=== PATIENT | female | born 1970 | race Caucasian/White ===

== ENCOUNTER 2016-07-18 17:44 | Inpatient (IN) | payer MEDICAID ==
--- NOTE | 2016-07-18 17:58 | EDPHY ---
H & P Stated Complaint: low K from labwork from yest. Time Seen by Provider: 07/18/16 17:57 HPI/ROS: CHIEF COMPLAINT: [ ] HISTORY OF PRESENT ILLNESS: [Need 4: Location, Duration, Severity, Quality, Context, Timing Modifying Factors, Associated S&S] REVIEW OF SYSTEMS: A comprehensive 10 point review of systems is otherwise negative aside from elements mentioned in the history of present illness. Source: Patient - Personal History LMP (Females 10-55): Post Menopausal Tetanus Vaccine Date: 2010 - Medical/Surgical History Hx Asthma: No Hx Chronic Respiratory Disease: No Hx Diabetes: No Hx Cardiac Disease: No Hx Renal Disease: No Hx Cirrhosis: No Hx Alcoholism: No Hx HIV/AIDS: No Hx Splenectomy or Spleen Trauma: No Other PMH: anorexia, bipolar, kidney stones, UTI. - Social History Smoking Status: Former smoker - Physical Exam Exam: General Appearance: [Alert, no distress] Eyes: [Pupils equal and round no pallor or injection] ENT, Mouth: [Mucous membranes moist] Respiratory: [There are no retractions, lungs are clear to auscultation] Cardiovascular: [Regular rate and rhythm] Gastrointestinal: [Abdomen is soft and nontender, no masses, bowel sounds normal] Neurological: [A&O, normal motor function, normal sensory exam, normal cranial nerves] Skin: [Warm and dry, no rashes] Musculoskeletal: [Neck is supple nontender] Extremities: [symmetrical, full range of motion] Psychiatric: [Patient is oriented X 3, there is no agitation] Constitutional: Initial Vital Signs Temperature (C) 36.6 C 07/18/16 17:45 Heart Rate 71 07/18/16 17:45 Respiratory Rate 16 07/18/16 17:45 Blood Pressure 120/83 H 07/18/16 17:45 O2 Sat (%) 96 07/18/16 17:45 O2 Delivery Mode Room Air Allergies/Adverse Reactions: amoxicillin Allergy (Intermediate, Verified 04/19/16 12:31) Abdominal Pain lamotrigine [From Lamictal] Allergy (Intermediate, Verified 04/19/16 12:31) Rash Home Medications: Medication Instructions Recorded Linaclotide [Linzess] 290 mcg PO DAILY 05/26/14 Pantoprazole Sodium [Protonix 40mg 40 mg PO DAILY 05/26/14 (*)] Aspirin [Aspirin 81mg (*)] 81 mg PO DAILY 03/03/15 Gabapentin [Neurontin 300 MG (*)] 600 mg PO HS 03/03/15 Temazepam [Restoril 15 MG (*)] 15 mg PO 1900 PRN 03/03/15 Metoclopramide [Reglan 5 mg (*)] 5 mg PO AC 02/22/16 Ranitidine HCl [Zantac 75] 75 mg PO DAILY 02/22/16 diphenhydrAMINE [Benadryl 25 MG 25 mg PO BID PRN 02/22/16 (*)] traZODone [traZODone 150MG (*)] 150 mg PO HS 02/22/16 Loperamide HCl [Imodium 2 mg (*)] 2 mg PO QID PRN #0 cap 02/23/16 oxyCODONE IR [Oxycodone Ir (*)] 5 mg PO Q6 PRN #5 tab 02/23/16 Gabapentin [Neurontin 300 MG (*)] 900 mg PO HS 04/19/16 Linaclotide [Linzess] 290 mcg PO DAILYAC 04/19/16 Metoclopramide [Reglan 10 mg tab 10 mg PO ACHS 04/19/16 (*)] Ondansetron [Zofran Odt] 8 mg PO BID PRN 04/19/16 Promethazine HCl [Phenergan 25mg 25 mg PO Q8 PRN 04/19/16 (*)] busPIRone [Buspar (*)] 15 mg PO HS 04/19/16 clonazePAM [klonoPIN (*)] 1 mg PO HS 04/19/16 traZODone [traZODone 150MG (*)] 150 mg PO HS 04/19/16 Acetaminophen [Tylenol 325mg (*)] 650 mg PO Q6 PRN #0 tab 04/30/16 Apixaban [Eliquis] 5 mg PO BID #60 tab 04/30/16 Calcium Carbonate [Tums 500MG (*)] 500 mg PO TID PRN #0 tab.chew 04/30/16 Pantoprazole Sodium [Protonix 40mg 40 mg PO BID #60 tab 04/30/16 (*)] Simethicone [Mylicon] 80 mg PO Q6H PRN #0 tab.chew 04/30/16 oxyCODONE IR [Oxycodone Ir (*)] 5 - 10 mg PO Q4HRS PRN #30 tab 04/30/16
--- NOTE | 2016-07-18 18:08 | EDPHY ---
H & P Stated Complaint: low K from labwork from yest. Source: Patient, Family Exam Limitations: No limitations - Personal History LMP (Females 10-55): Post Menopausal Tetanus Vaccine Date: 2010 - Medical/Surgical History Hx Asthma: No Hx Chronic Respiratory Disease: No Hx Diabetes: No Hx Cardiac Disease: No Hx Renal Disease: No Hx Cirrhosis: No Hx Alcoholism: No Hx HIV/AIDS: No Hx Splenectomy or Spleen Trauma: No Other PMH: anorexia, bipolar, kidney stones, UTI. - Social History Smoking Status: Former smoker Time Seen by Provider: 07/18/16 17:57 HPI/ROS: CHIEF COMPLAINT: Low potassium, vomiting diarrhea HISTORY OF PRESENT ILLNESS: reports 1 week history of vomiting diarrhea that has stopped since yesterday. Yesterday she had laboratory studies drawn by her primary care physician, today she was notified that the potassium was critically low. She does not know the value was. She has had no vomiting or diarrhea since yesterday. No fevers or chills. No chest pain or shortness of breath. No weakness. Feeling much better today than she was. No other associated complaints or modifying factors past REVIEW OF SYSTEMS: Ten systems reviewed and are negative unless otherwise noted in the HPI EXAMINATION General Appearance: Alert, no distress Head: normocephalic, atraumatic Eyes: Pupils equal and round, no conjunctival pallor or injection ENT, Mouth: Mucous membranes moist Neck: Normal inspection, supple, non-tender Respiratory: Lungs are clear to auscultation. No wheezing, rhonchi or crackles. Cardiovascular: Regular rate and rhythm . No murmur. Pulses intact distally Gastrointestinal: Abdomen is soft and nontender. No tympany, rigidity or rebound Back: non-tender, no bony abnormalities Neurological: A&O, nonfocal, strength symmetric in all limbs. No fasciculations or spasm Skin: Warm and dry, no rash Extremities: Nontender, no pedal edema Psychiatric: Mood and affect normal DIFFERENTIAL DIAGNOSES: Including but not limited to hypokalemia, critical hyperkalemia, nausea vomiting, diarrhea, dehydration MDM: 6:05 p.m. reports of vomiting diarrhea over the past week with a subsequent hypokalemia by previous laboratory studies. She is feeling much better over the last 24 hours. She has no respiratory or abdominal complaints at this time. We are pending stat recheck of her potassium at this time. 6:20 p.m. I-STAT did reveal a potassium of 2.4, so we did immediately order potassium chloride IV piggyback. This was the peripheral route order. She is still resting comfortably at this time. We will obtain EKG and plan for admission. 7:00 p.m. I have re-evaluated the patient. She has received a p.o. dose, she is eating where infusing IV piggyback potassium chloride. EKG is unremarkable. She is resting comfortably. Given the severity of the hypokalemia, we will admit her to hospital for further care. 7:15 p.m. I have discussed the case with the hospitalist Dr. Del Rosario. he has requested that we administered a total of 60 mEq p. o. and IV piggyback combined then recheck potassium level. If at that time she has not increased, we will plan for admission. I do feel that that is a reasonable request at this time. She is also eating at this time as well. We will recheck after the infusion of the IV piggyback potassium chloride 8:45 p.m. repeat potassium level is 2.6 after 60 mEq IV p.o. combination. Thus we will proceed with admission. This case has already been discussed with Dr. Del Rosario by Dr. Valadez, and he will admit the patient. she remains hemodynamically stable and tolerating intake by mouth SUPERVISION: Patient was evaluated in conjunction with the supervising physician. Please see their note for details. (Omkar Vivar) Constitutional: Initial Vital Signs Temperature (C) 97.9 F 07/18/16 17:45 Heart Rate 71 07/18/16 17:45 Respiratory Rate 16 07/18/16 17:45 Blood Pressure 120/83 H 07/18/16 17:45 O2 Sat (%) 96 07/18/16 17:45 O2 Delivery Mode Room Air Allergies/Adverse Reactions: amoxicillin Allergy (Intermediate, Verified 04/19/16 12:31) Abdominal Pain lamotrigine [From Lamictal] Allergy (Intermediate, Verified 04/19/16 12:31) Rash Home Medications: Medication Instructions Recorded Pantoprazole Sodium [Protonix 40mg 40 mg PO DAILY 05/26/14 (*)] Ranitidine HCl [Zantac 75] 75 mg PO DAILY 02/22/16 traZODone [traZODone 150MG (*)] 150 mg PO HS 02/22/16 Linaclotide [Linzess] 290 mcg PO DAILYAC 04/19/16 Metoclopramide [Reglan 10 mg tab 10 mg PO ACHS 04/19/16 (*)] clonazePAM [klonoPIN (*)] 1 mg PO HS 04/19/16 Apixaban [Eliquis] 5 mg PO BID #60 tab 04/30/16 FLUoxetine [Prozac 10 MG (*)] 10 mg PO HS 07/18/16 Multivitamins [Multivitamin (*)] 1 each PO DAILY 07/18/16 SUMAtriptan [Imitrex 25 MG (*)] 25 mg PO PRN PRN 07/18/16 hydrOXYzine HCL 10 mg PO DAILY 07/18/16 Medical Decision Making - Diagnostics EKG Interpretation: EKG: Complete interpretation has been separately recorded in the [facility] archive. Summary impression: Sinus rhythm (Karan Valadez) Other Provider: PHYSICIAN DOCUMENTATION: The patient was evaluated and managed by the Physician Supervisor [employer]. My co- signature indicates that I have reviewed this chart and I agree with the findings and plan of care as documented. I am the secondary supervising physician. The patient did have some replacement of potassium in the emergency department. She continues to be significantly hypokalemic. The patient will be admitted to the hospital for electrolyte replacement this evening. Consultation was made with Dr. Del Rosario 9:00 p.m.. He will admit the patient. ( Karan Valadez) - Data Points Laboratory Results: Laboratory Results 07/18/16 18:20 07/18/16 18:20 07/18/16 07/18/16 07/18/16 20:39 18:20 18:18 WBC 16.21 H 10^3/uL (3.80-9.50) RBC 5.80 H 10^6/uL (4.18-5.33) Hgb 15.4 g/dL (12.6-16.3) POC Hgb 14.3 gm/dL 16.7 H gm/dL (12.3-15.9) (12.3-15.9) Hct 42.7 % (38.0-47.0) POC Hct 42 % 49 H % (35.5-47.5) (35.5-47.5) MCV 73.6 L fL (81.5-99.8) MCH 26.6 L pg (27.9-34.1) MCHC 36.1 g/dL (32.4-36.7) RDW 15.6 H % (11.5-15.2) Plt Count 396 10^3/uL (150-400) MPV 9.1 fL (8.7-11.7) Neut % (Auto) 64.9 % (39.3-74.2) Lymph % (Auto) 23.1 % (15.0-45.0) [place] % (Auto) 10.2 % (4.5-13.0) Eos % (Auto) 1.0 % (0.6-7.6) Baso % (Auto) 0.4 % (0.3-1.7) Nucleat RBC Rel Count 0.0 % (0.0-0.2) Absolute Neuts (auto) 10.51 H 10^3/uL (1.70-6.50) Absolute Lymphs (auto) 3.74 H 10^3/uL (1.00-3.00) Absolute Monos (auto) 1.66 H 10^3/uL (0.30-0.80) Absolute Eos (auto) 0.16 10^3/uL (0.03-0.40) Absolute Basos (auto) 0.07 10^3/uL (0.02-0.10) Absolute Nucleated RBC 0.00 10^3/uL (0-0.01) Immature Gran % 0.4 % (0.0-1.1) Immature Gran # 0.07 10^3/uL (0.00-0.10) POC Sodium 134 mEq/L 132 L mEq/L (134-144) (134-144) Sodium 129 L mEq/L (134-144) POC Potassium 2.6 L* mEq/L 2.4 L* mEq/L (3.3-5.0) (3.3-5.0) Potassium 2.6 L* mEq/L (3.5-5.2) POC Chloride 95 L mEq/L 91 L mEq/L (96-108) (96-108) Chloride 91 L mEq/L (97-110) Carbon Dioxide 25 D mEq/l (22-31) Anion Gap 13 mEq/L (8-16) POC BUN 25 H mg/dL 29 H mg/dL (7-23) (7-23) BUN 27 H mg/dL (7-23) Creatinine 1.4 H mg/dL (0.6-1.0) POC Creatinine 1.6 H mg/dL 1.7 H mg/dL (0.6-1.2) (0.6-1.2) Estimated GFR 41 Glucose 97 mg/dL (70-100) POC Glucose 118 H mg/dL 102 H mg/dL (70-100) (70-100) Calcium 9.7 mg/dL (8.5-10.4) Phosphorus 2.4 L mg/dL (2.5-4.5) Magnesium 2.1 mg/dL (1.6-2.3) Total Bilirubin 0.6 mg/dL (0.1-1.4) Conjugated Bilirubin 0.6 H mg/dL (0.0-0.5) Unconjugated Bilirubin 0.0 mg/dL (0.0-1.1) AST 33 IU/L (14-46) ALT 30 IU/L (9-52) Alkaline Phosphatase 95 IU/L (38-126) Total Protein 6.7 g/dL (6.3-8.2) Albumin 4.2 g/dL (3.5-5.0) Lipase 428.0 H IU/L (23-300) Medications Given: Discontinued Medications Sodium Chloride (Ns) 1,000 mls @ 0 mls/hr IV ONCE ONE PRN Reason: Wide Open Stop: 07/18/16 18:24 Last Admin: 07/18/16 18:25 Dose: 1,000 mls Potassium Chloride (Potassium Cl 10 Meq (Premix)) 100 mls @ 100 mls/hr IV EDNOW ONE Stop: 07/18/16 19:27 Last Admin: 07/18/16 18:50 Dose: 100 mls Potassium Chloride (Klor Packets) 20 meq PO EDNOW ONE Stop: 07/18/16 18:10 Last Admin: 07/18/16 18:25 Dose: 20 meq Potassium Chloride (Klor Packets) 20 meq PO EDNOW ONE Stop: 07/18/16 19:15 Last Admin: 07/18/16 19:34 Dose: 20 meq Point of Care Test Results: 07/18/16 07/18/16 18:18 20:39 POC Sodium 132 L 134 POC Potassium 2.4 L* 2.6 L* POC Chloride 91 L 95 L POC BUN 29 H 25 H POC Creatinine 1.7 H 1.6 H POC Glucose 102 H 118 H Departure - Departure Clinical Impression: Acute hypokalemia, Renal insufficiency, Nausea & vomiting Referrals: Parviz Gibson MD [Primary Care Provider] - As per Instructions
[2016-07-18] MEDS ORDERED: POTASSIUM CL 20 MEQ PKT PO ONE ×2 (18:09→19:14)
[2016-07-18] MEDS ORDERED: NS 1,000 ML IV ONE (18:23)
[2016-07-18] MEDS ORDERED: POTASSIUM Cl (KCl) 100 ML IV ONE (18:28)
[2016-07-18 18:37] LABS: % IMMATURE GRANULYOCYTES 0.4 % (0.0-1.1); ABSOLUTE IMMATURE GRANULOCYTES 0.07 10^3/uL (0.00-0.10); ADD DIFF? NO; ADD MORPH? NO; ADD SCAN? NO; ATYPICAL LYMPHOCYTE FLAG 0 (0-99); FRAGMENT RBC FLAG 0 (0-99); HEMATOCRIT 42.7 % (38.0-47.0); HEMOGLOBIN 15.4 g/dL (12.6-16.3); LEFT SHIFT FLG 0 (0-99); LIPEMIA HEMOLYSIS FLAG 90 (0-99); MEAN CELL HEMOGLOBIN 26.6 pg (27.9-34.1); MEAN CELL HEMOGLOBIN CONCENTR. 36.1 g/dL (32.4-36.7); MEAN CELL VOLUME 73.6 fL (81.5-99.8); MEAN PLATELET VOLUME 9.1 fL (8.7-11.7); PLATELET CLUMPS FLAG 10 (0-99); PLATELET COUNT 396 10^3/uL (150-400); RED CELL DISTRIBUTION WIDTH 15.6 % (11.5-15.2)
--- NOTE | 2016-07-18 18:51 | CPEKG ---
Heart Rate: 62 RR Interval: 968 P-R Interval: 132 QRSD Interval: 96 QT Interval: 412 QTC Interval: 419 P [place]: 13 QRS [place]: 78 T Wave [place]: 25 EKG Severity - ABNORMAL ECG - EKG Impression: SINUS RHYTHM EKG Impression: PROBABLE INFERIOR INFARCT, OLD Electronically Signed By: Karan Valadez 18-Jul-2016 23:01:28
[2016-07-18 18:58] LABS: ALANINE AMINOTRANSFERASE 30 IU/L (9-52); ALBUMIN 4.2 g/dL (3.5-5.0); ALKALINE PHOSPHATASE 95 IU/L (38-126); ANION GAP 13 mEq/L (8-16); ASPARTATE AMINOTRANSFERASE 33 IU/L (14-46); BILIRUBIN,TOTAL 0.6 mg/dL (0.1-1.4); BILIRUBIN-CONJUGATED 0.6 mg/dL (0.0-0.5); CALCIUM 9.7 mg/dL (8.5-10.4); CARBON DIOXIDE 25 mEq/l (22-31); CHLORIDE 91 mEq/L (97-110); CREATININE 1.4 mg/dL (0.6-1.0); GLOMERULAR FILTRATION RATE 41; GLUCOSE 97 mg/dL (70-100); MAGNESIUM 2.1 mg/dL (1.6-2.3); SODIUM 129 mEq/L (134-144); TOTAL PROTEIN 6.7 g/dL (6.3-8.2)
[2016-07-18 19:17] LABS: POTASSIUM 2.6 mEq/L (3.5-5.2)
[2016-07-18] MEDS ORDERED: POTASSIUM CL 20 MEQ TAB ONE (19:31)
[2016-07-18] MEDS ORDERED: ONDANSETRON 4 MG/2 ML VIAL IVP PRN (21:09)
[2016-07-18] MEDS ORDERED: ACETAMINOPHEN 325 MG TAB PO PRN (21:09)
[2016-07-18] MEDS ORDERED: PROMETHAZINE HCL 25 MG TAB PO PRN (21:09)
[2016-07-18] MEDS ORDERED: ONDANSETRON DISINTEGRATING 4 MG TAB PO PRN (21:09)
[2016-07-18] MEDS ORDERED: PROMETHAZINE HCL 25 MG/ML INJ IVP PRN (21:09)
[2016-07-18] MEDS ORDERED: SUMAtriptan 25 MG TAB PO PRN (21:11)
[2016-07-18] MEDS ORDERED: NS W/ 20 KCl/L 1,000 ML IV SCH (21:15)
--- NOTE | 2016-07-18 21:16 | PDGENHP ---
History and Physical - Chief Complaint Acute nausea and vomiting - History of Present Illness PCP: Dr. Gibson Primary manual training teacher: Dr. Schwartz HPI: A 46-year-old female presenting with acute nausea and vomiting characterized as nonbloody emesis with associated nonbloody diarrhea, onset of symptoms approximately 8 days ago and duration persistent thereafter. The patient reports that her symptoms were not alleviated by oral antiemetics taken at home and notably she has not been taking any supplemental potassium during these symptoms. She has been taking all of her other home medications. She reports that she was seen her primary care provider office on 07/17, and lab work was drawn. She had a potassium level of 2.4 was called to present to the emergency department today. Her nausea and vomiting was exacerbated by oral intake and consequently she had a difficult time tolerating solids and liquids during the past week. She reports that her GI symptoms have improved today and she is able to tolerate oral solids and liquids at this time. History Information - Allergies/Home Medication List Allergies/Adverse Reactions: amoxicillin Allergy (Intermediate, Verified 04/19/16 12:31) Abdominal Pain lamotrigine [From Lamictal] Allergy (Intermediate, Verified 04/19/16 12:31) Rash Home Medications: Pantoprazole Sodium [Protonix 40mg (*)] 40 mg PO HS 05/26/14 [Last Taken ] Ranitidine HCl [Zantac 75] 150 mg PO DAILY 02/22/16 [Last Taken 07/18/16] traZODone [traZODone 150MG (*)] 150 mg PO HS 02/22/16 [Last Taken 07/17/16] Linaclotide [Linzess] 290 mcg PO DAILYAC 04/19/16 [Last Taken 07/18/16] Metoclopramide [Reglan 10 mg tab (*)] 10 mg PO QID 04/19/16 [Last Taken 07/18/16 ] clonazePAM [klonoPIN (*)] 1 mg PO HS 04/19/16 [Last Taken 07/17/16] FLUoxetine [Prozac 10 MG (*)] 10 mg PO HS 07/18/16 [Last Taken 07/17/16] Multivitamins [Multivitamin (*)] 1 each PO DAILY 07/18/16 [Last Taken 07/18/16] SUMAtriptan [Imitrex 25 MG (*)] 25 mg PO PRN PRN 07/18/16 [Last Taken 07/14/16] hydrOXYzine HCL 10 mg PO DAILY 07/18/16 [Last Taken 07/04/16] I have personally reviewed and updated: family history, medical history, social history, surgical history - Past Medical History Additional medical history: Anorexia/bulimia/anxiety disorder. Bipolar disease type 1 with extended hospitalization 2012. Chronic kidney disease stage 3, with nephrocalcinosis and baseline creatinine 1.1. Renal artery stenosis with 60% stenosis on the right. Gastroesophageal reflux disease and Hernadez's esophagus. 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 Recurrent hypokalemia with cardiac arrest - Surgical History Additional surgical history: SMA stent. Left axillary stent. Colonoscopy - Family History Additional family history: mother had skin and breast cancer and vertebral artery stenting father had of aortic valve repair and coronary artery disease - Social History Smoking Status: Former smoker Alcohol Use: None Drug Use: None Additional social history: Independent in her ADLs Review of Systems ROS: 10pt was reviewed & negative except for what was stated in HPI & below Gastrointestinal: Reports: vomitting, diarrhea, nausea Physical Exam Temp Pulse Resp BP Pulse Ox 37.6 C 69 16 141/93 H 94 07/18/16 20:34 07/18/16 21:00 07/18/16 21:00 07/18/16 21:00 07/18/16 21:00 Constitutional: no apparent distress, appears nourished, not in pain Eyes: PERRL, anicteric sclera, EOMI Ears, Nose, Mouth, Throat: moist mucous membranes, hearing normal, ears appear normal, no oral mucosal ulcers Cardiovascular: regular rate and rhythym, no murmur, rub, or gallop, No edema Respiratory: no respiratory distress, no rales or rhonchi, clear to auscultation Gastrointestinal: normoactive bowel sounds, soft, non-tender abdomen, no palpable masses Genitourinary: no bladder fullness, no bladder tenderness, other (No CVA tenderness) Skin: warm, normal color, no rashes or abrasions, no fluctuance, no induration, No mottled Neurologic: AAOx3, sensation intact bilaterally, No weakness Psychiatric: interacting appropriately, not anxious, not encephalopathic, thought process linear Lab Data & Imaging Review 07/18/16 18:20 07/18/16 18:20 WBC 16.21 10^3/uL (3.80-9.50) H 07/18/16 18:20 RBC 5.80 10^6/uL (4.18-5.33) H 07/18/16 18:20 Hgb 15.4 g/dL (12.6-16.3) 07/18/16 18:20 POC Hgb 14.3 gm/dL (12.3-15.9) 07/18/16 20:39 Hct 42.7 % (38.0-47.0) 07/18/16 18:20 POC Hct 42 % (35.5-47.5) 07/18/16 20:39 MCV 73.6 fL (81.5-99.8) L 07/18/16 18:20 MCH 26.6 pg (27.9-34.1) L 07/18/16 18:20 MCHC 36.1 g/dL (32.4-36.7) 07/18/16 18:20 RDW 15.6 % (11.5-15.2) H 07/18/16 18:20 Plt Count 396 10^3/uL (150-400) 07/18/16 18:20 MPV 9.1 fL (8.7-11.7) 07/18/16 18:20 Neut % (Auto) 64.9 % (39.3-74.2) 07/18/16 18:20 Lymph % (Auto) 23.1 % (15.0-45.0) 07/18/16 18:20 [place] % (Auto) 10.2 % (4.5-13.0) 07/18/16 18:20 Eos % (Auto) 1.0 % (0.6-7.6) 07/18/16 18:20 Baso % (Auto) 0.4 % (0.3-1.7) 07/18/16 18:20 Nucleat RBC Rel Count 0.0 % (0.0-0.2) 07/18/16 18:20 Absolute Neuts (auto) 10.51 10^3/uL (1.70-6.50) H 07/18/16 18:20 Absolute Lymphs (auto) 3.74 10^3/uL (1.00-3.00) H 07/18/16 18:20 Absolute Monos (auto) 1.66 10^3/uL (0.30-0.80) H 07/18/16 18:20 Absolute Eos (auto) 0.16 10^3/uL (0.03-0.40) 07/18/16 18:20 Absolute Basos (auto) 0.07 10^3/uL (0.02-0.10) 07/18/16 18:20 Absolute Nucleated RBC 0.00 10^3/uL (0-0.01) 07/18/16 18:20 Immature Gran % 0.4 % (0.0-1.1) 07/18/16 18:20 Immature Gran # 0.07 10^3/uL (0.00-0.10) 07/18/16 18:20 POC Sodium 134 mEq/L (134-144) 07/18/16 20:39 Sodium 129 mEq/L (134-144) L 07/18/16 18:20 POC Potassium 2.6 mEq/L (3.3-5.0) L* 07/18/16 20:39 Potassium 2.6 mEq/L (3.5-5.2) L* 07/18/16 18:20 POC Chloride 95 mEq/L (96-108) L 07/18/16 20:39 Chloride 91 mEq/L (97-110) L 07/18/16 18:20 Carbon Dioxide 25 mEq/l (22-31) D 07/18/16 18:20 Anion Gap 13 mEq/L (8-16) 07/18/16 18:20 POC BUN 25 mg/dL (7-23) H 07/18/16 20:39 BUN 27 mg/dL (7-23) H 07/18/16 18:20 Creatinine 1.4 mg/dL (0.6-1.0) H 07/18/16 18:20 POC Creatinine 1.6 mg/dL (0.6-1.2) H 07/18/16 20:39 Estimated GFR 41 07/18/16 18:20 Glucose 97 mg/dL (70-100) 07/18/16 18:20 POC Glucose 118 mg/dL (70-100) H 07/18/16 20:39 Calcium 9.7 mg/dL (8.5-10.4) 07/18/16 18:20 Phosphorus 2.4 mg/dL (2.5-4.5) L 07/18/16 18:20 Magnesium 2.1 mg/dL (1.6-2.3) 07/18/16 18:20 Total Bilirubin 0.6 mg/dL (0.1-1.4) 07/18/16 18:20 Conjugated Bilirubin 0.6 mg/dL (0.0-0.5) H 07/18/16 18:20 Unconjugated Bilirubin 0.0 mg/dL (0.0-1.1) 07/18/16 18:20 AST 33 IU/L (14-46) 07/18/16 18:20 ALT 30 IU/L (9-52) 07/18/16 18:20 Alkaline Phosphatase 95 IU/L (38-126) 07/18/16 18:20 Total Protein 6.7 g/dL (6.3-8.2) 07/18/16 18:20 Albumin 4.2 g/dL (3.5-5.0) 07/18/16 18:20 Lipase 428.0 IU/L (23-300) H 07/18/16 18:20 Visualized and Interpreted EKG results: Yes EKG Interpretation: Positive for: other (Normal sinus rhythm, T-wave inversion in lead 3) Assessment & Plan Assessment: 46-year-old female presents with acute nausea and vomiting resulting in acute hypokalemia, acute kidney injury on chronic kidney disease Plan: 1. Hypokalemia. Acute, new problem this provider, further workup is warranted. Most likely etiology is a poor oral intake as well as GI losses -discussed with Joshua Vivar in the emergency department as well as Dr. Valadez, they have reported to me that they administered 60 mEq of potassium and her repeat serum potassium level remains somewhat unchanged 2.6 -consequently, the patient will require ongoing IV fluids with supplemental potassium and repeating magnesium and potassium levels in the a.m. -will be particular cautious with a potassium supplementation given her acute kidney injury on chronic kidney disease and her risk of over correcting resulting in hyperkalemia -will remain on telemetry overnight given her history of cardiac arrest in the setting of hypokalemia 2. Acute kidney injury on chronic kidney disease stage 3. Baseline creatinine 1.1, presenting serum creatinine level 1.7, most likely secondary to hypovolemia in the setting of nausea vomiting and diarrhea -continue IV fluids overnight, repeat serum creatinine level in a.m., monitor strict I&Os 3. Leukocytosis. Most likely secondary to acute stress, repeat CBC in a.m., no evidence of systemic inflammatory response syndrome 4. Hyponatremia. Acute, most likely secondary to hypo kalemia in the setting of above, provide normal saline and repeat serum sodium level in a.m. 5. Bipolar disease type 1. No evidence of [place] or depression, continue home medications 6. Protein C deficiency. Reviewed outside records including 04/30/[address] Castanon, characterizing patient's most recent hospitalization for SMA thrombosis requiring stenting procedure as well as Lovenox and Coumadin -patient has been adjusted to Eliquis, continue -if patient develops severe abdominal pain, send serum lactic acid level and consider imaging Diet. Regular with IV fluids Prophylaxis. High risk patient, currently on systemic anticoagulation Code status. Full Disposition. Anticipated discharge is 07/19/2016, pending further workup and treatment as outlined above and stabilization of her potassium level.
[2016-07-18] MEDS: APIXABAN 5 MG TAB PO SCH (21:52)
[2016-07-18] MEDS: PANTOPRAZOLE SODIUM 40 MG TAB PO SCH (21:52)
[2016-07-18] MEDS: FLUoxetine 10 MG CAP PO SCH (21:52)
[2016-07-18] MEDS: clonazePAM 1 MG TAB PO SCH (21:52)
[2016-07-19 04:57] LABS: % IMMATURE GRANULYOCYTES 0.2 % (0.0-1.1); ABSOLUTE IMMATURE GRANULOCYTES 0.03 10^3/uL (0.00-0.10); ADD DIFF? NO; ADD MORPH? NO; ADD SCAN? NO; ATYPICAL LYMPHOCYTE FLAG 0 (0-99); FRAGMENT RBC FLAG 0 (0-99); HEMATOCRIT 38.3 % (38.0-47.0); HEMOGLOBIN 13.1 g/dL (12.6-16.3); LEFT SHIFT FLG 0 (0-99); LIPEMIA HEMOLYSIS FLAG 90 (0-99); MEAN CELL HEMOGLOBIN 26.1 pg (27.9-34.1); MEAN CELL HEMOGLOBIN CONCENTR. 34.2 g/dL (32.4-36.7); MEAN CELL VOLUME 76.4 fL (81.5-99.8); MEAN PLATELET VOLUME 9.2 fL (8.7-11.7); PLATELET CLUMPS FLAG 0 (0-99); PLATELET COUNT 307 10^3/uL (150-400); RED BLOOD CELL COUNT 5.01 10^6/uL (4.18-5.33); RED CELL DISTRIBUTION WIDTH 15.8 % (11.5-15.2)
[2016-07-19 05:15] LABS: ALANINE AMINOTRANSFERASE 31 IU/L (9-52); ALBUMIN 2.8 g/dL (3.5-5.0); ALKALINE PHOSPHATASE 68 IU/L (38-126); ANION GAP 7 mEq/L (8-16); ASPARTATE AMINOTRANSFERASE 28 IU/L (14-46); BILIRUBIN,TOTAL 0.4 mg/dL (0.1-1.4); CALCIUM 8.7 mg/dL (8.5-10.4); CARBON DIOXIDE 22 mEq/l (22-31); CHLORIDE 107 mEq/L (97-110); CREATININE 1.2 mg/dL (0.6-1.0); GLOMERULAR FILTRATION RATE 49; GLUCOSE 89 mg/dL (70-100); MAGNESIUM 2.2 mg/dL (1.6-2.3); SODIUM 136 mEq/L (134-144); TOTAL PROTEIN 5.2 g/dL (6.3-8.2)
[2016-07-19 05:18] LABS: POTASSIUM 2.6 mEq/L (3.5-5.2)
[2016-07-19] MEDS ORDERED: PROTOCOL POTASSIUM 1 DOSE MISC PRN (05:36)
[2016-07-19] MEDS ORDERED: POTASSIUM Cl (KCl) 100 ML IV SCH (06:00)
[2016-07-19] MEDS: METOCLOPRAMIDE 10 MG TAB PO SCH ×6 (06:03→21:21)
[2016-07-19] MEDS ORDERED: POTASSIUM CL 20 MEQ TAB PO ONE (07:00)
[2016-07-19] MEDS: APIXABAN 5 MG TAB PO SCH ×2 (08:01→21:21)
[2016-07-19] MEDS: FAMOTIDINE 20 MG TAB PO SCH (08:01)
[2016-07-19] MEDS: MULTIVITAMINS 1 EACH TAB PO SCH (08:01)
[2016-07-19] MEDS ORDERED: hydrOXYzine HCL 10 MG TAB PO SCH (09:00)
[2016-07-19] MEDS: SIMETHICONE 80 MG TAB CHEW PO SCH ×3 (14:18→21:36)
[2016-07-19 15:53] LABS: POTASSIUM 2.6 mEq/L (3.5-5.2)
[2016-07-19] MEDS ORDERED: PROTOCOL MAGNESIUM 1 DOSE IV PRN (16:06)
[2016-07-19] MEDS ORDERED: PROTOCOL K PHOSPHATE 1 DOSE IV PRN (16:06)
[2016-07-19] MEDS ORDERED: MAGNESIUM SULF 1 GM/DEXTROSE 100 ML IV ONE (16:07)
[2016-07-19] MEDS ORDERED: POTASSIUM CL 20 MEQ/15 ML UDCUP PO ONE ×2 (16:08→17:00)
--- NOTE | 2016-07-19 16:13 | HOSPPROG ---
Hospitalist Progress Note Assessment/Plan: 46 yo F with longstanding hx of eating d/o presents after approximately 8 days of n/v/d with hypokalemia # hypokalemia: has been slow to replete likely representing total body stores being very depleted. Continue K and Mg replacement. Will check phos as well and monitor for refeeding syndrome. GI sxs have largely resolved and she is now tolerating diet. # vargas on ckd: improved and now nearly back to baseline, likely related to pre renal etiology from n/v/d. # n/v/d: resolved for the most part, per patient this is frequent for her and related to her hx of bulimia and eating disorders. unclear if this is intentional or not. Will not w/u further at this point unless sxs recur # anorexia/bulimia: patient states that this is no longer an active issue for her however again, multiple admits for recurrent n/v and diarrhea that she admits is related to her eating disorder. BMI of 17. # hyponatremia: resolved with IVF # protein C deficiency: with complications of ischemic bowel, continue eiliquis # bipolar d/o: continue op meds, behaviorally controlled # dispo: IP status, will need > 48 hr stay given continued severe hypokalemia putting patient at high risk Patient new to my care. old records reviewed and summarized as above. Subjective: no significant overnight events, patient having no n/v and reports only one bm since arrival, she is eating Objective: Vital Signs Temp Pulse Resp BP Pulse Ox 37.0 C 61 12 102/63 96 07/19/16 15:42 07/19/16 15:42 07/19/16 15:42 07/19/16 15:42 07/19/16 15:42 Laboratory Results 07/19/16 04:17 07/19/16 14:30 07/18/16 07/19/16 07/20/16 05:59 05:59 05:59 Intake Total 1950 600 Output Total 1200 900 Balance 750 -300 awake alert nad anicteric op clear rrr no mrg cta b soft nt nd no cce warm dry well perfused oriented appropriate ICD10 Worksheet Patient Problems: Problems Problem Status Diagnosed Anorexia nervosa Active GERD - Gastroesophageal reflux disease Active Hypokalemia Active Acute hypokalemia Acute Diarrhea Acute Nausea & vomiting Acute Renal insufficiency Acute Bulemia [place] Active Chronic vomiting Active Coumadin Therapy for 6 months Active Dehydration Active Hyponatremia Active Leukocytosis Active Occlusion of artery Active Renal artery stenosis Active Thrombocytosis Active Tobacco user Active Abdominal pain Acute Hypokalemia Acute Mesenteric thrombosis Acute
[2016-07-19] MEDS: POTASSIUM Cl (KCl) 100 ML IV SCH ×2 (16:54→18:40)
[2016-07-19] MEDS: PANTOPRAZOLE SODIUM 40 MG TAB PO SCH (21:21)
[2016-07-19] MEDS: FLUoxetine 10 MG CAP PO SCH (21:21)
[2016-07-19] MEDS: clonazePAM 1 MG TAB PO SCH (21:21)
[2016-07-19 23:28] VITALS: O2SAT 95
[2016-07-20 04:53] LABS: ANION GAP 7 mEq/L (8-16); CALCIUM 8.9 mg/dL (8.5-10.4); CARBON DIOXIDE 23 mEq/l (22-31); CHLORIDE 108 mEq/L (97-110); CREATININE 1.2 mg/dL (0.6-1.0); GLOMERULAR FILTRATION RATE 49; GLUCOSE 91 mg/dL (70-100); MAGNESIUM 2.3 mg/dL (1.6-2.3); POTASSIUM 3.5 mEq/L (3.5-5.2); SODIUM 138 mEq/L (134-144)
[2016-07-20 08:17] VITALS: BP 106/75; PULSE 67; RESP 19; TEMP 98.1
[2016-07-20] MEDS: METOCLOPRAMIDE 10 MG TAB PO SCH (08:36)
[2016-07-20] MEDS: FAMOTIDINE 20 MG TAB PO SCH (08:36)
[2016-07-20] MEDS: MULTIVITAMINS 1 EACH TAB PO SCH (08:36)
[2016-07-20] MEDS: APIXABAN 5 MG TAB PO SCH (08:36)
[2016-07-20] MEDS ORDERED: POTASSIUM CL 10 MEQ TAB PO ONE (08:41)
--- NOTE | 2016-07-20 09:38 | PDDCSUM ---
Discharge Summary Discharge Summary: Dates of service: 07/18-07/20/16 Procedures/consultations: none Hospital course by problem: # hypokalemia: 2/2 n/v/d and poor po intake in setting of bulimia/anorexia and likely cyclic vomiting with possible viral gastroenteritis. Repleted. Continue low dose K supplementation given malnutrition. Has a hx of cardiac arrest related to hypokalemia # vargas on ckd: back to baseline s/p IVF # n/v/d: resolved , per patient this is frequent for her and related to her hx of bulimia and eating disorders. # anorexia/bulimia: continue op mgmt # moderate protein calorie malnutrition: BMI of 18, hx of bulimia/anorexia/ laxative abuse. As above. # hyponatremia: resolved with IVF # protein C deficiency: with complications of ischemic bowel, continue eiliquis # bipolar d/o: continue op meds, behaviorally controlled Dispo: dc home F/u with PCP in next week Meds: see EHR, continue K gluconate she had been taking previously as well as Mag oxide > 35 minutes spent in dc of patient, more than half in face to face counseling
== END 2016-07-20 10:40 | disposition home or self-care (01) | DRG 640 ==
LOC: F2W 21:28 → OBSVTOIN 07-19 16:09
PROVIDERS: ADMIT Internal Medicine; ATTEND Internal Medicine
DX: E87.6 Hypokalemia (principal); K55.059 Acute (reversible) ischemia of intestine, part and extent unspecified; N17.9 Acute kidney failure, unspecified; F50.02 Anorexia nervosa, binge eating/purging type; E44.0 Moderate protein-calorie malnutrition; D68.59 Other primary thrombophilia; Z68.1 Body mass index [BMI] 19.9 or less, adult; N18.3 Chronic kidney disease, stage 3 (moderate); F31.9 Bipolar disorder, unspecified; K29.70 Gastritis, unspecified, without bleeding; E87.1 Hypo-osmolality and hyponatremia; Z86.73 Personal history of transient ischemic attack (TIA), and cerebral infarction without residual deficits; Z87.891 Personal history of nicotine dependence; Z80.3 Family history of malignant neoplasm of breast; Z82.49 Family history of ischemic heart disease and other diseases of the circulatory system
CPT/HCPCS: 82947-QW; 96365; G0378; J3475

== ENCOUNTER 2016-08-11 01:47 | Inpatient (IN) | payer MEDICAID ==
[2016-08-11] MEDS ORDERED: NS 1,000 ML IV ONE ×4 (01:59→04:26)
[2016-08-11] MEDS ORDERED: ONDANSETRON 4 MG/2 ML VIAL IVP ONE (01:59)
[2016-08-11] MEDS ORDERED: HYDROmorphONE/DILAUDID 1 MG/ML SYR IVP PRN ×2 (02:00→04:30)
[2016-08-11 02:24] LABS: % IMMATURE GRANULYOCYTES 0.8 % (0.0-1.1); ADD DIFF? NO; ADD MORPH? NO; ADD SCAN? NO; ATYPICAL LYMPHOCYTE FLAG 0 (0-99); FRAGMENT RBC FLAG 0 (0-99); HEMATOCRIT 50.1 % (38.0-47.0); HEMOGLOBIN 16.7 g/dL (12.6-16.3); LEFT SHIFT FLG 10 (0-99); LIPEMIA HEMOLYSIS FLAG 80 (0-99); MEAN CELL HEMOGLOBIN 25.8 pg (27.9-34.1); MEAN CELL HEMOGLOBIN CONCENTR. 33.3 g/dL (32.4-36.7); MEAN CELL VOLUME 77.4 fL (81.5-99.8); MEAN PLATELET VOLUME 8.7 fL (8.7-11.7); PLATELET CLUMPS FLAG 10 (0-99); PLATELET COUNT 705 10^3/uL (150-400); RED BLOOD CELL COUNT 6.47 10^6/uL (4.18-5.33)
[2016-08-11 02:30] LABS: APTT 23.4 SEC (23.0-38.0); INR 1.18 (0.83-1.16)
[2016-08-11] MEDS ORDERED: IOPAMIDOL (ISOVUE-300) 100 ML BTL IV ONE (02:30)
[2016-08-11 02:31] LABS: ANION GAP 32 mEq/L (8-16); CALCIUM 10.8 mg/dL (8.5-10.4); CARBON DIOXIDE 23 mEq/l (22-31); CHLORIDE 77 mEq/L (97-110); CREATININE 2.2 mg/dL (0.6-1.0); GLOMERULAR FILTRATION RATE 24; GLUCOSE 209 mg/dL (70-100); SODIUM 132 mEq/L (134-144)
[2016-08-11] MEDS ORDERED: POTASSIUM Cl (KCl) 100 ML IV ONE ×2 (02:43→04:35)
[2016-08-11 02:46] LABS: POTASSIUM 2.3 mEq/L (3.5-5.2)
[2016-08-11] MEDS ORDERED: ERTAPENEM 1 GM in NS 100 ML IV ONE (02:59)
[2016-08-11] MEDS ORDERED: POTASSIUM Cl (KCl) 10 MEQ/100 ML BAG IV ONE ×2 (03:13→04:30)
[2016-08-11] MEDS ORDERED: NS 500 ML IV ONE (04:00)
[2016-08-11] MEDS ORDERED: NS 1,000 ML IV SCH (04:00)
[2016-08-11] MEDS ORDERED: LORazepam 2 MG/ML INJ IVP PRN (04:02)
[2016-08-11] MEDS ORDERED: SODIUM BICARBONATE 150 MEQ in D5W 1,000 ML IV ONE (05:00)
--- NOTE | 2016-08-11 05:07 | EDPHY ---
H & P Stated Complaint: abdominal pain, vomiting HPI/ROS: HPI The patient presents with abdominal pain which has been present for the last 3 days and getting progressively worse. She feels it mostly in her left abdomen, it is dull in nature and does not radiate. It is associated with abdominal distention, she has been using a heating pad on her abdomen. It has been associated with an episode of fainting upon standing. 911 was called and when the paramedics arrived, she had another fainting episode. She has vomited several times. She has a history of mesenteric ischemia and had a stent placed in her SMA several months ago. She return to the hospital about a month ago and was dehydrated with a bump in her creatinine and hypokalemia. REVIEW OF SYSTEMS Constitutional: No fever, no chills. Eyes: No discharge. ENT: No sore throat. Cardiovascular: No chest pain, no palpitations. Respiratory: No cough, no shortness of breath. Gastrointestinal: See HPI Genitourinary: No hematuria. Musculoskeletal: No back pain. Skin: No rashes. Neurological: No headache. PMHx: Mesenteric ischemia with stent in place, anorexia nervosa, bulimia Soc Hx: Lives at home PHYSICAL General Appearance: Alert, pale and uncomfortable appearing Eyes: Pupils equal and round no pallor or injection ENT, Mouth: Mucous membranes moist Respiratory: There are no retractions, lungs are clear to auscultation Cardiovascular: Tachycardic rate with regular rhythm Gastrointestinal: Mottled appearance to her abdominal skin, abdomen is distended, diffuse tenderness to palpation with rebound present Neurological: A&O, moves all extremities Skin: Warm and dry, no rashes Musculoskeletal: Neck is supple non tender Extremities: symmetrical, full range of motion Psychiatric: Patient is oriented X 3, there is no agitation Source: Patient, EMS - Personal History LMP (Females 10-55): 8-14 Days Ago Current Tetanus/Diphtheria Vaccine: Yes Current Tetanus Diphtheria and Acellular Pertussis (TDAP): Yes Tetanus Vaccine Date: 2010 - Medical/Surgical History Hx Asthma: No Hx Chronic Respiratory Disease: No Hx Diabetes: No Hx Cardiac Disease: No Hx Renal Disease: No Hx Cirrhosis: No Hx Alcoholism: No Hx HIV/AIDS: No Hx Splenectomy or Spleen Trauma: No Other PMH: anorexia, bipolar, kidney stones, UTI. - Social History Smoking Status: Former smoker Alcohol Use: None Constitutional: Initial Vital Signs Temperature (C) 36.7 C 08/11/16 01:50 Heart Rate 118 H 08/11/16 01:50 Respiratory Rate 16 08/11/16 01:50 Blood Pressure 102/74 08/11/16 01:50 O2 Sat (%) 97 08/11/16 01:50 O2 Delivery Mode Nasal Cannula O2 (L/minute) 2 Allergies/Adverse Reactions: amoxicillin Allergy (Intermediate, Verified 04/19/16 12:31) Abdominal Pain lamotrigine [From Lamictal] Allergy (Intermediate, Verified 04/19/16 12:31) Rash Home Medications: Medication Instructions Recorded Pantoprazole Sodium [Protonix 40mg 40 mg PO HS 05/26/14 (*)] Ranitidine HCl [Zantac 75] 150 mg PO DAILY 02/22/16 traZODone [traZODone 150MG (*)] 150 mg PO HS 02/22/16 Linaclotide [Linzess] 290 mcg PO DAILYAC 04/19/16 Metoclopramide [Reglan 10 mg tab 10 mg PO QID 04/19/16 (*)] clonazePAM [klonoPIN (*)] 1 mg PO HS 04/19/16 Apixaban [Eliquis] 5 mg PO BID #60 tab 04/30/16 FLUoxetine [Prozac 10 MG (*)] 10 mg PO HS 07/18/16 Multivitamins [Multivitamin (*)] 1 each PO DAILY 07/18/16 SUMAtriptan [Imitrex 25 MG (*)] 25 mg PO PRN PRN 07/18/16 hydrOXYzine HCL 10 mg PO DAILY 07/18/16 Acetaminophen [Tylenol 325mg (*)] 650 mg PO Q4HRS PRN #0 tab 07/20/16 Magnesium Oxide [Magnesium Oxide 500 mg PO DAILY #30 tablet 07/20/16 500 mg] Potassium Gluconate 90 mg PO DAILY #30 tablet 07/20/16 Simethicone [Mylicon] 80 mg PO PCHS #0 tab.chew 07/20/16 Medical Decision Making - Diagnostics Imaging: CT abd/pel without contrast discussed with Dr. Caraballo of Radiology demonstrates high-grade SBO of the distal ileum with twisting of mesenteric root , suspect ischemic small bowel with portal venous gas and pneumatosis Differential Diagnosis: This is a 46-year-old female with history of bulimia/anorexia, mesenteric ischemia with history of stent in SMA, who presents brought in by ambulance with severe abdominal pain and syncope. On arrival she is uncomfortable appearing, tachycardic, hypotensive, with a concerning abdominal exam. Differential diagnosis includes ischemic bowel, bowel obstruction, perforation. In the emergency room, the patient was fluid resuscitated with 2 L of IV fluid. She was given pain medication for her pain. Labs were checked which revealed hypokalemia, acute renal failure, profound leukocytosis with lactic acidosis of 12. Blood cultures were drawn. The patient was started on ertapenem. CT scan was performed which demonstrated concern for bowel ischemia versus SBO. Dr. Carr of General surgery came to the emergency room to consult on the patient. We plan to continue early fluid resuscitate her, place NG tube, placed central line, and admit her to the ICU for continued care. Critical Care Time: CRITICAL CARE Critical care time spent by me, Dr. Hartman, exclusively with this patient was 60 minutes, exclusive of PA time and exclusive of procedures. The organ system at risk was GI and I gave IV fluids, antibiotics, emergently transfer patient to the ICU to prevent worsening of the patients condition. - Data Points Laboratory Results: Laboratory Results 08/11/16 02:07 08/11/16 02:07 08/11/16 08/11/16 08/11/16 02:07 02:07 02:07 WBC RBC Hgb Hct MCV MCH MCHC RDW Plt Count MPV Neut % (Auto) Lymph % (Auto) [place] % (Auto) Eos % (Auto) Baso % (Auto) Nucleat RBC Rel Count Absolute Neuts (auto) Absolute Lymphs (auto) Absolute Monos (auto) Absolute Eos (auto) Absolute Basos (auto) Absolute Nucleated RBC Immature Gran % Immature Gran # PT 15.0 SEC SEC (12.0-15.0) INR 1.18 H (0.83-1.16) APTT 23.4 SEC SEC (23.0-38.0) VBG Lactic Acid Sodium 132 mEq/L L mEq/L (134-144) Potassium 2.3 mEq/L L* mEq/L (3.5-5.2) Chloride 77 mEq/L L mEq/L (97-110) Carbon Dioxide 23 mEq/l mEq/l (22-31) Anion Gap 32 mEq/L H mEq/L (8-16) BUN 34 mg/dL H mg/dL (7-23) Creatinine 2.2 mg/dL H mg/dL (0.6-1.0) Estimated GFR 24 Glucose 209 mg/dL H mg/dL (70-100) Calcium 10.8 mg/dL H mg/dL (8.5-10.4) Phosphorus 6.1 mg/dL H mg/dL (2.5-4.5) Lipase 107.0 IU/L IU/L (23-300) Beta HCG, Qual NEGATIVE 08/11/16 08/11/16 02:07 02:07 WBC 24.23 10^3/uL H 10^3/uL (3.80-9.50) RBC 6.47 10^6/uL H 10^6/uL (4.18-5.33) Hgb 16.7 g/dL H g/dL (12.6-16.3) Hct 50.1 % H % (38.0-47.0) MCV 77.4 fL L fL (81.5-99.8) MCH 25.8 pg L pg (27.9-34.1) MCHC 33.3 g/dL g/dL (32.4-36.7) RDW 16.0 % H % (11.5-15.2) Plt Count 705 10^3/uL H 10^3/uL (150-400) MPV 8.7 fL fL (8.7-11.7) Neut % (Auto) 90.6 % H % (39.3-74.2) Lymph % (Auto) 2.3 % L % (15.0-45.0) Galax % (Auto) 5.5 % % (4.5-13.0) Eos % (Auto) 0.1 % L % (0.6-7.6) Baso % (Auto) 0.7 % % (0.3-1.7) Nucleat RBC Rel Count 0.0 % % (0.0-0.2) Absolute Neuts (auto) 21.95 10^3/uL H 10^3/uL (1.70-6.50) Absolute Lymphs (auto) 0.56 10^3/uL L 10^3/uL (1.00-3.00) Absolute Monos (auto) 1.34 10^3/uL H 10^3/uL (0.30-0.80) Absolute Eos (auto) 0.02 10^3/uL L 10^3/uL (0.03-0.40) Absolute Basos (auto) 0.16 10^3/uL H 10^3/uL (0.02-0.10) Absolute Nucleated RBC 0.00 10^3/uL 10^3/uL (0-0.01) Immature Gran % 0.8 % % (0.0-1.1) Immature Gran # 0.20 10^3/uL H 10^3/uL (0.00-0.10) PT INR APTT VBG Lactic Acid 11.9 mmol/L H mmol/L (0.7-2.1) Sodium Potassium Chloride Carbon Dioxide Anion Gap BUN Creatinine Estimated GFR Glucose Calcium Phosphorus Lipase Beta HCG, Qual Medications Given: Discontinued Medications Sodium Chloride (Ns) 1,000 mls @ 0 mls/hr IV ONCE ONE PRN Reason: Wide Open Stop: 08/11/16 02:00 Last Admin: 08/11/16 02:00 Dose: 1,000 mls Potassium Chloride (Potassium Cl 20 Meq (Premix)) 100 mls @ 50 mls/hr IV EDNOW ONE Stop: 08/11/16 04:42 Last Admin: 08/11/16 03:25 Dose: 100 mls Ertapenem 1 gm/ Sodium (Chloride) 100 mls @ 200 mls/hr IV EDNOW ONE PRN Reason: Protocol Stop: 08/11/16 03:28 Last Admin: 08/11/16 03:28 Dose: 100 mls Sodium Chloride (Ns) 1,000 mls @ 0 mls/hr IV ONCE ONE PRN Reason: Wide Open Stop: 08/11/16 03:31 Last Admin: 08/11/16 03:25 Dose: 1,000 mls Sodium Chloride (Ns) 500 mls @ 1,500 mls/hr IV ONCE ONE Stop: 08/11/16 04:19 Last Admin: 08/11/16 04:35 Dose: 500 mls Sodium Chloride (Ns) 1,000 mls @ 0 mls/hr IV ONCE ONE PRN Reason: Wide Open Stop: 08/11/16 04:25 Last Admin: 08/11/16 03:15 Dose: 1,000 mls Sodium Chloride (Ns) 1,000 mls @ 0 mls/hr IV ONCE ONE PRN Reason: Wide Open Stop: 08/11/16 04:27 Last Admin: 08/11/16 03:45 Dose: 1,000 mls Ondansetron HCl (Zofran) 4 mg IVP EDNOW ONE Stop: 08/11/16 02:00 Last Admin: 08/11/16 03:15 Dose: 4 mg Departure - Departure Disposition: [facility] Inpatient Acute Clinical Impression: SBO (small bowel obstruction), Lactic acid acidosis, Hypokalemia, Renal failure Condition: Critical Referrals: Patient,NotPresent [Unknown] - As per Instructions
--- NOTE | 2016-08-11 05:35 | PDCONSULT ---
Mentally Retarded Teacher Note: #[id number] Surgical Admit note dictated S MD Bruno, FACS
[2016-08-11 05:48] LABS: INR 1.49 (0.83-1.16)
[2016-08-11 05:49] LABS: APTT 23.9 SEC (23.0-38.0)
[2016-08-11 05:51] LABS: ALANINE AMINOTRANSFERASE 42 IU/L (9-52); ALBUMIN 2.4 g/dL (3.5-5.0); ALKALINE PHOSPHATASE 79 IU/L (38-126); ANION GAP 12 mEq/L (8-16); ASPARTATE AMINOTRANSFERASE 42 IU/L (14-46); BILIRUBIN,TOTAL 0.3 mg/dL (0.1-1.4); CALCIUM 6.9 mg/dL (8.5-10.4); CARBON DIOXIDE 23 mEq/l (22-31); CHLORIDE 98 mEq/L (97-110); CREATININE 1.4 mg/dL (0.6-1.0); GLOMERULAR FILTRATION RATE 41; GLUCOSE 108 mg/dL (70-100); MAGNESIUM 3.7 mg/dL (1.6-2.3); POTASSIUM 2.9 mEq/L (3.5-5.2); SODIUM 133 mEq/L (134-144); TOTAL PROTEIN 4.6 g/dL (6.3-8.2)
[2016-08-11] MEDS ORDERED: HYDROmorphONE/DILAUDID 1 MG/ML SYR IVP ONE (06:01)
--- NOTE | 2016-08-11 06:01 | CPEKG ---
Heart Rate: 91 RR Interval: 659 P-R Interval: 156 QRSD Interval: 90 QT Interval: 408 QTC Interval: 503 P Seneca: 51 QRS Seneca: 68 T Wave Seneca: 27 EKG Severity - ABNORMAL ECG - EKG Impression: SINUS RHYTHM EKG Impression: BORDERLINE INFERIOR Q WAVES EKG Impression: BORDERLINE R WAVE PROGRESSION, ANTERIOR LEADS EKG Impression: BORDERLINE PROLONGED QT INTERVAL Electronically Signed By: Tram Hartman 11-Aug-2016 07:39:58
[2016-08-11 06:02] LABS: TROPONIN I 0.023 ng/mL (0-0.034)
--- NOTE | 2016-08-11 06:18 | GHP ---
[f rep st] HISTORY AND PHYSICAL DATE OF ADMISSION: 08/11/2016 CHIEF COMPLAINT: Abdominal pain. HISTORY OF PRESENT ILLNESS: Patient is a 46-year-old female with multiple medical problems including a longstanding history of anorexia, bulimia, who presents with a 3-day history of abdominal pain. The patient was admitted to the [facility] in March of 2016, at which time she was found to have mesenteric ischemia and underwent SMA stent placement. She also experienced an iatrogenic left upper extremity arterial occlusion requiring stenting of the axillary artery. She was rehospitalized twice since that time, most recently to the medical service in June of 2016. She has a history of hypercoagulable state with protein C deficiency. There is a history of renal failure with severe hypokalemia as well as bipolar disorder. The patient was seen in the emergency room by Dr. Tram Hartman, and surgical consultation was requested after a CT scan showed dilated loops of bowel with evidence of portal venous gas. This study was performed without contrast because she presented with an elevated creatinine of 2.2. The patient reports abdominal pain of 3 days' duration. She has had only one episode of emesis after drinking Magnesium Citrate. She had a normal bowel movement approximately 20 hours ago and denies diarrhea. She has had no chest pain, shortness of breath, fever, chills. PAST MEDICAL HISTORY: Reviewed. She has had no prior abdominal surgeries. She has had placement of a superior mesenteric arterial stent as well as left axillary stent. She is a smoker, though has cut way back on her tobacco use. She underwent colonoscopy by Dr. Morgan Barth in April of 2016, for evaluation of possible ischemia, and this study was normal. CHRONIC MEDICATIONS: Include Eliquis 5 mg p.o. b.i.d., Klonopin 1 mg p.o. q.h.s., Prozac 10 mg q.h.s., hydroxyzine 10 mg p.o. daily, Linzess 290 mcg p.o. daily, magnesium oxide 500 mg p.o. daily, Reglan 10 mg p.o. q.i.d., multiple vitamins 1 p.o. daily, Protonix 40 mg q.h.s., potassium gluconate 90 mg p.o. daily, ranitidine 150 mg p.o. daily, simethicone 80 mg p.o. q.h.s., Imitrex 25 mg p.o. p.r.n., and trazodone 150 mg p.o. q.h.s. ALLERGIES: She is allergic to amoxicillin and lamotrigine. SOCIAL HISTORY: She denies significant alcohol use. She uses CBD compounds for chronic pain. Patient is accompanied by her mother and her boyfriend. FAMILY HISTORY: Significant for breast cancer and melanoma in her mother. REVIEW OF SYSTEMS: Pertinent negatives are per History of Present Illness. She denies chest pain, SOB, cough, sputum, hemetemesis, melena, hematochezia, diarrhea, fever, chills PHYSICAL EXAMINATION: GENERAL: A thin, pale, chronically ill-appearing young woman who is in moderate distress. VITAL SIGNS: Blood pressure is 120/84, heart rate is 88, respiratory rate is 20, O2 sat is 97% on 2 L, temperature is 36.7. HEENT: The patient has an 18-gauge catheter in the left external jugular vein, which is infusing normal saline. The trachea is midline. There is no scleral icterus. There is no cervical or supraclavicular adenopathy. CHEST: Clear with diminished breath sounds throughout. HEART: Regular in rate and rhythm. ABDOMEN: Distended, tympanitic, diffusely tender to palpation with guarding. Bowel sounds are hypoactive. EXTREMITIES: Femoral pulses are +2 and symmetrical. Pedal pulses are +1 on the left, absent on the right. Radial pulses +2 on the right, absent on the left. Left hand is cool but pink with good capillary refill. PELVIC AND RECTAL: Exam is not repeated. LABORATORY STUDIES: WBC is 24.2, hemoglobin 16.7, hematocrit 50.1, platelets are 705,000. PT is 15, INR is 1.18, PTT is 23.4. Sodium was 132, potassium 2.3 , chloride was 77, BUN is 34, creatinine 2.2. Previous creatinine on July, was 1.7. Glucose was 209, calcium 10.8, phosphorus 6.1. Lipase was 107. Beta hCG was negative. Urinalysis is pending. IMAGING: The patient's CT scan was reviewed and shows diffusely-dilated loops of bowel with evidence of portal venous gas with air scattered throughout the periphery of the liver. There was no free air. No significant peritoneal fluid. The patient has extensive bilateral calcifications in her kidneys. These appear to be parenchymal rather than in the collecting system. The patient's superior mesenteric artery stent is visualized; however, this is a noncontrast study and patency cannot be assessed. PROCEDURE: Central line placement was performed for fluid administration, central venous monitoring. After obtaining consent from the patient, the left infraclavicular area was prepped with chlorhexidine and a sterile field was established. 1% lidocaine was used to infiltrate the left infraclavicular fossa. An 18-gauge thin-wall needle was advanced into the left subclavian vein on the 1st pass with good venous return. A flexible J-wire was introduced and advanced without resistance. Subsequently, a triple-lumen catheter was threaded over the wire, and it was secured to the skin with 3-0 silk suture. Good venous return was noted, and a chest x-ray showed the catheter tip to be within the SVC/NGT placement was in the stomach IMPRESSION: 1. Abdominal pain, unclear etiology. Possible ischemic bowel related to SMA stent occlusion would be the most significant event and cannot be determined based on present studies. I discussed the case with Dr. Becerra, and he recommended a CT angiogram with bicarbonate protocol for renal protection, and this is been requested. Small bowel obstruction is a possible explanation, though the patient has never had abdominal surgery and this would seem less likely. 2. History of hypercoagulable state. The patient was previously worked up by Hematology and Dr. Newby saw the patient. She has been on Eliquis since that time without sequelae. 3. Leukocytosis. This apparently has been a chronic low-grade problem also in the past with current white blood cell count higher than during her last hospitalization but, nonetheless, chronically elevated. 4. Thrombocytosis, possibly related to volume depletion. 5. Hypokalemia, likely related to emesis. 6. History of bipolar disorder. 7. History of bulimia, anorexia. 8. History of nephrolithiasis. 9. History of migraine headaches. 10. Hypercalcemia and hyperphosphatemia. Patient's calcium phosphorus product is greater than 60, which places her at risk for spontaneous peripheral calcinosis. 11. Renal insufficiency with current creatinine at 2.2. RECOMMENDATIONS: We will proceed with bicarbonate-protocol CT angiogram to assess for SMA stent patency. Nasogastric tube for decompression. Intravenous fluids for volume replacement and potassium replacement. If the patient's condition fails to improve, she may require laparotomy and exploration. 90 minutes of critical care time was spent with the patient in direct contact at the bedside as well as with central line placement. Copy requested to: Dr. Hartman /[id number]/MODL MTDD
[2016-08-11] MEDS ORDERED: IOPAMIDOL (ISOVUE 370) 100 ML BTL IV ONE (06:19)
[2016-08-11 06:58] VITALS: TEMP 97.5
[2016-08-11 07:06] LABS: % IMMATURE GRANULYOCYTES 0.2 % (0.0-1.1); ABSOLUTE IMMATURE GRANULOCYTES 0.01 10^3/uL (0.00-0.10); ADD DIFF? NO; ADD MORPH? NO; ADD SCAN? YES; ATYPICAL LYMPHOCYTE FLAG 0 (0-99); FRAGMENT RBC FLAG 0 (0-99); HEMOGLOBIN 12.6 g/dL (12.6-16.3); LIPEMIA HEMOLYSIS FLAG 80 (0-99); MEAN CELL HEMOGLOBIN 25.8 pg (27.9-34.1); MEAN CELL HEMOGLOBIN CONCENTR. 33.2 g/dL (32.4-36.7); MEAN CELL VOLUME 77.9 fL (81.5-99.8); MEAN PLATELET VOLUME 8.7 fL (8.7-11.7); PLATELET CLUMPS FLAG 0 (0-99); PLATELET COUNT 474 10^3/uL (150-400); RED BLOOD CELL COUNT 4.88 10^6/uL (4.18-5.33); RED CELL DISTRIBUTION WIDTH 14.9 % (11.5-15.2)
[2016-08-11 07:19] LABS: LEFT SHIFT FLG 300 (0-99)
[2016-08-11 07:21] LABS: COLOR YELLOW; LEUKOCYTE ESTERASE,URINE NEGATIVE (NEGATIVE); NITRITE,URINE NEGATIVE (NEGATIVE)
[2016-08-11 07:30] LABS: MUCUS TRACE /lpf (NONE-1+)
[2016-08-11 07:37] VITALS: BP 90/59; PULSE 91; RESP 16; O2SAT 95
[2016-08-11] MEDS ORDERED: HEPARIN 10,000 UNIT/10 ML MDV IVP PRN (07:46)
[2016-08-11] MEDS ORDERED: HEPARIN 10,000 UNIT/10 ML MDV IVP ONE (07:46)
[2016-08-11] MEDS ORDERED: HEPARIN/DEXTROSE 500 ML IV SCH (08:00)
[2016-08-11] MEDS ORDERED: POTASSIUM Cl (KCl) 50 ML IV SCH (08:00)
[2016-08-11 08:24] LABS: SCAN POSITIVE
[2016-08-11 08:28] LABS: MICROCYTES 1+; PLATELET ESTIMATE INCREASED (ADEQ)
[2016-08-11 08:29] LABS: APTT 26.3 SEC (23.0-38.0); INR 1.48 (0.83-1.16); PROTIME(PATIENT) 17.9 SEC (12.0-15.0)
[2016-08-11 08:29] LABS: HYPOCHROMIA 1+
--- NOTE | 2016-08-11 08:42 | GDS ---
[f rep st] DISCHARGE SUMMARY DATE OF ADMISSION: August 11, 2016. DATE OF DISCHARGE: August 11, 2016. REASON FOR ADMISSION: Abdominal pain. HISTORY OF PRESENT ILLNESS: The patient is a 46-year-old woman, who has been admitted to the hospital several times. 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 She previously had that stented in March, and her symptoms improved. Unfortunately, she developed an iatrogenic injury to her left axillary artery and that was stented on April 20, 2016. She was readmitted to the hospital April 23, 2016, and her CT scan showed diffuse distention of the small bowel and colon, and probable splenic infarcts. The superior mesenteric artery stent was patent at that time. A colonoscopy was performed on April 26, 2016, which showed mild sigmoid inflammation, but no significant signs of ischemic colitis. The colonoscopy only went to the splenic flexure, as a large amount of stool was present in that area. She was admitted to the hospital again, July 18, 2016, again with nausea and vomiting. She was found to be hypokalemic, hyponatremic, and she was discharged on May 20. She most recently presented on August 11, 2016, with 3 days of abdominal pain with emesis. She attempted to take magnesium citrate. She had a normal bowel movement approximately 1 day ago. She had a CT scan that was noncontrast due to an elevated creatinine of 2.2, which showed dilated loops of bowel and portal venous gas. She subsequently had a central line placed. She was placed on a bicarbonate protocol and then had a CT scan performed with contrast. It shows that the SMA stent is occluded and that there is likely ischemic bowel. LABORATORY DATA: Her initial labs revealed a white count of 24.2, hemoglobin and hematocrit of 16.7 and 50, and platelets of 705. Her INR on admission was 1.8. Her venous lactate 11.9. Her initial potassium was 2.3, and initial creatinine 2.2. Calcium 10.8, and phosphorus 6.1. OTHER PERTINENT DIAGNOSES: Bipolar 1, chronic kidney disease, stage 3 with periodic acute kidney injury, history of bulimia and anorexia, history of nephrolithiasis, history of hypercoagulable state, with possible protein C deficiency. She is maintained on Eliquis. HOSPITAL COURSE: Since admission, she has been hydrated on the bicarbonate protocol, and her creatinine has trended down to 1.4. Her potassium is now 2.9. She has been started on a heparin drip. An NG was placed with 1200 cc removed. I discussed the case with Dr. Becerra. Due to her chronic kidney disease, protein C deficiency, and possible ischemic bowel, needing lysis with open vascular back up which is not available today at [facility], I think that this complicated case would be best managed at the [place]. Dr. Martínez has accepted. PHYSICAL EXAM: The patient is in the ICU. She is sitting up, but appears uncomfortable. She is very thin. VITAL SIGNS: Her temperature is 36.4, 69, 90 /59, 16, 95% on 2 L. GENERAL: A thin woman, appears older than stated age. HEENT: Normocephalic. No gross hearing deficits. Pupils are equal and round. Mucous membranes dry. NG in place with scant dark heme stained contents. LUNGS: Clear to auscultation bilaterally. CARDIAC: Regular rate. ABDOMEN: Distended. She does have discoloration over her abdominal wall, which she states is chronic due to a heating pad. She is distended and very tender to mild palpation. SKIN: Changes as above. PSYCH: Mood and affect normal. Very cooperative. DISCHARGE CONDITION: She is currently hemodynamically stable. She is on a heparin drip and we are replacing the potassium. She will go by ground transportation to the [place]. I discussed the case with the patient and she is in agreement. Ground transportation was not available for at least one hour and so we transported her on the helicopter /[id number]/MODL MTDD
[2016-08-11] MEDS ORDERED: FAMOTIDINE 20 MG/NACL 50 ML IV SCH (09:00)
== END 2016-08-11 08:56 | disposition short-term general hospital (02) | DRG 314 ==
LOC: EDUNIT# → F2N 07:27
PROVIDERS: ADMIT Surgery; ATTEND Surgery
DX: T82.856A Stenosis of peripheral vascular stent, initial encounter (principal); K55.059 Acute (reversible) ischemia of intestine, part and extent unspecified; F31.9 Bipolar disorder, unspecified; N18.3 Chronic kidney disease, stage 3 (moderate); E87.6 Hypokalemia; E83.52 Hypercalcemia; E83.39 Other disorders of phosphorus metabolism; Z79.01 Long term (current) use of anticoagulants
CPT/HCPCS: 85520-90; J1170; J1335; J1644; J2405; Q9967

== ENCOUNTER 2016-11-09 09:05 | Emergency (ER) | payer MEDICAID ==
[2016-11-09 09:11] VITALS: TEMP 98.4
--- NOTE | 2016-11-09 10:04 | EDPHY ---
H & P Stated Complaint: Picc line fell out this am--on tpn and antbx till 11/13 e coli Source: Patient Exam Limitations: No limitations - Personal History LMP (Females 10-55): Unknown Current Tetanus/Diphtheria Vaccine: Unsure Current Tetanus Diphtheria and Acellular Pertussis (TDAP): Unsure Tetanus Vaccine Date: 2010 - Medical/Surgical History Hx Asthma: No Hx Chronic Respiratory Disease: No Hx Diabetes: No Hx Cardiac Disease: No Hx Renal Disease: No Hx Cirrhosis: No Hx Alcoholism: No Hx HIV/AIDS: No Hx Splenectomy or Spleen Trauma: No Other PMH: anorexia, bipolar, kidney stones, UTI - Social History Smoking Status: Former smoker Time Seen by Provider: 11/09/16 09:19 HPI/ROS: CHIEF COMPLAINT: PICC line fell out HISTORY OF PRESENT ILLNESS: 46-year-old female with 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 Patient was giving herself her daily IV antibiotics this morning when her PICC line fell out. Patient was recently discharged from a acute rehab facility 2 weeks ago and is treating herself at home. She has no complaints. REVIEW OF SYSTEMS: A comprehensive 10 point review of systems is otherwise negative aside from elements mentioned in the history of present illness. (Lilian Blanco) - Physical Exam Exam: Physical Exam Gen: Alert and Oriented, NAD, cachectic HEENT: PERRL, moist mucous membranes NECK: no meningismus CV: regular rate and regular rhythm PULM: CTAB, no wheezes BACK: No CVA tenderness NEURO: Neurologically grossly intact EXTREMITIES: Tip of right index finger necrotic SKIN: no rash or break in skin on exposed skin PSYCH: answers questions appropriately. (Lilian Blanco) Constitutional: Initial Vital Signs Temperature (C) 36.9 C 11/09/16 09:08 Heart Rate 73 11/09/16 09:08 Respiratory Rate 16 11/09/16 09:08 Blood Pressure 98/60 L 11/09/16 09:08 O2 Sat (%) 98 11/09/16 09:08 O2 Delivery Mode Room Air Allergies/Adverse Reactions: amoxicillin Allergy (Intermediate, Verified 04/19/16 12:31) Abdominal Pain lamotrigine [From Lamictal] Allergy (Intermediate, Verified 04/19/16 12:31) Rash Home Medications: Medication Instructions Recorded Pantoprazole Sodium [Protonix 40mg 40 mg PO HS 05/26/14 (*)] Ranitidine HCl [Zantac 75] 150 mg PO DAILY 02/22/16 traZODone [traZODone 150MG (*)] 150 mg PO HS 02/22/16 Linaclotide [Linzess] 290 mcg PO DAILYAC 04/19/16 Metoclopramide [Reglan 10 mg tab 10 mg PO QID 04/19/16 (*)] clonazePAM [klonoPIN (*)] 1 mg PO HS 04/19/16 Apixaban [Eliquis] 5 mg PO BID #60 tab 04/30/16 FLUoxetine [Prozac 10 MG (*)] 10 mg PO HS 07/18/16 Multivitamins [Multivitamin (*)] 1 each PO DAILY 07/18/16 SUMAtriptan [Imitrex 25 MG (*)] 25 mg PO PRN PRN 07/18/16 hydrOXYzine HCL 10 mg PO DAILY 07/18/16 Acetaminophen [Tylenol 325mg (*)] 650 mg PO Q4HRS PRN #0 tab 07/20/16 Magnesium Oxide [Magnesium Oxide 500 mg PO DAILY #30 tablet 07/20/16 500 mg] Potassium Gluconate 90 mg PO DAILY #30 tablet 07/20/16 Simethicone [Mylicon] 80 mg PO PCHS #0 tab.chew 07/20/16 Medical Decision Making ED Course/Re-evaluation: 11am- IR and PICC team aware of patient and are called in for another procedure then this PICC line will follow. 130pm- Pt in IR. (Lilian Blanco) Other Provider: PHYSICIAN DOCUMENTATION: The patient was evaluated and managed by the Nurse practitioner . My co- signature indicates that I have reviewed this chart and I agree with the findings and plan of care as documented. I am the secondary supervising physician. The patient return from interventional radiology at 2:00 p.m.. She has had her PICC line replaced without complication. She will be discharged home. (Karan Valadez) Departure - Departure Disposition: Home, Routine, Self-Care Clinical Impression: Status post PICC central line placement Condition: Good Instructions: Peripherally Inserted Central Catheters and Midline Catheters (ED ) Additional Instructions: Follow up with your doctors as scheduled. Return to the emergency department for any new symptoms, questions or concerns. Referrals: Parviz Gibson MD [Primary Care Provider] - As per Instructions
[2016-11-09 14:13] VITALS: BP 115/62; PULSE 89; RESP 16; O2SAT 96
== END 2016-11-09 14:11 | disposition home or self-care (01) ==
DX: Z45.2 Encounter for adjustment and management of vascular access device (principal); Z87.891 Personal history of nicotine dependence
CPT/HCPCS: 77001; 99284; C1751

== ENCOUNTER 2016-11-28 12:42 | Inpatient (IN) | payer MEDICAID ==
[2016-11-28] MEDS ORDERED: NS 1,000 ML IV ONE ×2 (13:51→16:10)
--- NOTE | 2016-11-28 13:55 | EDPHY ---
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 She had the ostomy and surgery done in July of this year in [place]. She does not remember the hospital or surgeon. She followed up with our ostomy clinic here today and they sent her to the emergency department she has severe excoriation throughout her entire abdomen with sloughing of skin. She does not have a bag in place and stools leaking onto her abdomen. She has not had a fever. She denies chest pain or shortness of breath. REVIEW OF SYSTEMS: Constitutional: denies: chills, fever, recent illness, recent injury EENTM: denies: blurred vision, double vision, nose congestion Respiratory: denies: cough, shortness of breath Cardiac: denies: chest pain, irregular heart rate, lightheadedness, palpitations Gastrointestinal/Abdominal: See HPI Genitourinary: denies: dysuria, frequency, hematuria, pain Musculoskeletal: denies: joint pain, muscle pain Skin: See HPI Neurological: denies: headache, numbness, paresthesia, tingling, dizziness, weakness Hematologic/Lymphatic: denies: blood clots, easy bleeding, easy bruising Immunologic/allergic: denies: HIV/AIDS, transplant EXAM: GENERAL: Well-appearing, well-nourished and in no acute distress. HEAD: Atraumatic, normocephalic. EYES: Pupils equal round and reactive to light, extraocular movements intact, sclera anicteric, conjunctiva are normal. ENT: TMs normal, nares patent, oropharynx clear without exudates. Moist mucous membranes. NECK: Normal range of motion, supple without lymphadenopathy or JVD. LUNGS: Breath sounds clear to auscultation bilaterally and equal. No wheezes rales or rhonchi. HEART: Regular rate and rhythm without murmurs, rubs or gallops. ABDOMEN: Ostomy in place, stool leaking, severe excoriation, PEG tube in place BACK: No CVA tenderness, no spinal tenderness, step-offs or deformities EXTREMITIES: Normal range of motion, no pitting or edema. No clubbing or cyanosis. NEUROLOGICAL: Cranial nerves II through XII grossly intact. Normal speech, normal gait. 5/5 strength, normal movement in all extremities, normal sensation PSYCH: Normal mood, normal affect. SKIN: Severe excoriation and sloughing throughout entire abdomen. Source: Patient Exam Limitations: No limitations - Personal History LMP (Females 10-55): Unknown Current Tetanus Diphtheria and Acellular Pertussis (TDAP): Yes Tetanus Vaccine Date: 2010 - Medical/Surgical History Hx Asthma: No Hx Chronic Respiratory Disease: No Hx Diabetes: No Hx Cardiac Disease: No Hx Renal Disease: No Hx Cirrhosis: No Hx Alcoholism: No Hx HIV/AIDS: No Hx Splenectomy or Spleen Trauma: No Other PMH: small intestine surgery, PEG tube placement, ileostomy, anorexia, bipolar, kidney stones, UTI - Family History Significant Family History: No pertinent family hx - Social History Smoking Status: Current every day smoker Alcohol Use: Heavy Constitutional: Initial Vital Signs Temperature (C) 36.9 C 11/28/16 12:58 Heart Rate 80 11/28/16 12:58 Respiratory Rate 24 H 11/28/16 12:58 Blood Pressure 100/63 11/28/16 12:58 O2 Sat (%) 91 L 11/28/16 12:58 O2 Delivery Mode Room Air Allergies/Adverse Reactions: amoxicillin Allergy (Intermediate, Verified 04/19/16 12:31) Abdominal Pain lamotrigine [From Lamictal] Allergy (Intermediate, Verified 04/19/16 12:31) Rash Home Medications: Medication Instructions Recorded traZODone [traZODone 150MG (*)] 150 mg PO HS 02/22/16 Ampicillin/Sulbactam [Unasyn] 12 gm IV Q24H 11/28/16 Herbals/Supplements -Info Only 1 ea PO AD 11/28/16 Ibuprofen [Motrin (*)] 400 mg PO BID PRN 11/28/16 Pregabalin [Lyrica 50mg (*)] 50 mg PO TID 11/28/16 TPN [Hyperalimentation] 1 ea IV DAILY@1600 11/28/16 Warfarin Sodium [Coumadin 4MG (*)] 12 mg PO Q2D@1600 11/28/16 Warfarin Sodium [Coumadin] 10 mg PO Q2D@1600 11/28/16 fentaNYL [Duragesic 100 MCG Patch 100 mcg TD Q72H 11/28/16 (*)] oxyCODONE IR [Oxycodone Ir (*)] 5 mg PO BID PRN 11/28/16 Medical Decision Making ED Course/Re-evaluation: The patient's INR is significantly elevated. She has not noticed any bleeding. She has been taking her normal dose of Coumadin. She is nourished by TPN through a PICC line at home. She states that they removed almost all of her small intestine so this is how she receives her nourishment now. She is asking that we removed the G-tube. I spoke Dr. Pablo who evaluated several times and will admit to the surgical service. He placed a Sherman into her stoma. Her abdomen was cleaned and dressed with Silvadene. Differential Diagnosis: Partial list of the Differential diagnosis considered include but were not limited to; wound excoriation, herniation Coumadin toxicity and although unlikely based on the history and physical exam, I also considered sepsis, obstruction. - Data Points Laboratory Results: Laboratory Results 11/28/16 13:15 11/28/16 13:15 Medications Given: Discontinued Medications Acetaminophen (Tylenol) 325 - 650 mg PO Q4HRS PRN PRN Reason: Pain, Mild Able to Take PO Stop: 05/27/17 19:39 Last Admin: 11/29/16 12:59 Dose: 650 mg Fentanyl (Duragesic) 100 mcg TD Q72H [facility] Stop: 12/08/16 19:29 Last Admin: 11/28/16 23:49 Dose: Not Given Hydromorphone HCl (Dilaudid) 0.5 mg IVP EDNOW ONE Stop: 11/28/16 14:10 Last Admin: 11/28/16 14:15 Dose: 0.5 mg Hydromorphone HCl (Dilaudid) 0.5 mg IVP EDNOW ONE Stop: 11/28/16 16:05 Last Admin: 11/28/16 16:10 Dose: 0.5 mg Hydromorphone HCl (Dilaudid) 0.4 mg IVP ONCE ONE Stop: 11/30/16 16:53 Last Admin: 11/30/16 17:45 Dose: Not Given Sodium Chloride (Ns) 1,000 mls @ 0 mls/hr IV ONCE ONE; Wide Open PRN Reason: Protocol Stop: 11/28/16 13:52 Last Admin: 11/28/16 14:15 Dose: 1,000 mls Sodium Chloride (Ns) 1,000 mls @ 0 mls/hr IV ONCE ONE PRN Reason: Wide Open Stop: 11/28/16 16:11 Last Admin: 11/28/16 16:10 Dose: 1,000 mls Sodium Chloride (Ns) 1,000 mls @ 125 mls/hr IV CONT [facility]US Stop: 05/27/17 19:29 Last Admin: 11/28/16 21:01 Dose: 1,000 mls Sodium Chloride (Ns) 1,000 mls @ 20 mls/hr IV CONT [facility]US Stop: 05/27/17 22:29 Last Admin: 11/28/16 22:51 Dose: 1,000 mls Dextrose (D5w) 1,000 mls @ 50 mls/hr IV CONT [facility]US Stop: 05/28/17 10:59 Last Admin: 11/29/16 11:18 Dose: 1,000 mls Dextrose/Sodium Chloride (D5w 1/2 Ns) 1,000 mls @ 50 mls/hr IV CONT C[facility]US Stop: 05/28/17 15:59 Last Admin: 11/29/16 15:47 Dose: 1,000 mls Ertapenem 1 gm/ Sodium (Chloride) 100 mls @ 200 mls/hr IV ONCALL ONE PRN Reason: Protocol Stop: 11/30/16 15:02 Last Admin: 11/30/16 17:29 Dose: Not Given Miscellaneous Medication (Tpn) 1 ea IV DAILY@2100 [facility] Stop: 05/27/17 22:14 Last Admin: 11/29/16 03:24 Dose: Not Given Miscellaneous Medication (Ampicillin/Sulbactam [Unasyn]) 0 gm IV Q24H [facility] Stop: 11/29/16 22:59 Last Admin: 11/28/16 22:39 Dose: 12 gm Miscellaneous Medication (Tpn) 1 ea IV DAILY@2300 [facility] Stop: 05/27/17 22:59 Last Admin: 11/28/16 22:49 Dose: 1 each Ondansetron HCl (Zofran) 4 mg IVP EDNOW ONE Stop: 11/28/16 16:11 Last Admin: 11/28/16 16:10 Dose: 4 mg Oxycodone HCl (Oxycodone Ir) 5 mg PO BID PRN PRN Reason: Pain, Severe Able to Take PO Stop: 12/08/16 19:29 Last Admin: 11/29/16 15:41 Dose: 5 mg Phytonadione (Vitamin K) 5 mg PO ONCE ONE Stop: 11/28/16 17:16 Last Admin: 11/28/16 17:58 Dose: 5 mg Silver Sulfadiazine (Thermazene) 1 toan TP EDNOW ONE Stop: 11/28/16 21:01 Last Admin: 11/28/16 23:49 Dose: Not Given Silver Sulfadiazine (Thermazene) 1 toan TP ONCALL ONE Stop: 11/30/16 14:31 Last Admin: 11/30/16 17:29 Dose: Not Given Silver Sulfadiazine (Thermazene) 1 toan TP BID [facility] Stop: 12/30/16 20:59 Last Admin: 11/30/16 22:58 Dose: Not Given Departure - Departure Disposition: [facility] Inpatient Acute Clinical Impression: Excoriation Condition: Fair
[2016-11-28] MEDS ORDERED: FLUORESCEIN SODIUM 1 MG STRIP OP ONE (14:02)
[2016-11-28] MEDS ORDERED: PROPARACAINE 0.5% 15 ML OPHT DROP ONE (14:02)
[2016-11-28] MEDS ORDERED: HYDROmorphONE/DILAUDID 1 MG/ML SYR IVP ONE ×2 (14:09→16:04)
[2016-11-28 14:18] LABS: % IMMATURE GRANULYOCYTES 0.5 % (0.0-1.1); ABSOLUTE IMMATURE GRANULOCYTES 0.04 10^3/uL (0.00-0.10); ADD DIFF? NO; ADD MORPH? NO; ADD SCAN? YES; FRAGMENT RBC FLAG 20 (0-99); HEMATOCRIT 34.3 % (38.0-47.0); HEMOGLOBIN 11.3 g/dL (12.6-16.3); LEFT SHIFT FLG 10 (0-99); LIPEMIA HEMOLYSIS FLAG 80 (0-99); MEAN CELL HEMOGLOBIN 24.6 pg (27.9-34.1); MEAN CELL HEMOGLOBIN CONCENTR. 32.9 g/dL (32.4-36.7); MEAN CELL VOLUME 74.6 fL (81.5-99.8); MEAN PLATELET VOLUME 10.7 fL (8.7-11.7); PLATELET CLUMPS FLAG 0 (0-99); PLATELET COUNT 366 10^3/uL (150-400); RED CELL DISTRIBUTION WIDTH 16.9 % (11.5-15.2)
[2016-11-28 14:29] LABS: ATYPICAL LYMPHOCYTE FLAG 270 (0-99)
[2016-11-28 14:44] LABS: APTT 94.3 SEC (23.0-38.0)
[2016-11-28 14:48] LABS: PROTIME(PATIENT) 113.9 SEC (12.0-15.0)
[2016-11-28 14:51] LABS: INR 14.93 (0.83-1.16)
[2016-11-28 14:56] LABS: ALANINE AMINOTRANSFERASE 51 IU/L (9-52); ALBUMIN 3.6 g/dL (3.5-5.0); ALKALINE PHOSPHATASE 233 IU/L (38-126); ANION GAP 13 mEq/L (8-16); ASPARTATE AMINOTRANSFERASE 42 IU/L (14-46); BILIRUBIN,TOTAL 0.9 mg/dL (0.1-1.4); BILIRUBIN-CONJUGATED 0.4 mg/dL (0.0-0.5); BILIRUBIN-UNCONJUGATED 0.5 mg/dL (0.0-1.1); CALCIUM 9.7 mg/dL (8.5-10.4); CARBON DIOXIDE 27 mEq/l (22-31); CHLORIDE 85 mEq/L (97-110); CREATININE 1.2 mg/dL (0.6-1.0); GLOMERULAR FILTRATION RATE 49; GLUCOSE 95 mg/dL (70-100); POTASSIUM 5.6 mEq/L (3.5-5.2); SODIUM 125 mEq/L (134-144); TOTAL PROTEIN 7.2 g/dL (6.3-8.2)
[2016-11-28 14:58] LABS: SCAN POSITIVE
[2016-11-28 15:01] LABS: HYPOCHROMIA 1+; MICROCYTES 1+
[2016-11-28 15:02] LABS: PLATELET ESTIMATE ADEQUATE (ADEQ)
[2016-11-28] MEDS ORDERED: ONDANSETRON 4 MG/2 ML VIAL IVP ONE (16:10)
[2016-11-28] MEDS ORDERED: ONDANSETRON 4 MG/2 ML VIAL ONE (16:12)
[2016-11-28] MEDS ORDERED: PHYTONADIONE 2.5 MG/2.5 ML ORAL UDL PO ONE (17:15)
[2016-11-28] MEDS ORDERED: AMPICILLIN IV SCH ×2 (19:30→23:00)
[2016-11-28] MEDS ORDERED: fentaNYL 100 MCG PATCH TD SCH (19:30)
[2016-11-28] MEDS ORDERED: NS 1,000 ML IV SCH ×2 (19:30→22:30)
[2016-11-28] MEDS ORDERED: SULBACTAM IV SCH ×2 (19:30→23:00)
[2016-11-28] MEDS: oxyCODONE IR 5 MG TAB PO PRN (20:39)
--- NOTE | 2016-11-28 20:47 | GHP ---
[f rep st] PREOP HISTORY AND PHYSICAL DATE OF ADMISSION: 11/28/2016 HISTORY OF PRESENT ILLNESS: The patient is a very complicated patient. She is 46 years old. She has a protein C deficiency. She ended up with an occluded celiac axis and a high-grade stenosis of her superior mesenteric vessel at its origin. She underwent angioplasty and stent placement with subsequent stent thrombosis and ischemic loss of most of her small bowel. She had multiple operations complicated with leakage and peritonitis. She has a very small segment of jejunum connected to a very short segment of terminal ilium, which was brought up as an ostomy because of a perforation near the anastomosis and concern for failure of yet another revision. She is on home TPN. Her issues are as follows. 1. Abdominal wall excoriation; she has been unable to keep her ostomy wafer in place for the past 4 months and a constant drainage of bilious material onto the abdominal wall has led to an extensive almost complete abdominal excoriation. To try to control that, I placed a Sherman catheter with a balloon into, I believe with the proximal lumen of her ostomy. I inflated it to 15 cm. It appears to take care of the issue. I have connected this to a low intermittent low suction. I also have her gastrostomy tube connected to low intermittent suction and she will be made n.p.o. except for medications. This is to minimize further soilage. 2. Her elevated INR; her INR apparently was low last week. It is now in the 14 range. She has not changed the amount of warfarin she is taking. I presume this relates the amount of warfarin that is actually getting absorbed. She has been slowly corrected with vitamin K. We will see where she ends up later tonight and tomorrow, just to check and make sure that she does not have an aberrant lab value. She will have to be chronically anticoagulated so we have to be careful with IV vitamin K reversal. She does not have any signs of ongoing bleeding at this point. 3. Electrolyte issues: Her sodium is 125, potassium is 5.6. Presumably this is related to her TPN and enteric losses. Note is made her BUN is 55, a lactate is pending. 4. Malnutrition: She 6 months ago weighed 110. She now weighs 80 pounds. Note is made she had a history of eating disorders in the past. We went through several treatment plans and the last 1 she did on her own. A prealbumin and a CBC (so we can assess nutritional status the total lymphocyte count) is pending. 5. She is chronically on pain medications. Those will be continued. She also takes Unasyn as a 24 hour continuos infusion. I finally learned that she had been at [facility] and have been able to obtain their records. Note is made she has a rash with Lamictal. Amoxicillin upsets her stomach. CURRENT MEDICATIONS: Include trazodone 150 mg at bedtime. She takes Lyrica 50 mg 3 times a day. She was taking warfarin alternating 10 and 12 mg on a daily basis. She does get 1 L of IV fluids daily and takes TPN from 4:00 p.m. at night until 8:00 a.m. in the morning. She chronically is on a proton pump inhibitor. For pain control, she has a fentanyl patch 100 mcg, which she changes every 3 days. She takes oxycodone 5 mg. She is suppose to take 5 mg twice a day but has went up to 40 mg a day and is now trying to decrease that. Her current dose has been down to about 10 mg a day. Aside from the above-mentioned surgery, she denies other surgeries. Note is made that her gallbladder was removed during the course of her above-mentioned surgeries. Please see the attached [facility] records for further details. PHYSICAL EXAMINATION: GENERAL: She is in severe abdominal distress and has bile leakage across a very raw abdomen. This is carefully cleaned up. Her G- tube is adjusted so that it is against the abdominal wall. It was placed to a low intermittent suction. A Sherman catheter was placed in the ostomy. It is connected to a low intermittent suction but not much is coming out at this time. We may have to do a small dye study to make sure I am in the proximal lumen. HEAD: Her skull is normocephalic and atraumatic. She is awake, alert and oriented. NECK: No cervical, supraclavicular, axillary lymphadenopathy. Her neck is supple. Nontender. LUNGS: Clear to auscultation. ABDOMEN: Her abdominal excoriated skin has been dressed with Silvadene, 4x4s, ABDs and abdominal binder. She has some erythema at both groins at the site of prior vein harvest. There is a remaining stitch present which was removed. She will be admitted extensively for improved nutritional control and wound sepsis control. Now that we [facility], attempts will be made to contact them tomorrow as well. Copy requested to: Dr. Rao /[id number]/MODL [id number]
[2016-11-28] MEDS ORDERED: SILVER SULFADIAZINE 400 GM JAR TP ONE (21:00)
--- NOTE | 2016-11-28 21:26 | PDGENHP ---
History and Physical - Chief Complaint Acute leakage - History of Present Illness Primary care provider: Dr. Gibson Primary social work job titles: Dr. Schwartz HPI: 46-year-old female presenting with acute leakage characterized as yellow liquid material leaking out of her abdominal ostomy site with associated excoriation located around the ostomy site preventing her from placing an ostomy bag. The patient reports that the area became visibly excoriated approximately 2 weeks ago and the excoriation has been worsening thereafter. Approximately 1 1/2 weeks ago she became unable to place an ostomy bag and fluid has been leaking out continuously since that time. The patient reports that she has continued to maintain oral intake of solids and liquids but is relatively small amount and the solids are generally expelled from the ostomy site relatively soon after ingestion. She reports that she has been adherent to her nightly TPN and she has continued to receive Unasyn via PICC line. She has a small amounts of stool occasionally from her rectum and her urine output has reportedly been normal. She has otherwise been taking all of her home medications orally but it is unclear whether the medications have been leaking out of the ostomy site as well. She did have a subtherapeutic INR approximately 1 week ago and for 2 days she increased her Coumadin dosage to 15 mg daily then returned back to her home dosage of alternating 10 and 12.5 mg. She does note that approximately 1 week ago she also had some hematuria and had a urinalysis performed in her PCPs office which she was told reflected urinary tract infection. She was subsequently initiated on Bactrim in addition to the Unasyn which she receives infused daily. History Information - Allergies/Home Medication List Allergies/Adverse Reactions: amoxicillin Allergy (Intermediate, Verified 04/19/16 12:31) Abdominal Pain lamotrigine [From Lamictal] Allergy (Intermediate, Verified 04/19/16 12:31) Rash Home Medications: traZODone [traZODone 150MG (*)] 150 mg PO HS 02/22/16 [Last Taken 11/27/16 21:00 ] Ampicillin/Sulbactam [Unasyn] 12 gm IV Q24H 11/28/16 [Last Taken Unknown] Herbals/Supplements -Info Only 1 ea PO AD 11/28/16 [Last Taken Unknown] Ibuprofen [Motrin (*)] 400 mg PO BID PRN 11/28/16 [Last Taken 11/27/16 14:00] Pregabalin [Lyrica 50mg (*)] 50 mg PO TID 11/28/16 [Last Taken 11/27/16 21:00] TPN [Hyperalimentation] 1 ea IV DAILY@1600 11/28/16 [Last Taken Unknown] Warfarin Sodium [Coumadin 4MG (*)] 12 mg PO Q2D@1600 11/28/16 [Last Taken 18:00] Warfarin Sodium [Coumadin] 10 mg PO Q2D@1600 11/28/16 [Last Taken 11/27/16 18:00 ] fentaNYL [Duragesic 100 MCG Patch (*)] 100 mcg TD Q72H 11/28/16 [Last Taken 10/07] oxyCODONE IR [Oxycodone Ir (*)] 5 mg PO BID PRN 11/28/16 [Last Taken 11/27/16 20 :00] I have personally reviewed and updated: family history, medical history, social history, surgical history - Past Medical History Additional medical history: Anorexia/bulimia/anxiety disorder. Bipolar disease type 1 with extended hospitalization 2012. Chronic kidney disease stage 3, with nephrocalcinosis and baseline creatinine 1.1-1.2. Renal artery stenosis with 60% stenosis on the right. Gastroesophageal reflux disease and Hernadez's esophagus. 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 Anastomotic leak/fungemia 09/06, previously on cefepime/ metronidazole/vanoc/eraxis, now on unasyn. Recent UTI, received Bactrim. Recurrent hypokalemia with cardiac arrest. Sev malnutrition, on TPN since 09/06 - Surgical History Additional surgical history: SMA stent. Left axillary stent. 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 SB and ostomy connecting duodenum w/ ileum - Family History Additional family history: mother had skin and breast cancer and vertebral artery stenting father had of aortic valve repair and coronary artery disease - Social History Smoking Status: Current every day smoker Alcohol Use: Heavy Drug Use: None Additional social history: relocated back to [place] Review of Systems ROS: 10pt was reviewed & negative except for what was stated in HPI & below Constitutional: Reports: weakness, weight loss Gastrointestinal: Reports: other (continuous ostomy leakage) Physical Exam Temp Pulse Resp BP Pulse Ox 37.4 C 102 H 18 121/61 H 100 11/28/16 20:47 11/28/16 20:47 11/28/16 20:47 11/28/16 20:47 11/28/16 20:47 O2 (L/minute) 3 Constitutional: not in pain, chronically ill appearing, cachectic, other ( unusually calm) Eyes: PERRL, anicteric sclera, EOMI Ears, Nose, Mouth, Throat: moist mucous membranes, hearing normal, other ( macroglossia) Cardiovascular: regular rate and rhythym, systolic murmur (I/ systolic at sternum), No edema Respiratory: no respiratory distress, no rales or rhonchi, clear to auscultation Gastrointestinal: normoactive bowel sounds, other (binder in place, non-tender, yellow material leaking around edges of binder) Genitourinary: no bladder fullness, no bladder tenderness Skin: other (no erythema around RUE PICC site) Musculoskeletal: other (proximal muscle wasting) Neurologic: AAOx3, No facial droop Psychiatric: not encephalopathic, thought process linear, flat affect, No agitated Lab Data & Imaging Review 11/28/16 13:15 11/28/16 13:15 WBC 8.08 10^3/uL (3.80-9.50) 11/28/16 13:15 RBC 4.60 10^6/uL (4.18-5.33) 11/28/16 13:15 Hgb 11.3 g/dL (12.6-16.3) L 11/28/16 13:15 Hct 34.3 % (38.0-47.0) L 11/28/16 13:15 MCV 74.6 fL (81.5-99.8) L 11/28/16 13:15 MCH 24.6 pg (27.9-34.1) L 11/28/16 13:15 MCHC 32.9 g/dL (32.4-36.7) 11/28/16 13:15 RDW 16.9 % (11.5-15.2) H 11/28/16 13:15 Plt Count 366 10^3/uL (150-400) 11/28/16 13:15 MPV 10.7 fL (8.7-11.7) 11/28/16 13:15 Neut % (Auto) 64.5 % (39.3-74.2) 11/28/16 13:15 Lymph % (Auto) 25.4 % (15.0-45.0) 11/28/16 13:15 Dubois % (Auto) 6.7 % (4.5-13.0) 11/28/16 13:15 Eos % (Auto) 2.5 % (0.6-7.6) 11/28/16 13:15 Baso % (Auto) 0.4 % (0.3-1.7) 11/28/16 13:15 Nucleat RBC Rel Count 0.0 % (0.0-0.2) 11/28/16 13:15 Absolute Neuts (auto) 5.22 10^3/uL (1.70-6.50) 11/28/16 13:15 Absolute Lymphs (auto) 2.05 10^3/uL (1.00-3.00) 11/28/16 13:15 Absolute Monos (auto) 0.54 10^3/uL (0.30-0.80) 11/28/16 13:15 Absolute Eos (auto) 0.20 10^3/uL (0.03-0.40) 11/28/16 13:15 Absolute Basos (auto) 0.03 10^3/uL (0.02-0.10) 11/28/16 13:15 Absolute Nucleated RBC 0.00 10^3/uL (0-0.01) 11/28/16 13:15 Immature Gran % 0.5 % (0.0-1.1) 11/28/16 13:15 Seg Neutrophils % 54 % 11/28/16 13:15 Band Neutrophils % 13 % 11/28/16 13:15 Lymphocytes % 26 % 11/28/16 13:15 Monocytes % 5 % 11/28/16 13:15 Eosinophils % 2 % 11/28/16 13:15 Immature Gran # 0.04 10^3/uL (0.00-0.10) 11/28/16 13:15 Absolute Seg Neuts 4.36 10^/uL (1.70-6.50) 11/28/16 13:15 Absolute Band Neuts 1.05 10^3/uL (0.00-0.70) H 11/28/16 13:15 Absolute Lymphocytes 2.10 10^3/uL (1.00-3.00) 11/28/16 13:15 Absolute Monocytes 0.40 10^3/uL (0.30-0.80) 11/28/16 13:15 Absolute Eosinophils 0.16 10^3/uL (0.03-0.40) 11/28/16 13:15 Atypical Lymphocytes 1+ H 11/28/16 13:15 Platelet Estimate ADEQUATE (ADEQ) 11/28/16 13:15 Hypochromasia 1+ H 11/28/16 13:15 Microcytic Cells 1+ H 11/28/16 13:15 PT 113.9 SEC (12.0-15.0) H 11/28/16 13:15 INR 14.93 (0.83-1.16) H* 11/28/16 13:15 APTT 94.3 SEC (23.0-38.0) H 11/28/16 13:15 VBG Lactic Acid 0.8 mmol/L (0.7-2.1) 11/28/16 19:30 Sodium 125 mEq/L (134-144) L 11/28/16 13:15 Potassium 5.6 mEq/L (3.5-5.2) H 11/28/16 13:15 Chloride 85 mEq/L (97-110) L 11/28/16 13:15 Carbon Dioxide 27 mEq/l (22-31) 11/28/16 13:15 Anion Gap 13 mEq/L (8-16) 11/28/16 13:15 BUN 55 mg/dL (7-23) H 11/28/16 13:15 Creatinine 1.2 mg/dL (0.6-1.0) H 11/28/16 13:15 Estimated GFR 49 11/28/16 13:15 Glucose 95 mg/dL (70-100) 11/28/16 13:15 Calcium 9.7 mg/dL (8.5-10.4) 11/28/16 13:15 Total Bilirubin 0.9 mg/dL (0.1-1.4) 11/28/16 13:15 Conjugated Bilirubin 0.4 mg/dL (0.0-0.5) 11/28/16 13:15 Unconjugated Bilirubin 0.5 mg/dL (0.0-1.1) 11/28/16 13:15 AST 42 IU/L (14-46) 11/28/16 13:15 ALT 51 IU/L (9-52) 11/28/16 13:15 Alkaline Phosphatase 233 IU/L (38-126) H 11/28/16 13:15 Total Protein 7.2 g/dL (6.3-8.2) 11/28/16 13:15 Albumin 3.6 g/dL (3.5-5.0) 11/28/16 13:15 Lipase 55.0 IU/L (23-300) 11/28/16 13:15 Assessment & Plan Assessment: 46-year-old female presents with acute excoriation around ostomy site resulting in inability to place ostomy bag and subsequent leakage of gastric secretions all over the abdomen Plan: 1. Short-gut syndrome. Chronic condition, the patient's recurrent surgeries in July and August of 2016 resulted in approximately 20 cm of intact small-bowel , she currently has an ostomy where the duodenum and ileum converge and she is currently leaking gastric contents from the ostomy site leading to further excoriation of the skin -the area is unlikely to heal in the setting of severe malnutrition which will be further discussed below -discussed with Dr. Pablo, the present time a Sherman catheter has been placed into was suspected to be the duodenum to facilitate some degree of drainage and reduction of gastric secretions on the actual skin -we are currently unable to place an ostomy bag secondary to the degree of excoriations -dietary consultation has been placed to adjust her TPN given that patient has lost 7 kg since mid October appears to be getting weaker, worse nutritional status 2. Severe protein calorie malnutrition. Evidenced by aspirin criteria with proximal muscle wasting, cachexia, secondary to short gut and chronic disease as well as an element of bulimia and anorexia overlay which are more remote but chronic issues for this patient -continue TPN, pharmacy and dietary to adjust -hold on oral dietary supplements as they will most likely spill out of the ostomy and may not produce desired effect 3. Chronic kidney disease stage 3. Creatinine currently at baseline although BUN is elevated, suspect that she has degree of hypovolemia in the setting of above -discussed with Dr. Arthur Schwartz, nephrology consultation appreciated 4. Hyponatremia. Acute on chronic, patient has a history of intermittent hyponatremia in the setting of anorexia and bulimia but in this situation it appears that the exacerbating cause is likely volume loss via the ostomy and inadequate oral intake -discussed with Dr. Schwartz, continue normal saline overnight and recheck in a.m. 5. Bipolar disease type 1. Currently stable, continue home medications once reconciled 6. Coagulopathy with protein C deficiency. Patient presenting with an elevated INR in the setting of recent Bactrim use as well as chronic Unasyn use and to doses of 15 mg Coumadin approximately 1 week ago per patient -INR 14.9 on presentation, no evidence of acute bleeding -Dr. Pablo has informed me that the patient received 5 mg of oral vitamin K in the emergency department -reviewed Dr. Del Angel's discharge summary from 08/11/16, she reported an acute occlusion of SMA, so patient is at high risk of reoccluding and would recommend not continuing vitamin K as the patient has a serious hypercoagulable syndrome and this has led to SMA occlusion in the past, err on the side of an elevated INR so long as she is not bleeding -the INR may naturally decrease now that she is no longer on Unasyn or Bactrim -monitor INR daily -plan to reinitiate Coumadin as soon as the INR demonstrates that is returning to goal range 7. Chronic pain with continuous opiate dependency. Continue home pain medications, if patient's pain is not managed on the, transition to IV given that she may not actually be absorbing the oral opiates 8. Hyperkalemia. Continue to monitor, the patient has a long history of hypokalemia in the setting of poor oral intake but her acute elevation is most likely secondary to either her TPN or modest hypovolemia -repeat labs in a.m., continue normal saline overnight 9. History of anastomotic leak. Reviewed outside records including progress notes from [facility] indicating that the patient had anastomotic leak as well as fungemia and was placed on combination of cefepime, vancomycin, metronidazole, Eraxis, and the patient reports that these antibiotics were adjusted while she was at LTAC for a fluctuating level of leukocytosis -she appears to have been discharged from the LTAC with Unasyn daily infusion, but the stop date is reportedly tomorrow -infectious Disease consultation has been placed to assist us in management of her long-term IV antibiotics determine whether these can be discontinued, she has not been established with local infectious disease and this should be established during this hospitalization as she plans to remain in [place] moving forward This patient is highly complex, high risk of worsening morbidity and/or mortality, secondary to the issues as outlined above. The Hospital Medicine service will continue to consult in this patient's care on a daily basis.
[2016-11-28] MEDS: PANTOPRAZOLE SODIUM 40 MG in NS 100 ML IV SCH (21:48)
[2016-11-28] MEDS: ACETAMINOPHEN 325 MG TAB PO PRN (22:24)
[2016-11-28] MEDS: PREGABALIN 50 MG CAP PO SCH (22:25)
[2016-11-28] MEDS ORDERED: SODIUM CHLORIDE IV SCH (23:00)
[2016-11-28 23:54] LABS: INR 11.63 (0.83-1.16); PROTIME(PATIENT) 93.3 SEC (12.0-15.0)
[2016-11-29 05:29] LABS: ADD DIFF? NO; ADD MORPH? NO; ADD SCAN? YES; FRAGMENT RBC FLAG 20 (0-99); LEFT SHIFT FLG 10 (0-99); LIPEMIA HEMOLYSIS FLAG 80 (0-99); PLATELET CLUMPS FLAG 0 (0-99)
[2016-11-29 05:45] LABS: % IMMATURE GRANULYOCYTES 0.6 % (0.0-1.1); ABSOLUTE IMMATURE GRANULOCYTES 0.04 10^3/uL (0.00-0.10); HEMATOCRIT 26.7 % (38.0-47.0); HEMOGLOBIN 8.5 g/dL (12.6-16.3); MEAN CELL HEMOGLOBIN 24.6 pg (27.9-34.1); MEAN CELL HEMOGLOBIN CONCENTR. 31.8 g/dL (32.4-36.7); MEAN CELL VOLUME 77.2 fL (81.5-99.8); MEAN PLATELET VOLUME 10.2 fL (8.7-11.7); PLATELET COUNT 336 10^3/uL (150-400); RED BLOOD CELL COUNT 3.46 10^6/uL (4.18-5.33); RED CELL DISTRIBUTION WIDTH 16.9 % (11.5-15.2)
[2016-11-29 05:48] LABS: ATYPICAL LYMPHOCYTE FLAG 160 (0-99)
[2016-11-29 05:51] LABS: ALANINE AMINOTRANSFERASE 36 IU/L (9-52); ALBUMIN 2.5 g/dL (3.5-5.0); ALKALINE PHOSPHATASE 154 IU/L (38-126); ANION GAP 7 mEq/L (8-16); ASPARTATE AMINOTRANSFERASE 24 IU/L (14-46); BILIRUBIN,TOTAL 0.8 mg/dL (0.1-1.4); CALCIUM 8.5 mg/dL (8.5-10.4); CARBON DIOXIDE 22 mEq/l (22-31); CHLORIDE 109 mEq/L (97-110); GLOMERULAR FILTRATION RATE > 60; GLUCOSE 119 mg/dL (70-100); MAGNESIUM 2.1 mg/dL (1.6-2.3); SODIUM 138 mEq/L (134-144); TOTAL PROTEIN 5.2 g/dL (6.3-8.2)
[2016-11-29 05:58] LABS: POTASSIUM 6.4 mEq/L (3.5-5.2)
[2016-11-29 05:59] LABS: PREALBUMIN 8.2 mg/dL (17.6-36.0)
[2016-11-29 06:13] LABS: SCAN NEGATIVE
[2016-11-29 06:31] LABS: PROTIME(PATIENT) 69.7 SEC (12.0-15.0)
[2016-11-29 06:33] LABS: INR 8.08 (0.83-1.16)
--- NOTE | 2016-11-29 07:13 | CPEKG ---
Heart Rate: 77 RR Interval: 779 P-R Interval: 132 QRSD Interval: 86 QT Interval: 352 QTC Interval: 399 P Luttrell: 22 QRS Luttrell: 45 T Wave Luttrell: 42 EKG Severity - BORDERLINE ECG - EKG Impression: SINUS RHYTHM EKG Impression: LOW VOLTAGE IN FRONTAL LEADS EKG Impression: BORDERLINE INFERIOR Q WAVES Electronically Signed By: Eugene Shepherd 29-Nov-2016 09:21:00
[2016-11-29 07:33] LABS: % IMMATURE GRANULYOCYTES 0.3 % (0.0-1.1); ABSOLUTE IMMATURE GRANULOCYTES 0.02 10^3/uL (0.00-0.10); ADD DIFF? NO; ADD MORPH? NO; ADD SCAN? YES; FRAGMENT RBC FLAG 20 (0-99); HEMATOCRIT 27.4 % (38.0-47.0); HEMOGLOBIN 8.6 g/dL (12.6-16.3); LEFT SHIFT FLG 0 (0-99); LIPEMIA HEMOLYSIS FLAG 80 (0-99); MEAN CELL HEMOGLOBIN 24.3 pg (27.9-34.1); MEAN CELL HEMOGLOBIN CONCENTR. 31.4 g/dL (32.4-36.7); MEAN CELL VOLUME 77.4 fL (81.5-99.8); MEAN PLATELET VOLUME 10.2 fL (8.7-11.7); PLATELET CLUMPS FLAG 0 (0-99); PLATELET COUNT 352 10^3/uL (150-400); RED BLOOD CELL COUNT 3.54 10^6/uL (4.18-5.33)
[2016-11-29 07:37] LABS: ATYPICAL LYMPHOCYTE FLAG 240 (0-99)
[2016-11-29 07:42] LABS: ANION GAP 8 mEq/L (8-16); CALCIUM 8.5 mg/dL (8.5-10.4); CARBON DIOXIDE 21 mEq/l (22-31); CHLORIDE 111 mEq/L (97-110); CREATININE 0.9 mg/dL (0.6-1.0); GLOMERULAR FILTRATION RATE > 60; GLUCOSE 85 mg/dL (70-100); POTASSIUM 6.1 mEq/L (3.5-5.2); SODIUM 140 mEq/L (134-144)
[2016-11-29 08:23] LABS: SCAN NEGATIVE
[2016-11-29] MEDS: PREGABALIN 50 MG CAP PO SCH ×3 (09:16→20:24)
[2016-11-29] MEDS: PANTOPRAZOLE SODIUM 40 MG in NS 100 ML IV SCH (09:16)
[2016-11-29] MEDS: oxyCODONE IR 5 MG TAB PO PRN ×2 (09:17→15:41)
[2016-11-29] MEDS ORDERED: SODIUM BICARBONATE 50 MEQ/50 ML SYR IVP ONE (10:46)
--- NOTE | 2016-11-29 10:53 | PDCONSULT ---
Pediatric Nephrologist Note: Assessment/Plan: Hyponatremia: Na 125 on presentation yesterday, up to 140 this am. Likely hypovolemic hyponatremia given her quick correction, is a little too fast. - Will change IVFs to D5W at 50 ml/hr for today. - I have discussed with principal architect about my goal for her sodium to be around 135 tomorrow am. - Will continue to monitor. Hyperkalemia: pt with K of 5.6 on presentation when she normally is hypokalemic. This is likely multifactorial from being on Bactrim, BONITA with dehydration, and K in her TPN. Her K was higher this am with TPN, but now that is stopped. - Would not continue Bactrim. - Will give an amp of bicarb. - Will continue IVFs as above. - Will check again this afternoon. - I have discussed with principal architect about her hyperkalemia and TPN. CKD stage III: Cr at baseline at 0.9 this am after NS given yesterday. Will continue to monitor. History and Physical Stated Complaint: abd stoma prolapse, skin excoriation Time Seen by Provider: 11/28/16 13:43 HPI/ROS: HPI: Ms. 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 She has had multiple surgeries complicated by leakage and peritonitis. She had a very small jejunum connected to a very short segment of terminal ilium, which was made into an ostomy due to a perforation near the anastomosis. She has been on TPN and Unasyn at home. She notes that around her ostomy she had excoriation about 2 weeks ago and it has worsened, which is why she has presented. For the past 1.5 weeks, she has had increased fluid leaking from ostomy as well. She states she has been eating and drinking fine but has a lot of fluid output from ostomy. She typically runs hypokalemic in the past. She was about 1 week ago started on Bactrim for a UTI, still getting Unasyn. She often is hyponatremic but presented down at 125, with 3L NS overnight is up to 140 this am. Her K was 5.6 on presentation, she was started on TPN that had potassium and was up to 6.4, stopped TPN and down to 6.1. Her baseline Cr is around 0.9-1.2, is down to 0.9 this am. ROS: Positive per HPI, rest of 10-point ROS negative Source: Patient Exam Limitations: No limitations - Personal History LMP (Females 10-55): Unknown Current Tetanus Diphtheria and Acellular Pertussis (TDAP): Yes Tetanus Vaccine Date: 2010 Smoking Status: Current every day smoker Significant Family History: No pertinent family hx - Medical/Surgical History Hx Asthma: No Hx Chronic Respiratory Disease: No Hx Diabetes: No Hx Cardiac Disease: No Hx Renal Disease: No Hx Splenectomy or Spleen Trauma: No Other PMH: small intestine surgery, PEG tube placement, ileostomy, anorexia, bipolar, kidney stones, UTI - Physical Exam Exam: General: alert and oriented, no acute distress, thin Eyes; EOMI, PERRL, sclerae nonicteric OP: Clear, MMM Neck: supple, no thyromegaly CV: RRR, +2/4 radial and dorsalis pedis pulses, no peripheral edema Resp: CTA bilat, nonlabored respirations Abd; Soft, ostomy with fluid leaking into overlaying bandage Neuro: CN II-XII grossly intact, no asterixis Skin: warm, dry, no rash Psych: cooperative, appropriate mood and affect Constitutional: Initial Vital Signs Temperature (C) 36.9 C 11/28/16 12:58 Heart Rate 80 11/28/16 12:58 Respiratory Rate 24 H 11/28/16 12:58 Blood Pressure 100/63 11/28/16 12:58 O2 Sat (%) 91 L 11/28/16 12:58 O2 Delivery Mode Room Air Allergies/Adverse Reactions: amoxicillin Allergy (Intermediate, Verified 04/19/16 12:31) Abdominal Pain lamotrigine [From Lamictal] Allergy (Intermediate, Verified 04/19/16 12:31) Rash Home Medications: Medication Instructions Recorded traZODone [traZODone 150MG (*)] 150 mg PO HS 02/22/16 Ampicillin/Sulbactam [Unasyn] 12 gm IV Q24H 11/28/16 Herbals/Supplements -Info Only 1 ea PO AD 11/28/16 Ibuprofen [Motrin (*)] 400 mg PO BID PRN 11/28/16 Pregabalin [Lyrica 50mg (*)] 50 mg PO TID 11/28/16 TPN [Hyperalimentation] 1 ea IV DAILY@1600 11/28/16 Warfarin Sodium [Coumadin 4MG (*)] 12 mg PO Q2D@1600 11/28/16 Warfarin Sodium [Coumadin] 10 mg PO Q2D@1600 11/28/16 fentaNYL [Duragesic 100 MCG Patch 100 mcg TD Q72H 11/28/16 (*)] oxyCODONE IR [Oxycodone Ir (*)] 5 mg PO BID PRN 11/28/16 Lab and Imaging 11/29/16 07:00 11/29/16 07:00 WBC 7.20 10^3/uL (3.80-9.50) 11/29/16 07:00 RBC 3.54 10^6/uL (4.18-5.33) L 11/29/16 07:00 Hgb 8.6 g/dL (12.6-16.3) L 11/29/16 07:00 Hct 27.4 % (38.0-47.0) L 11/29/16 07:00 MCV 77.4 fL (81.5-99.8) L 11/29/16 07:00 MCH 24.3 pg (27.9-34.1) L 11/29/16 07:00 MCHC 31.4 g/dL (32.4-36.7) L 11/29/16 07:00 RDW 17.0 % (11.5-15.2) H 11/29/16 07:00 Plt Count 352 10^3/uL (150-400) 11/29/16 07:00 MPV 10.2 fL (8.7-11.7) 11/29/16 07:00 Neut % (Auto) 57.0 % (39.3-74.2) 11/29/16 07:00 Lymph % (Auto) 25.6 % (15.0-45.0) 11/29/16 07:00 Fallon % (Auto) 7.8 % (4.5-13.0) 11/29/16 07:00 Eos % (Auto) 8.9 % (0.6-7.6) H 11/29/16 07:00 Baso % (Auto) 0.4 % (0.3-1.7) 11/29/16 07:00 Nucleat RBC Rel Count 0.0 % (0.0-0.2) 11/29/16 07:00 Absolute Neuts (auto) 4.11 10^3/uL (1.70-6.50) 11/29/16 07:00 Absolute Lymphs (auto) 1.84 10^3/uL (1.00-3.00) 11/29/16 07:00 Absolute Monos (auto) 0.56 10^3/uL (0.30-0.80) 11/29/16 07:00 Absolute Eos (auto) 0.64 10^3/uL (0.03-0.40) H 11/29/16 07:00 Absolute Basos (auto) 0.03 10^3/uL (0.02-0.10) 11/29/16 07:00 Absolute Nucleated RBC 0.00 10^3/uL (0-0.01) 11/29/16 07:00 Immature Gran % 0.3 % (0.0-1.1) 11/29/16 07:00 Seg Neutrophils % 54 % 11/28/16 13:15 Band Neutrophils % 13 % 11/28/16 13:15 Lymphocytes % 26 % 11/28/16 13:15 Monocytes % 5 % 11/28/16 13:15 Eosinophils % 2 % 11/28/16 13:15 Immature Gran # 0.02 10^3/uL (0.00-0.10) 11/29/16 07:00 Absolute Seg Neuts 4.36 10^/uL (1.70-6.50) 11/28/16 13:15 Absolute Band Neuts 1.05 10^3/uL (0.00-0.70) H 11/28/16 13:15 Absolute Lymphocytes 2.10 10^3/uL (1.00-3.00) 11/28/16 13:15 Absolute Monocytes 0.40 10^3/uL (0.30-0.80) 11/28/16 13:15 Absolute Eosinophils 0.16 10^3/uL (0.03-0.40) 11/28/16 13:15 Atypical Lymphocytes 1+ H 11/28/16 13:15 Platelet Estimate ADEQUATE (ADEQ) 11/28/16 13:15 Hypochromasia 1+ H 11/28/16 13:15 Microcytic Cells 1+ H 11/28/16 13:15 PT 69.7 SEC (12.0-15.0) H D 11/29/16 05:15 INR 8.08 (0.83-1.16) H* 11/29/16 05:15 APTT 94.3 SEC (23.0-38.0) H 11/28/16 13:15 VBG Lactic Acid 0.8 mmol/L (0.7-2.1) 11/28/16 19:30 Sodium 140 mEq/L (134-144) 11/29/16 07:00 Potassium 6.1 mEq/L (3.5-5.2) H 11/29/16 07:00 Chloride 111 mEq/L (97-110) H 11/29/16 07:00 Carbon Dioxide 21 mEq/l (22-31) L 11/29/16 07:00 Anion Gap 8 mEq/L (8-16) 11/29/16 07:00 BUN 44 mg/dL (7-23) H 11/29/16 07:00 Creatinine 0.9 mg/dL (0.6-1.0) 11/29/16 07:00 Estimated GFR > 60 11/29/16 07:00 Glucose 85 mg/dL (70-100) 11/29/16 07:00 Calcium 8.5 mg/dL (8.5-10.4) 11/29/16 07:00 Magnesium 2.1 mg/dL (1.6-2.3) 11/29/16 05:15 Total Bilirubin 0.8 mg/dL (0.1-1.4) 11/29/16 05:15 Conjugated Bilirubin 0.4 mg/dL (0.0-0.5) 11/28/16 13:15 Unconjugated Bilirubin 0.5 mg/dL (0.0-1.1) 11/28/16 13:15 AST 24 IU/L (14-46) 11/29/16 05:15 ALT 36 IU/L (9-52) 11/29/16 05:15 Alkaline Phosphatase 154 IU/L (38-126) H 11/29/16 05:15 Total Protein 5.2 g/dL (6.3-8.2) L D 11/29/16 05:15 Albumin 2.5 g/dL (3.5-5.0) L 11/29/16 05:15 Prealbumin 8.2 mg/dL (17.6-36.0) L 11/29/16 05:15 Lipase 55.0 IU/L (23-300) 11/28/16 13:15
[2016-11-29] MEDS ORDERED: D5W 1,000 ML IV SCH (11:00)
[2016-11-29 11:47] LABS: ALBUMIN 2.3 g/dL (3.5-5.0); ANION GAP 7 mEq/L (8-16); CALCIUM 8.9 mg/dL (8.5-10.4); CARBON DIOXIDE 21 mEq/l (22-31); CHLORIDE 110 mEq/L (97-110); CREATININE 0.9 mg/dL (0.6-1.0); GLOMERULAR FILTRATION RATE > 60; GLUCOSE 84 mg/dL (70-100); POTASSIUM 6.2 mEq/L (3.5-5.2); SODIUM 138 mEq/L (134-144)
[2016-11-29] MEDS ORDERED: NS 1,000 ML IV ONE (12:21)
[2016-11-29] MEDS: ACETAMINOPHEN 325 MG TAB PO PRN (12:59)
--- NOTE | 2016-11-29 13:21 | HOSPPROG ---
Hospitalist Progress Note Assessment/Plan: DIAGNOSES: -Acute febrile illness is most likely bacterial infection related to her paul- ostomy skin wounds -severe excoriation of paul ostomy skin with significant contaminations due to ostomy output with leakage around the stoma - dehydration with acute renal insufficiency - hyponatremia and hyperkalemia -Profound protein calorie malnutrition due to chronic history of anorexia/ bulimia as well as her ongoing bowel issues -Excessive anticoagulation with possible nutritional factors as well as Bactrim as aggravating causes - iron deficiency anemia - history of bipolar disorder - 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, 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 PLANS: - wound care per surgery and Wound Care nursing -Continue TPN, I have reviewed changes for this with the pharmacist given her high per kg anemia and hyponatremia and her ongoing large volume losses -Continue antibiotic therapy as directed by Infectious Disease -Follow vital signs, fluid status, renal function closely SUBJECTIVE: severe pain at her skin excoriation sites no other acute symptoms at this time OBJECTIVE Vitals reviewed: some significant fluctuations in blood pressure, intermittent high fevers Exam: alert oriented skin warm dry color ok resps not labored lungs clear BSs heart regular abd is soft with some tenderness. She has tremendous paul ostomy leakage with diffuse excoriation and redness of skin around her ostomy which is quite tender. Nothing that looks necrotic right now limbs warm, no edema iv site ok Objective: Vital Signs Temp Pulse Resp BP Pulse Ox 36.7 C 69 18 102/51 L 100 11/29/16 11:40 11/29/16 11:40 11/29/16 11:40 11/29/16 12:25 11/29/16 11:40 Laboratory Results 11/29/16 07:00 11/29/16 07:00 11/28/16 11/29/16 11/30/16 06:59 06:59 06:59 Intake Total 3000 Output Total 450 750 Balance 2550 -750 PT 69.7 SEC (12.0-15.0) H D 11/29/16 05:15 INR 8.08 (0.83-1.16) H* 11/29/16 05:15 ICD10 Worksheet Patient Problems: Problems Problem Status Onset Excoriation Acute Anorexia nervosa Active Bulemia Nervosa Active Chronic vomiting Active Coumadin Therapy for 6 months Active Dehydration Active GERD - Gastroesophageal reflux disease Active Hypokalemia Active Hyponatremia Active Leukocytosis Active Occlusion of artery Active Renal artery stenosis Active Thrombocytosis Active Tobacco user Active Abdominal pain Acute Acute hypokalemia Acute Diarrhea Acute Hypokalemia Acute Hypokalemia Acute Lactic acid acidosis Acute Mesenteric thrombosis Acute Nausea & vomiting Acute Renal failure Acute Renal insufficiency Acute SBO (small bowel obstruction) Acute
[2016-11-29 14:36] LABS: ALBUMIN 2.4 g/dL (3.5-5.0); CARBON DIOXIDE 21 mEq/l (22-31); CHLORIDE 109 mEq/L (97-110); CREATININE 0.8 mg/dL (0.6-1.0); GLOMERULAR FILTRATION RATE > 60; GLUCOSE 90 mg/dL (70-100); SODIUM 135 mEq/L (134-144)
[2016-11-29 15:20] LABS: ANION GAP 5 mEq/L (8-16); POTASSIUM 4.9 mEq/L (3.5-5.2)
[2016-11-29] MEDS ORDERED: D5W 1/2 NS 1,000 ML IV SCH (16:00)
--- NOTE | 2016-11-29 16:23 | SOAPPROG ---
SOAP Progress Note Assessment/Plan: Assessment/Plan: - 46yo F c massively excoriated abdominal wall 2/2 noncompliance with ostomy appliance - I attempted to change cannulation of the mckenzie today to what I think is the proximal bowel, I also placed the cath to gravity drainage as I feel that suction is likely worsening things. The abdomen remains pretty well covered with bile stained fluid. Appreciate IM, ID, wound care assistance. Very difficult problem but hopefully we can at least manage some of the drainage to help her abdominal wall heal. 11/29/16 16:20 Subjective: Some abd pain Objective: Vital Signs Temp Pulse Resp BP Pulse Ox 36.8 C 65 16 94/44 L 100 11/29/16 15:22 11/29/16 15:22 11/29/16 15:22 11/29/16 15:22 11/29/16 15:22 Laboratory Results 11/29/16 07:00 11/29/16 14:10 11/28/16 11/29/16 11/30/16 05:59 05:59 05:59 Intake Total 3000 Output Total 450 2500 Balance 2550 -2500 PT 69.7 SEC (12.0-15.0) H D 11/29/16 05:15 INR 8.08 (0.83-1.16) H* 11/29/16 05:15 ICD10 Worksheet Patient Problems: Problems Problem Status Onset Excoriation Acute Anorexia nervosa Active Bulemia Nervosa Active Chronic vomiting Active Coumadin Therapy for 6 months Active Dehydration Active GERD - Gastroesophageal reflux disease Active Hypokalemia Active Hyponatremia Active Leukocytosis Active Occlusion of artery Active Renal artery stenosis Active Thrombocytosis Active Tobacco user Active Abdominal pain Acute Acute hypokalemia Acute Diarrhea Acute Hypokalemia Acute Hypokalemia Acute Lactic acid acidosis Acute Mesenteric thrombosis Acute Nausea & vomiting Acute Renal failure Acute Renal insufficiency Acute SBO (small bowel obstruction) Acute
--- NOTE | 2016-11-29 17:45 | GCON ---
[f rep st] CONSULTATION DATE OF CONSULTATION: 11/29/2016 REFERRING PHYSICIAN: Carrington Del Rosario MD REASON FOR CONSULTATION: Assist with determining duration of antibiotic therapy. HISTORY OF PRESENT ILLNESS: The patient is a 46-year-old female with a past medical history of hypercoagulable state due to protein C deficiency with recent complex hospitalization in the [facility] system and subsequently at [facility], whom I am asked to see in consultation to determine length of antibiotic therapy. The patient was hospitalized from 08/11 through 09/02 at [facility] related to ischemic colitis associated with mesenteric thrombosis. The patient underwent small bowel resection on 08/11 , 08/12, and 08/13. She also had cholecystectomy on 08/13/16. On 08/21/16, she underwent percutaneous drainage of a fluid collection. On 08/28/16, she was noted to have increasing pain and underwent exploratory laparotomy with jejunostomy. Cultures obtained from murky-appearing bilious fluid showed growth of a few Huyen albicans and lactobacillus; she did have findings of jejunal perforation intraoperatively. She was treated with cefepime, vancomycin , and metronidazole from 08/28 through 09/02. She also experienced fungemia and received Eraxis from 08/14 through 09/02/16. She was rehospitalized on 09/09/16 through 09/20/16, for decreasing hemoglobin and leukocytosis. A CT scan showed a fluid collection which was not amenable to IR drainage. She was treated with antibiotics during her hospitalization. She subsequently was transferred to [facility] and has been followed by [facility]. She has been receiving Unasyn for the above and thought she was supposed to be discontinued on 11/17/16. She had been discharged home over the last month but has not been able to make her followup appointments with [facility] due to problems related to transportation and chronic leakage from her ostomy site. She has experienced chronic leakage around her ostomy site which has caused significant erythema and irritation over the abdominal wall. She notes that she was called with abnormal lab finding yesterday which prompted her readmission. She does describe having occasional fevers without chills. She does not have abdominal pain other than that superficially associated with skin breakdown. She did have hematuria approximately a week ago and was seen by her primary care physicians, at which point in time she was started on Bactrim and urine studies were obtained. Urinalysis on 11/15/16 showed 50-182 white blood cells and red blood cells; culture was negative at that time. At the time of admission yesterday, patient was noted to have an INR of 14.9 with a normal venous lactate and white blood cell count. She also was noted to have hyponatremia with hyperkalemia. Given the above findings, I am now asked to assist in her ongoing management. 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 PAST SURGICAL HISTORY: Stenting of SMA, surgical history as outlined above which required resection of the vast majority of her small bowel and development of short gut syndrome. CURRENT MEDICATIONS: Unasyn 3 g IV q.6 hours, Duragesic patch 100 mcg apply q.72 hours, Protonix 40 mg IV daily, Lyrica 50 mg p.o. t.i.d., TPN, trazodone 150 mg p.o. q.h.s. ALLERGIES: Amoxicillin associated with abdominal pain (note this is an intolerance) and patient has tolerated ampicillin/sulbactam, Lamictal associated with rash. SOCIAL HISTORY: She smokes 3-4 cigarettes daily. FAMILY HISTORY: Breast cancer in her mother. REVIEW OF SYSTEMS: Outside of that noted in the HPI, remainder of a 10 system review is unremarkable except for continued weakness and weight loss. PHYSICAL EXAMINATION: VITAL SIGNS: Temperature maximum 39.0, temperature current 36.8, heart rate 65, respiratory rate 16, blood pressure 94/44, oxygen saturation 100% on 3 L. GENERAL: The patient is a thin female in no acute distress. She appears nontoxic. HEENT: There is significant facial muscle atrophy; no thrush; mucous membranes are moist. No nasal discharge. No tenderness over the frontal, maxillary, or mastoid area. NECK: Supple without lymphadenopathy or thyromegaly. CHEST: Clear to auscultation anterolaterally. The respiratory effort is normal. CARDIOVASCULAR: Regular rate and rhythm without murmurs, gallops, rubs. ABDOMEN: Soft, mildly tender in the left lower quadrant. There is extensive maceration over the abdominal wall, which is more prominent on the left than the right, with small amount of bilious fluid leaking from around ostomy site. Bowel sounds are present. MUSCULOSKELETAL: No cyanosis, clubbing, or edema. PICC line is present in the right upper extremity with no erythema, warmth, or tenderness. NEUROLOGIC: Patient is alert and interacts appropriately with the examiner. Cranial nerves 2-12 are grossly intact. Sensation is grossly intact. Muscle bulk is decreased throughout. SKIN: No stigmata of endocarditis. See abdominal exam. Skin is warm and dry to touch. LABORATORY DATA: White blood cell count 7.2, hematocrit 27.4, platelets 352, neutrophils 57%, lymphocytes 26%. Serum creatinine is 0.8, albumin 2.4. INR is 8.1. Lactate 0.8. IMPRESSION: 1. Intraabdominal infection post jejunal perforation and complex prior surgical course: The patient now has been receiving antibiotic therapy for a prolonged period with initial stop date anticipated to be 11/17/16. The patient did have a CT scan performed on 10/18/16, which showed interval decrease in small perihepatic fluid collections which were not amenable to drainage. Favor discontinuation of antibiotic therapy at this point in time with observation off antibiotics. If she were to have persistent fever or other abdominal findings, would necessitate repeat CT scan of the abdomen and pelvis to ensure adequacy of drainage. 2. Fever: Multiple considerations including persistent abdominal infection versus drug fever versus related to maceration of abdominal wall vs. line infection. We will obtain blood cultures if fever recurs. If fever is recurrent, plan repeat CT scan to ensure no residual collections as outlined above. 3. History of fungemia: Continues with PICC line and TPN. Would repeat blood cultures if fever recurs. RECOMMENDATIONS: 1. Discontinue Unasyn and observe off antibiotics. 2. Blood cultures for recurrent fever. 3. Plan CT scan of abdomen and pelvis if has recurrent fever. Thank you for this consultation. We will continue to follow the patient with you. /[id number]/MODL MTDD
[2016-11-29] MEDS ORDERED: D10W 1,000 ML IV PRN (17:48)
[2016-11-29] MEDS: IBUPROFEN 200 MG TAB PO PRN (20:24)
[2016-11-29] MEDS: TPN 1 EA BAG IV SCH (21:03)
--- NOTE | 2016-11-29 22:35 | WOCRNPDOC ---
WOCRN Advanced Assessment Note - Skin Integrity Problem, Advanced Assess Abdomen Dressing Type: ABD Pad, Gauze Dressing Description: Saturated, Soiled Exudate Amount: Excessive Exudate Color: Green Exudate Characteristic(s): Bilious, Sanguinous Integumentary Issue Intervention: Dressing Applied (Protective crusting of Cavilon spray & stoma powder; Adaptic Touch to cover and soothe nerve endings), Dressing Changed, Dressing Removed Carol Wound Tissue: Raw, Weeping, Shiny Wound Bed Color: Red Wound Bed Constitution: Smooth Tissue Wound Edges: Irregular Site Odor: None Skin Integrity Problem Comment: Uncontained ileostomy effluent extending chemical irritation dermatitis across approx 2/3-3/4 of abdomen, from lateral right flank to mid-left abdomen. <1-2 cc of effluent is in tubing of catheter in place in os of stoma; no drainage in drainage bag. Patient reports catheter was placed "yesterday afternoon." Observed copious amounts of effluent leaking from around the catheter and possibly the mucocutaneous junction. Based on these findings, DC'd catheter in favor of developing additional options for effluent diversion and containment. To address the dermatitis, which patient reports as distressingly tender and painful, the affected areas were very gently cleaned with plain warm water, while an machine operator assistant maintained moisture control at the stoma os, using a tampon as a wick, resting lightly on the surface of the stoma while cleaning and treatment proceeded. A protective "crusting" was created over the denuded tissue, using alternating applications of Cavilon skin protectant and stoma powder. After trialing, and the subsequent failure of a two-piece drainable pouching system, effluent containment was achieved by placing a strip paste ring as a gasket around the mucocutaneous junction, and the securement of a fistula pouch around the stoma and covering the entire right side of the abdomen and part of the midline. The remaining exposed area was protected by Adaptic Touch, which patient reported as "comfortable and comforting." In addition, it was found helpful to thicken the effluent collecting in the pouch with the addition of an Ile-sorb packet. In the event that staff will need to modify the drainage end of the pouch, a pouch clamp was provided, along with more packets of Ile-sorb, which are to be added after each pouch-emptying. Patient was attentive to the entire process, which was also demonstrated to MADAI Ledezma. - Ileostomy Assessment, Advanced Left Abdomen Ileostomy Appliance Intact: No (none present this morning) Ileostomy Appliance Currently in Use: Fistula Pouch (as of this evening) Ileostomy Accessory: Powder, Strip Paste Stoma Color: [place] Stoma Shape: Round Stoma Height: Protruding Slightly Mucocutaneus Junction Comment: Could not visualize condition d/t hidden under overhanging stoma Ileostomy Effluent: Thin, Bile Ileostomy Details: Ileal Conduit, End Peristomal Skin: Denuded Peristomal Skin Complications: Irritant Contact Dermatitis Ileostomy Comment/Treatment Details: Please see comments above, under "Abdomen. "
[2016-11-30] MEDS: oxyCODONE IR 5 MG TAB PO PRN ×4 (02:23→18:31)
[2016-11-30 05:44] LABS: % IMMATURE GRANULYOCYTES 0.3 % (0.0-1.1); ABSOLUTE IMMATURE GRANULOCYTES 0.02 10^3/uL (0.00-0.10); ADD DIFF? NO; ADD MORPH? NO; ADD SCAN? YES; FRAGMENT RBC FLAG 20 (0-99); HEMATOCRIT 25.7 % (38.0-47.0); HEMOGLOBIN 8.2 g/dL (12.6-16.3); LEFT SHIFT FLG 0 (0-99); LIPEMIA HEMOLYSIS FLAG 80 (0-99); MEAN CELL HEMOGLOBIN 24.5 pg (27.9-34.1); MEAN CELL HEMOGLOBIN CONCENTR. 31.9 g/dL (32.4-36.7); MEAN CELL VOLUME 76.7 fL (81.5-99.8); MEAN PLATELET VOLUME 10.3 fL (8.7-11.7); PLATELET CLUMPS FLAG 0 (0-99); PLATELET COUNT 412 10^3/uL (150-400); RED BLOOD CELL COUNT 3.35 10^6/uL (4.18-5.33)
[2016-11-30 05:45] LABS: ATYPICAL LYMPHOCYTE FLAG 120 (0-99)
[2016-11-30 05:53] LABS: ALANINE AMINOTRANSFERASE 38 IU/L (9-52); ALBUMIN 2.5 g/dL (3.5-5.0); ALKALINE PHOSPHATASE 152 IU/L (38-126); ANION GAP 8 mEq/L (8-16); ASPARTATE AMINOTRANSFERASE 18 IU/L (14-46); BILIRUBIN,TOTAL 0.9 mg/dL (0.1-1.4); CALCIUM 8.7 mg/dL (8.5-10.4); CARBON DIOXIDE 20 mEq/l (22-31); CHLORIDE 108 mEq/L (97-110); CREATININE 0.8 mg/dL (0.6-1.0); GLOMERULAR FILTRATION RATE > 60; GLUCOSE 103 mg/dL (70-100); POTASSIUM 3.8 mEq/L (3.5-5.2); SODIUM 136 mEq/L (134-144); TOTAL PROTEIN 5.4 g/dL (6.3-8.2)
[2016-11-30 06:09] LABS: INR 2.33 (0.83-1.16); PROTIME(PATIENT) 25.8 SEC (12.0-15.0)
[2016-11-30] MEDS: PANTOPRAZOLE SODIUM 40 MG in NS 100 ML IV SCH (08:27)
[2016-11-30] MEDS: PREGABALIN 50 MG CAP PO SCH ×3 (08:27→21:16)
[2016-11-30] MEDS: D5W 1/2 NS 1,000 ML IV SCH (11:26)
--- NOTE | 2016-11-30 11:36 | SOAPPROG ---
SOAP Progress Note Assessment/Plan: 11/30/16 11:24 PAD#2 Assessment: Multiple issues have been addressed since admission: ID: felt that IV antibiotics could be stopped. Suggested re scan if wbc or temp increase. Malnutrition : total lymphocytes low as is pre-albumin - on TPN. Large wound is contributing to negative nitrogen balance Renal: Cr has returned to a baseline level Anticoagulation: Now at a safe level Abdominal wall: contamination continues. Ostomy bag placement not successful Electrolyte abnormalities: resolving Plan: CT of abdomen and pelvis to evaluate prior fluid collections and to determine GI anatomy. If anatomy is favorable, will close ostomy to redirect GI contents into ileum/ colon. this will optimize wound care and fluid/electrolyte management. Subjective: My abdominal (skin) feels better Objective: Vital Signs Temp Pulse Resp BP Pulse Ox 37.0 C 69 14 130/63 H 95 11/30/16 11:00 11/30/16 11:00 11/30/16 11:00 11/30/16 11:00 11/30/16 11:00 Laboratory Results 11/30/16 05:00 11/29/16 11/30/16 12/01/16 05:59 05:59 05:59 Intake Total 2000 901 Output Total 450 5100 Balance 1550 -4199 PT 25.8 SEC (12.0-15.0) H D 11/30/16 05:00 INR 2.33 (0.83-1.16) H 11/30/16 05:00 Physical Exam - Physical Exam General Appearance: alert, mild distress Respiratory: lungs clear Cardiac/Chest: regular rate, rhythm Abdomen: other (area of skin injury slightly smaller, ostomy did not adhere, contamination continues) Pelvic Exam: deferred Rectal: deferred Back: Normal inspection Skin: other (see above) Neuro/Psych: alert, normal mood/affect, oriented x 3 ICD10 Worksheet Patient Problems: Problems Problem Status Onset Excoriation Acute Anorexia nervosa Active Bulemia Nervosa Active Chronic vomiting Active Coumadin Therapy for 6 months Active Dehydration Active GERD - Gastroesophageal reflux disease Active Hypokalemia Active Hyponatremia Active Leukocytosis Active Occlusion of artery Active Renal artery stenosis Active Thrombocytosis Active Tobacco user Active Abdominal pain Acute Acute hypokalemia Acute Diarrhea Acute Hypokalemia Acute Hypokalemia Acute Lactic acid acidosis Acute Mesenteric thrombosis Acute Nausea & vomiting Acute Renal failure Acute Renal insufficiency Acute SBO (small bowel obstruction) Acute
--- NOTE | 2016-11-30 12:10 | SOAPPROG ---
SOAP Progress Note Assessment/Plan: Assessment: 1. Hyponatremia - -Na 125 on presentation, up to 140 yesterday. Likely hypovolemic hyponatremia -Changed IVFs to D5W at 50 ml/hr to slow correction rate -Na has stabilized in mid 130s, appropriate -Will continue to monitor. 2. Hyperkalemia - -Likely multifactorial from being on Bactrim, BONITA with dehydration, and K in her TPN. -Holding Bactrim. -Received an amp of bicarb and has been on IVFs as above. -Now levels normalized and stable -Have discussed with monument installer about her hyperkalemia and TPN. May be able to liberalize input, continue to follow 3. CKD stage III: Cr at baseline at 0.9 -Will continue to monitor. Plan: 11/30/16 12:08 Subjective: Feels well. No c/o. Objective: Vital Signs Temp Pulse Resp BP Pulse Ox 37.0 C 69 14 130/63 H 95 11/30/16 11:00 11/30/16 11:00 11/30/16 11:00 11/30/16 11:00 11/30/16 11:00 Laboratory Results 11/30/16 05:00 11/29/16 11/30/16 12/01/16 05:59 05:59 05:59 Intake Total 2000 901 Output Total 450 5100 Balance 1550 -4199 PT 25.8 SEC (12.0-15.0) H D 11/30/16 05:00 INR 2.33 (0.83-1.16) H 11/30/16 05:00 Physical Exam - Physical Exam General Appearance: WD/WN, cachetic Respiratory: lungs clear, normal breath sounds Cardiac/Chest: regular rate, rhythm Abdomen: non-tender, soft Extremities: No swelling ICD10 Worksheet Patient Problems: Problems Problem Status Onset Excoriation Acute Anorexia nervosa Active Bulemia Nervosa Active Chronic vomiting Active Coumadin Therapy for 6 months Active Dehydration Active GERD - Gastroesophageal reflux disease Active Hypokalemia Active Hyponatremia Active Leukocytosis Active Occlusion of artery Active Renal artery stenosis Active Thrombocytosis Active Tobacco user Active Abdominal pain Acute Acute hypokalemia Acute Diarrhea Acute Hypokalemia Acute Hypokalemia Acute Lactic acid acidosis Acute Mesenteric thrombosis Acute Nausea & vomiting Acute Renal failure Acute Renal insufficiency Acute SBO (small bowel obstruction) Acute
[2016-11-30 13:59] LABS: SCAN NEGATIVE
[2016-11-30] MEDS ORDERED: SILVER SULFADIAZINE 400 GM JAR TP ONE (14:30)
[2016-11-30] MEDS ORDERED: ERTAPENEM 1 GM in NS 100 ML IV ONE (14:33)
--- NOTE | 2016-11-30 15:07 | HOSPPROG ---
Hospitalist Progress Note Assessment/Plan: 46 y/o female new to my care 11/30 with -Acute febrile illness is most likely bacterial infection related to her paul- ostomy skin wounds -severe excoriation of paul ostomy skin with significant contaminations due to ostomy output with leakage around the stoma - dehydration with acute renal insufficiency - hyponatremia and hyperkalemia (resolved) -Profound protein calorie malnutrition due to chronic history of anorexia/ bulimia as well as her ongoing bowel issues -Excessive anticoagulation with possible nutritional factors as well as Bactrim as aggravating causes - iron deficiency anemia - history of bipolar disorder - 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, 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 PLANS: - wound care per surgery and Wound Care nursing -To OR later today -Continue TPN, I have reviewed changes for this with the pharmacist given her high per kg anemia and hyponatremia and her ongoing large volume losses -Continue antibiotic therapy as directed by Infectious Disease -Follow vital signs, fluid status, renal function closely Pt is high risk Subjective: no fever or chills Objective: Vital Signs Temp Pulse Resp BP Pulse Ox 37.0 C 69 14 130/63 H 95 11/30/16 11:00 11/30/16 11:00 11/30/16 11:00 11/30/16 11:00 11/30/16 11:00 Laboratory Results 11/30/16 05:00 11/30/16 05:00 11/29/16 11/30/16 12/01/16 05:59 05:59 05:59 Intake Total 2000 901 Output Total 450 5100 600 Balance 1550 -4199 -600 PT 25.8 SEC (12.0-15.0) H D 11/30/16 05:00 INR 2.33 (0.83-1.16) H 11/30/16 05:00 - Physical Exam Constitutional: chronically ill appearing, cachectic Cardiovascular: regular rate and rhythym, no murmur, rub, or gallop Respiratory: no respiratory distress, no rales or rhonchi, clear to auscultation Gastrointestinal: other (diminshed bowel sounds), No guarding, No rebound Skin: other (scalded appearing skin on abd) ICD10 Worksheet Patient Problems: Problems Problem Status Onset Dehydration Active Hypokalemia Active Anorexia nervosa Active Chronic vomiting Active Thrombocytosis Active Leukocytosis Active Occlusion of artery Active Renal artery stenosis Active Tobacco user Active Coumadin Therapy for 6 months Active Bulemia Nervosa Active Hyponatremia Active GERD - Gastroesophageal reflux disease Active Diarrhea Acute Nausea & vomiting Acute Renal insufficiency Acute Acute hypokalemia Acute Mesenteric thrombosis Acute Abdominal pain Acute Hypokalemia Acute SBO (small bowel obstruction) Acute Lactic acid acidosis Acute Hypokalemia Acute Renal failure Acute Excoriation Acute
[2016-11-30] MEDS ORDERED: LIDOCAINE 2% 100 MG/5 ML SYR ONE (15:11)
[2016-11-30] MEDS ORDERED: fentaNYL 100 MCG/2 ML INJ ONE ×4 (15:11→16:42)
[2016-11-30] MEDS ORDERED: ROCURONIUM 100 MG/10 ML VIAL ONE (15:11)
[2016-11-30] MEDS ORDERED: PROPOFOL 200 MG/20 ML VIAL ONE (15:11)
[2016-11-30] MEDS ORDERED: MIDAZOLAM 2 MG/2 ML VIAL ONE (15:13)
[2016-11-30] MEDS ORDERED: SUGAMMADEX SODIUM 200 MG/2 ML VIAL IVP ONE (16:04)
[2016-11-30] MEDS ORDERED: ONDANSETRON 4 MG/2 ML VIAL ONE (16:25)
--- NOTE | 2016-11-30 16:31 | POSTOPPROG ---
Post Op Note Date of Operation: 11/30/16 Surgeon: Parviz Pablo Anesthesia: GET(General Endotracheal) Pre-op Diagnosis: abdominal wall excoration due to bile from ostomy Post-op Diagnosis: abdominal wall excoration due to bile from ostomy Indication: abdominal wall excoration due to bile from ostomy Procedure: extra-abdominal double barrel ostomy closure Findings: abdominal wall excoration due to bile from ostomy Inf/Abcess present in the surg proc area at time of surgery?: No EBL: Minimal Total fluids administered: 600 Complications: none
[2016-11-30] MEDS ORDERED: SUMAtriptan 50 MG TAB PO PRN (16:48)
[2016-11-30] MEDS ORDERED: HYDROmorphONE/DILAUDID 1 MG/ML SYR IVP ONE (16:52)
[2016-11-30] MEDS ORDERED: HYDROmorphONE/DILAUDID 1 MG/ML SYR ONE (16:55)
--- NOTE | 2016-11-30 17:14 | PCMIDPN ---
Assessment/Plan: Assessment/Plan: * Intra-abdominal infection status post jejunal perforation: Plans for ostomy closure today to minimize biliary leakage with subsequent abdominal wall maceration. CT scan reviewed showing left-sided abdominal fluid collection. Will review this with Radiology regarding consideration for aspiration to defined if this represents plan collection versus residual abscess after long course of IV antibiotic therapy. Will continue observation off antibiotics in interim. * Fever: No further fever. See differential considerations outlined in initial consultation. Plan blood cultures if fever recurs. 11/30/16 17:11 11/30/16 17:11 11/30/16 17:12 Subjective: Patient complains of pain at ostomy site. No further fever. Objective: Vital Signs Temp Pulse Resp BP Pulse Ox 37.0 C 77 16 131/66 H 95 11/30/16 16:33 11/30/16 16:33 11/30/16 16:33 11/30/16 16:33 11/30/16 11:00 Laboratory Results 11/30/16 05:00 11/30/16 05:00 11/29/16 11/30/16 12/01/16 05:59 05:59 05:59 Intake Total 1999 901 800 Output Total 450 5100 805 Balance 1550 -4199 -[address] scan showing left-sided abdominal collection measuring 7 x 2.2 cm with thick wall - Physical Exam General Appearance: alert, no apparent distress, non-toxic EENT: No scleral icterus Abdomen: non-tender, other (Extensive maceration over abdominal wall without signs of infection), No distended - Line/s RUE PICC Lines: No drainage, No erythema ICD10 Worksheet Patient Problems: Problems Problem Status Onset Excoriation Acute Anorexia nervosa Active Bulemia Nervosa Active Chronic vomiting Active Coumadin Therapy for 6 months Active Dehydration Active GERD - Gastroesophageal reflux disease Active Hypokalemia Active Hyponatremia Active Leukocytosis Active Occlusion of artery Active Renal artery stenosis Active Thrombocytosis Active Tobacco user Active Abdominal pain Acute Acute hypokalemia Acute Diarrhea Acute Hypokalemia Acute Hypokalemia Acute Lactic acid acidosis Acute Mesenteric thrombosis Acute Nausea & vomiting Acute Renal failure Acute Renal insufficiency Acute SBO (small bowel obstruction) Acute
--- NOTE | 2016-11-30 17:22 | GOP ---
[f rep st] OPERATIVE REPORT DATE OF OPERATION: 11/30/2016 SURGEON: Parviz Pablo MD ANESTHESIA: General endotracheal. PREOPERATIVE DIAGNOSIS: Abdominal wall skin superficial 2nd degree burn due to bile leakage from double-barrel ileostomy for short gut. POSTOPERATIVE DIAGNOSIS: Abdominal wall skin superficial 2nd degree burn due to bile leakage from double-barrel ileostomy for short gut. PROCEDURE PERFORMED: Extra-abdominal double-barrel colostomy closure. FINDINGS: Abdominal wall skin superficial 2nd degree burn due to bile leak from ostomy and short bowel syndrome. INDICATIONS: Abdominal wall skin superficial 2nd degree burn due to bile leakage from double-barrel ileostomy for short gut. DESCRIPTION OF PROCEDURE: The patient was placed on the operating table and placed under general tracheal anesthesia. A surgical time-out was carried out and agreed to by all members of the operative team. A Ray-Ra sponge was carefully placed in the ostomy to prevent leakage. The abdomen was carefully prepped and draped. Betadine was used because of the extensive 2nd degree burn. The ostomy is carefully divided at the anterior medial edge and from the skin use electrocautery. This is the farthest point from the proximal and distal lumens. Once I have entered the subcutaneous tissue. Harmonic Scalpel is used to go around the ostomy to separate it and provide the best hemostasis possible. Once this has been completed, the ostomy was elevated with 2 Allis clamps; one placed at 3 o'clock and one placed at 9 o'clock. This was elevated up a distance of approximately 4 cm. The Ray-Ra was now removed. Just below the clamps, a transversely oriented TA-60 is placed and fired. The tissue distal to the staple line is removed. The closed ostomy is now allowed to drop back into the subcutaneous tissue. Interrupted Lembert sutures of 3-0 GI silk were used to reinforce the staple line. There does not appear to be any leakage or undue tension on the suture line. The excoriated abdomen was now covered with Silvadene, 4x4s, and ABD dressings. Abdominal binder is placed. The G-tube was clamped for the course of the procedure. Note is made, a Teo Hugger was used. The patient is transferred back to Recovery in stable and satisfactory condition. FLUIDS: 600 cc. /[id number]/MODL MTDD
[2016-11-30] MEDS: IBUPROFEN 200 MG TAB PO PRN (18:36)
[2016-11-30] MEDS ORDERED: SILVER SULFADIAZINE 50 GM JAR TP SCH (21:00)
[2016-11-30] MEDS: ACETAMINOPHEN 500 MG TAB PO SCH (21:15)
[2016-11-30] MEDS: ENOXAPARIN 30 MG/0.3 ML SYR SC SCH (21:17)
[2016-11-30] MEDS: TPN 1 EA BAG IV SCH (21:48)
[2016-11-30] MEDS: SILVER SULFADIAZINE 400 GM JAR TP SCH (22:26)
[2016-12-01] MEDS: oxyCODONE IR 5 MG TAB PO PRN ×3 (02:28→17:12)
[2016-12-01] MEDS: ACETAMINOPHEN 500 MG TAB PO SCH ×3 (05:17→21:02)
[2016-12-01 06:23] LABS: % IMMATURE GRANULYOCYTES 0.4 % (0.0-1.1); ABSOLUTE IMMATURE GRANULOCYTES 0.03 10^3/uL (0.00-0.10); ADD DIFF? NO; ADD MORPH? NO; ADD SCAN? NO; ATYPICAL LYMPHOCYTE FLAG 60 (0-99); FRAGMENT RBC FLAG 20 (0-99); HEMOGLOBIN 7.9 g/dL (12.6-16.3); LEFT SHIFT FLG 0 (0-99); LIPEMIA HEMOLYSIS FLAG 80 (0-99); MEAN CELL HEMOGLOBIN 24.3 pg (27.9-34.1); MEAN CELL HEMOGLOBIN CONCENTR. 31.6 g/dL (32.4-36.7); MEAN CELL VOLUME 76.9 fL (81.5-99.8); PLATELET CLUMPS FLAG 0 (0-99); PLATELET COUNT 437 10^3/uL (150-400); RED BLOOD CELL COUNT 3.25 10^6/uL (4.18-5.33); RED CELL DISTRIBUTION WIDTH 17.2 % (11.5-15.2)
[2016-12-01 06:32] LABS: APTT 37.1 SEC (23.0-38.0); INR 1.54 (0.83-1.16); PROTIME(PATIENT) 18.5 SEC (12.0-15.0)
[2016-12-01 06:33] LABS: ALANINE AMINOTRANSFERASE 36 IU/L (9-52); ALBUMIN 2.3 g/dL (3.5-5.0); ALKALINE PHOSPHATASE 156 IU/L (38-126); ANION GAP 6 mEq/L (8-16); ASPARTATE AMINOTRANSFERASE 21 IU/L (14-46); BILIRUBIN,TOTAL 0.5 mg/dL (0.1-1.4); CALCIUM 8.6 mg/dL (8.5-10.4); CARBON DIOXIDE 21 mEq/l (22-31); CHLORIDE 109 mEq/L (97-110); CREATININE 0.8 mg/dL (0.6-1.0); GLOMERULAR FILTRATION RATE > 60; GLUCOSE 89 mg/dL (70-100); MAGNESIUM 1.7 mg/dL (1.6-2.3); POTASSIUM 4.1 mEq/L (3.5-5.2); SODIUM 136 mEq/L (134-144); TOTAL PROTEIN 5.4 g/dL (6.3-8.2)
[2016-12-01] MEDS: PREGABALIN 50 MG CAP PO SCH ×3 (09:12→21:02)
--- NOTE | 2016-12-01 09:17 | SOAPPROG ---
SOAP Progress Note Assessment/Plan: 11/30/16 11:24 PAD#2 Assessment: Multiple issues have been addressed since admission: ID: felt that IV antibiotics could be stopped. Suggested re scan if wbc or temp increase. Malnutrition : total lymphocytes low as is pre-albumin - on TPN. Large wound is contributing to negative nitrogen balance Renal: Cr has returned to a baseline level Anticoagulation: Now at a safe level Abdominal wall: contamination continues. Ostomy bag placement not successful Electrolyte abnormalities: resolving Plan: CT of abdomen and pelvis to evaluate prior fluid collections and to determine GI anatomy. If anatomy is favorable, will close ostomy to redirect GI contents into ileum/ colon. this will optimize wound care and fluid/electrolyte management. 12/01/16 09:04 PAD#3 POD#1 Assessment: minimal serous drainage from ostomy closure site. BS present but no stool. Has a colon full of stool on CT that has been there for some time. Will try enemas today. Abdominal skin less tender today. If she does well would consider closing skin over ostomy site, when bile induced "burn" heals. As identified in Dr. Antonio's note there is a (preperitoneal?) LUQ fluid collection. She is afebrile and wbc is not impressive ( but she is nutritionally compromised) but her platelet count is rising. Agree with thought of sampling/ draining fluid collection with IR's help Plan: Continue topical treatment with Silvadene Continue TPN Follow electrolytes On lovenox - hold coumadin for at least 5 days until we are sure that re operation will not be necessary. Subjective: I feel better Objective: Vital Signs Temp Pulse Resp BP Pulse Ox 36.7 C 62 16 120/59 L 94 12/01/16 08:00 12/01/16 08:00 12/01/16 08:00 12/01/16 08:00 12/01/16 08:00 Laboratory Results 12/01/16 05:45 12/01/16 05:45 11/30/16 12/01/16 12/02/16 05:59 05:59 05:59 Intake Total 901 3664 Output Total 5100 2905 Balance -4199 759 PT 18.5 SEC (12.0-15.0) H 12/01/16 05:45 INR 1.54 (0.83-1.16) H 12/01/16 05:45 - Time Spent With Patient Time Spent With Patient: 15 Physical Exam - Physical Exam General Appearance: WD/WN, alert, mild distress Abdomen: non-tender (Deep), soft Pelvic Exam: deferred Rectal: deferred Back: Normal inspection Skin: other (abdominal skin injury is showing signs of improving) Neuro/Psych: alert, normal mood/affect, oriented x 3 ICD10 Worksheet Patient Problems: Problems Problem Status Onset Excoriation Acute Anorexia nervosa Active Bulemia Nervosa Active Chronic vomiting Active Coumadin Therapy for 6 months Active Dehydration Active GERD - Gastroesophageal reflux disease Active Hypokalemia Active Hyponatremia Active Leukocytosis Active Occlusion of artery Active Renal artery stenosis Active Thrombocytosis Active Tobacco user Active Abdominal pain Acute Acute hypokalemia Acute Diarrhea Acute Hypokalemia Acute Hypokalemia Acute Lactic acid acidosis Acute Mesenteric thrombosis Acute Nausea & vomiting Acute Renal failure Acute Renal insufficiency Acute SBO (small bowel obstruction) Acute
[2016-12-01] MEDS: SILVER SULFADIAZINE 400 GM JAR TP SCH ×2 (09:21→21:03)
[2016-12-01] MEDS: PANTOPRAZOLE SODIUM 40 MG in NS 100 ML IV SCH (09:25)
[2016-12-01] MEDS: ENOXAPARIN 30 MG/0.3 ML SYR SC SCH ×2 (09:25→21:02)
[2016-12-01] MEDS: fentaNYL 25 MCG PATCH TD SCH (09:26)
[2016-12-01] MEDS: D5W 1/2 NS 1,000 ML IV SCH (10:21)
--- NOTE | 2016-12-01 14:15 | HOSPPROG ---
Hospitalist Progress Note Assessment/Plan: 46 y/o female new to my care 11/30 s/p colostomy closure 11/30/[address] 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, 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 PLANS: - wound care per surgery and Wound Care nursing -Continue TPN -Follow vital signs, fluid status, renal function closely -monitor off abx -IR to tap fluid collection Pt is high risk Subjective: no new complaints Objective: Vital Signs Temp Pulse Resp BP Pulse Ox 36.9 C 63 18 123/64 H 97 12/01/16 12:00 12/01/16 12:00 12/01/16 12:00 12/01/16 12:00 12/01/16 12:00 Laboratory Results 12/01/16 05:45 12/01/16 05:45 11/30/16 12/01/16 12/02/16 05:59 05:59 05:59 Intake Total 901 3664 Output Total 5100 2905 400 Balance -4199 759 -400 PT 18.5 SEC (12.0-15.0) H 12/01/16 05:45 INR 1.54 (0.83-1.16) H 12/01/16 05:45 - Physical Exam Constitutional: not in pain, chronically ill appearing Cardiovascular: regular rate and rhythym, no murmur, rub, or gallop Respiratory: no respiratory distress, no rales or rhonchi, clear to auscultation Gastrointestinal: tenderness, No normoactive bowel sounds, No guarding, No rebound Genitourinary: no bladder fullness, no bladder tenderness, no renal bruits ICD10 Worksheet Patient Problems: Problems Problem Status Onset Dehydration Active Hypokalemia Active Anorexia nervosa Active Chronic vomiting Active Thrombocytosis Active Leukocytosis Active Occlusion of artery Active Renal artery stenosis Active Tobacco user Active Coumadin Therapy for 6 months Active Bulemia Nervosa Active Hyponatremia Active GERD - Gastroesophageal reflux disease Active Diarrhea Acute Nausea & vomiting Acute Renal insufficiency Acute Acute hypokalemia Acute Mesenteric thrombosis Acute Abdominal pain Acute Hypokalemia Acute SBO (small bowel obstruction) Acute Lactic acid acidosis Acute Hypokalemia Acute Renal failure Acute Excoriation Acute
[2016-12-01] MEDS ORDERED: SIMETHICONE 80 MG TAB CHEW PO PRN (16:59)
--- NOTE | 2016-12-01 17:42 | SOAPPROG ---
SOAP Progress Note Assessment/Plan: Assessment: 1. Hyponatremia - -Na 125 on presentation, up to 140 yesterday. Likely hypovolemic hyponatremia -Changed IVFs to D5W at 50 ml/hr to slow correction rate -Na has stabilized in mid 130s, appropriate -Remains stable and WNL 2. Hyperkalemia - -Likely multifactorial from being on Bactrim, BONITA with dehydration, and K in her TPN. -Holding Bactrim. -Received an amp of bicarb and has been on IVFs as above. -Now levels normalized and stable -Have discussed with chemistry instructor about her hyperkalemia and TPN. May be able to liberalize input, continue to follow 3. CKD stage III: Cr at baseline at 0.9 -Will continue to monitor. -Acute issues resolved. We will SIGN OFF. Please call with questions. Plan: 12/01/16 17:41 Subjective: Feels well. No c/o. Objective: Vital Signs Temp Pulse Resp BP Pulse Ox 36.9 C 74 16 136/71 H 99 12/01/16 16:18 12/01/16 16:00 12/01/16 16:00 12/01/16 16:00 12/01/16 16:00 Laboratory Results 12/01/16 05:45 12/01/16 05:45 11/30/16 12/01/16 12/02/16 05:59 05:59 05:59 Intake Total 901 3664 Output Total 5100 2905 400 Balance -4199 759 -400 PT 18.5 SEC (12.0-15.0) H 12/01/16 05:45 INR 1.54 (0.83-1.16) H 12/01/16 05:45 Physical Exam - Physical Exam General Appearance: no apparent distress, cachetic Respiratory: lungs clear Cardiac/Chest: regular rate, rhythm Abdomen: non-tender Extremities: No swelling ICD10 Worksheet Patient Problems: Problems Problem Status Onset Excoriation Acute Anorexia nervosa Active Bulemia Nervosa Active Chronic vomiting Active Coumadin Therapy for 6 months Active Dehydration Active GERD - Gastroesophageal reflux disease Active Hypokalemia Active Hyponatremia Active Leukocytosis Active Occlusion of artery Active Renal artery stenosis Active Thrombocytosis Active Tobacco user Active Abdominal pain Acute Acute hypokalemia Acute Diarrhea Acute Hypokalemia Acute Hypokalemia Acute Lactic acid acidosis Acute Mesenteric thrombosis Acute Nausea & vomiting Acute Renal failure Acute Renal insufficiency Acute SBO (small bowel obstruction) Acute
--- NOTE | 2016-12-01 18:24 | PCMIDPN ---
Assessment/Plan: Assessment/Plan: * Intra-abdominal infection status post jejunal perforation: Reviewed CT findings with Radiology and fluid collection amenable to drainage. Will review with interventional Radiology tomorrow regarding preference for drainage via ultrasound or CT guidance. Continue observation off antibiotics. * Fever: No further fever. Continue observation off antibiotics. 12/01/16 18:23 Subjective: Patient feels better. Status post ostomy closure yesterday. Still with tenderness in macerated areas of skin. Objective: Vital Signs Temp Pulse Resp BP Pulse Ox 36.9 C 74 16 136/71 H 99 12/01/16 16:18 12/01/16 16:00 12/01/16 16:00 12/01/16 16:00 12/01/16 16:00 Laboratory Results 12/01/16 05:45 12/01/16 05:45 11/30/16 12/01/16 12/02/16 05:59 05:59 05:59 Intake Total 901 3664 Output Total 5100 2905 400 Balance -4199 759 -400 No antibiotic therapy - Physical Exam General Appearance: alert, no apparent distress EENT: No scleral icterus, No thrush Abdomen: non-tender, other (Abdominal binder in place) - Line/s RUE PICC Lines: No drainage, No erythema ICD10 Worksheet Patient Problems: Problems Problem Status Onset Excoriation Acute Anorexia nervosa Active Bulemia Nervosa Active Chronic vomiting Active Coumadin Therapy for 6 months Active Dehydration Active GERD - Gastroesophageal reflux disease Active Hypokalemia Active Hyponatremia Active Leukocytosis Active Occlusion of artery Active Renal artery stenosis Active Thrombocytosis Active Tobacco user Active Abdominal pain Acute Acute hypokalemia Acute Diarrhea Acute Hypokalemia Acute Hypokalemia Acute Lactic acid acidosis Acute Mesenteric thrombosis Acute Nausea & vomiting Acute Renal failure Acute Renal insufficiency Acute SBO (small bowel obstruction) Acute
[2016-12-01] MEDS: IBUPROFEN 200 MG TAB PO PRN (19:40)
[2016-12-01] MEDS: TPN 1 EA BAG IV SCH (21:01)
[2016-12-01] MEDS: ONDANSETRON 4 MG/2 ML VIAL IVP PRN (21:49)
[2016-12-02] MEDS: oxyCODONE IR 5 MG TAB PO PRN ×2 (02:47→21:18)
[2016-12-02] MEDS: D5W 1/2 NS 1,000 ML IV SCH ×2 (05:46→15:57)
[2016-12-02] MEDS: ACETAMINOPHEN 500 MG TAB PO SCH ×3 (05:46→21:11)
[2016-12-02 06:11] LABS: % IMMATURE GRANULYOCYTES 0.2 % (0.0-1.1); ABSOLUTE IMMATURE GRANULOCYTES 0.01 10^3/uL (0.00-0.10); ADD DIFF? NO; ADD MORPH? NO; ADD SCAN? NO; ATYPICAL LYMPHOCYTE FLAG 40 (0-99); FRAGMENT RBC FLAG 20 (0-99); HEMATOCRIT 24.1 % (38.0-47.0); HEMOGLOBIN 7.6 g/dL (12.6-16.3); LEFT SHIFT FLG 0 (0-99); LIPEMIA HEMOLYSIS FLAG 80 (0-99); MEAN CELL HEMOGLOBIN 24.4 pg (27.9-34.1); MEAN CELL HEMOGLOBIN CONCENTR. 31.5 g/dL (32.4-36.7); MEAN CELL VOLUME 77.5 fL (81.5-99.8); MEAN PLATELET VOLUME 9.6 fL (8.7-11.7); PLATELET CLUMPS FLAG 0 (0-99); PLATELET COUNT 433 10^3/uL (150-400); RED BLOOD CELL COUNT 3.11 10^6/uL (4.18-5.33); RED CELL DISTRIBUTION WIDTH 17.4 % (11.5-15.2)
[2016-12-02 06:20] LABS: INR 1.4 (0.83-1.16); PROTIME(PATIENT) 17.1 SEC (12.0-15.0)
[2016-12-02 06:21] LABS: APTT 40.2 SEC (23.0-38.0)
[2016-12-02 06:24] LABS: ALANINE AMINOTRANSFERASE 32 IU/L (9-52); ALBUMIN 2.1 g/dL (3.5-5.0); ALKALINE PHOSPHATASE 159 IU/L (38-126); ANION GAP 6 mEq/L (8-16); ASPARTATE AMINOTRANSFERASE 19 IU/L (14-46); BILIRUBIN,TOTAL 0.3 mg/dL (0.1-1.4); CALCIUM 8.5 mg/dL (8.5-10.4); CARBON DIOXIDE 18 mEq/l (22-31); CHLORIDE 116 mEq/L (97-110); CREATININE 0.7 mg/dL (0.6-1.0); GLOMERULAR FILTRATION RATE > 60; GLUCOSE 84 mg/dL (70-100); MAGNESIUM 1.6 mg/dL (1.6-2.3); POTASSIUM 3.6 mEq/L (3.5-5.2); SODIUM 140 mEq/L (134-144); TOTAL PROTEIN 5.1 g/dL (6.3-8.2); TRIGLYCERIDE 113 mg/dL (35-135)
[2016-12-02] MEDS: PANTOPRAZOLE SODIUM 40 MG in NS 100 ML IV SCH (09:38)
[2016-12-02] MEDS: PREGABALIN 50 MG CAP PO SCH ×3 (09:39→21:11)
[2016-12-02] MEDS: ENOXAPARIN 30 MG/0.3 ML SYR SC SCH ×2 (09:39→21:17)
[2016-12-02] MEDS: SILVER SULFADIAZINE 400 GM JAR TP SCH ×2 (09:44→22:59)
--- NOTE | 2016-12-02 10:43 | SOAPPROG ---
SOAP Progress Note Assessment/Plan: 11/30/16 11:24 PAD#2 Assessment: Multiple issues have been addressed since admission: ID: felt that IV antibiotics could be stopped. Suggested re scan if wbc or temp increase. Malnutrition : total lymphocytes low as is pre-albumin - on TPN. Large wound is contributing to negative nitrogen balance Renal: Cr has returned to a baseline level Anticoagulation: Now at a safe level Abdominal wall: contamination continues. Ostomy bag placement not successful Electrolyte abnormalities: resolving Plan: CT of abdomen and pelvis to evaluate prior fluid collections and to determine GI anatomy. If anatomy is favorable, will close ostomy to redirect GI contents into ileum/ colon. this will optimize wound care and fluid/electrolyte management. 12/01/16 09:04 PAD#3 POD#1 Assessment: minimal serous drainage from ostomy closure site. BS present but no stool. Has a colon full of stool on CT that has been there for some time. Will try enemas today. Abdominal skin less tender today. If she does well would consider closing skin over ostomy site, when bile induced "burn" heals. As identified in Dr. Antonio's note there is a (preperitoneal?) LUQ fluid collection. She is afebrile and wbc is not impressive ( but she is nutritionally compromised) but her platelet count is rising. Agree with thought of sampling/ draining fluid collection with IR's help Plan: Continue topical treatment with Silvadene Continue TPN Follow electrolytes On lovenox - hold coumadin for at least 5 days until we are sure that re operation will not be necessary. 12/02/16 10:37 PAD#4 POD#2 Assessment: Doing quite well! Moving bowels. Good bowel sounds. No leakage from ostomy site (yet). Hungry. Skin "burn" 80% re-epithelialized. Still using silvadene. Plan: Will try clear liquids today Consider removing G-Tube in 1-3 days Continue wound care with silvadene Continue TPN ( consider a new PICC line as current has been in for sometime) Consider delayed primary closure in skin ( ostomy site ) later this week IR drainage of preperitoneal fluid collection. Subjective: "I've moved my bowels! I'm hungry! I feel so much better!" Objective: Vital Signs Temp Pulse Resp BP Pulse Ox 36.9 C 60 18 115/61 97 12/02/16 07:42 12/02/16 07:42 12/02/16 07:42 12/02/16 07:42 12/02/16 07:42 Laboratory Results 12/02/16 05:45 12/02/16 05:45 12/01/16 12/02/16 12/03/16 05:59 05:59 05:59 Intake Total 3664 1792 1685 Output Total 2905 550 Balance 759 1242 1685 PT 17.1 SEC (12.0-15.0) H 12/02/16 05:45 INR 1.40 (0.83-1.16) H 12/02/16 05:45 - Time Spent With Patient Time Spent With Patient: 25 Physical Exam - Physical Exam General Appearance: WD/WN, alert, no apparent distress Neck: full range of motion, supple Respiratory: chest non-tender, lungs clear, normal breath sounds Cardiac/Chest: regular rate, rhythm Abdomen: normal bowel sounds, non-tender, soft, other (Skin "chemical burn" 80% re-epithelialized.) Pelvic Exam: deferred Rectal: deferred Back: Normal inspection Skin: normal color, warm/dry Extremities: normal range of motion Neuro/Psych: no motor/sensory deficits, alert, normal mood/affect, oriented x 3 ICD10 Worksheet Patient Problems: Problems Problem Status Onset Excoriation Acute Anorexia nervosa Active Bulemia Nervosa Active Chronic vomiting Active Coumadin Therapy for 6 months Active Dehydration Active GERD - Gastroesophageal reflux disease Active Hypokalemia Active Hyponatremia Active Leukocytosis Active Occlusion of artery Active Renal artery stenosis Active Thrombocytosis Active Tobacco user Active Abdominal pain Acute Acute hypokalemia Acute Diarrhea Acute Hypokalemia Acute Hypokalemia Acute Lactic acid acidosis Acute Mesenteric thrombosis Acute Nausea & vomiting Acute Renal failure Acute Renal insufficiency Acute SBO (small bowel obstruction) Acute
[2016-12-02] MEDS: IBUPROFEN 200 MG TAB PO PRN (11:08)
--- NOTE | 2016-12-02 15:11 | HOSPPROG ---
Hospitalist Progress Note Assessment/Plan: 46 y/o female new to my care 11/30 s/p colostomy closure 11/30/[address] 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 She denies any pain. She is having bowel movements. She denies any fevers chills. Objective: Vital Signs Temp Pulse Resp BP Pulse Ox 36.9 C 61 18 117/67 97 12/02/16 11:46 12/02/16 11:46 12/02/16 11:46 12/02/16 11:46 12/02/16 11:46 Laboratory Results 12/02/16 05:45 12/02/16 05:45 12/01/16 12/02/16 12/03/16 05:59 05:59 05:59 Intake Total 3664 1792 1685 Output Total 2905 550 Balance 759 1242 1685 PT 17.1 SEC (12.0-15.0) H 12/02/16 05:45 INR 1.40 (0.83-1.16) H 12/02/16 05:45 - Physical Exam Constitutional: chronically ill appearing Cardiovascular: regular rate and rhythym, no murmur, rub, or gallop Respiratory: no respiratory distress, no rales or rhonchi, clear to auscultation Gastrointestinal: other ( Hyperactive bowel sounds), No tenderness, No guarding , No rebound Skin: no rashes or abrasions, no fluctuance, no induration ICD10 Worksheet Patient Problems: Problems Problem Status Onset Dehydration Active Hypokalemia Active Anorexia nervosa Active Chronic vomiting Active Thrombocytosis Active Leukocytosis Active Occlusion of artery Active Renal artery stenosis Active Tobacco user Active Coumadin Therapy for 6 months Active Bulemia Nervosa Active Hyponatremia Active GERD - Gastroesophageal reflux disease Active Diarrhea Acute Nausea & vomiting Acute Renal insufficiency Acute Acute hypokalemia Acute Mesenteric thrombosis Acute Abdominal pain Acute Hypokalemia Acute SBO (small bowel obstruction) Acute Lactic acid acidosis Acute Hypokalemia Acute Renal failure Acute Excoriation Acute
--- NOTE | 2016-12-02 19:03 | PCMIDPN ---
Assessment/Plan: Assessment: Biliary leakage around ostomy with maceration of the paul ostomy tissues. Patient has fevers as well as fluid collections in the abdominal wall in the area. Would favor aspiration and drainage of these thick walled collections. In general clinically the patient is doing much better on antibiotics. She is very pleased with the ostomy reversal that was done for her. Plan: 1. continue to observe off antibiotics. 2. agree with recommendation for IR aspiration of collection. 0 Subjective: Patient is up in her room and walking around. She is very pleased that Dr. Pablo reversed her ostomy. She is reporting no abdominal pain. No fevers. Objective: No antibiotics Vital Signs Temp Pulse Resp BP Pulse Ox 36.9 C 61 16 125/67 H 98 12/02/16 15:55 12/02/16 15:55 12/02/16 15:55 12/02/16 15:55 12/02/16 15:55 Laboratory Results 12/02/16 05:45 12/02/16 05:45 12/01/16 12/02/16 12/03/16 05:59 05:59 05:59 Intake Total 3664 1792 4879 Output Total 2905 550 1000 Balance 759 1242 3879 - Physical Exam General Appearance: WD/WN, alert, no apparent distress, cachetic, non-toxic Respiratory: lungs clear, normal breath sounds, No respiratory distress Cardiac/Chest: regular rate, rhythm, No tachycardia Skin: normal color, warm/dry, No rash Neuro/Psych: alert, normal mood/affect, oriented x 3 ICD10 Worksheet Patient Problems: Problems Problem Status Onset Excoriation Acute Anorexia nervosa Active Bulemia Nervosa Active Chronic vomiting Active Coumadin Therapy for 6 months Active Dehydration Active GERD - Gastroesophageal reflux disease Active Hypokalemia Active Hyponatremia Active Leukocytosis Active Occlusion of artery Active Renal artery stenosis Active Thrombocytosis Active Tobacco user Active Abdominal pain Acute Acute hypokalemia Acute Diarrhea Acute Hypokalemia Acute Hypokalemia Acute Lactic acid acidosis Acute Mesenteric thrombosis Acute Nausea & vomiting Acute Renal failure Acute Renal insufficiency Acute SBO (small bowel obstruction) Acute
[2016-12-03] MEDS: TPN 1 EA BAG IV SCH ×2 (00:14→20:14)
[2016-12-03] MEDS: D5W 1/2 NS 1,000 ML IV SCH (00:56)
[2016-12-03] MEDS: ACETAMINOPHEN 500 MG TAB PO SCH ×3 (06:11→20:11)
[2016-12-03] MEDS: PREGABALIN 50 MG CAP PO SCH ×3 (09:20→21:54)
[2016-12-03] MEDS: PANTOPRAZOLE SODIUM 40 MG in NS 100 ML IV SCH (09:21)
[2016-12-03] MEDS: ENOXAPARIN 30 MG/0.3 ML SYR SC SCH ×2 (09:21→20:12)
[2016-12-03] MEDS: SILVER SULFADIAZINE 400 GM JAR TP SCH ×2 (10:00→21:57)
--- NOTE | 2016-12-03 12:37 | SOAPPROG ---
SOAP Progress Note Assessment/Plan: Assessment/Plan: 46 Y F c complicated past history and multiple issues. 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 +short gut. Admitted with supratherapeutic INR. Malnutrition, on TPN. Severe skin excoriation/kelly 2 /2 acidic bile leakage, now s/p extraabdominal double barrel ileostomy closure. Also, fluid collection seen on CT. Seen and examined with Dr. Barth and d/w'ed Dr. Pablo. Per pt and RN report, patient doing much better. -advance diet. -continue local skin care with silvadene. Ileostomy site should granulate in and close. -IR drainage of fluid collection likely tomorrow. NPO p midnight. Held lovenox. S: smiling, no complaints. feeling better. hungry. +BMs. O: gen: alert, nad heent: mmm, no jaundice, poor dentition pulm: no wob abd: soft, + diffuse reddened skin ulceration and irritation. ileostomy closure site with min drainage, no odor, no erythema. 12/03/16 12:38 Objective: Vital Signs Temp Pulse Resp BP Pulse Ox 36.8 C 74 18 113/66 100 12/03/16 07:54 12/03/16 12:06 12/03/16 12:06 12/03/16 12:06 12/03/16 12:06 Laboratory Results 12/02/16 05:45 12/02/16 05:45 12/02/16 12/03/16 12/04/16 05:59 05:59 05:59 Intake Total 1792 4879 Output Total 550 1000 Balance 1242 3879 PT 17.1 SEC (12.0-15.0) H 12/02/16 05:45 INR 1.40 (0.83-1.16) H 12/02/16 05:45 ICD10 Worksheet Patient Problems: Problems Problem Status Onset Excoriation Acute Anorexia nervosa Active Bulemia Nervosa Active Chronic vomiting Active Coumadin Therapy for 6 months Active Dehydration Active GERD - Gastroesophageal reflux disease Active Hypokalemia Active Hyponatremia Active Leukocytosis Active Occlusion of artery Active Renal artery stenosis Active Thrombocytosis Active Tobacco user Active Abdominal pain Acute Acute hypokalemia Acute Diarrhea Acute Hypokalemia Acute Hypokalemia Acute Lactic acid acidosis Acute Mesenteric thrombosis Acute Nausea & vomiting Acute Renal failure Acute Renal insufficiency Acute SBO (small bowel obstruction) Acute
[2016-12-03] MEDS ORDERED: LIDOCAINE 1% 300 MG/30 ML SDV ONE (14:11)
--- NOTE | 2016-12-03 15:13 | HOSPPROG ---
Hospitalist Progress Note Assessment/Plan: 46 y/o female new to my care 11/30 s/p colostomy closure 11/30/[address] 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 happy to be eating. no abd pain. no fever or chills Objective: Vital Signs Temp Pulse Resp BP Pulse Ox 36.8 C 74 18 113/66 100 12/03/16 07:54 12/03/16 12:06 12/03/16 12:06 12/03/16 12:06 12/03/16 12:06 Laboratory Results 12/02/16 05:45 12/02/16 05:45 12/02/16 12/03/16 12/04/16 05:59 05:59 05:59 Intake Total 1792 4879 Output Total 550 1000 Balance 1242 3879 PT 17.1 SEC (12.0-15.0) H 12/02/16 05:45 INR 1.40 (0.83-1.16) H 12/02/16 05:45 - Physical Exam Constitutional: chronically ill appearing Cardiovascular: regular rate and rhythym, no murmur, rub, or gallop Respiratory: no respiratory distress, no rales or rhonchi, clear to auscultation Gastrointestinal: normoactive bowel sounds, soft, non-tender abdomen, no palpable masses, No guarding, No rebound ICD10 Worksheet Patient Problems: Problems Problem Status Onset Dehydration Active Hypokalemia Active Anorexia nervosa Active Chronic vomiting Active Thrombocytosis Active Leukocytosis Active Occlusion of artery Active Renal artery stenosis Active Tobacco user Active Coumadin Therapy for 6 months Active Bulemia Nervosa Active Hyponatremia Active GERD - Gastroesophageal reflux disease Active Diarrhea Acute Nausea & vomiting Acute Renal insufficiency Acute Acute hypokalemia Acute Mesenteric thrombosis Acute Abdominal pain Acute Hypokalemia Acute SBO (small bowel obstruction) Acute Lactic acid acidosis Acute Hypokalemia Acute Renal failure Acute Excoriation Acute
[2016-12-03] MEDS: ONDANSETRON 4 MG/2 ML VIAL IVP PRN (16:34)
--- NOTE | 2016-12-03 18:10 | PCMIDPN ---
Assessment/Plan: Assessment/Plan: * Intra-abdominal infection status post jejunal perforation: Reviewed CT findings with Radiology and fluid collection amenable to drainage. Plans for ultrasound-guided drainage of fluid collection today to assess for bland versus infected fluid collection. Will send for bacterial and fungal studies. Findings and plan were reviewed with Dr. Clement. * Fever: No significant temperature after initial fever to 39 degrees upon hospitalization. Continue to observe off antibiotics. 12/03/16 18:09 Subjective: Patient feels significantly improved. Abdomen significantly less painful after ostomy closure. Objective: Vital Signs Temp Pulse Resp BP Pulse Ox 38.2 C 73 18 119/68 98 12/03/16 17:43 12/03/16 16:26 12/03/16 16:26 12/03/16 16:26 12/03/16 16:26 Laboratory Results 12/02/16 05:45 12/02/16 05:45 12/02/16 12/03/16 12/04/16 05:59 05:59 05:59 Intake Total 1792 4879 Output Total 550 1000 Balance 1242 3879 No antibiotic therapy - Physical Exam General Appearance: alert, no apparent distress EENT: No scleral icterus, No thrush Abdomen: non-tender, other (Maceration significantly less prominent; grayish color at site of prior ostomy), No distended Skin: other (Right index finger with dry gangrene of distal portion) ICD10 Worksheet Patient Problems: Problems Problem Status Onset Excoriation Acute Anorexia nervosa Active Bulemia Nervosa Active Chronic vomiting Active Coumadin Therapy for 6 months Active Dehydration Active GERD - Gastroesophageal reflux disease Active Hypokalemia Active Hyponatremia Active Leukocytosis Active Occlusion of artery Active Renal artery stenosis Active Thrombocytosis Active Tobacco user Active Abdominal pain Acute Acute hypokalemia Acute Diarrhea Acute Hypokalemia Acute Hypokalemia Acute Lactic acid acidosis Acute Mesenteric thrombosis Acute Nausea & vomiting Acute Renal failure Acute Renal insufficiency Acute SBO (small bowel obstruction) Acute
[2016-12-04] MEDS: ACETAMINOPHEN 500 MG TAB PO SCH (04:51)
[2016-12-04 04:57] VITALS: RESP 18; TEMP 97.9; O2SAT 99
[2016-12-04 05:22] LABS: ANION GAP 9 mEq/L (8-16); CALCIUM 8.5 mg/dL (8.5-10.4); CARBON DIOXIDE 18 mEq/l (22-31); CHLORIDE 114 mEq/L (97-110); CREATININE 0.8 mg/dL (0.6-1.0); GLOMERULAR FILTRATION RATE > 60; GLUCOSE 90 mg/dL (70-100); MAGNESIUM 1.6 mg/dL (1.6-2.3); POTASSIUM 3.5 mEq/L (3.5-5.2); SODIUM 141 mEq/L (134-144)
[2016-12-04 08:06] VITALS: BP 114/65; PULSE 88
[2016-12-04] MEDS: fentaNYL 25 MCG PATCH TD SCH (08:25)
[2016-12-04] MEDS: PREGABALIN 50 MG CAP PO SCH (08:25)
[2016-12-04] MEDS: PANTOPRAZOLE SODIUM 40 MG in NS 100 ML IV SCH (08:28)
[2016-12-04] MEDS: IBUPROFEN 200 MG TAB PO PRN (08:40)
[2016-12-04] MEDS ORDERED: LOPERAMIDE HCL 2 MG CAP PO PRN (10:12)
[2016-12-04] MEDS: SILVER SULFADIAZINE 400 GM JAR TP SCH (11:35)
--- NOTE | 2016-12-04 12:00 | PDIAF ---
- Diagnosis Diagnosis: ileostomy closure, short gut, abdominal kelly 2/2 caustic bile leakage Code Status: Full Code - Medication Management Discharge Medications: Medications to Continue on Transfer traZODone [traZODone 150MG (*)] 150 mg PO HS 02/22/16 [Last Taken 11/27/16 21:00 ] Ampicillin/Sulbactam [Unasyn] 12 gm IV Q24H 11/28/16 [Last Taken Unknown] Herbals/Supplements -Info Only 1 ea PO AD 11/28/16 [Last Taken Unknown] Ibuprofen [Motrin (*)] 400 mg PO BID PRN 11/28/16 [Last Taken 11/27/16 14:00] Pregabalin [Lyrica 50mg (*)] 50 mg PO TID 11/28/16 [Last Taken 11/27/16 21:00] TPN [Hyperalimentation] 1 ea IV DAILY@1600 11/28/16 [Last Taken Unknown] Warfarin Sodium [Coumadin 4MG (*)] 12 mg PO Q2D@1600 11/28/16 [Last Taken 18:00] Warfarin Sodium [Coumadin] 10 mg PO Q2D@1600 11/28/16 [Last Taken 11/27/16 18:00 ] Loperamide HCl [Imodium 2 mg (*)] 2 mg PO QID PRN #0 cap 12/04/16 [Last Taken Unknown] SUMAtriptan [Imitrex 50 MG (*)] 50 mg PO DAILY PRN #0 tab 12/04/16 [Last Taken Unknown] Silver Sulfadiazine [Thermazene (*)] 1 toan TP BID #0 cream 12/04/16 [Last Taken Unknown] Simethicone [Mylicon] 80 - 160 mg PO Q6 PRN #0 tab.chew 12/04/16 [Last Taken Unknown] TPN [Hyperalimentation] 1 ea IV DAILY21 #0 bag 12/04/16 [Last Taken Unknown] oxyCODONE IR [Oxycodone Ir (*)] 5 - 10 mg PO Q4 PRN #30 tab 12/04/16 [Last Taken Unknown] Discharge Medications: Refer to the Discharge Home Medication list for PRN reason. - Orders Services needed: Home Care, Registered Nurse, [facility] Face to Face: I certify that this patient was under my care and that I had the required [id number] encounter meeting the encounter requirements on the discharge day. My findings support the fact that the patient is homebound as defined in CMS Chapter 7 Medicare Benefits Manual 30.1.1, The condition of the patient is such that there exists a normal inability to leave home and consequently, leaving home would require a considerable and taxing effort. Diet Recommendation: no restrictions on diet Diet Texture: Regular Texture Diet Wound Care Instructions: ok to shower with soap and water. then thin layer of silvadene over kelly and dress with ABD pads daily. moistened (wet to dry) gauze over ileostomy site wound daily. - Follow Up Care Current Providers and Referrals: Parviz Gibson MD [Primary Care Provider] - As per Instructions Zackary Barth MD [Medical Doctor] - follow up in 1 week
--- NOTE | 2016-12-04 13:44 | HOSPPROG ---
Hospitalist Progress Note Assessment/Plan: 46 y/o female new to my care 11/30 s/p colostomy closure 11/30/[address] 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 no abd pain. no fever Objective: Vital Signs Temp Pulse Resp BP Pulse Ox 36.6 C 88 18 114/65 99 12/04/16 08:00 12/04/16 08:00 12/04/16 08:00 12/04/16 08:00 12/04/16 08:00 Microbiology 12/03/16 15:30 Gram Stain - Final Abdomen - Aspirate Laboratory Results 12/02/16 05:45 12/04/16 04:50 12/03/16 12/04/16 12/05/16 05:59 05:59 05:59 Intake Total 4879 875 Output Total 1000 1500 Balance 3879 -625 PT 17.1 SEC (12.0-15.0) H 12/02/16 05:45 INR 1.40 (0.83-1.16) H 12/02/16 05:45 - Physical Exam Constitutional: no apparent distress, appears nourished, not in pain Cardiovascular: regular rate and rhythym, no murmur, rub, or gallop Respiratory: no respiratory distress, no rales or rhonchi, clear to auscultation , respiratory distress ICD10 Worksheet Patient Problems: Problems Problem Status Onset Anorexia nervosa Active Bulemia Nervosa Active Chronic vomiting Active Coumadin Therapy for 6 months Active Dehydration Active GERD - Gastroesophageal reflux disease Active Hypokalemia Active Hyponatremia Active Leukocytosis Active Occlusion of artery Active Renal artery stenosis Active Thrombocytosis Active Tobacco user Active Abdominal pain Acute Acute hypokalemia Acute Diarrhea Acute Excoriation Acute Hypokalemia Acute Hypokalemia Acute Lactic acid acidosis Acute Mesenteric thrombosis Acute Nausea & vomiting Acute Renal failure Acute Renal insufficiency Acute SBO (small bowel obstruction) Acute
--- NOTE | 2016-12-04 14:50 | GDS ---
[f rep st] DISCHARGE SUMMARY DISCHARGE DIAGNOSES: 1. Second-degree abdominal skin burn secondary to caustic bile leakage. 2. Complicated abdominal surgical history involving mesenteric ischemia, occluded stents, multiple small-bowel resections, short gut, and double-barrel ileostomy. 3. Supratherapeutic INR of 14. 4. Anorexia, bulimia, and anxiety disorder. 5. Bipolar disease type 1. 6. Malnutrition. 7. Chronic TPN use. 8. Stage 3 chronic kidney disease. 9. Hyponatremia. 10. Hyperkalemia. CONSULTATIONS: 1. Parviz Pablo MD, and Zackary Barth MD, General Surgery and Trauma. 2. Carrington Del Rosario MD, Internal Medicine/hospitalist. 3. Dhiraj Antonio MD, Infectious Disease. 4. Kristin Hunt MD, Nephrology. PROCEDURES: Extra-abdominal double-barrel colostomy closure. HOSPITAL COURSE: The patient is a 46-year-old female with multiple medical problems, as described a frederick, who presented to the emergency department with complaints of bile leakage from her ileostomy, with resulting skin irritation and wounds. Upon admission, she was found to be hyponatremic, hyperk alemic, and with a supratherapeutic INR. Medicine and Nephrology were consulted for correction. As patient had been on Unasyn at home for a long time, Infectious Disease was also consulted and ultim ately discontinued her Unasyn. Her abdomen was scanned and she was found to have a left anterior in traabdominal 7 x 2.2 cm thick-walled fluid collection. Ultimately, upon correction of her INR and electrolyte abnormalities, she was brought to the operati ng room and underwent closure of her double-barrel ileostomy. She did well with this and began to h ave bowel movements. Eventually, she was titrated with Imodium due to her short gut and frequent st ools. Her abdominal wounds were treated with Silvadene and improved very much during her hospital s loulou. The fluid collection seen on CT was subsequently aspirated and cultures were no growth to date upon her day of discharge. DISCHARGE INSTRUCTIONS: Patient was discharged to home in stable condition with plans to continue h er home care and TPN. She was given instructions to follow up with Dr. Antonio of Infectious Disease, Dr. Gibson, her primary care provider, and with Dr. Barth, the surgeon. She wanted removal of her G -tube, as she says it is no longer being used. As she is quite complicated, we decided to wait for permission from her primary care provider, who knows her better, and if we get this it can be done i n the office at her followup appointment with Dr. Barth. /[id number]/MODL
== END 2016-12-04 12:09 | disposition home health service (06) | DRG 330 ==
LOC: EDUNIT# → OBSVTOIN 16:50 → F3E 20:05
PROVIDERS: ADMIT Surgery; ATTEND Surgery
PROC: 0DBB0ZZ Excision of Ileum, Open Approach (ICD-10-PCS; principal; 2016-11-30 16:17)
PROC: 0W9F3ZX Drainage of Abdominal Wall, Percutaneous Approach, Diagnostic (ICD-10-PCS; 2016-12-04)
DX: K94.13 Enterostomy malfunction (principal); T21.62XA Corrosion of second degree of abdominal wall, initial encounter; K94.12 Enterostomy infection; Z91.19 Patient's noncompliance with other medical treatment and regimen; E87.1 Hypo-osmolality and hyponatremia; E87.6 Hypokalemia; N17.9 Acute kidney failure, unspecified; N18.3 Chronic kidney disease, stage 3 (moderate); E46 Unspecified protein-calorie malnutrition; D68.59 Other primary thrombophilia; F50.02 Anorexia nervosa, binge eating/purging type; D50.9 Iron deficiency anemia, unspecified; F31.9 Bipolar disorder, unspecified; F17.210 Nicotine dependence, cigarettes, uncomplicated; Z87.442 Personal history of urinary calculi; Z87.440 Personal history of urinary (tract) infections; Z79.01 Long term (current) use of anticoagulants
CPT/HCPCS: 84134-90; 96374; G0378; J1170; J1335; J1650; J2001; J2250; J2405; J2704; J3010

== ENCOUNTER 2017-01-02 19:45 | Emergency (ER) | payer MEDICAID | END 2017-01-02 20:01 | disposition left against medical advice (07) | DX: Z53.21 Procedure and treatment not carried out due to patient leaving prior to being seen by health care provider (principal) ==

== ENCOUNTER 2017-01-24 09:56 | Inpatient (IN) | payer MEDICAID ==
--- NOTE | 2017-01-24 10:23 | EDPHY ---
H & P Time Seen by Provider: 01/24/17 10:09 HPI/ROS: CHIEF COMPLAINT: Weakness diarrhea and potassium of 2.7 on Friday HISTORY OF PRESENT ILLNESS: Patient was discharged after a prolonged hospitalization in November of this year where she had a ileostomy takedown. She has been at home and was doing actually pretty well until about a week ago when she had recurrent diarrhea. Profuse and watery although none today but without melena or blood. Today she is increasingly weak and was asked to come in and get admitted by her home health care nurse for potassium of 2.7 drawn this week. Weakness is generalized. Diarrhea is not associated with severe abdominal pain or vomiting. REVIEW OF SYSTEMS: Eye: no change in vision ENT: no sore throat Cardiac: no chest pain or syncope Pulmonary: no cough or SOB Abdomen: HPI Musculoskeletal: no back pain Skin: Skin rash on her spine, mildly painful Neuro: no headache Constitutional: no fever : no urinary symptoms A comprehensive 10 point review of systems is otherwise negative aside from elements mentioned in the history of present illness. PAST MEDICAL HISTORY: Includes discharge summary dated 12/04/2016 personally reviewed; short gut syndrome with multiple abdominal surgeries, anorexia bulimia anxiety, bipolar, malnutrition, stage 3 chronic kidney disease. Social history: Here with her mother General Appearance: Alert and conversant, cooperative. Thin, cachectic. Eyes: No scleral icterus. ENT, Mouth: Dry mucous membranes Respiratory: Normal respiratory effort, breath sounds equal, lungs are clear to auscultation. Cardiovascular: Regular rate and rhythm. Gastrointestinal: Abdomen is soft and non tender. Incisional hernia in the right upper quadrant. Neurological: Alert and oriented x3. Normally conversant. Face symmetric, normal movement and sensation in all extremities. Skin: 2 areas of slight redness over her spinous processes in her upper lumbar spine, without lymphangitis or skin breakdown. Musculoskeletal: No peripheral edema and no joint swelling. Psychiatric: Not agitated. Emergency Department course/MDM: Plan for electrolytes, IV fluid hydration. The mother tells me that her primary care clinic [facility] sent her here for hospital admission. Smoking Status: Current every day smoker Constitutional: Initial Vital Signs Temperature (C) 37.1 C 01/24/17 10:00 Heart Rate 52 L 01/24/17 10:00 Respiratory Rate 15 01/24/17 10:00 Blood Pressure 126/65 H 01/24/17 10:00 O2 Sat (%) 100 01/24/17 10:00 O2 Delivery Mode Room Air Allergies/Adverse Reactions: amoxicillin Allergy (Intermediate, Verified 04/19/16 12:31) Abdominal Pain lamotrigine [From Lamictal] Allergy (Intermediate, Verified 04/19/16 12:31) Rash Home Medications: Medication Instructions Recorded traZODone [traZODone 150MG (*)] 300 mg PO HS PRN 02/22/16 Ibuprofen [Motrin (*)] 400 mg PO BID PRN 11/28/16 Pregabalin [Lyrica 50mg (*)] 50 mg PO TID 11/28/16 TPN [Hyperalimentation] 1 ea IV DAILY@20 11/28/16 SUMAtriptan [Imitrex 50 MG (*)] 50 mg PO DAILY PRN #0 tab 12/04/16 oxyCODONE IR [Oxycodone Ir (*)] 5 - 10 mg PO Q4 PRN #30 tab 12/04/16 FLUoxetine [Prozac 20 MG (*)] 20 mg PO DAILY 01/24/17 Warfarin Sodium [Coumadin 5MG (*)] 5 mg PO DAILY16 01/24/17 Medical Decision Making - Diagnostics EKG Interpretation: 12-lead EKG interpreted by me; official reading is in trace master. My interpretation is sinus rhythm rate 57 normal intervals Differential Diagnosis: Differential for weakness considered including but not limited to stroke, spinal cord problem, electrolyte abnormality, dehydration Consult/Admit Bed Type: [place] [id number] - Data Points Laboratory Results: Laboratory Results 01/24/17 10:15 01/24/17 10:15 01/24/17 01/24/17 10:15 10:15 WBC 7.47 10^3/uL 10^3/uL (3.80-9.50) RBC 4.32 10^6/uL 10^6/uL (4.18-5.33) Hgb 9.1 g/dL L g/dL (12.6-16.3) Hct 32.3 % L % (38.0-47.0) MCV 74.8 fL L fL (81.5-99.8) MCH 21.1 pg L pg (27.9-34.1) MCHC 28.2 g/dL L g/dL (32.4-36.7) RDW 24.1 % H % (11.5-15.2) Plt Count 502 10^3/uL H 10^3/uL (150-400) MPV 8.6 fL L fL (8.7-11.7) Neut % (Auto) 62.1 % % (39.3-74.2) Lymph % (Auto) 28.2 % % (15.0-45.0) [place] % (Auto) 7.4 % % (4.5-13.0) Eos % (Auto) 1.1 % % (0.6-7.6) Baso % (Auto) 0.8 % % (0.3-1.7) Nucleat RBC Rel Count 0.0 % % (0.0-0.2) Absolute Neuts (auto) 4.64 10^3/uL 10^3/uL (1.70-6.50) Absolute Lymphs (auto) 2.11 10^3/uL 10^3/uL (1.00-3.00) Absolute Monos (auto) 0.55 10^3/uL 10^3/uL (0.30-0.80) Absolute Eos (auto) 0.08 10^3/uL 10^3/uL (0.03-0.40) Absolute Basos (auto) 0.06 10^3/uL 10^3/uL (0.02-0.10) Absolute Nucleated RBC 0.00 10^3/uL 10^3/uL (0-0.01) Immature Gran % 0.4 % % (0.0-1.1) Immature Gran # 0.03 10^3/uL 10^3/uL (0.00-0.10) Platelet Estimate ADEQUATE (ADEQ) Polychromasia 1+ H Hypochromasia 2+ H Basophilic Stippling 1+ H Microcytic Cells 1+ H Oval Macrocytes 1+ H Acanthocytes (Spur) 1+ H Keratocytes 1+ H Schistocytes 2+ H Smear Review By Pending Sodium 142 mEq/L mEq/L (134-144) Potassium 3.9 mEq/L mEq/L (3.5-5.2) Chloride 114 mEq/L H mEq/L (97-110) Carbon Dioxide 17 mEq/l L D mEq/l (22-31) Anion Gap 11 mEq/L mEq/L (8-16) BUN 8 mg/dL mg/dL (7-23) Creatinine 1.1 mg/dL H mg/dL (0.6-1.0) Estimated GFR 54 Glucose 94 mg/dL mg/dL (70-100) Calcium 9.2 mg/dL D mg/dL (8.5-10.4) Departure - Departure Disposition: [facility] Acute Clinical Impression: Diarrhea Condition: Fair
[2017-01-24 10:27] LABS: % IMMATURE GRANULYOCYTES 0.4 % (0.0-1.1); ABSOLUTE IMMATURE GRANULOCYTES 0.03 10^3/uL (0.00-0.10); ADD DIFF? NO; ADD MORPH? YES; ADD SCAN? NO; ATYPICAL LYMPHOCYTE FLAG 0 (0-99); FRAGMENT RBC FLAG 40 (0-99); HEMATOCRIT 32.3 % (38.0-47.0); HEMOGLOBIN 9.1 g/dL (12.6-16.3); LEFT SHIFT FLG 0 (0-99); LIPEMIA HEMOLYSIS FLAG 70 (0-99); MEAN CELL HEMOGLOBIN 21.1 pg (27.9-34.1); MEAN CELL VOLUME 74.8 fL (81.5-99.8); MEAN PLATELET VOLUME 8.6 fL (8.7-11.7); PLATELET CLUMPS FLAG 30 (0-99); PLATELET COUNT 502 10^3/uL (150-400); RED BLOOD CELL COUNT 4.32 10^6/uL (4.18-5.33)
[2017-01-24 10:32] LABS: MEAN CELL HEMOGLOBIN CONCENTR. 28.2 g/dL (32.4-36.7); RED CELL DISTRIBUTION WIDTH 24.1 % (11.5-15.2)
[2017-01-24 10:50] LABS: ANION GAP 11 mEq/L (8-16); CALCIUM 9.2 mg/dL (8.5-10.4); CARBON DIOXIDE 17 mEq/l (22-31); CHLORIDE 114 mEq/L (97-110); CREATININE 1.1 mg/dL (0.6-1.0); GLOMERULAR FILTRATION RATE 54; GLUCOSE 94 mg/dL (70-100); POTASSIUM 3.9 mEq/L (3.5-5.2); SODIUM 142 mEq/L (134-144)
[2017-01-24 11:04] LABS: HYPOCHROMIA 2+; KERATOCYTES 1+; MACROCYTES 1+; MICROCYTES 1+; PLATELET ESTIMATE ADEQUATE (ADEQ); POLYCHROMASIA 1+; SCHISTOCYTES 2+
[2017-01-24 11:05] LABS: ACANTHOCYTES 1+
--- NOTE | 2017-01-24 11:23 | CPEKG ---
Heart Rate: 57 RR Interval: 1053 P-R Interval: 156 QRSD Interval: 90 QT Interval: 388 QTC Interval: 378 P [place]: 44 QRS [place]: 30 T Wave [place]: 45 EKG Severity - NORMAL ECG - EKG Impression: SINUS RHYTHM Electronically Signed By: Rio Jacques 24-Jan-2017 13:29:14
[2017-01-24] MEDS: NICOTINE POLACRILEX 2 MG GUM B PRN (13:39)
--- NOTE | 2017-01-24 14:46 | WOCRNPDOC ---
WOCRN Advanced Assessment Note - Skin Integrity Problem, Advanced Assess Back Dressing Type: Allevyn Life Dressing Description: Clean/Dry, Intact Exudate Amount: Scant Exudate Color: Reddish/Yellow Exudate Characteristic(s): Serosanguinous Integumentary Issue Intervention: Dressing Changed Paul Wound Tissue: Blanching, Intact Paul Wound Swelling: Mild Wound Bed Color: Red, Yellow Wound Bed Constitution: Smooth Tissue, Loose Slough Pressure Injury Stage: Stage 1 (distally, mid-back), Stage 2 (proximally, mid- back) Pressure Injury Present on Admit: Yes (in ED notes) Skin Integrity Problem Comment: Two, discrete pressure injuries noted to patient 's mid/lower thoracic region, directly over vertebrae. The more proximal wound was slough-filled (white, fibrinous) upon assessment. This was easily removed w / gauze and NS, though patient did c/o mild pain when this was done. Wound appearance is partial, bordering on full-thickness tissue loss, presently stage 2. There is blanching erythema immediately paul-wound. More distal pressure injury is non-blanching erythema w/ intact skin, consistent in appearance with stage 1 injury. Therahoney applied to proximal wound, followed by Telfa, and both injuries covered by a large foam Allevyn dressing. Patient is severely malnourished w/ a very low BMI. Even though she is mobile, I have initiated pressure relieving interventions. Report given to body mechanic Emma. Wound care will follow-up with patient on Wednesday 01/31.
[2017-01-24] MEDS ORDERED: D10W 1,000 ML IV PRN (16:47)
[2017-01-24] MEDS ORDERED: PROMETHAZINE HCL 25 MG/ML INJ IVP PRN (16:49)
[2017-01-24] MEDS ORDERED: HYDROCORTISONE ACETATE 25 MG SUPP PR PRN (17:06)
[2017-01-24] MEDS ORDERED: HYDROCORTISONE ACETATE 25 MG SUPP PR ONE (17:07)
[2017-01-24] MEDS ORDERED: DIPHENOXYLATE/ATROPINE LOMOTIL 1 TAB PO PRN (17:08)
[2017-01-24] MEDS: ACETAMINOPHEN 325 MG TAB PO PRN ×2 (17:17→20:00)
[2017-01-24] MEDS: NS 1,000 ML IV SCH (17:38)
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
[2017-01-24] MEDS ORDERED: HEPARIN 10,000 UNIT/10 ML MDV IVP PRN (17:56)
[2017-01-24] MEDS ORDERED: HEPARIN 10,000 UNIT/10 ML MDV IVP ONE (17:56)
[2017-01-24] MEDS ORDERED: HEPARIN/DEXTROSE 500 ML IV SCH (18:00)
[2017-01-24] MEDS ORDERED: WARFARIN SODIUM 5 MG TAB PO ONE (18:00)
[2017-01-24 18:25] LABS: APTT 29.3 SEC (23.0-38.0); INR 2.23 (0.83-1.16); PROTIME(PATIENT) 24.9 SEC (12.0-15.0)
[2017-01-24 18:46] LABS: FIBRINOGEN 171 mg/dL (214-456)
[2017-01-24 19:15] LABS: % IMMATURE GRANULYOCYTES 0.3 % (0.0-1.1); ABSOLUTE IMMATURE GRANULOCYTES 0.02 10^3/uL (0.00-0.10); ADD DIFF? NO; ADD MORPH? YES; ADD SCAN? NO; ATYPICAL LYMPHOCYTE FLAG 0 (0-99); FRAGMENT RBC FLAG 40 (0-99); HEMATOCRIT 29.8 % (38.0-47.0); HEMOGLOBIN 8.6 g/dL (12.6-16.3); LEFT SHIFT FLG 0 (0-99); LIPEMIA HEMOLYSIS FLAG 70 (0-99); MEAN CELL HEMOGLOBIN 21.3 pg (27.9-34.1); MEAN CELL VOLUME 73.8 fL (81.5-99.8); MEAN PLATELET VOLUME 8.6 fL (8.7-11.7); PLATELET CLUMPS FLAG 0 (0-99); PLATELET COUNT 419 10^3/uL (150-400); RED BLOOD CELL COUNT 4.04 10^6/uL (4.18-5.33)
[2017-01-24 19:16] LABS: PLATELET COUNT 419 10^3/uL (150-400)
[2017-01-24 19:17] LABS: MEAN CELL HEMOGLOBIN CONCENTR. 28.9 g/dL (32.4-36.7); RED CELL DISTRIBUTION WIDTH 23.8 % (11.5-15.2)
[2017-01-24 19:25] LABS: APTT 31.3 SEC (23.0-38.0); INR 2.2 (0.83-1.16); PROTIME(PATIENT) 24.6 SEC (12.0-15.0)
[2017-01-24 19:33] LABS: ALANINE AMINOTRANSFERASE 35 IU/L (9-52); ALBUMIN 3.2 g/dL (3.5-5.0); ALKALINE PHOSPHATASE 124 IU/L (38-126); ANION GAP 12 mEq/L (8-16); ASPARTATE AMINOTRANSFERASE 19 IU/L (14-46); BILIRUBIN,TOTAL 0.3 mg/dL (0.1-1.4); BILIRUBIN-CONJUGATED 0.3 mg/dL (0.0-0.5); CALCIUM 9.1 mg/dL (8.5-10.4); CARBON DIOXIDE 15 mEq/l (22-31); CHLORIDE 110 mEq/L (97-110); GLOMERULAR FILTRATION RATE > 60; GLUCOSE 89 mg/dL (70-100); LACTATE DEHYDROGENASE 544 IU/L (313-618); MAGNESIUM 1.1 mg/dL (1.6-2.3); POTASSIUM 4.2 mEq/L (3.5-5.2); SODIUM 137 mEq/L (134-144); TOTAL PROTEIN 6.2 g/dL (6.3-8.2); TRIGLYCERIDE 70 mg/dL (35-135)
[2017-01-24 19:43] LABS: % SATURATION 43 % (20-55); TOTAL IRON BINDING CAPACITY 382 ug/dL (260-490)
[2017-01-24 20:00] LABS: ELLIPTOCYTES 1+
[2017-01-24] MEDS ORDERED: TPN IV SCH (20:00)
[2017-01-24 20:01] LABS: HYPOCHROMIA 1+; MICROCYTES 2+; PLATELET ESTIMATE ADEQUATE (ADEQ)
[2017-01-24] MEDS: HYDROCORTISONE 1% CREAM TP SCH (20:05)
[2017-01-24 20:08] LABS: FERRITIN - BCH 16.4 ng/mL (6.2-264.0)
[2017-01-24] MEDS: PREGABALIN 50 MG CAP PO SCH (21:29)
[2017-01-24] MEDS: oxyCODONE IR 5 MG TAB PO PRN (21:29)
[2017-01-24 21:57] LABS: COLOR YELLOW; LEUKOCYTE ESTERASE,URINE 3+ (NEGATIVE); NITRITE,URINE NEGATIVE (NEGATIVE)
[2017-01-24 22:02] LABS: BACTERIA TRACE /hpf (NONE SEEN); MUCUS TRACE /lpf (NONE-1+); WBC,URINE 50-182 /hpf (0-3)
[2017-01-24] MEDS: SUMAtriptan 50 MG TAB PO PRN (22:48)
[2017-01-24] MEDS: ALTEPLASE 2 MG VIAL IVP PRN ×2 (23:04→23:05)
[2017-01-25 06:09] LABS: % IMMATURE GRANULYOCYTES 0.3 % (0.0-1.1); ABSOLUTE IMMATURE GRANULOCYTES 0.02 10^3/uL (0.00-0.10); ADD DIFF? NO; ADD MORPH? YES; ADD SCAN? NO; ATYPICAL LYMPHOCYTE FLAG 0 (0-99); FRAGMENT RBC FLAG 40 (0-99); HEMATOCRIT 27.4 % (38.0-47.0); HEMOGLOBIN 7.8 g/dL (12.6-16.3); LEFT SHIFT FLG 10 (0-99); LIPEMIA HEMOLYSIS FLAG 70 (0-99); MEAN CELL HEMOGLOBIN 21.4 pg (27.9-34.1); MEAN CELL VOLUME 75.1 fL (81.5-99.8); MEAN PLATELET VOLUME 8.7 fL (8.7-11.7); PLATELET CLUMPS FLAG 10 (0-99); PLATELET COUNT 301 10^3/uL (150-400); RED BLOOD CELL COUNT 3.65 10^6/uL (4.18-5.33)
[2017-01-25 06:11] LABS: MEAN CELL HEMOGLOBIN CONCENTR. 28.5 g/dL (32.4-36.7)
[2017-01-25 06:19] LABS: APTT 39.1 SEC (23.0-38.0); INR 3.45 (0.83-1.16); PROTIME(PATIENT) 35.3 SEC (12.0-15.0)
[2017-01-25] MEDS: ACETAMINOPHEN 325 MG TAB PO PRN ×2 (06:37→13:30)
[2017-01-25 06:41] LABS: ALANINE AMINOTRANSFERASE 31 IU/L (9-52); ALBUMIN 2.5 g/dL (3.5-5.0); ALKALINE PHOSPHATASE 92 IU/L (38-126); ANION GAP 10 mEq/L (8-16); ASPARTATE AMINOTRANSFERASE 15 IU/L (14-46); BILIRUBIN,TOTAL 0.3 mg/dL (0.1-1.4); CALCIUM 8.5 mg/dL (8.5-10.4); CARBON DIOXIDE 16 mEq/l (22-31); CHLORIDE 114 mEq/L (97-110); GLOMERULAR FILTRATION RATE > 60; GLUCOSE 86 mg/dL (70-100); MAGNESIUM 1.2 mg/dL (1.6-2.3); POTASSIUM 3.8 mEq/L (3.5-5.2); SODIUM 140 mEq/L (134-144); TOTAL PROTEIN 5.1 g/dL (6.3-8.2)
[2017-01-25 07:19] LABS: ACANTHOCYTES 1+; HYPOCHROMIA 2+; MACROCYTES 1+; MICROCYTES 2+
[2017-01-25 07:20] LABS: PLATELET ESTIMATE ADEQUATE (ADEQ); POLYCHROMASIA 1+
[2017-01-25] MEDS: SUMAtriptan 50 MG TAB PO PRN (08:50)
[2017-01-25] MEDS: PREGABALIN 50 MG CAP PO SCH ×3 (08:50→21:21)
[2017-01-25] MEDS ORDERED: FLUoxetine 20 MG CAP PO SCH (09:00)
[2017-01-25] MEDS ORDERED: MAGNESIUM SULF 2 GM/WATER 50 ML IV ONE (09:00)
[2017-01-25] MEDS: NS 1,000 ML IV SCH (09:02)
[2017-01-25] MEDS: HYDROCORTISONE 1% CREAM TP SCH ×2 (09:07→22:30)
[2017-01-25] MEDS: ONDANSETRON 4 MG/2 ML VIAL IVP PRN ×2 (09:56→16:25)
[2017-01-25] MEDS: MICAFUNGIN NA 100 MG in NS 100 ML IV SCH (16:29)
[2017-01-25] MEDS: oxyCODONE IR 5 MG TAB PO PRN (16:31)
--- NOTE | 2017-01-25 17:23 | HOSPPROG ---
Hospitalist Progress Note Assessment/Plan: The patient is a 46-year-old female with PMH short gut syndrome on TPN, protein C deficiency who was admitted for acute gastroenteritis secondary to norovirus and found to have candidemia. ASSESSMENT/PLAN: Candidemia Acute gastroenteritis secondary to norovirus Acute UTI Short gut syndrome, on TPN Microcytic anemia Non anion gap metabolic acidosis Hypomagnesemia Severe protein calorie malnutrition Bipolar disorder History of looks axillary nerve injury History of mesenteric ischemia, status post bowel resection surgery -consulted ID for fungemia. Patient started on micafungin today. Discussed with Infectious Disease specialist an RN. Patient will need PICC line removed, but currently needs for TPN. Plan to replace line in 4 days. -follow up urine culture. Start ceftriaxone empirically since patient complaining of persistent symptoms. -restart proton pump inhibitor-Protonix per patient request. -DC Prozac, as patient says she does not normally take this at home. -check echocardiogram to rule out valvular vegetations. -continue TPN. Patient is requesting increased in amount of calories daily. Says she was on 1300 calories daily at home and help her gain weight. Will discuss further with pharmacy. VTE prophylaxis: Warfarin. Slightly supratherapeutic. Pharmacy is dosing. GI prophylaxis: Protonix Code Status: Full code Status: Inpatient for greater than 2 midnight stay. Disposition: Med surg ____ SUBJECTIVE: Today the patient is complaining of bladder pain. She believes she has a UTI. She has some abdominal discomfort. Diarrhea has been improving, stools are well formed now. OBJECTIVE: Physical Exam: General: The patient is a thin female who is alert and in no acute distress. HEENT: normocephalic, extraocular movements intact, conjunctivae clear. Mucous membranes moist. Neck: trachea midline, no visible masses. CV: +S1/S2, RRR, no MRG. Resp: unlabored, CTAB no RRW. Abd: soft and nondistended. Bowel sounds present. + mild tenderness to palpation throughout abdomen. No rigidity or guarding. Musculoskeletal: Reduced muscle tone/bulk. +temporal wasting. Neuro: cranial nerves II XII grossly intact. Intact gross motor and sensory function. Psych: Appropriate mood and appropriate affect. Seems little forgetful. Skin: Mild pallor. No petechiae. Heme/lymph: No peripheral edema at bilateral lower extremities. : + suprapubic and costovertebral tenderness. Labs/Imaging/microbiology: Personally reviewed/interpreted. Objective: Vital Signs Temp Pulse Resp BP Pulse Ox 36.9 C 78 16 152/80 H 100 01/25/17 15:36 01/25/17 15:36 01/25/17 15:36 01/25/17 15:36 01/25/17 15:36 Microbiology 01/24/17 17:40 Blood Panel (PCR) - Final Blood No Organism Detected 01/24/17 13:50 Gastrointestinal Tract Panel (PCR) - Final Stool Norovirus Gi/Gii Laboratory Results 01/25/17 06:00 01/25/17 06:00 01/24/17 01/25/17 01/26/17 05:59 05:59 05:59 Intake Total 1617 2350 Output Total 950 800 Balance 667 1550 PT 35.3 SEC (12.0-15.0) H D 01/25/17 06:00 INR 3.45 (0.83-1.16) H 01/25/17 06:00 ICD10 Worksheet Patient Problems: Problems Problem Status Onset Diarrhea Acute Anorexia nervosa Active Bulemia Nervosa Active Chronic vomiting Active Coumadin Therapy for 6 months Active Dehydration Active GERD - Gastroesophageal reflux disease Active Hypokalemia Active Hyponatremia Active Leukocytosis Active Occlusion of artery Active Renal artery stenosis Active Thrombocytosis Active Tobacco user Active Abdominal pain Acute Acute hypokalemia Acute Excoriation Acute Hypokalemia Acute Hypokalemia Acute Lactic acid acidosis Acute Mesenteric thrombosis Acute Nausea & vomiting Acute Renal failure Acute Renal insufficiency Acute SBO (small bowel obstruction) Acute
--- NOTE | 2017-01-25 17:28 | GCON ---
[f rep st] CONSULTATION INFECTIOUS DISEASE CONSULTATION DATE OF CONSULTATION: 01/25/2017 REFERRING PHYSICIAN: Tracy Small DO REASON FOR CONSULTATION: Fungemia. CHIEF COMPLAINT: Fevers and diarrhea. HISTORY OF PRESENT ILLNESS: This is a 46-year-old, female with a past medical history sig nificant for Sjogren syndrome, with only 12 inches of small bowel remaining, protein-C deficiency, s evere hypercoagulable state, severe protein calorie malnutrition on TPN now for the past several mon ths, history of anorexia and bulimia with laxative abuse, bipolar, neuropathy, left axillary injury status post stent, mesenteric ischemia. She states that 2 weeks ago she was having constant fevers with chills that subsided 1 week ago. This was then followed up by watery diarrhea, several bowels per day, around 5. She had some blood work done middle of last week which showed that her potassium was lower, but due to ongoing diarrhea she came in for hospitalization. Blood cultures x2 sets wer e drawn and 1/4 bottles are growing out a yeast. She also had a GI panel done which showed positive for norovirus. Her urinalysis was abnormal with 50-182 WBCs, 5-10 RBCs, 1+ blood and urine culture is pending. She has had her recent PICC line in for the past 2 months. She states that she did moralez ve a PICC line in her left upper extremity that apparently had gotten infected but it was unclear wh at infection was related to as her care was done at [facility]. Infectious Disease is now consul poly for further evaluation and opinion regarding above. REVIEW OF SYSTEMS: GENERAL: Had fevers and shaking chills 2 weeks ago which ended 1 week ago. She also had a fever yesterday, low-grade at 37.4. HEAD: Complaining of headache without neck stiffne ss or pain. EYES: No change in vision. ENT: No sore throat, difficulty swallowing, ear pain or d rainage. CARDIOVASCULAR: Denies any chest pain or rapid heartbeat. RESPIRATORY: Denies any short ness of breath, cough or sputum production. ABDOMEN: No nausea. Did vomit this morning. Diarrhea was moderate to severe up until last night which was her last bout, and today she has not moved her bowels yet. She does have some lower abdominal pain and cramping, especially which is improved wit h bowel movements. : Does complain of dysuria as well with suprapubic tenderness. She denies an ything in the blood and in the urine. EXTREMITIES: No lower extremity edema. MUSCULOSKELETAL: De nies any joint pains in both legs. SKIN: Denies any recent rashes. Rest of 10-point review of sys tems essentially negative except for above. PAST MEDICAL HISTORY: Significant for short gut syndrome, severe protein calorie malnutrition on TP N, mesenteric ischemia with failed attempts at stenting, protein C deficiency, bipolar, iatrogenic l eft axillary injury status post stent, neuropathy. PAST SURGICAL HISTORY: Significant for a colostomy, status post reversal, cholecystectomy. ALLERGIES: Lamictal which gives her a rash. Amoxicillin only gives her nausea and diarrhea without any rash, shortness of breath or throat swelling. MEDICATIONS: As per MAR. SOCIAL HISTORY: She smokes about a pack over 3-4 days. She denies any alcohol. Denies any illicit drug usage. She lives with her parents. PHYSICAL EXAMINATION: VITAL SIGNS: Temperature current 36.8, T-max 37.4, pulse 85, blood pressure 125/74, respiratory rate is 16, saturation 98% on room air. GENERAL: She is sitting up in bed in n o acute respiratory distress. Awake, alert, oriented x3. HEENT: Head is normocephalic, atraumatic . Eyes are reactive to light bilaterally, no conjunctival injection or petechiae. Oropharynx is cl ear. She is edentulous in the upper gum line, and she has several missing teeth in the lower gum li ne. No posterior erythema or thrush noted. CARDIOVASCULAR: S1, S2. Regular rate and rhythm. RES PIRATORY: Clear to auscultate bilaterally. No rhonchi appreciated. ABDOMEN: Slight abdominal dis tention. Positive bowel sounds in all 4 quadrants. Surgical scars noted which are well healed and intact. She has a small hernia where her reversal of the colostomy is. EXTREMITIES: No lower extr emity edema. MUSCULOSKELETAL: No joint pains. No pain on palpation of the joints. She has a PICC line in the left upper extremity without swelling. SKIN: No obvious rashes. LABORATORY DATA: White blood cell count is 5.9, hemoglobin 7.8, platelets are 301, neutrophils 83%. INR 3.4. Sodium 140, potassium 3.8, chloride 114, bicarb 16, BUN is 10, creatinine is 1.0. Magne sium 1.2, AST 15, ALT 31, alk phos 92, bilirubin 0.3. Urinalysis: 1+ blood, 3+ leukocyte esterase, urine RBCs 5-10, urine WBCs , trace bacteria. Microbiology: Blood cultures, 1/4 bottles with yeast. Stool GI panel with norovirus positive. Uri ne culture pending. Chest x-ray done which shows no evidence of pneumonia. ASSESSMENT: 1. Fungemia likely related to infected PICC line. 2. Norovirus gastroenteritis. PLAN: At this point in time, would start patient on micafungin therapy until cultures are better de lineated out as far as the organism and potential susceptibilities. Will check followup blood cultu res in 48 hours to assess response to therapy. Would recommend a TTE or a 2D echo to ensure no valv ular vegetations. Ideally, would like PICC line to be removed and replaced once fungemia has cleare d. Would check followup labs. Care was coordinated with the hospitalist team. For Norovirus, continue with contact and droplet precautions as this. I thank you very much for providing us the opportunity to care for your patient in consultation. /[id number]/MODL
[2017-01-25] MEDS: PANTOPRAZOLE SODIUM 40 MG TAB PO SCH (18:47)
[2017-01-25] MEDS: TPN 1 EA BAG IV SCH (21:21)
[2017-01-26] MEDS: oxyCODONE IR 5 MG TAB PO PRN ×3 (00:24→16:07)
[2017-01-26 06:09] LABS: % IMMATURE GRANULYOCYTES 0.3 % (0.0-1.1); ABSOLUTE IMMATURE GRANULOCYTES 0.02 10^3/uL (0.00-0.10); ADD DIFF? NO; ADD MORPH? YES; ADD SCAN? NO; ATYPICAL LYMPHOCYTE FLAG 0 (0-99); FRAGMENT RBC FLAG 40 (0-99); HEMOGLOBIN 7.7 g/dL (12.6-16.3); LEFT SHIFT FLG 0 (0-99); LIPEMIA HEMOLYSIS FLAG 70 (0-99); MEAN CELL HEMOGLOBIN 21.4 pg (27.9-34.1); MEAN CELL VOLUME 75.2 fL (81.5-99.8); MEAN PLATELET VOLUME 9.4 fL (8.7-11.7); PLATELET CLUMPS FLAG 0 (0-99); PLATELET COUNT 280 10^3/uL (150-400); RED BLOOD CELL COUNT 3.59 10^6/uL (4.18-5.33)
[2017-01-26 06:10] LABS: MEAN CELL HEMOGLOBIN CONCENTR. 28.5 g/dL (32.4-36.7); RED CELL DISTRIBUTION WIDTH 23.7 % (11.5-15.2)
[2017-01-26 06:16] LABS: INR 2.78 (0.83-1.16); PROTIME(PATIENT) 29.7 SEC (12.0-15.0)
[2017-01-26 06:17] LABS: APTT 37.1 SEC (23.0-38.0)
[2017-01-26 06:22] LABS: ALANINE AMINOTRANSFERASE 28 IU/L (9-52); ALBUMIN 2.5 g/dL (3.5-5.0); ALKALINE PHOSPHATASE 95 IU/L (38-126); ANION GAP 9 mEq/L (8-16); ASPARTATE AMINOTRANSFERASE 18 IU/L (14-46); BILIRUBIN,TOTAL 0.3 mg/dL (0.1-1.4); CALCIUM 8.6 mg/dL (8.5-10.4); CARBON DIOXIDE 20 mEq/l (22-31); CHLORIDE 108 mEq/L (97-110); GLOMERULAR FILTRATION RATE > 60; GLUCOSE 75 mg/dL (70-100); MAGNESIUM 2.1 mg/dL (1.6-2.3); POTASSIUM 3.9 mEq/L (3.5-5.2); SODIUM 137 mEq/L (134-144); TOTAL PROTEIN 5.3 g/dL (6.3-8.2)
[2017-01-26 06:43] LABS: MICROCYTES 1+
[2017-01-26 06:44] LABS: ACANTHOCYTES 1+; HYPOCHROMIA 2+; PLATELET ESTIMATE ADEQUATE (ADEQ); POLYCHROMASIA 1+
[2017-01-26] MEDS: PREGABALIN 50 MG CAP PO SCH ×3 (10:27→22:28)
[2017-01-26] MEDS: PANTOPRAZOLE SODIUM 40 MG TAB PO SCH (10:27)
[2017-01-26] MEDS: HYDROCORTISONE 1% CREAM TP SCH ×2 (10:28→22:50)
[2017-01-26] MEDS: ACETAMINOPHEN 325 MG TAB PO PRN ×2 (11:47→19:38)
[2017-01-26] MEDS: MICAFUNGIN NA 100 MG in NS 100 ML IV SCH (12:45)
--- NOTE | 2017-01-26 15:07 | PCMIDPN ---
Assessment/Plan: Assessment/Plan: 1. Fungemia: - likely related to infected picc line - Will try to remove picc line today and if possible establish a peripheral IV. replace picc line once blood cx negative x 48 hours. -ON micafungin -TTE pending - f/u blood in Am. -care coordinated with RN and hospitalist team 2. Norovirus gastroenteritis: - on contact and droplet precautions. - No diarrhea now. - continue supportive care 3. Pyuria with suprapubic tenderness: - Ua abnormal. URine cx however, with 3 col types (60,000-70,000 cfu) + yeast -on ceftriaxone. patient reports being symptomatically better. would not treat more than 3 days. DC ceftraixone after tomorrow's dose. Meds micafungin 100mg daily- 01/25/17-- ceftriaxone 1g daily- 01/25/17 Subjective: afebrile. feels better today. no dysuria. less suprapubic pain today. denies sob. no diarrhea since Friday. DOes eat some meals on own. on tpn. Objective: Vital Signs Temp Pulse Resp BP Pulse Ox 37.4 C 74 20 113/60 98 01/26/17 11:36 01/26/17 11:36 01/26/17 11:36 01/26/17 11:36 01/26/17 11:36 Microbiology 01/24/17 17:40 Blood Panel (PCR) - Final Blood No Organism Detected Laboratory Results 01/26/17 05:40 01/26/17 05:40 01/25/17 01/26/17 01/27/17 05:59 05:59 05:59 Intake Total 1617 3150 Output Total 950 1550 Balance 667 1600 - Physical Exam General Appearance: alert, no apparent distress Respiratory: lungs clear Cardiac/Chest: regular rate, rhythm Extremities: No swelling Abdomen: normal bowel sounds, other (mildly tender to palpate) Skin: No erythema ICD10 Worksheet Patient Problems: Problems Problem Status Onset Diarrhea Acute Anorexia nervosa Active Bulemia Nervosa Active Chronic vomiting Active Coumadin Therapy for 6 months Active Dehydration Active GERD - Gastroesophageal reflux disease Active Hypokalemia Active Hyponatremia Active Leukocytosis Active Occlusion of artery Active Renal artery stenosis Active Thrombocytosis Active Tobacco user Active Abdominal pain Acute Acute hypokalemia Acute Excoriation Acute Hypokalemia Acute Hypokalemia Acute Lactic acid acidosis Acute Mesenteric thrombosis Acute Nausea & vomiting Acute Renal failure Acute Renal insufficiency Acute SBO (small bowel obstruction) Acute
[2017-01-26] MEDS: SUMAtriptan 50 MG TAB PO PRN (15:19)
[2017-01-26] MEDS: WARFARIN SODIUM 5 MG TAB PO SCH (16:07)
--- NOTE | 2017-01-26 16:25 | ECHO ---
[id number] + + [address] : : [place] [address] : : [phone] + + Adult Echocardiographic Report + ---------+ :Name: NANCY BECKWITH RStudy Date: 01/26/2017 09:14 AM : : Hospital Admission Number: [id number] Layla whittaker: [birth year]: :: 1970 Gender: Female Height: 62 i n : :Age: 46 yrs Race: WH Weight: 76 l b : :Reason For Study: Fungemia/PICC line RUE/eval for vegetations : : BSA: 1.3 met ers2 : + ---------+ MMode/2D Measurements \T\ Calculations IVSd: 0.43 cm LVIDd: 4.2 cm FS: 43.5 % Ao root diam: LVPWd: 0.69 cm LVIDs: 2.4 cm EDV(Teich): 2.7 cm 79.8 ml LA dimension: ESV(Teich): 3.8 cm 19.9 ml EF(Teich): 75.0 % LVLd ap4: 8.1 cm SV(MOD-sp4): EDV(MOD-sp4): 45.0 ml 62.0 ml LVLs ap4: 6.2 cm ESV(MOD-sp4): 17.0 ml EF(MOD-sp4): 72.6 % Normal Measurement Values: + + :LVIDd (3.5-5.7cm) IVSd (0.6-1.1cm) LVPWd (0.6-1.1cm) Aortic Root (2.0-3.7cm)Left Atrium (1.5-4.0cm): :LV Vol(d) (76-115ml) LV Vol(s) (29-48ml) Ejec Fraction (50-65%)PV Tylor (0.6- 1.2m/s) TV Tylor (0.4-1.0m/s) : :MV E Tylor (0.8-1.0m/s)MV A Tylor (0.3-1.0m/s)LVOT Tylor (0.7-1.2m/s) Asc Ao Tylor ( 0.9-1.8m/s) : + + Doppler Measurements \T\ Calculations MV E max tylor: 107.1 cm/sec Ao V2 max: 150.7 cm/sec TR max tylor: 221.3 cm/sec MV A max tylor: 56.8 cm/sec Ao max P.1 mmHg TR max P.6 mmHg MV E/A: 1.9 RAP systole: 5.0 mmHg RVSP(TR): 24.6 mmHg Left Ventricle The left ventricle is normal in size. There is normal left ventricular wall thickness. Left ventricular systolic function is normal. Ejection Fraction = 65-70%. No regional wall motion abnormalities noted. Right Ventricle The right ventricle is normal in size and function. Atria The left atrial size is normal. Right atrial size is normal. Mitral Valve The mitral valve is normal in structure and function. There is trace mitral regurgitation. Tricuspid Valve Normal tricuspid valve. There is trace tricuspid regurgitation. Aortic Valve The aortic valve is trileaflet. The aortic valve opens well. There is no aortic stenosis. There is no aortic insufficiency. Pulmonic Valve The pulmonic valve is normal in structure and function. Trace pulmonic valvular regurgitation. Great Vessels The aortic root is normal size. Pericardium/Pleural There is no pericardial effusion. Conclusion A complete two-dimensional transthoracic echocardiogram was performed (2D, M-mode, Doppler and color flow Doppler). There is no evidence of a mass or vegetation. This does not rule out endocarditis. (1) Left ventricular systolic ejection fraction was normal (65%) - normal wall motion (2) No left ventricular hypertrophy (3) Normal diastolic function (4) Normal right ventricular size and function (5) Normal atrial dimensions (6) Physiologic mitral regurgitation (7) Trileaflet aortic valve without sclerosis or insufficiency (8) Physiologic tricuspid regurgitation (9) Grossly normal pulmonic valve (10) No comparison echocardiograms Final Reading Physician: Adan Herrera signed on 01/26/2017 04:24 PM Ordering Physician: Greg Morton Performed By: Lauren Godwin RDCS
--- NOTE | 2017-01-26 20:19 | HOSPPROG ---
Hospitalist Progress Note Assessment/Plan: The patient is a 46-year-old female with PMH short gut syndrome on TPN, protein C deficiency, psychiatric disorder who was admitted for acute gastroenteritis secondary to norovirus and found to have candidemia. ASSESSMENT/PLAN: Candidemia Acute gastroenteritis secondary to norovirus, resolved Acute UTI Short gut syndrome, on chronic TPN Microcytic anemia Non anion gap metabolic acidosis, improved Hypomagnesemia, resolved Severe protein calorie malnutrition Bipolar disorder Tobacco smoking dependence Medical noncompliance Pressure ulcer, Stg 2, present on admission, over thoracolumbar spine. History of anemia/bulimia History of L axillary nerve injury History of mesenteric ischemia, status post bowel resection surgery -consulted ID for fungemia. Patient started on micafungin. Discussed with Infectious Disease specialist and RN and Pharmacist. -PICC line removed today, will skip TPN for a few days. Plan to replace line in 3-4 days. -follow up urine culture. Had 2 doses of ceftriaxone. -check echocardiogram to rule out valvular vegetations. -Pt has had several requests: 1) increased calories in TPN. D/w pharmacist - pt has more than adequate calories in TPN for her weight and increased metabolic demands for infection. 2) "Bladder antispasmodic" for bladder pain - I declined this because it is important for her to let us know what her symptoms are. -Pt has been told to stay on the floor and her cigarettes/e-cig were confiscated. She has been moved closer to nurses' station for closer monitoring. -Encouraged patient to eat more food. VTE prophylaxis: Warfarin - Pharmacy is dosing. Code Status: Full code Status: Inpatient for greater than 2 midnight stay. Disposition: Med surg ____ SUBJECTIVE: Today the patient is complaining of bladder/CVA pain. She believes she has a UTI. Diarrhea has resolved. Patient was caught smoking cigarettes in the bathroom and been wandering off the floor. OBJECTIVE: Physical Exam: General: The patient is a cachectic female who is alert and in no acute distress. HEENT: normocephalic, extraocular movements intact, conjunctivae clear. Mucous membranes moist. Neck: trachea midline, no visible masses. CV: +S1/S2, RRR, no MRG. Resp: unlabored, CTAB no RRW. Abd: soft and nondistended. Bowel sounds present. Musculoskeletal: Reduced muscle tone/bulk. Neuro: cranial nerves II XII grossly intact. Intact gross motor and sensory function. Psych: Appropriate mood and appropriate affect. Seems little forgetful. Skin: Mild pallor. No petechiae. +dressing over pressure ulcer on thoracolumbar spine. Heme/lymph: No peripheral edema at bilateral lower extremities. : + suprapubic and costovertebral tenderness. Labs/Imaging/microbiology: Personally reviewed/interpreted. Objective: Vital Signs Temp Pulse Resp BP Pulse Ox 37.0 C 72 16 138/88 H 99 01/26/17 15:35 01/26/17 15:35 01/26/17 15:35 01/26/17 15:35 01/26/17 15:35 Microbiology 01/24/17 17:40 Blood Panel (PCR) - Final Blood No Organism Detected Laboratory Results 01/26/17 05:40 01/26/17 05:40 01/25/17 01/26/17 01/27/17 05:59 05:59 05:59 Intake Total 1617 3150 Output Total 950 1550 Balance 667 1600 PT 29.7 SEC (12.0-15.0) H 01/26/17 05:40 INR 2.78 (0.83-1.16) H 01/26/17 05:40 ICD10 Worksheet Patient Problems: Problems Problem Status Onset Diarrhea Acute Anorexia nervosa Active Bulemia Nervosa Active Chronic vomiting Active Coumadin Therapy for 6 months Active Dehydration Active GERD - Gastroesophageal reflux disease Active Hypokalemia Active Hyponatremia Active Leukocytosis Active Occlusion of artery Active Renal artery stenosis Active Thrombocytosis Active Tobacco user Active Abdominal pain Acute Acute hypokalemia Acute Excoriation Acute Hypokalemia Acute Hypokalemia Acute Lactic acid acidosis Acute Mesenteric thrombosis Acute Nausea & vomiting Acute Renal failure Acute Renal insufficiency Acute SBO (small bowel obstruction) Acute
[2017-01-26] MEDS: TPN 1 EA BAG IV SCH (22:50)
[2017-01-27 04:38] LABS: % IMMATURE GRANULYOCYTES 0.2 % (0.0-1.1); ABSOLUTE IMMATURE GRANULOCYTES 0.01 10^3/uL (0.00-0.10); ADD DIFF? NO; ADD MORPH? YES; ADD SCAN? NO; ATYPICAL LYMPHOCYTE FLAG 10 (0-99); FRAGMENT RBC FLAG 40 (0-99); HEMATOCRIT 30.3 % (38.0-47.0); HEMOGLOBIN 8.5 g/dL (12.6-16.3); LEFT SHIFT FLG 0 (0-99); LIPEMIA HEMOLYSIS FLAG 70 (0-99); MEAN CELL HEMOGLOBIN 20.9 pg (27.9-34.1); MEAN CELL VOLUME 74.6 fL (81.5-99.8); MEAN PLATELET VOLUME 9.3 fL (8.7-11.7); PLATELET CLUMPS FLAG 0 (0-99); PLATELET COUNT 282 10^3/uL (150-400); RED BLOOD CELL COUNT 4.06 10^6/uL (4.18-5.33)
[2017-01-27 04:40] LABS: MEAN CELL HEMOGLOBIN CONCENTR. 28.1 g/dL (32.4-36.7); RED CELL DISTRIBUTION WIDTH 24.6 % (11.5-15.2)
[2017-01-27 04:49] LABS: APTT 32.1 SEC (23.0-38.0); INR 1.6 (0.83-1.16); PROTIME(PATIENT) 19.1 SEC (12.0-15.0)
[2017-01-27 04:57] LABS: ACANTHOCYTES 1+; HYPOCHROMIA 2+; MICROCYTES 1+; PLATELET ESTIMATE ADEQUATE (ADEQ)
[2017-01-27 05:36] LABS: ALANINE AMINOTRANSFERASE 27 IU/L (9-52); ALBUMIN 2.7 g/dL (3.5-5.0); ALKALINE PHOSPHATASE 108 IU/L (38-126); ANION GAP 9 mEq/L (8-16); ASPARTATE AMINOTRANSFERASE 15 IU/L (14-46); BILIRUBIN,TOTAL 0.3 mg/dL (0.1-1.4); CALCIUM 9.2 mg/dL (8.5-10.4); CARBON DIOXIDE 18 mEq/l (22-31); CHLORIDE 115 mEq/L (97-110); GLOMERULAR FILTRATION RATE > 60; GLUCOSE 90 mg/dL (70-100); MAGNESIUM 2.1 mg/dL (1.6-2.3); POTASSIUM 3.7 mEq/L (3.5-5.2); SODIUM 142 mEq/L (134-144); TOTAL PROTEIN 5.8 g/dL (6.3-8.2); TRIGLYCERIDE 94 mg/dL (35-135)
[2017-01-27] MEDS: ACETAMINOPHEN 325 MG TAB PO PRN ×2 (06:15→15:23)
[2017-01-27] MEDS: PREGABALIN 50 MG CAP PO SCH ×3 (09:39→21:58)
[2017-01-27] MEDS: PANTOPRAZOLE SODIUM 40 MG TAB PO SCH (09:39)
[2017-01-27] MEDS: MICAFUNGIN NA 100 MG in NS 100 ML IV SCH (09:40)
[2017-01-27] MEDS: HYDROCORTISONE 1% CREAM TP SCH ×2 (09:40→21:59)
--- NOTE | 2017-01-27 10:25 | PCMIDPN ---
Assessment/Plan: Assessment/Plan: 1. Fungemia: - likely related to infected picc line - picc line removed yesterday. -replace picc line once blood cx negative x 48 hours. -On micafungin. Plan for at least 14 days treatment from negative blood cx. -TTE with no vegetations. - f/u blood cx today. -care coordinated with RN 2. Norovirus gastroenteritis: - on contact and droplet precautions. - No watery diarrhea now. intermittent loose stools - continue supportive care 3. Pyuria with suprapubic tenderness: - Ua abnormal. URine cx however, with 3 col types (60,000-70,000 cfu) + yeast -on ceftriaxone. patient reports being symptomatically better. would not treat more than 3 days. -DC ceftraixone Meds micafungin 100mg daily- 01/25/17--#3 s/p ceftriaxone 1g daily- 01/25/17-01/27/17 Subjective: Afebrile. feeling better each day. Denies abd pain or suprapubic pain. denies cva tenderness. picc line removed yesterday and peripheral IV placed. denies sob. had loose stools this morning. Objective: Vital Signs Temp Pulse Resp BP Pulse Ox 36.4 C 70 16 137/74 H 100 01/27/17 07:37 01/27/17 07:37 01/27/17 07:37 01/27/17 07:37 01/27/17 07:37 Microbiology 01/24/17 17:40 Blood Panel (PCR) - Final Blood No Organism Detected Laboratory Results 01/27/17 04:30 01/27/17 04:30 01/26/17 01/27/17 01/28/17 05:59 05:59 05:59 Intake Total 3150 Output Total 1550 Balance 1600 - Physical Exam General Appearance: alert, no apparent distress Respiratory: lungs clear Cardiac/Chest: regular rate, rhythm Extremities: No swelling Abdomen: normal bowel sounds, non-tender, soft, No distended Back: No CVA tenderness Skin: No erythema ICD10 Worksheet Patient Problems: Problems Problem Status Onset Diarrhea Acute Anorexia nervosa Active Bulemia Nervosa Active Chronic vomiting Active Coumadin Therapy for 6 months Active Dehydration Active GERD - Gastroesophageal reflux disease Active Hypokalemia Active Hyponatremia Active Leukocytosis Active Occlusion of artery Active Renal artery stenosis Active Thrombocytosis Active Tobacco user Active Abdominal pain Acute Acute hypokalemia Acute Excoriation Acute Hypokalemia Acute Hypokalemia Acute Lactic acid acidosis Acute Mesenteric thrombosis Acute Nausea & vomiting Acute Renal failure Acute Renal insufficiency Acute SBO (small bowel obstruction) Acute
[2017-01-27] MEDS: ONDANSETRON 4 MG/2 ML VIAL IVP PRN (13:31)
[2017-01-27] MEDS: oxyCODONE IR 5 MG TAB PO PRN ×2 (15:24→18:50)
[2017-01-27] MEDS: WARFARIN SODIUM 5 MG TAB PO SCH (15:24)
[2017-01-27] MEDS ORDERED: WARFARIN SODIUM 5 MG TAB PO ONE (16:00)
--- NOTE | 2017-01-27 17:02 | HOSPPROG ---
Hospitalist Progress Note Assessment/Plan: Assessment: 46-year-old female p/w fungemia and norovirus Plan: 1. Fungemia. Acute, 2/2 PICC line, s/p 3 days micafungin and removal of PICC 01/26 - repeat Cx today - replace PICC when Cx neg - cont micafungin 2. Acute gastroenteritis. 2/2 norovirus, diarrhea improving, cont contact precautions 3. Possible UTI. S/p 3 days CTX, now discontinued 4. Short gut syndrome w/ severe protein calorie malnutrition. On chronic TPN - d/w pharmacy, plan to reinitiated TPN when PICC replaced, will run at normal rate/concentration 5. Non anion gap metabolic acidosis, improved 6. Bipolar disorder. Chronic, stable 7. Pressure ulcer, Stg 2, present on admission, wound care Diet. Regular PPx. High risk, lovenox 40 Code. Full Dispo. ADD uncertain, pending neg Cx and PICC replacement Subjective: patient reports normal BMs, no abd pain Objective: Vital Signs Temp Pulse Resp BP Pulse Ox 37.4 C 71 16 150/89 H 99 01/27/17 16:00 01/27/17 16:00 01/27/17 16:00 01/27/17 16:00 01/27/17 16:00 Microbiology 01/24/17 17:40 Blood Panel (PCR) - Final Blood No Organism Detected Laboratory Results 01/27/17 04:30 01/27/17 04:30 01/26/17 01/27/17 01/28/17 05:59 05:59 05:59 Intake Total 3150 Output Total 1550 Balance 1600 PT 19.1 SEC (12.0-15.0) H D 01/27/17 04:30 INR 1.60 (0.83-1.16) H 01/27/17 04:30 - Physical Exam Constitutional: no apparent distress, not in pain, chronically ill appearing, cachectic, No uncomfortable Cardiovascular: regular rate and rhythym, no murmur, rub, or gallop, No irregularly irregular, No edema Respiratory: no respiratory distress, no rales or rhonchi, clear to auscultation Gastrointestinal: normoactive bowel sounds, soft, non-tender abdomen, no palpable masses, other (healing ostomy site R abd) Skin: other (minimal ulceration at healing ostomy site, no surrounding erythema/ induration/fluctuance/tenderness) Neurologic: AAOx3, No facial droop Psychiatric: not anxious, not encephalopathic, flat affect, No agitated ICD10 Worksheet Patient Problems: Problems Problem Status Onset Dehydration Active Hypokalemia Active Anorexia nervosa Active Chronic vomiting Active Thrombocytosis Active Leukocytosis Active Occlusion of artery Active Renal artery stenosis Active Tobacco user Active Coumadin Therapy for 6 months Active Bulemia Nervosa Active Hyponatremia Active GERD - Gastroesophageal reflux disease Active Diarrhea Acute Nausea & vomiting Acute Renal insufficiency Acute Acute hypokalemia Acute Mesenteric thrombosis Acute Abdominal pain Acute Hypokalemia Acute SBO (small bowel obstruction) Acute Lactic acid acidosis Acute Hypokalemia Acute Renal failure Acute Excoriation Acute
[2017-01-27] MEDS ORDERED: ENOXAPARIN 40 MG/0.4 ML SYR SC SCH (17:15)
[2017-01-27] MEDS: TPN 1 EA BAG IV SCH (21:59)
[2017-01-28 05:04] LABS: % IMMATURE GRANULYOCYTES 0.2 % (0.0-1.1); ABSOLUTE IMMATURE GRANULOCYTES 0.01 10^3/uL (0.00-0.10); ADD DIFF? NO; ADD MORPH? YES; ADD SCAN? NO; ATYPICAL LYMPHOCYTE FLAG 20 (0-99); FRAGMENT RBC FLAG 40 (0-99); HEMATOCRIT 26.4 % (38.0-47.0); HEMOGLOBIN 7.4 g/dL (12.6-16.3); LEFT SHIFT FLG 0 (0-99); LIPEMIA HEMOLYSIS FLAG 70 (0-99); MEAN CELL HEMOGLOBIN 21.4 pg (27.9-34.1); MEAN CELL VOLUME 76.3 fL (81.5-99.8); MEAN PLATELET VOLUME 9.5 fL (8.7-11.7); PLATELET CLUMPS FLAG 0 (0-99); PLATELET COUNT 282 10^3/uL (150-400); RED BLOOD CELL COUNT 3.46 10^6/uL (4.18-5.33)
[2017-01-28 05:06] LABS: RED CELL DISTRIBUTION WIDTH 24.6 % (11.5-15.2)
[2017-01-28 05:14] LABS: INR 2.45 (0.83-1.16); PROTIME(PATIENT) 26.8 SEC (12.0-15.0)
[2017-01-28 05:27] LABS: ANION GAP 10 mEq/L (8-16); CARBON DIOXIDE 15 mEq/l (22-31); CHLORIDE 115 mEq/L (97-110); GLOMERULAR FILTRATION RATE > 60; GLUCOSE 96 mg/dL (70-100); POTASSIUM 3.6 mEq/L (3.5-5.2); SODIUM 140 mEq/L (134-144)
[2017-01-28 05:46] LABS: PLATELET ESTIMATE ADEQUATE (ADEQ)
[2017-01-28 05:47] LABS: ACANTHOCYTES 1+; HYPOCHROMIA 2+; MICROCYTES 2+
[2017-01-28] MEDS ORDERED: POTASSIUM CL 20 MEQ TAB PO ONE (08:28)
[2017-01-28] MEDS: NICOTINE POLACRILEX 2 MG GUM B PRN (09:32)
[2017-01-28] MEDS: ACETAMINOPHEN 325 MG TAB PO PRN (09:32)
[2017-01-28] MEDS: PANTOPRAZOLE SODIUM 40 MG TAB PO SCH (09:33)
[2017-01-28] MEDS: oxyCODONE IR 5 MG TAB PO PRN ×2 (09:33→21:22)
[2017-01-28] MEDS: MICAFUNGIN NA 100 MG in NS 100 ML IV SCH (09:34)
[2017-01-28] MEDS: PREGABALIN 50 MG CAP PO SCH ×3 (09:34→21:22)
[2017-01-28] MEDS: HYDROCORTISONE 1% CREAM TP SCH ×2 (09:39→19:58)
--- NOTE | 2017-01-28 09:48 | PCMIDPN ---
Assessment/Plan: Assessment/Plan: 1. Fungemia: - likely related to infected picc line - picc line removed. -replace picc line once blood cx negative x 48 hours. -On micafungin. Plan for at least 14 days treatment from negative blood cx. -TTE with no vegetations. - f/u blood cx 01/27/17 pending -care coordinated with RN 2. Norovirus gastroenteritis: - on contact and droplet precautions. - loose stools still. apparently stools all over the floor, per RN. - continue supportive care Meds micafungin 100mg daily- 01/25/17--#3 Subjective: afebrile. sitting up in bed today. denies abd pain or suprapubic pain now. no dysuria. states she has soft stools now and now diarrhea. Howver, per RN, she has been stooling all over the floor and wiping it up. DEnies sob. Objective: Vital Signs Temp Pulse Resp BP Pulse Ox 37.0 C 63 20 147/83 H 99 01/28/17 08:00 01/28/17 08:00 01/28/17 08:00 01/28/17 08:00 01/28/17 08:00 Microbiology 01/24/17 17:40 Blood Panel (PCR) - Final Blood No Organism Detected 01/24/17 21:59 Urine Culture - Final Urine,Clean Catch Yeast, Not Huyen Albicans Three [place] Types Laboratory Results 01/28/17 04:40 01/28/17 04:40 01/27/17 01/28/17 01/29/17 05:59 05:59 05:59 Intake Total 580 Balance 580 - Physical Exam General Appearance: alert, no apparent distress Respiratory: lungs clear Cardiac/Chest: regular rate, rhythm Extremities: No swelling Abdomen: normal bowel sounds, non-tender, soft, No distended Skin: No erythema ICD10 Worksheet Patient Problems: Problems Problem Status Onset Diarrhea Acute Anorexia nervosa Active Bulemia Nervosa Active Chronic vomiting Active Coumadin Therapy for 6 months Active Dehydration Active GERD - Gastroesophageal reflux disease Active Hypokalemia Active Hyponatremia Active Leukocytosis Active Occlusion of artery Active Renal artery stenosis Active Thrombocytosis Active Tobacco user Active Abdominal pain Acute Acute hypokalemia Acute Excoriation Acute Hypokalemia Acute Hypokalemia Acute Lactic acid acidosis Acute Mesenteric thrombosis Acute Nausea & vomiting Acute Renal failure Acute Renal insufficiency Acute SBO (small bowel obstruction) Acute
[2017-01-28] MEDS: WARFARIN SODIUM 5 MG TAB PO SCH (16:15)
--- NOTE | 2017-01-28 16:25 | HOSPPROG ---
Hospitalist Progress Note Assessment/Plan: Assessment: 46-year-old female p/w fungemia and norovirus Plan: 1. Fungemia. Acute, 2/2 PICC line, s/p 3 days micafungin and removal of PICC 01/26 - repeat Cx no growth x 24hrs, await 48hrs prior to placing new line since this is a line-assoc infxn - cont micafungin 14 days from neg Cx date, home infusion planned 2. Acute gastroenteritis. 2/2 norovirus, diarrhea improving, counseled patient to use toilet, had one episode of stool urgency/incontinence, patient concerned that she is contagious to mother w/ PD, wants to symptomatically improve prior to DC home 3. Possible UTI. S/p 3 days CTX, now discontinued 4. Short gut syndrome w/ severe protein calorie malnutrition. On chronic TPN - d/w pharmacy, plan to reinitiated TPN when PICC replaced, will run at normal rate/concentration 5. Non anion gap metabolic acidosis, improved 6. Bipolar disorder. Chronic, stable 7. Pressure ulcer, Stg 2, present on admission, wound care Diet. Regular PPx. High risk, lovenox 40 Code. Full Dispo. ADD uncertain, pending neg Cx and PICC replacement Subjective: one BM on floor, patient wants to ambulate out of room, counseled her regarding need to remain in room while she is still potentially contagious Objective: Vital Signs Temp Pulse Resp BP Pulse Ox 37.0 C 52 L 18 119/62 100 01/28/17 15:25 01/28/17 15:25 01/28/17 15:25 01/28/17 15:25 01/28/17 15:25 Microbiology 01/24/17 17:40 Blood Panel (PCR) - Final Blood No Organism Detected 01/24/17 21:59 Urine Culture - Final Urine,Clean Catch Yeast, Not Huyen Albicans Three [place] Types Laboratory Results 01/28/17 04:40 01/28/17 04:40 01/27/17 01/28/17 01/29/17 05:59 05:59 05:59 Intake Total 580 Balance 580 PT 26.8 SEC (12.0-15.0) H 01/28/17 04:40 INR 2.45 (0.83-1.16) H 01/28/17 04:40 - Time Spent With Patient Time Spent with Patient: greater than 35 minutes Time Spent with Patient: Greater than 35 minutes spent on this patients care, greater than 50% of time spent counseling, educating, and coordinating care regarding the above mentioned plan. - Physical Exam Constitutional: no apparent distress, not in pain, chronically ill appearing, cachectic, No uncomfortable Cardiovascular: regular rate and rhythym, no murmur, rub, or gallop Respiratory: no respiratory distress, no rales or rhonchi, clear to auscultation Gastrointestinal: normoactive bowel sounds, soft, non-tender abdomen, no palpable masses, other (healed ostomy) Skin: other (small ulceration at prior ostomy site) Musculoskeletal: other (prox muscle wasting) Neurologic: AAOx3 Psychiatric: not anxious, not encephalopathic, flat affect, No agitated ICD10 Worksheet Patient Problems: Problems Problem Status Onset Dehydration Active Hypokalemia Active Anorexia nervosa Active Chronic vomiting Active Thrombocytosis Active Leukocytosis Active Occlusion of artery Active Renal artery stenosis Active Tobacco user Active Coumadin Therapy for 6 months Active Bulemia Nervosa Active Hyponatremia Active GERD - Gastroesophageal reflux disease Active Diarrhea Acute Nausea & vomiting Acute Renal insufficiency Acute Acute hypokalemia Acute Mesenteric thrombosis Acute Abdominal pain Acute Hypokalemia Acute SBO (small bowel obstruction) Acute Lactic acid acidosis Acute Hypokalemia Acute Renal failure Acute Excoriation Acute
[2017-01-28] MEDS: TPN 1 EA BAG IV SCH (19:58)
[2017-01-28] MEDS: ONDANSETRON 4 MG/2 ML VIAL IVP PRN (21:51)
[2017-01-29 05:04] LABS: ANION GAP 11 mEq/L (8-16); CALCIUM 9.4 mg/dL (8.5-10.4); CARBON DIOXIDE 14 mEq/l (22-31); CHLORIDE 118 mEq/L (97-110); GLOMERULAR FILTRATION RATE > 60; GLUCOSE 93 mg/dL (70-100); INR 3.17 (0.83-1.16); MAGNESIUM 1.8 mg/dL (1.6-2.3); POTASSIUM 4.4 mEq/L (3.5-5.2); SODIUM 143 mEq/L (134-144)
[2017-01-29] MEDS: PREGABALIN 50 MG CAP PO SCH ×3 (08:29→20:31)
[2017-01-29] MEDS: PANTOPRAZOLE SODIUM 40 MG TAB PO SCH (08:29)
[2017-01-29] MEDS: MICAFUNGIN NA 100 MG in NS 100 ML IV SCH (08:30)
[2017-01-29] MEDS: HYDROCORTISONE 1% CREAM TP SCH ×2 (08:30→20:30)
--- NOTE | 2017-01-29 10:58 | PCMIDPN ---
Assessment/Plan: # Fungemia secondary to PICC line/TPN -- ophthalmology (Dr. Dillard) for dilated eye exam to r/o endophthalmitis based on recommendations from 2016 IDSA guidelines: Clin Infect Dis. 2016 Aug 07;62(4) :e1-50. "All nonneutropenic patients with candidemia should have a dilated ophthalmological examination, preferably performed by an flight steward, within the first week after diagnosis (strong recommendation; low-quality evidence)" --eye exam could impact duration of therapy, which currently is 2 weeks. Also would consider different antifungal agent as micafungin with poor vitreous penetration. --on micafungin awaiting ID of yeast --okay to place PICC for ongoing TPN. Blood cx 01/27 negative # Norovirus --dc droplet precautions Micro 01/27 blood cx (2) NGTD 01/24 blood cx (2) yeast 01/24 GI PCR: norovirus Subjective: patient reports feeling well Objective: Vital Signs Temp Pulse Resp BP Pulse Ox 36.8 C 57 L 18 147/78 H 91 L 01/29/17 08:00 01/29/17 08:00 01/29/17 08:00 01/29/17 08:00 01/29/17 08:00 Microbiology 01/24/17 17:40 Blood Panel (PCR) - Final Blood No Organism Detected 01/24/17 21:59 Urine Culture - Final Urine,Clean Catch Yeast, Not Huyen Albicans Three [place] Types Laboratory Results 01/28/17 04:40 01/29/17 04:43 01/28/17 01/29/17 01/30/17 05:59 05:59 05:59 Intake Total 580 100 Balance 580 100 - Physical Exam General Appearance: alert, no apparent distress, cachetic EENT: pale conjunctiva, poor dentition, No scleral icterus Respiratory: lungs clear, No accessory muscle use Neck: supple Cardiac/Chest: regular rate, rhythm Extremities: No pedal edema Abdomen: non-tender, soft Neuro/Psych: alert, normal mood/affect - Time Spent With Patient Time Spent with Patient: greater than 25 minutes Time Spent with Patient: Greater than 25 minutes spent on this patients care, greater than 50% of time spent counseling, educating, and coordinating care regarding the above mentioned plan. ICD10 Worksheet Patient Problems: Problems Problem Status Onset Diarrhea Acute Anorexia nervosa Active Bulemia Nervosa Active Chronic vomiting Active Coumadin Therapy for 6 months Active Dehydration Active GERD - Gastroesophageal reflux disease Active Hypokalemia Active Hyponatremia Active Leukocytosis Active Occlusion of artery Active Renal artery stenosis Active Thrombocytosis Active Tobacco user Active Abdominal pain Acute Acute hypokalemia Acute Excoriation Acute Hypokalemia Acute Hypokalemia Acute Lactic acid acidosis Acute Mesenteric thrombosis Acute Nausea & vomiting Acute Renal failure Acute Renal insufficiency Acute SBO (small bowel obstruction) Acute
[2017-01-29] MEDS ORDERED: ALTEPLASE 2 MG VIAL IVP PRN (12:32)
[2017-01-29] MEDS ORDERED: WARFARIN SODIUM 2.5 MG TAB PO ONE (16:00)
[2017-01-29] MEDS ORDERED: IOPAMIDOL (ISOVUE-300) 100 ML BTL ONE (16:03)
--- NOTE | 2017-01-29 16:47 | HOSPPROG ---
Hospitalist Progress Note Assessment/Plan: Assessment: 46-year-old female p/w fungemia and norovirus Plan: 1. Fungemia. Acute, 2/2 PICC line, s/p 4 days micafungin and removal of PICC 01/26 - repeat Cx no growth x 48hrs, place PICC today - cont micafungin 14 days from neg Cx date, home infusion planned - d/w Dr. Huerta, she recommends retinal exam, arranged 2. Acute gastroenteritis. 2/2 norovirus, diarrhea improving, counseled patient to use toilet, had one episode of stool urgency/incontinence, patient concerned that she is contagious to mother w/ PD, wants to symptomatically improve prior to DC home - d/w patient, encouraged to keep stool sample for RN to eval 3. Possible UTI. S/p 3 days CTX, now discontinued 4. Short gut syndrome w/ severe protein calorie malnutrition. On chronic TPN - d/w pharmacy, plan to reinitiated TPN tomorrow, run at normal rate 5. Non anion gap metabolic acidosis, improved 6. Bipolar disorder. Chronic, stable 7. Pressure ulcer, Stg 2, present on admission, wound care Diet. Regular PPx. High risk, lovenox 40 Code. Full Dispo. ADD 01/30 vs. 01/31, depending on clinical course of norovirus and retinal exam Subjective: Patient reports only 1 bowel movement overnight, reports that she is eating well, reports that she has ordered some food from [employer], gnocchi Objective: Vital Signs Temp Pulse Resp BP Pulse Ox 36.8 C 57 L 18 147/78 H 91 L 01/29/17 08:00 01/29/17 08:00 01/29/17 08:00 01/29/17 08:00 01/29/17 08:00 Microbiology 01/24/17 17:40 Blood Panel (PCR) - Final Blood No Organism Detected Laboratory Results 01/28/17 04:40 01/29/17 04:43 01/28/17 01/29/17 01/30/17 05:59 05:59 05:59 Intake Total 580 100 Balance 580 100 PT 33.0 SEC (12.0-15.0) H 01/29/17 04:43 INR 3.17 (0.83-1.16) H 01/29/17 04:43 - Pending Discharge Pending Discharge Within 48 Hours: Yes Pending Discharge Date: 01/31/17 Pending Discharge Time: 11:00 - Physical Exam Constitutional: no apparent distress, not in pain, chronically ill appearing, cachectic, No uncomfortable Cardiovascular: regular rate and rhythym, no murmur, rub, or gallop Respiratory: no respiratory distress, no rales or rhonchi, clear to auscultation Gastrointestinal: normoactive bowel sounds, soft, non-tender abdomen, no palpable masses, other (Healed ostomy site, hernia, nontender) Skin: other (Small ulceration at healed ostomy site, mild skin discoloration) Neurologic: AAOx3, sensation intact bilaterally Psychiatric: interacting appropriately, not anxious, not encephalopathic, thought process linear ICD10 Worksheet Patient Problems: Problems Problem Status Onset Diarrhea Acute Anorexia nervosa Active Bulemia Nervosa Active Chronic vomiting Active Coumadin Therapy for 6 months Active Dehydration Active GERD - Gastroesophageal reflux disease Active Hypokalemia Active Hyponatremia Active Leukocytosis Active Occlusion of artery Active Renal artery stenosis Active Thrombocytosis Active Tobacco user Active Abdominal pain Acute Acute hypokalemia Acute Excoriation Acute Hypokalemia Acute Hypokalemia Acute Lactic acid acidosis Acute Mesenteric thrombosis Acute Nausea & vomiting Acute Renal failure Acute Renal insufficiency Acute SBO (small bowel obstruction) Acute
[2017-01-29] MEDS: oxyCODONE IR 5 MG TAB PO PRN (18:30)
[2017-01-29] MEDS: ONDANSETRON 4 MG/2 ML VIAL IVP PRN (18:31)
[2017-01-29] MEDS: TPN 1 EA BAG IV SCH (19:51)
[2017-01-29 22:41] VITALS: RESP 16
[2017-01-30 04:52] LABS: % IMMATURE GRANULYOCYTES 0.3 % (0.0-1.1); ABSOLUTE IMMATURE GRANULOCYTES 0.02 10^3/uL (0.00-0.10); ADD DIFF? NO; ADD MORPH? YES; ADD SCAN? NO; ATYPICAL LYMPHOCYTE FLAG 20 (0-99); FRAGMENT RBC FLAG 40 (0-99); LEFT SHIFT FLG 0 (0-99); LIPEMIA HEMOLYSIS FLAG 70 (0-99); MEAN CELL VOLUME 76.1 fL (81.5-99.8); MEAN PLATELET VOLUME 9.1 fL (8.7-11.7); PLATELET CLUMPS FLAG 0 (0-99); PLATELET COUNT 358 10^3/uL (150-400); RED BLOOD CELL COUNT 3.81 10^6/uL (4.18-5.33)
[2017-01-30 04:58] LABS: MEAN CELL HEMOGLOBIN CONCENTR. 27.6 g/dL (32.4-36.7); RED CELL DISTRIBUTION WIDTH 24.6 % (11.5-15.2)
[2017-01-30 05:02] LABS: INR 2.75 (0.83-1.16); PROTIME(PATIENT) 29.4 SEC (12.0-15.0)
[2017-01-30 05:19] LABS: HYPOCHROMIA 2+; MACROCYTES 1+; MICROCYTES 2+; PLATELET ESTIMATE ADEQUATE (ADEQ); SCHISTOCYTES 1+
[2017-01-30] MEDS: oxyCODONE IR 5 MG TAB PO PRN ×2 (05:19→09:44)
[2017-01-30 05:21] LABS: ANION GAP 10 mEq/L (8-16); CALCIUM 9.6 mg/dL (8.5-10.4); CARBON DIOXIDE 17 mEq/l (22-31); CHLORIDE 117 mEq/L (97-110); CREATININE 1.1 mg/dL (0.6-1.0); GLOMERULAR FILTRATION RATE 54; GLUCOSE 101 mg/dL (70-100); POTASSIUM 3.7 mEq/L (3.5-5.2); SODIUM 144 mEq/L (134-144)
[2017-01-30 07:26] VITALS: TEMP 98.2
[2017-01-30] MEDS: PREGABALIN 50 MG CAP PO SCH (08:34)
[2017-01-30] MEDS: PANTOPRAZOLE SODIUM 40 MG TAB PO SCH (08:34)
[2017-01-30] MEDS: MICAFUNGIN NA 100 MG in NS 100 ML IV SCH (09:41)
[2017-01-30 10:56] VITALS: BP 117/69; PULSE 65; O2SAT 97
[2017-01-30] MEDS: HYDROCORTISONE 1% CREAM TP SCH ×2 (11:40→13:27)
--- NOTE | 2017-01-30 14:10 | PDIAF ---
- Diagnosis Diagnosis: candidemia Code Status: Full Code - Medication Management Discharge Medications: Medications to Continue on Transfer traZODone [traZODone 150MG (*)] 300 mg PO HS PRN 02/22/16 [Last Taken 11/27/16 21:00] Ibuprofen [Motrin (*)] 400 mg PO BID PRN 11/28/16 [Last Taken 11/27/16 14:00] Pregabalin [Lyrica 50mg (*)] 50 mg PO TID 11/28/16 [Last Taken 11/27/16 21:00] TPN [Hyperalimentation] 1 ea IV DAILY@20 11/28/16 [Last Taken 01/23/17] SUMAtriptan [Imitrex 50 MG (*)] 50 mg PO DAILY PRN #0 tab 12/04/16 [Last Taken Unknown] oxyCODONE IR [Oxycodone Ir (*)] 5 - 10 mg PO Q4 PRN #30 tab 12/04/16 [Last Taken Unknown] Warfarin Sodium [Coumadin 5MG (*)] 5 mg PO DAILY16 01/24/17 [Last Taken Unknown] Pantoprazole Sodium [Protonix] 20 mg PO DAILY 01/25/17 [Last Taken Unknown] Prison Teacher Antibiotics: micafungin 100mg IV q daily Prison Teacher Antibiotic Stop Date: 02/09/17 Discharge Medications: Refer to the Discharge Home Medication list for PRN reason. PICC Care - Routine: Yes - Orders Services needed: Registered Nurse - Labs/Radiology CBC Date: 02/03/17 CMP Date: 02/03/17 Call or Fax Lab and Imaging Results to: Dr. Greg Morton, - Follow Up Care Current Providers and Referrals: Parviz Gibson MD [Primary Care Provider] - As per Instructions
--- NOTE | 2017-01-30 14:24 | GCON ---
[f rep st] CONSULTATION REASON FOR CONSULTATION: Requested by Infectious Disease to rule out ocular involvement of fungal infection. CHIEF COMPLAINT: The patient denies any new visual symptoms. She specifically denies any loss of vision or floaters. HISTORY OF PRESENT ILLNESS: The patient is a 46-year-old female with multiple past medical problems including hypercoagulable state and multiple bowel surgeries. She has a PICC line and laboratory evidence of fungemia. PAST OCULAR HISTORY: Contact lens use for refractive error. No history of surgeries or ocular problems. Her primary eye doctor is Dr. Spencer. PAST MEDICAL HISTORY: 1. Protein C deficiency with hypercoagulable state. 2. Mesenteric ischemia. 3. Short gut syndrome. 4. Extensive small bowel resection. 5. Anorexia and malnutrition, on TPN. 6. Bipolar disorder. 7. Fungemia. OCULAR MEDICATIONS: None. SYSTEMIC MEDICATIONS: Documented elsewhere. ALLERGIES: Amoxicillin and Lamictal. SOCIAL HISTORY: She is a current smoker. REVIEW OF SYSTEMS: Chronic diarrhea, history of fevers, other ROS normal FAMILY HISTORY: Noncontributory. PHYSICAL EXAMINATION: GENERAL: Cachectic female, not in acute distress. NEURO : Alert and oriented. OCULAR: Visual acuity: The patient has a contact lens in her right eye that she refuses to remove. She states that she wears contact lenses for 2 weeks as they are extended-wear contacts. She does not have a contact lens in her left eye. Her visual acuity at distance is clear in her right eye and approximately 20/400 in her left eye with no correction. Visual acuity at near is 3 point font in both eyes. Visual field is full. Extraocular muscles are full. She is orthophoric. Ocular external exam is normal. Sclera, cornea, iris, lens, anterior chamber are clear and normal. Dilated funduscopic examination with 2.5% phenylephrine and 1% tropicamide shows clear vitreus with no evidence of ocular fungal involvement. Her cup-to- disc ratio is 0.1 in both eyes. Retina exam shows no evidence of hemorrhages and no evidence of infectious process. ASSESSMENT AND PLAN: Systemic fungemia with no evidence of ocular involvement. In patients with fungemia who are asymptomatic and alert will not have evidence of ocular fungal infection. /[id number]/MODL MTDD
--- NOTE | 2017-01-30 15:06 | PDIAF ---
- Diagnosis Diagnosis: candidemia, norovirus, severe malnutrition Code Status: Full Code - Medication Management Discharge Medications: Medications to Continue on Transfer traZODone [traZODone 150MG (*)] 300 mg PO HS PRN 02/22/16 [Last Taken 11/27/16 21:00] Ibuprofen [Motrin (*)] 400 mg PO BID PRN 11/28/16 [Last Taken 11/27/16 14:00] Pregabalin [Lyrica 50mg (*)] 50 mg PO TID 11/28/16 [Last Taken 11/27/16 21:00] TPN [Hyperalimentation] 1 ea IV DAILY@20 11/28/16 [Last Taken 01/23/17] SUMAtriptan [Imitrex 50 MG (*)] 50 mg PO DAILY PRN #0 tab 12/04/16 [Last Taken Unknown] oxyCODONE IR [Oxycodone Ir (*)] 5 - 10 mg PO Q4 PRN #30 tab 12/04/16 [Last Taken Unknown] Warfarin Sodium [Coumadin 5MG (*)] 5 mg PO DAILY16 01/24/17 [Last Taken Unknown] Pantoprazole Sodium [Protonix] 20 mg PO DAILY 01/25/17 [Last Taken Unknown] Micafungin Na [Mycamine 100Mg Vial] 100 mg IV DAILY #9 vial 01/30/17 [Last Taken Unknown] Project Finance Analyst Antibiotics: micafungin 100mg IV q daily Project Finance Analyst Antibiotic Stop Date: 02/09/17 Discharge Medications: Refer to the Discharge Home Medication list for PRN reason. PICC Care - Routine: Yes - Orders Services needed: Registered Nurse Oxygen: NA Diet Recommendation: no restrictions on diet Weigh Patient: weekly Wound Care Instructions: Wound care orders for mid-back: to be done every 3 days and PRN. 1) cleanse w/ NS and gauze. 2) apply skin prep to paul-wound skin. 3) apply Therahoney gel to wound bed of proximal pressure injury; cover w / Telfa non-adherent pad (this prevents honey from being absorbed by the outer dressing). May discontinue this step and apply wound gel instead if no slough noted in wound. 4) cover w/ 6x6 Allevyn Life dressing. 5) make sure that Allevyn covers both the proximal and distal pressure injuries, which are about 2cm apart. Off-load site until healed, turning [id number] when in bed. Consider a padded foam dressing ongoing to prevent skin breakdown. - Labs/Radiology CBC Date: 02/03/17 CMP Date: 02/03/17 Call or Fax Lab and Imaging Results to: Dr. Greg Morton, - Follow Up Care Current Providers and Referrals: Parviz Gibson MD [Primary Care Provider] - As per Instructions Greg Morton MD [Medical Doctor] - follow up in 1 week
--- NOTE | 2017-01-30 15:15 | PDDCSUM ---
Discharge Summary Discharge Summary: DISCHARGE SUMMARY FOLLOW-UP ITEMS: Follow-up labs on 02/03 Dr. Morton DATE OF ADMISSION: 01/24/2017 DATE OF DISCHARGE: 01/30/2017 DISCHARGE DIAGNOSES: 1. Acute candidemia 2. Acute norovirus gastroenteritis 3. Possible urinary tract infection 4. Short-gut syndrome with severe protein calorie malnutrition 5. Non-anion gap metabolic acidosis 6. Chronic bipolar disorder 7. Stage II pressure ulcer present on admission 8. Chronic pain with continuous opiate dependency 9. Anemia of chronic inflammatory disease CONSULTATIONS: Infectious Disease, Wound Care PROCEDURES / IMAGING: PICC line insertion on 01/29 CHIEF COMPLAINT: Acute diarrhea SUBJECTIVE: Patient is feeling well at time of discharge, she has not been having any diarrhea, she is eating well PHYSICAL EXAM ON DISCHARGE: Systolic blood pressure is 120, heart rate 60, afebrile overnight, satting well on room air, chronically ill-appearing, cachectic, PICC line appears well without any surrounding erythema LABS ON DISCHARGE: Creatinine 1.1, potassium 3.7, white blood cell count 7000, hemoglobin 8, INR 2.8 HOSPITAL COURSE BY PROBLEM: 1. Acute candidemia. Secondary to PICC line infection, patient's blood cultures positive for fungus I, patient placed on micafungin and she has received 5 days with removal of PICC line on 01/26. PICC line remained out while the patient's blood cultures were allowed to clear, and PICC line was reinserted on 01/29. She received a total of 14 days treatment from negative cultures to date. She will follow up with infectious disease clinic and have outpatient labs. Ultimately, the patient needs to have PICC line permanently removed, but this will be performed in the context of determining whether the patient continues to require TPN for her malnutrition and underlying anorexia/ bulimia and short-gut syndrome. 2. Acute norovirus gastroenteritis. Patient presented with diarrhea and she was found to be norovirus positive on PCR. She was treated supportively with IV fluids and her bowel movements have normalized at time discharge. She remained on contact precautions during her stay in the hospital. Appears that she is no longer contagious as her bowel movements have regulated. 3. Possible urinary tract infection. Based on positive urinalysis, possible urinary symptoms, she received 3 days of IV ceftriaxone, this was discontinued afterwards. 4. Short-gut syndrome with severe protein calorie malnutrition. Patient has short-gut syndrome after significant amount of small bowel removed with well- healing ostomy, but resultant malnutrition. Her malnutrition is also in the context of anorexia/bulimia. The patient's bowel movements did regulate during this hospitalization and she will continue using Imodium at home if needed. The patient currently has a PICC line for TPN, but the patient is reportedly eating. That being said, it is unclear how many calories the patient takes in during the day and whether she continues to require TPN. She will continue to follow up with primary care provider and may need outpatient dietary evaluation to help make this decision. 5. Non-anion gap metabolic acidosis. Secondary to volume loss from stool, normalized with IV fluids. 6. Chronic bipolar disorder. This remained stable during this hospitalization. 7. Stage II pressure ulcer. Present on admission, wound care consultation appreciated. 8. Chronic pain with continuous opiate dependency. Patient was continued on her home dosage of as needed oxycodone during this hospitalization. 9. Anemia of chronic inflammatory disease. Patient's hemoglobin remained stable during this hospitalization and was 8 at time of discharge. She had no evidence of blood loss. DISCHARGE MEDICATIONS: Please see official discharge medication reconciliation sheet in chart , micafungin daily for 9 subsequent days. DISCHARGE INSTRUCTIONS: Patient should follow up with Infectious Disease next week. TIME SPENT: Greater than 30 minutes were spent on direct patient care, as well as discharge planning and preparation.
[2017-01-30] MEDS ORDERED: WARFARIN SODIUM 5 MG TAB PO ONE (16:00)
[2017-01-30] MEDS ORDERED: WARFARIN SODIUM 5 MG TAB PO SCH (16:00)
== END 2017-01-30 15:48 | disposition home health service (06) | DRG 391 ==
LOC: OBSVTOIN 11:26 → F3E 12:47
PROVIDERS: ADMIT Internal Medicine; ATTEND Internal Medicine
DX: A08.11 Acute gastroenteropathy due to Norwalk agent (principal); T80.218A Other infection due to central venous catheter, initial encounter; E43 Unspecified severe protein-calorie malnutrition; B37.7 Candidal sepsis; N39.0 Urinary tract infection, site not specified; K91.2 Postsurgical malabsorption, not elsewhere classified; F50.2 Bulimia nervosa; D68.51 Activated protein C resistance; E87.2 Acidosis; L89.102 Pressure ulcer of unspecified part of back, stage 2; D50.9 Iron deficiency anemia, unspecified; G56.82 Other specified mononeuropathies of left upper limb; K64.9 Unspecified hemorrhoids; N18.3 Chronic kidney disease, stage 3 (moderate); F31.9 Bipolar disorder, unspecified; F17.210 Nicotine dependence, cigarettes, uncomplicated; Z79.01 Long term (current) use of anticoagulants; Z86.718 Personal history of other venous thrombosis and embolism
CPT/HCPCS: 83010-90; 85520-90; 87186-90; 97165-GO; C1751; C1769; J0696; J1644; J1650; J2248; J2405; J2550; J2997; Q9967

== ENCOUNTER 2017-03-05 20:01 | Inpatient (IN) | payer MEDICAID ==
--- NOTE | 2017-03-05 20:09 | EDPHY ---
H & P Time Seen by Provider: 03/05/17 20:03 HPI/ROS: CHIEF COMPLAINT: Migraine headache, low potassium HISTORY OF PRESENT ILLNESS: The patient was seen in the emergency department on January 24 of this year by myself and admitted for diarrhea and dehydration. She presents today with mild headache and nausea and vomiting and apparently was at [facility] her internists yesterday and tells me she had a low potassium. Migraine headache was gradual in onset at 9:00 a.m. today and is identical to previous. Left-sided with photophobia and throbbing, no visual aura. No recent trauma. Headache does not radiate. Not associated with neck pain or fever. REVIEW OF SYSTEMS: Eye: no change in vision ENT: no sore throat Cardiac: no chest pain or syncope Pulmonary: no cough or SOB Abdomen: Vomiting today twice, decreased oral intake. No diarrhea or abdominal pain. Musculoskeletal: no back pain Skin: no rash Neuro: HPI Constitutional: no fever : no urinary symptoms A comprehensive 10 point review of systems is otherwise negative aside from elements mentioned in the history of present illness. 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 Bipolar disorder, longstanding history of anorexia and bulimia with laxative abuse. Patient says her anorexia and bulimia has not been active since May of 3 years ago. Left axillary injury with chronic left hand weakness and neuropathy. Cholecystectomy. Social history: Tobacco smoker General Appearance: Alert and conversant, cooperative. Very thin. Eyes: No scleral icterus. ENT, Mouth: Dry mucous membranes. No external facial swelling or discoloration. Respiratory: Normal respiratory effort, breath sounds equal, lungs are clear to auscultation. Cardiovascular: Regular rate and rhythm. Gastrointestinal: Abdomen is soft and non tender. Neurological: Alert and oriented x3. Normally conversant. Face symmetric, normal movement in all extremities. Skin: Warm and dry, no rashes. Musculoskeletal: No peripheral edema and no joint swelling. Normal range of motion of the neck, no meningeal signs. Psychiatric: Not agitated. Emergency Department course/MDM: On arrival the patient's migraine headache is treated with IV Benadryl 25 and Reglan 10 mg IV. She appears to have her typical migraine and I think that intracranial mass or bleed or [employer] infection is unlikely. 848p: Labs reviewed including potassium 1.9, elevated creatnine. Discussed with Dr. Buenrostro who will admit the patient. Emergently started electrolyte correction in ED. Magnesium 2 g IV, oral potassium 40 mEq and IV potassium 10 mEq x2. Normal saline 500 mL slow hydration, is for acute renal failure with elevated creatinine at 1.9, likely element of volume depletion. Smoking Status: Current every day smoker Constitutional: Initial Vital Signs Temperature (C) 36.6 C 03/05/17 20:09 Heart Rate 81 03/05/17 20:09 Respiratory Rate 16 03/05/17 20:09 Blood Pressure 122/90 H 03/05/17 20:09 O2 Sat (%) 99 03/05/17 20:09 O2 Delivery Mode Room Air Allergies/Adverse Reactions: amoxicillin Allergy (Intermediate, Verified 03/05/17 20:50) Abdominal Pain lamotrigine Allergy (Unknown, Verified 03/05/17 20:50) Rash Home Medications: Medication Instructions Recorded traZODone [traZODone 150MG (*)] 300 mg PO HS PRN 02/22/16 Ibuprofen [Motrin (*)] 400 mg PO BID PRN 11/28/16 Pregabalin [Lyrica 50mg (*)] 50 mg PO TID 11/28/16 SUMAtriptan [Imitrex 50 MG (*)] 50 mg PO DAILY PRN #0 tab 12/04/16 oxyCODONE IR [Oxycodone Ir (*)] 5 - 10 mg PO Q4 PRN #30 tab 12/04/16 Warfarin Sodium [Coumadin 5MG (*)] 5 mg PO DAILY16 01/24/17 Herbals/Supplements -Info Only 1 ea PO DAILY 03/05/17 Metoclopramide [Reglan 10 mg tab 10 mg PO ACHS 03/05/17 (*)] Ondansetron HCl [Zofran] 8 mg PO DAILY PRN 03/05/17 Pantoprazole Sodium [Protonix 40mg 40 mg PO DAILY 03/05/17 (*)] Medical Decision Making - Diagnostics EKG Interpretation: 12-lead EKG interpreted by me; official reading is in trace master. My interpretation is sinus rhythm with U-waves and diffuse repolarization abnormalities rate 74. Differential Diagnosis: Differential diagnosis considered for headache including but not limited to subarachnoid hemorrhage, migraine headache, tension headache and infectious causes such as meningitis, pharyngitis and sinusitis. Critical Care Time: Critical care time spent by me, Dr. Jacques, exclusively with the care of this patient was 35 minutes, exclusive of PA or LAND CLEARER time and exclusive of separate procedures. The organ system at risk was metabolic and I ordered IV and oral potassium, IV magnesium, consultation with hospitalist, IV fluids to stabilize the patient and prevent worsening of the patient's condition. - Data Points Laboratory Results: Laboratory Results 03/05/17 20:10 03/05/17 20:10 03/05/17 03/05/17 03/05/17 20:33 20:10 20:10 WBC RBC Hgb Hct MCV MCH MCHC RDW Plt Count MPV Neut % (Auto) Lymph % (Auto) [place] % (Auto) Eos % (Auto) Baso % (Auto) Nucleat RBC Rel Count Absolute Neuts (auto) Absolute Lymphs (auto) Absolute Monos (auto) Absolute Eos (auto) Absolute Basos (auto) Absolute Nucleated RBC Immature Gran % Immature Gran # Platelet Estimate Microcytic Cells Oval Macrocytes Elliptocytes Acanthocytes (Spur) PT 17.8 SEC H SEC (12.0-15.0) INR 1.47 H (0.83-1.16) Sodium Potassium Chloride Carbon Dioxide Anion Gap BUN Creatinine Estimated GFR Glucose Calcium Phosphorus 2.3 mg/dL L mg/dL (2.5-4.5) Magnesium 1.1 mg/dL L mg/dL (1.6-2.3) Total Bilirubin AST ALT Alkaline Phosphatase Total Protein Albumin Beta HCG, Qual NEGATIVE 03/05/17 03/05/17 20:10 20:10 WBC 14.92 10^3/uL H 10^3/uL (3.80-9.50) RBC 6.02 10^6/uL H 10^6/uL (4.18-5.33) Hgb 13.6 g/dL g/dL (12.6-16.3) Hct 42.7 % % (38.0-47.0) MCV 70.9 fL L fL (81.5-99.8) MCH 22.6 pg L pg (27.9-34.1) MCHC 31.9 g/dL L g/dL (32.4-36.7) RDW 24.4 % H % (11.5-15.2) Plt Count 422 10^3/uL H 10^3/uL (150-400) MPV 9.1 fL fL (8.7-11.7) Neut % (Auto) 83.0 % H % (39.3-74.2) Lymph % (Auto) 10.3 % L % (15.0-45.0) [place] % (Auto) 5.8 % % (4.5-13.0) Eos % (Auto) 0.1 % L % (0.6-7.6) Baso % (Auto) 0.2 % L % (0.3-1.7) Nucleat RBC Rel Count 0.0 % % (0.0-0.2) Absolute Neuts (auto) 12.39 10^3/uL H 10^3/uL (1.70-6.50) Absolute Lymphs (auto) 1.53 10^3/uL 10^3/uL (1.00-3.00) Absolute Monos (auto) 0.86 10^3/uL H 10^3/uL (0.30-0.80) Absolute Eos (auto) 0.02 10^3/uL L 10^3/uL (0.03-0.40) Absolute Basos (auto) 0.03 10^3/uL 10^3/uL (0.02-0.10) Absolute Nucleated RBC 0.00 10^3/uL 10^3/uL (0-0.01) Immature Gran % 0.6 % % (0.0-1.1) Immature Gran # 0.09 10^3/uL 10^3/uL (0.00-0.10) Platelet Estimate ADEQUATE (ADEQ) Microcytic Cells 2+ H Oval Macrocytes 1+ H Elliptocytes 1+ H Acanthocytes (Spur) 1+ H PT INR Sodium 131 mEq/L L mEq/L (134-144) Potassium 1.9 mEq/L L* mEq/L (3.5-5.2) Chloride 107 mEq/L mEq/L (97-110) Carbon Dioxide 8 mEq/l L* mEq/l (22-31) Anion Gap 16 mEq/L mEq/L (8-16) BUN 8 mg/dL mg/dL (7-23) Creatinine 1.9 mg/dL H mg/dL (0.6-1.0) Estimated GFR 29 Glucose 82 mg/dL mg/dL (70-100) Calcium 9.6 mg/dL mg/dL (8.5-10.4) Phosphorus Magnesium Total Bilirubin 0.5 mg/dL mg/dL (0.1-1.4) AST 23 IU/L IU/L (14-46) ALT 48 IU/L IU/L (9-52) Alkaline Phosphatase 178 IU/L H IU/L (38-126) Total Protein 7.3 g/dL g/dL (6.3-8.2) Albumin 3.9 g/dL g/dL (3.5-5.0) Beta HCG, Qual Medications Given: Acetaminophen (Tylenol) 650 mg PO Q4HRS PRN PRN Reason: Pain, Mild/Fever, Can Take PO Stop: 09/01/17 22:56 Last Admin: 03/06/17 00:37 Dose: 650 mg Potassium Chloride/Sodium Chloride (Ns W/ 20 Kcl/L) 1,000 mls @ 100 mls/hr IV CONT CYRUS Stop: 09/01/17 23:29 Last Admin: 03/05/17 23:40 Dose: 1,000 mls Metoclopramide HCl (Reglan) 10 mg PO Q6HRS PRN PRN Reason: GI Motility if taking PO Stop: 09/01/17 22:56 Last Admin: 03/06/17 06:52 Dose: 10 mg Oxycodone HCl (Oxycodone Ir) 5 - 10 mg PO Q4HRS PRN PRN Reason: Pain, Severe Able to Take PO Stop: 03/16/17 00:37 Last Admin: 03/06/17 02:54 Dose: 10 mg Trazodone HCl (Trazodone) 50 mg PO HS PRN PRN Reason: Sleep/Insomnia Stop: 09/02/17 00:37 Last Admin: 03/06/17 01:26 Dose: 50 mg Discontinued Medications Diphenhydramine HCl (Benadryl Injection) 25 mg IVP EDNOW ONE Stop: 03/05/17 20:17 Last Admin: 03/05/17 20:51 Dose: 25 mg Sodium Chloride (Ns) 500 mls @ 1,000 mls/hr IV EDNOW ONE PRN Reason: Protocol Stop: 03/05/17 21:11 Last Admin: 03/05/17 20:58 Dose: 500 mls Magnesium Sulfate (Magnesium Sulf 2 Gm (Premix)) 50 mls @ 50 mls/hr IV EDNOW ONE Stop: 03/05/17 21:41 Last Admin: 03/05/17 20:51 Dose: 50 mls Potassium Chloride (Potassium Cl 20 Meq (Premix)) 100 mls @ 50 mls/hr IV EDNOW ONE Stop: 03/05/17 22:41 Last Admin: 03/05/17 22:40 Dose: Not Given Potassium Chloride (Potassium Cl 10 Meq (Premix)) 50 mls @ 50 mls/hr IV EDNOW ONE Stop: 03/05/17 22:10 Last Admin: 03/05/17 21:51 Dose: Not Given Potassium Chloride (Potassium Cl 10 Meq (Premix)) 100 mls @ 100 mls/hr IV EDNOW ONE Stop: 03/05/17 22:10 Last Admin: 03/05/17 21:50 Dose: Not Given Potassium Chloride (Potassium Cl 10 Meq (Premix)) 100 mls @ 100 mls/hr IV Q1H CYRUS Stop: 03/06/17 06:29 Last Admin: 03/06/17 05:30 Dose: Not Given Metoclopramide HCl (Reglan Injection) 10 mg IVP EDNOW ONE Stop: 03/05/17 20:17 Last Admin: 03/05/17 20:51 Dose: 10 mg Potassium Chloride (Klor-Con) 40 meq PO EDNOW ONE Stop: 03/05/17 20:43 Last Admin: 03/05/17 20:51 Dose: 40 meq Potassium Chloride (Klor-Con) 60 meq PO ONCE ONE Stop: 03/06/17 02:20 Last Admin: 03/06/17 02:41 Dose: 60 meq Departure - Departure Disposition: [facility] Acute Clinical Impression: Dehydration, Acute hypokalemia, Acute kidney injury Condition: Serious
[2017-03-05] MEDS ORDERED: METOCLOPRAMIDE 10 MG/2 ML VIAL IVP ONE (20:16)
[2017-03-05 20:22] LABS: % IMMATURE GRANULYOCYTES 0.6 % (0.0-1.1); ABSOLUTE IMMATURE GRANULOCYTES 0.09 10^3/uL (0.00-0.10); ADD DIFF? NO; ADD MORPH? YES; ADD SCAN? NO; ATYPICAL LYMPHOCYTE FLAG 0 (0-99); FRAGMENT RBC FLAG 80 (0-99); HEMATOCRIT 42.7 % (38.0-47.0); HEMOGLOBIN 13.6 g/dL (12.6-16.3); LEFT SHIFT FLG 0 (0-99); LIPEMIA HEMOLYSIS FLAG 80 (0-99); MEAN CELL HEMOGLOBIN 22.6 pg (27.9-34.1); MEAN CELL HEMOGLOBIN CONCENTR. 31.9 g/dL (32.4-36.7); MEAN CELL VOLUME 70.9 fL (81.5-99.8); MEAN PLATELET VOLUME 9.1 fL (8.7-11.7); PLATELET CLUMPS FLAG 0 (0-99); PLATELET COUNT 422 10^3/uL (150-400); RED BLOOD CELL COUNT 6.02 10^6/uL (4.18-5.33)
[2017-03-05 20:24] LABS: RED CELL DISTRIBUTION WIDTH 24.4 % (11.5-15.2)
[2017-03-05 20:34] LABS: ALANINE AMINOTRANSFERASE 48 IU/L (9-52); ALBUMIN 3.9 g/dL (3.5-5.0); ALKALINE PHOSPHATASE 178 IU/L (38-126); ANION GAP 16 mEq/L (8-16); ASPARTATE AMINOTRANSFERASE 23 IU/L (14-46); BILIRUBIN,TOTAL 0.5 mg/dL (0.1-1.4); CALCIUM 9.6 mg/dL (8.5-10.4); CHLORIDE 107 mEq/L (97-110); CREATININE 1.9 mg/dL (0.6-1.0); GLOMERULAR FILTRATION RATE 29; GLUCOSE 82 mg/dL (70-100); SODIUM 131 mEq/L (134-144); TOTAL PROTEIN 7.3 g/dL (6.3-8.2)
[2017-03-05 20:39] LABS: CARBON DIOXIDE 8 mEq/l (22-31); POTASSIUM 1.9 mEq/L (3.5-5.2)
[2017-03-05] MEDS ORDERED: NS 500 ML IV ONE (20:42)
[2017-03-05] MEDS ORDERED: POTASSIUM CL 20 MEQ TAB PO ONE (20:42)
[2017-03-05] MEDS ORDERED: POTASSIUM Cl (KCl) 100 ML IV ONE (20:42)
[2017-03-05] MEDS ORDERED: MAGNESIUM SULF 2 GM/WATER 50 ML IV ONE (20:42)
--- NOTE | 2017-03-05 20:48 | CPEKG ---
Heart Rate: 74 RR Interval: 811 P-R Interval: 164 QRSD Interval: 100 QT Interval: 352 QTC Interval: 391 P [place]: 40 QRS [place]: 14 T Wave [place]: -57 EKG Severity - ABNORMAL ECG - EKG Impression: SINUS RHYTHM EKG Impression: REPOL ABNRM SUGGESTS ISCHEMIA, DIFFUSE LEADS Electronically Signed By: Rio Jacques 05-Mar-2017 20:52:02
[2017-03-05 20:56] LABS: ACANTHOCYTES 1+; ELLIPTOCYTES 1+; MACROCYTES 1+; MICROCYTES 2+
[2017-03-05 20:57] LABS: PLATELET ESTIMATE ADEQUATE (ADEQ)
[2017-03-05 21:03] LABS: INR 1.47 (0.83-1.16); PROTIME(PATIENT) 17.8 SEC (12.0-15.0)
[2017-03-05] MEDS ORDERED: POTASSIUM Cl (KCl) 50 ML IV ONE (21:11)
[2017-03-05] MEDS: POTASSIUM Cl (KCl) 100 ML IV ONE ×2 (21:26→21:50)
[2017-03-05] MEDS ORDERED: ONDANSETRON DISINTEGRATING 4 MG TAB PO PRN (22:57)
[2017-03-05] MEDS ORDERED: D5W 1/2 NS W/ 20 KCl/L 1,000 ML IV SCH (23:00)
--- NOTE | 2017-03-05 23:31 | PDGENHP ---
History and Physical - Chief Complaint Nausea - History of Present Illness 46 yo F w/ hx of anorexia nervosa, mesenteric ischemia leading to bowel resection and SGS presents to ED after abnormal lab results in clinic. Patient has long history of anorexia (20+ years) and malnutrition. She reports that her anorexia has actually been under control for the last few years. However, in July of this year she experienced a bout of mesenteric ischemia that required a significant small bowel resection. This led to short gut syndrome and malabsorption. Since this time her weight has dropped from 105 lbs to <70. She was on TPN until last month when she presented with Candidemia. Since stopping TPN she had lost about 5 lbs. She came to the ED today after her PCP checked labs and noted BONITA, hypokalemia, and hyponatremia. She feels mildly nauseous and has a typical migraine headache. She denies other issues and is eating/drinking without issue; denies diarrhea. History Information - Allergies/Home Medication List Allergies/Adverse Reactions: amoxicillin Allergy (Intermediate, Verified 03/05/17 20:50) Abdominal Pain lamotrigine Allergy (Unknown, Verified 03/05/17 20:50) Rash Home Medications: traZODone [traZODone 150MG (*)] 300 mg PO HS PRN 02/22/16 [Last Taken 03/04/17] Ibuprofen [Motrin (*)] 400 mg PO BID PRN 11/28/16 [Last Taken 03/05/17] Pregabalin [Lyrica 50mg (*)] 50 mg PO TID 11/28/16 [Last Taken 03/05/17] Warfarin Sodium [Coumadin 5MG (*)] 5 mg PO DAILY16 01/24/17 [Last Taken 03/04/17 ] Herbals/Supplements -Info Only 1 ea PO DAILY 03/05/17 [Last Taken 03/04/17] Metoclopramide [Reglan 10 mg tab (*)] 10 mg PO ACHS 03/05/17 [Last Taken ] Ondansetron HCl [Zofran] 8 mg PO DAILY PRN 03/05/17 [Last Taken 03/04/17] Pantoprazole Sodium [Protonix 40mg (*)] 40 mg PO DAILY 03/05/17 [Last Taken 06/08] I have personally reviewed and updated: family history, medical history - Past Medical History Additional medical history: Anorexia/bulimia/anxiety disorder. Bipolar disease type 1 with extended hospitalization 2012. Chronic kidney disease stage 3, with nephrocalcinosis and baseline creatinine 1.1-1.2. Renal artery stenosis with 60% stenosis on the right. Gastroesophageal reflux disease and Hernadez's esophagus. 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 Anastomotic leak/fungemia 09/06, previously on cefepime/ metronidazole/vanoc/eraxis, now on unasyn. Recent UTI, received Bactrim. Recurrent hypokalemia with cardiac arrest. Sev malnutrition, on TPN since 09/06 - Surgical History Reports: no pertinent surgical hx Additional surgical history: SMA stent. Left axillary stent. 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 SB and ostomy connecting duodenum w/ ileum - Family History Additional family history: mother had skin and breast cancer and vertebral artery stenting father had of aortic valve repair and coronary artery disease - Social History Smoking Status: Current every day smoker Additional social history: relocated back to [place] Review of Systems Review of Systems: ROS: 10pt was reviewed & negative except for what was stated in HPI & below Physical Exam Physical Exam: Temp Pulse Resp BP Pulse Ox 36.4 C 68 21 H 118/80 95 03/05/17 22:00 03/05/17 22:00 03/05/17 22:00 03/05/17 22:00 03/05/17 22:00 Constitutional: no apparent distress, chronically ill appearing Eyes: PERRL, EOMI Ears, Nose, Mouth, Throat: moist mucous membranes, no oral mucosal ulcers Cardiovascular: regular rate and rhythym, no murmur, rub, or gallop Respiratory: no respiratory distress, clear to auscultation Gastrointestinal: normoactive bowel sounds, distension, other (Multiple well healed scars, small hernia at site of previous ostomy), No tenderness, No guarding, No rebound Skin: warm, normal color Musculoskeletal: full muscle strength, no muscle tenderness Neurologic: AAOx3, CN II-XII Intact Lab Data & Imaging Review 03/05/17 20:10 03/05/17 20:10 WBC 14.92 10^3/uL (3.80-9.50) H 03/05/17 20:10 RBC 6.02 10^6/uL (4.18-5.33) H 03/05/17 20:10 Hgb 13.6 g/dL (12.6-16.3) 03/05/17 20:10 Hct 42.7 % (38.0-47.0) 03/05/17 20:10 MCV 70.9 fL (81.5-99.8) L 03/05/17 20:10 MCH 22.6 pg (27.9-34.1) L 03/05/17 20:10 MCHC 31.9 g/dL (32.4-36.7) L 03/05/17 20:10 RDW 24.4 % (11.5-15.2) H 03/05/17 20:10 Plt Count 422 10^3/uL (150-400) H 03/05/17 20:10 MPV 9.1 fL (8.7-11.7) 03/05/17 20:10 Neut % (Auto) 83.0 % (39.3-74.2) H 03/05/17 20:10 Lymph % (Auto) 10.3 % (15.0-45.0) L 03/05/17 20:10 [place] % (Auto) 5.8 % (4.5-13.0) 03/05/17 20:10 Eos % (Auto) 0.1 % (0.6-7.6) L 03/05/17 20:10 Baso % (Auto) 0.2 % (0.3-1.7) L 03/05/17 20:10 Nucleat RBC Rel Count 0.0 % (0.0-0.2) 03/05/17 20:10 Absolute Neuts (auto) 12.39 10^3/uL (1.70-6.50) H 03/05/17 20:10 Absolute Lymphs (auto) 1.53 10^3/uL (1.00-3.00) 03/05/17 20:10 Absolute Monos (auto) 0.86 10^3/uL (0.30-0.80) H 03/05/17 20:10 Absolute Eos (auto) 0.02 10^3/uL (0.03-0.40) L 03/05/17 20:10 Absolute Basos (auto) 0.03 10^3/uL (0.02-0.10) 03/05/17 20:10 Absolute Nucleated RBC 0.00 10^3/uL (0-0.01) 03/05/17 20:10 Immature Gran % 0.6 % (0.0-1.1) 03/05/17 20:10 Immature Gran # 0.09 10^3/uL (0.00-0.10) 03/05/17 20:10 Platelet Estimate ADEQUATE (ADEQ) 03/05/17 20:10 Microcytic Cells 2+ H 03/05/17 20:10 Oval Macrocytes 1+ H 03/05/17 20:10 Elliptocytes 1+ H 03/05/17 20:10 Acanthocytes (Spur) 1+ H 03/05/17 20:10 PT 17.8 SEC (12.0-15.0) H 03/05/17 20:33 INR 1.47 (0.83-1.16) H 03/05/17 20:33 Sodium 131 mEq/L (134-144) L 03/05/17 20:10 Potassium 1.9 mEq/L (3.5-5.2) L* 03/05/17 20:10 Chloride 107 mEq/L (97-110) 03/05/17 20:10 Carbon Dioxide 8 mEq/l (22-31) L* 03/05/17 20:10 Anion Gap 16 mEq/L (8-16) 03/05/17 20:10 BUN 8 mg/dL (7-23) 03/05/17 20:10 Creatinine 1.9 mg/dL (0.6-1.0) H 03/05/17 20:10 Estimated GFR 29 03/05/17 20:10 Glucose 82 mg/dL (70-100) 03/05/17 20:10 Calcium 9.6 mg/dL (8.5-10.4) 03/05/17 20:10 Total Bilirubin 0.5 mg/dL (0.1-1.4) 03/05/17 20:10 AST 23 IU/L (14-46) 03/05/17 20:10 ALT 48 IU/L (9-52) 03/05/17 20:10 Alkaline Phosphatase 178 IU/L (38-126) H 03/05/17 20:10 Total Protein 7.3 g/dL (6.3-8.2) 03/05/17 20:10 Albumin 3.9 g/dL (3.5-5.0) 03/05/17 20:10 Beta HCG, Qual NEGATIVE 03/05/17 20:10 Visualized and Interpreted EKG results: Yes EKG additional interpertation: NSR, diffuse ST depressions Assessment & Plan Assessment: 46 yo F w/ anorexia nervosa, mesenteric ischemia requiring bowel resection and resulting in short gut syndrome presents with severe malnutrition, BONITA, and hypokalemia. Plan: 1. Severe protein calorie malnutrition complicated by electrolyte derangements - With severe hypokalemia (1.9 ) and mild hyponatremia (131) on admission. Likely a result of malabsorption and severe malnutrition. Repolarization abnormalities noted on ECG most likely related to this. - Very high risk for refeeding syndrome; admit to SDU for close cardiac and laboratory monitoring - Check Mg, Ph now - Trend BMP, Mg, Ph q4h - Will replete cautiously noting altered GFR - Dietary consult, may benefit from restarting TPN despite hx of complications 2. BONITA on CKD - Cr 1.9 on admission. Baseline appears to be ~1, which for her age and weight indicates a baseline GFR of ~35 mL/min(Stage IIIb). Suspect pre- renal azotemia in setting of severe malnutrition. - Continue gentle fluid resuscitation - Obtain urine lytes - Close electrolyte monitoring 3. AGMA - Suspect a large component of starvation ketosis. Rehydrate, replete lytes, and monitor closely. 4. Leukocytosis - No signs of symptoms of infection, CTM. 5. Hx of Migraines - Will avoid Imitrex noting arrhythmogenic qualities; APAP and reglan PRN. 6. Hx of mesenteric ischemia c/b short gut syndrome - S/p bowel resection, ostomy, and subsequent take down. On warfarin. - Continue warfarin, check daily INR 7. Anorexia nervosa - Long hx of this (20+ years), patient reports symptoms have been under control for about 3 years. Diet - Regular Code - Full Ppx - warfarin Dispo - Admit to inpatient status noting need for IV therapies and close laboratory monitoring.
[2017-03-05 23:34] LABS: MAGNESIUM 1.1 mg/dL (1.6-2.3)
[2017-03-05] MEDS: NS W/ 20 KCl/L 1,000 ML IV SCH (23:40)
[2017-03-06] MEDS: ACETAMINOPHEN 325 MG TAB PO PRN (00:37)
[2017-03-06] MEDS ORDERED: oxyCODONE IR 5 MG TAB PO PRN ×2 (00:38→21:13)
[2017-03-06] MEDS ORDERED: traZODone 50 MG TAB PO PRN (00:38)
[2017-03-06 01:47] LABS: CALCIUM 8.8 mg/dL (8.5-10.4); CARBON DIOXIDE 10 mEq/l (22-31); CHLORIDE 112 mEq/L (97-110); CREATININE 1.9 mg/dL (0.6-1.0); GLOMERULAR FILTRATION RATE 29; GLUCOSE 109 mg/dL (70-100); MAGNESIUM 2.1 mg/dL (1.6-2.3); SODIUM 135 mEq/L (134-144)
[2017-03-06 01:52] LABS: ANION GAP 13 mEq/L (8-16)
[2017-03-06 02:00] LABS: POTASSIUM 1.8 mEq/L (3.5-5.2)
[2017-03-06] MEDS ORDERED: POTASSIUM CL 20 MEQ TAB PO ONE ×5 (02:19→18:33)
[2017-03-06] MEDS: POTASSIUM Cl (KCl) 100 ML IV SCH ×4 (02:38→05:30)
[2017-03-06] MEDS ORDERED: ALTEPLASE 2 MG VIAL IVP PRN (03:14)
[2017-03-06 05:54] LABS: % IMMATURE GRANULYOCYTES 0.4 % (0.0-1.1); ABSOLUTE IMMATURE GRANULOCYTES 0.05 10^3/uL (0.00-0.10); ADD DIFF? NO; ADD MORPH? YES; ADD SCAN? NO; ATYPICAL LYMPHOCYTE FLAG 0 (0-99); FRAGMENT RBC FLAG 60 (0-99); HEMATOCRIT 34.5 % (38.0-47.0); HEMOGLOBIN 10.9 g/dL (12.6-16.3); LEFT SHIFT FLG 0 (0-99); LIPEMIA HEMOLYSIS FLAG 80 (0-99); MEAN CELL HEMOGLOBIN 22.5 pg (27.9-34.1); MEAN CELL HEMOGLOBIN CONCENTR. 31.6 g/dL (32.4-36.7); MEAN CELL VOLUME 71.1 fL (81.5-99.8); MEAN PLATELET VOLUME 8.6 fL (8.7-11.7); PLATELET CLUMPS FLAG 0 (0-99); PLATELET COUNT 364 10^3/uL (150-400); RED BLOOD CELL COUNT 4.85 10^6/uL (4.18-5.33)
[2017-03-06 05:59] LABS: RED CELL DISTRIBUTION WIDTH 23.7 % (11.5-15.2)
[2017-03-06 06:05] LABS: INR 1.67 (0.83-1.16); PROTIME(PATIENT) 19.7 SEC (12.0-15.0)
[2017-03-06 06:25] LABS: ANION GAP 13 mEq/L (8-16); CALCIUM 8.7 mg/dL (8.5-10.4); CHLORIDE 116 mEq/L (97-110); CREATININE 1.9 mg/dL (0.6-1.0); GLOMERULAR FILTRATION RATE 29; GLUCOSE 84 mg/dL (70-100); SODIUM 136 mEq/L (134-144)
[2017-03-06 06:26] LABS: PLATELET ESTIMATE ADEQUATE (ADEQ)
[2017-03-06 06:28] LABS: MACROCYTES 1+; MICROCYTES 1+
[2017-03-06 06:31] LABS: POTASSIUM 2.5 mEq/L (3.5-5.2)
[2017-03-06 06:32] LABS: CARBON DIOXIDE 7 mEq/l (22-31); ELLIPTOCYTES 1+
[2017-03-06 06:33] LABS: ACANTHOCYTES 1+
[2017-03-06] MEDS: METOCLOPRAMIDE 10 MG TAB PO PRN ×2 (06:52→13:33)
[2017-03-06] MEDS: POTASSIUM/SODIUM PHOSPHATE 1 PKT PO SCH ×2 (09:30→20:20)
--- NOTE | 2017-03-06 10:15 | HOSPPROG ---
Hospitalist Progress Note Assessment/Plan: #Severe anorexia nervosa -HR 70s, which may be considered relative-tachycardia. Given BMI, HR would suspected to 40s. Eval for tachycardia: TSH, infection -mom says she has lost 17lb since October. Eating minimally and unclear if using laxatives again -I contacted [facility] and they stated [facility] would see only when medically clear -This is unfortunate case since she has been hospitalized multiple times this year and clearly not getting treatment needed. I [facility] , but not eligible due to Medicaid. Good discharge option would be [facility] #Severe life-threatening hypokalemia -anorexia leads to hyperaldosteronism. May not be absorbing with h/o small bowel resection -checking urine anion gap, 24 hr urine K+ -telemetry -high-risk for refeeding syndrome: serial Mg, K, Phos #Metabolic acidosis: h/o ischemia. Stat lactate. R/o infection, ingestion. UA, GI panel,, CXR, ASA level -suspect diarrhea and purging though she denies #Pseudobarter syndrome: hyperaldosteronism-state, leads to hypokalemia. Treat with spironolactone 25mg. -If develops edema, can increase up to 200mg daily dose. #BONITA: no significant finding on U/S. Slow-fluid resuscitation. ONLY 50cc/hr, can quickly lead to volume overload #Pyuria: no symptoms. Treat if positive culture #h/o mesenteric ischemia: on coumadin #chronic pain: cont home meds #Leukocytosis: afebrile. Denies infectious sx, CXR neg. WBC on UA, but denies sxs. Culture pending #h/o fungemia: due to TPN, would avoid Plan: 1. q6hr glucose 2. LFTs q3days 3. Daily CBC, BMP, Mg, Phos 4. Start with 1400 calories daily. Calorie count, if not eating, then supplement those calories. Increase calories 400 every 3 days (discussed with contaminated land consultant) 5. Under [place] state law, patient can be involuntarily treated with Dobhoff if glucose, LFTs derangements 6. Sitter to bathroom 7. RN/aide to calorie count 8. Patient to not leave unit (walking to burn calories) and high arrhythmia risk 9. No laxatives Critical care time spent: 90 min reviewing records, labs. Reviewed case with Dr. Douglas and Yeni. Spoke with Dr. Anderson at [facility] in regards to possible transfer and treatment plan. Subjective: denies purging, diarrhea. Objective: Vital Signs Temp Pulse Resp BP Pulse Ox 36.4 C 72 16 105/76 95 03/06/17 07:44 03/06/17 07:44 03/06/17 07:44 03/06/17 07:44 03/06/17 07:44 Laboratory Results 03/06/17 05:41 03/06/17 05:41 03/05/17 03/06/17 03/07/17 05:59 05:59 05:59 Intake Total 2531 Output Total 150 Balance 2381 PT 19.7 SEC (12.0-15.0) H 03/06/17 05:41 INR 1.67 (0.83-1.16) H 03/06/17 05:41 ICD10 Worksheet Patient Problems: Problems Problem Status Onset Acute hypokalemia Acute Acute kidney injury Acute Dehydration Acute Anorexia nervosa Active Bulemia Nervosa Active Chronic vomiting Active Coumadin Therapy for 6 months Active GERD - Gastroesophageal reflux disease Active Hypokalemia Active Hyponatremia Active Leukocytosis Active Occlusion of artery Active Renal artery stenosis Active Thrombocytosis Active Tobacco user Active Abdominal pain Acute Diarrhea Acute Excoriation Acute Hypokalemia Acute Hypokalemia Acute Lactic acid acidosis Acute Mesenteric thrombosis Acute Nausea & vomiting Acute Renal failure Acute Renal insufficiency Acute SBO (small bowel obstruction) Acute
--- NOTE | 2017-03-06 11:36 | ASMTCASEMG ---
Living Arrangements What is your living Answers: With Partner arrangement? Who do you live with? Type Of Residence What kind of residence do Answers: House you live in? 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 Patient was admitted for hypokalemia and dehydration. Since July of this year patient's weight has dropped from 107lbs to <70. A bout of mesenteric ischemia requiring a small bowel resection led to short gut syndorme and malabsorption. She was on TPN last month. Dr. Storm would like patient to go to an inpatient eating disorders treatment program. Initially tried [facility] but they do not take Medicaid. The only other eating disorder program located in [place] that takes Medicaid is [facility] but it is partial hospitalization. Patient needs inpatient due to her current medical status. Dr Storm was informed, she will determine next steps for d/c plan. CM will follow. Date Signed: 03/06/2017 11:35 AM Electronically Signed By:Heavenly Swan LCSW
[2017-03-06 12:23] LABS: ANION GAP 13 mEq/L (8-16); CALCIUM 8.6 mg/dL (8.5-10.4); CARBON DIOXIDE 7 mEq/l (22-31); CHLORIDE 114 mEq/L (97-110); CREATININE 1.8 mg/dL (0.6-1.0); GLOMERULAR FILTRATION RATE 31; GLUCOSE 76 mg/dL (70-100); SODIUM 134 mEq/L (134-144)
[2017-03-06] MEDS: SPIRONOLACTONE 25 MG TAB PO SCH (12:50)
[2017-03-06 13:18] LABS: COLOR PALE YELLOW; LEUKOCYTE ESTERASE,URINE 1+ (NEGATIVE); NITRITE,URINE NEGATIVE (NEGATIVE)
[2017-03-06 13:24] LABS: MUCUS TRACE /lpf (NONE-1+); RBC,URINE 15-25 /hpf (0-3); WBC,URINE 15-25 /hpf (0-3)
[2017-03-06 13:48] LABS: POTASSIUM 2.7 mEq/L (3.5-5.2)
[2017-03-06 14:01] LABS: SALICYLATE < 1.0 mg/dL (2.0-20.0)
[2017-03-06] MEDS ORDERED: POTASSIUM CL 20 MEQ/15 ML UDCUP PO ONE (14:08)
[2017-03-06 15:30] LABS: RANDOM URINE POTASSIUM 8.1 mEq/L (0.5-35.0); RANDOM URINE PROTEIN 40 mg/dL (0-11)
--- NOTE | 2017-03-06 16:15 | PDCONSULT ---
Regional Director Note: Assessment/Plan: BONITA: Cr baseline recently 1.0, which is fairly advanced CKD 3 given her small stature and poor muscle mass. Now Cr up to 1.9, likely in setting of N/V. Note that even with rise in Cr, BUN is very low, which is a sign of her very poor muscle mass. - No emergent need for HD. - Will check renal US. - Will check UA, urine cr, urine protein, urine sodium. - Agree with IVFs. - Will continue to monitor. - Avoid hypotension and nephrotoxins. Hypokalemia: severe on presentation at 1.9, improving with replacement, likely due to GI losses and poor po intake. - Will check 24hr urine K. - Will further investigate acid-base status. - Will continue to monitor while pt undergoes replacement. - Pt being started on spironolactone. Metabolic acidosis: likely due to BONITA, but interesting in presence of hypokalemia. - Will check urine electrolytes and UA. - Will not replace bicarb at this time given severe hypokalemia, will continue to monitor. Thank you for the interesting consult. Nephrology will continue to follow, please call if you have any additional questions or concerns. H & P Stated Complaint: migraine-NV Time Seen by Provider: 03/05/17 20:03 HPI/ROS: HPI: Ms. Ochoa is a 46 yo F with h/o abdominal surgery who presents with complaints of N/V/D. 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 Pt has had issues with nutrition since, had been on TPN but developed fungemia and it was stopped. She states that for the past 4 days she has had terrible nausea and vomiting, so she came to ED. She states she had labs done as outpatient a few weeks ago and K was 1.6, was told to come to hospital but she did not want to at the time. This time K is down to 1.9, Cr up from baseline of around 1.0 to 1.9. She has been getting replacement and IVFs overnight and K up to 2.5 this am, Cr still 1.9. ROS: Positive per HPI, rest of 10-point ROS negative - Personal History LMP (Females 10-55): Unknown Current Tetanus Diphtheria and Acellular Pertussis (TDAP): Yes Tetanus Vaccine Date: 2010 - Medical/Surgical History Hx Asthma: No Hx Chronic Respiratory Disease: No Hx Diabetes: No Hx Cardiac Disease: No Hx Renal Disease: No Hx Cirrhosis: No Hx Alcoholism: No Hx HIV/AIDS: No Hx Splenectomy or Spleen Trauma: No Other PMH: small intestine surgery, PEG tube placement, ileostomy, anorexia, bipolar, kidney stones, UTI - Family History Significant Family History: No pertinent family hx - Social History Smoking Status: Current every day smoker - Physical Exam Exam: General: alert and oriented, no acute distress, cachectic Eyes: EOMI, PERRL OP: clear, MMM Neck: supple, no thyromegaly CV: RRR, +2/4 radial and dorsalis pedis pulses, no peripheral edema Resp: CTA bilat, nonlabored respirations Abd: Soft, NT/ND Neuro: CN II-XII grossly intact, no asterixis Psych: cooperative, appropriate mood and affect Skin: C/D/I, no rash Constitutional: Initial Vital Signs Temperature (C) 36.6 C 03/05/17 20:09 Heart Rate 81 03/05/17 20:09 Respiratory Rate 16 03/05/17 20:09 Blood Pressure 122/90 H 03/05/17 20:09 O2 Sat (%) 99 03/05/17 20:09 O2 Delivery Mode Room Air Allergies/Adverse Reactions: amoxicillin Allergy (Intermediate, Verified 03/05/17 20:50) Abdominal Pain lamotrigine Allergy (Unknown, Verified 03/05/17 20:50) Rash Home Medications: Medication Instructions Recorded traZODone [traZODone 150MG (*)] 300 mg PO HS PRN 02/22/16 Ibuprofen [Motrin (*)] 400 mg PO BID PRN 11/28/16 Pregabalin [Lyrica 50mg (*)] 50 mg PO TID 11/28/16 SUMAtriptan [Imitrex 50 MG (*)] 50 mg PO DAILY PRN #0 tab 12/04/16 oxyCODONE IR [Oxycodone Ir (*)] 5 - 10 mg PO Q4 PRN #30 tab 12/04/16 Warfarin Sodium [Coumadin 5MG (*)] 5 mg PO DAILY16 01/24/17 Herbals/Supplements -Info Only 1 ea PO DAILY 03/05/17 Metoclopramide [Reglan 10 mg tab 10 mg PO ACHS 03/05/17 (*)] Ondansetron HCl [Zofran] 8 mg PO DAILY PRN 03/05/17 Pantoprazole Sodium [Protonix 40mg 40 mg PO DAILY 03/05/17 (*)] Lab and Imaging 03/06/17 05:41 03/06/17 11:15 WBC 12.53 10^3/uL (3.80-9.50) H 03/06/17 05:41 RBC 4.85 10^6/uL (4.18-5.33) 03/06/17 05:41 Hgb 10.9 g/dL (12.6-16.3) L 03/06/17 05:41 Hct 34.5 % (38.0-47.0) L 03/06/17 05:41 MCV 71.1 fL (81.5-99.8) L 03/06/17 05:41 MCH 22.5 pg (27.9-34.1) L 03/06/17 05:41 MCHC 31.6 g/dL (32.4-36.7) L 03/06/17 05:41 RDW 23.7 % (11.5-15.2) H 03/06/17 05:41 Plt Count 364 10^3/uL (150-400) D 03/06/17 05:41 MPV 8.6 fL (8.7-11.7) L 03/06/17 05:41 Neut % (Auto) 80.0 % (39.3-74.2) H 03/06/17 05:41 Lymph % (Auto) 12.9 % (15.0-45.0) L 03/06/17 05:41 [place] % (Auto) 6.3 % (4.5-13.0) 03/06/17 05:41 Eos % (Auto) 0.2 % (0.6-7.6) L 03/06/17 05:41 Baso % (Auto) 0.2 % (0.3-1.7) L 03/06/17 05:41 Nucleat RBC Rel Count 0.0 % (0.0-0.2) 03/06/17 05:41 Absolute Neuts (auto) 10.03 10^3/uL (1.70-6.50) H 03/06/17 05:41 Absolute Lymphs (auto) 1.62 10^3/uL (1.00-3.00) 03/06/17 05:41 Absolute Monos (auto) 0.79 10^3/uL (0.30-0.80) 03/06/17 05:41 Absolute Eos (auto) 0.02 10^3/uL (0.03-0.40) L 03/06/17 05:41 Absolute Basos (auto) 0.02 10^3/uL (0.02-0.10) 03/06/17 05:41 Absolute Nucleated RBC 0.00 10^3/uL (0-0.01) 03/06/17 05:41 Immature Gran % 0.4 % (0.0-1.1) 03/06/17 05:41 Immature Gran # 0.05 10^3/uL (0.00-0.10) 03/06/17 05:41 Platelet Estimate ADEQUATE (ADEQ) 03/06/17 05:41 Microcytic Cells 1+ H 03/06/17 05:41 Oval Macrocytes 1+ H 03/06/17 05:41 Elliptocytes 1+ H 03/06/17 05:41 Acanthocytes (Spur) 1+ H 03/06/17 05:41 PT 19.7 SEC (12.0-15.0) H 03/06/17 05:41 INR 1.67 (0.83-1.16) H 03/06/17 05:41 VBG Lactic Acid 1.3 mmol/L (0.7-2.1) 03/06/17 10:20 Sodium 134 mEq/L (134-144) 03/06/17 11:15 Potassium 2.7 mEq/L (3.5-5.2) L* 03/06/17 11:15 Chloride 114 mEq/L (97-110) H 03/06/17 11:15 Carbon Dioxide 7 mEq/l (22-31) L* 03/06/17 11:15 Anion Gap 13 mEq/L (8-16) 03/06/17 11:15 BUN 7 mg/dL (7-23) 03/06/17 11:15 Creatinine 1.8 mg/dL (0.6-1.0) H 03/06/17 11:15 Estimated GFR 31 03/06/17 11:15 Glucose 76 mg/dL (70-100) 03/06/17 11:15 POC Glucose 81 mg/dL (70-100) 03/06/17 12:13 Calcium 8.6 mg/dL (8.5-10.4) 03/06/17 11:15 Phosphorus 2.9 mg/dL (2.5-4.5) D 03/06/17 05:41 Magnesium 2.0 mg/dL (1.6-2.3) 03/06/17 05:41 Total Bilirubin 0.5 mg/dL (0.1-1.4) 03/05/17 20:10 AST 23 IU/L (14-46) 03/05/17 20:10 ALT 48 IU/L (9-52) 03/05/17 20:10 Alkaline Phosphatase 178 IU/L (38-126) H 03/05/17 20:10 Total Protein 7.3 g/dL (6.3-8.2) 03/05/17 20:10 Albumin 3.9 g/dL (3.5-5.0) 03/05/17 20:10 TSH 1.190 uIU/mL (0.465-4.680) 03/06/17 13:05 Beta HCG, Qual NEGATIVE 03/05/17 20:10 Urine Color PALE YELLOW 03/06/17 12:55 Urine Appearance CLEAR 03/06/17 12:55 Urine pH 6.0 (5.0-7.5) 03/06/17 12:55 Ur Specific [place] 1.003 (1.002-1.030) 03/06/17 12:55 Urine Protein NEGATIVE (NEGATIVE) 03/06/17 12:55 Urine Ketones NEGATIVE (NEGATIVE) 03/06/17 12:55 Urine Blood 2+ (NEGATIVE) H 03/06/17 12:55 Urine Nitrate NEGATIVE (NEGATIVE) 03/06/17 12:55 Urine Bilirubin NEGATIVE (NEGATIVE) 03/06/17 12:55 Urine Urobilinogen NEGATIVE EU (0.2-1.0) 03/06/17 12:55 Ur Leukocyte Esterase 1+ (NEGATIVE) H 03/06/17 12:55 Urine RBC 15-25 /hpf (0-3) H 03/06/17 12:55 Urine WBC 15-25 /hpf (0-3) H 03/06/17 12:55 Ur Epithelial Cells TRACE /lpf (NONE-1+) 03/06/17 12:55 Urine Mucus TRACE /lpf (NONE-1+) 03/06/17 12:55 Ur Random Creatinine 14.4 mg/dL 03/06/17 12:55 U Random Total Protein 40 mg/dL (0-11) H 03/06/17 12:55 Ur Random Sodium 38 mEq/L (30-90) 03/06/17 12:55 Ur Random Potassium 8.1 mEq/L (0.5-35.0) 03/06/17 12:55 Ur Random Chloride 55 mEq/L 03/06/17 12:55 Urine Glucose NEGATIVE (NEGATIVE) 03/06/17 12:55 Salicylates < 1.0 mg/dL (2.0-20.0) L 03/06/17 13:05
[2017-03-06 18:13] LABS: ANION GAP 12 mEq/L (8-16); CALCIUM 8.5 mg/dL (8.5-10.4); CHLORIDE 116 mEq/L (97-110); CREATININE 1.7 mg/dL (0.6-1.0); GLOMERULAR FILTRATION RATE 33; GLUCOSE 70 mg/dL (70-100); SODIUM 137 mEq/L (134-144)
[2017-03-06 18:18] LABS: POTASSIUM 2.6 mEq/L (3.5-5.2)
[2017-03-06 18:19] LABS: CARBON DIOXIDE 9 mEq/l (22-31)
[2017-03-06 20:53] LABS: ANION GAP 13 mEq/L (8-16); CALCIUM 8.3 mg/dL (8.5-10.4); CHLORIDE 117 mEq/L (97-110); CREATININE 1.6 mg/dL (0.6-1.0); GLOMERULAR FILTRATION RATE 35; GLUCOSE 79 mg/dL (70-100); POTASSIUM 2.8 mEq/L (3.5-5.2); SODIUM 137 mEq/L (134-144)
[2017-03-06 21:12] LABS: CARBON DIOXIDE 7 mEq/l (22-31)
[2017-03-06] MEDS ORDERED: NON-FORMULARY NEW DRUG (Ondansetron Hcl [Zofran] 8 MG) PO PRN (21:13)
[2017-03-06] MEDS ORDERED: SUMAtriptan 50 MG TAB PO PRN (21:13)
[2017-03-06] MEDS: PREGABALIN 50 MG CAP PO SCH (21:43)
[2017-03-07 02:04] LABS: ANION GAP 12 mEq/L (8-16); CALCIUM 8.3 mg/dL (8.5-10.4); CHLORIDE 123 mEq/L (97-110); CREATININE 1.4 mg/dL (0.6-1.0); GLOMERULAR FILTRATION RATE 41; GLUCOSE 88 mg/dL (70-100); POTASSIUM 2.8 mEq/L (3.5-5.2); SODIUM 142 mEq/L (134-144)
[2017-03-07 02:06] LABS: CARBON DIOXIDE 7 mEq/l (22-31)
[2017-03-07] MEDS ORDERED: POTASSIUM CL 20 MEQ TAB PO ONE ×3 (02:14→14:32)
[2017-03-07] MEDS: ACETAMINOPHEN 325 MG TAB PO PRN (02:54)
[2017-03-07] MEDS: NS W/ 20 KCl/L 1,000 ML IV SCH (04:11)
[2017-03-07 04:56] LABS: ANION GAP 11 mEq/L (8-16); CALCIUM 8.6 mg/dL (8.5-10.4); CHLORIDE 124 mEq/L (97-110); CREATININE 1.4 mg/dL (0.6-1.0); GLOMERULAR FILTRATION RATE 41; GLUCOSE 81 mg/dL (70-100); POTASSIUM 3.1 mEq/L (3.5-5.2); SODIUM 143 mEq/L (134-144)
[2017-03-07 05:04] LABS: CARBON DIOXIDE 8 mEq/l (22-31)
[2017-03-07 05:51] LABS: HEMATOCRIT 33.6 % (38.0-47.0); HEMOGLOBIN 10.2 g/dL (12.6-16.3); MEAN CELL HEMOGLOBIN 22.7 pg (27.9-34.1); MEAN CELL HEMOGLOBIN CONCENTR. 30.4 g/dL (32.4-36.7); MEAN CELL VOLUME 74.7 fL (81.5-99.8); RED BLOOD CELL COUNT 4.5 10^6/uL (4.18-5.33)
[2017-03-07 05:55] LABS: RED CELL DISTRIBUTION WIDTH 24.7 % (11.5-15.2)
[2017-03-07 06:17] LABS: ANION GAP 12 mEq/L (8-16); CALCIUM 8.7 mg/dL (8.5-10.4); CHLORIDE 122 mEq/L (97-110); CREATININE 1.4 mg/dL (0.6-1.0); GLOMERULAR FILTRATION RATE 41; GLUCOSE 80 mg/dL (70-100); MAGNESIUM 1.8 mg/dL (1.6-2.3); POTASSIUM 3.4 mEq/L (3.5-5.2); SODIUM 139 mEq/L (134-144)
[2017-03-07 06:27] LABS: CARBON DIOXIDE 5 mEq/l (22-31)
[2017-03-07] MEDS: SPIRONOLACTONE 25 MG TAB PO SCH (07:52)
[2017-03-07] MEDS: PREGABALIN 50 MG CAP PO SCH ×3 (07:52→21:31)
[2017-03-07] MEDS: POTASSIUM/SODIUM PHOSPHATE 1 PKT PO SCH ×2 (07:52→21:31)
[2017-03-07] MEDS: PANTOPRAZOLE SODIUM 40 MG TAB PO SCH (07:52)
--- NOTE | 2017-03-07 09:30 | ASMTCMCOM ---
CM Note CM Note Notes: Dr Storm would like for patient to d[facility]c to [facility] when patient is ready for partial hospitalization program. Referral sent to [facility] (fax: [phone]). Spoke with Gladys wei who confirms their program does take Medicaid. Will need to send updates until patient is ready to d/c. CM will follow. Date Signed: 03/07/2017 09:29 AM Electronically Signed By:Heavenly Swan LCSW
[2017-03-07 10:04] LABS: ANION GAP 11 mEq/L (8-16); CALCIUM 8.5 mg/dL (8.5-10.4); CHLORIDE 121 mEq/L (97-110); CREATININE 1.3 mg/dL (0.6-1.0); GLOMERULAR FILTRATION RATE 44; GLUCOSE 96 mg/dL (70-100); POTASSIUM 3.3 mEq/L (3.5-5.2); SODIUM 140 mEq/L (134-144)
[2017-03-07 10:32] LABS: CARBON DIOXIDE 8 mEq/l (22-31)
--- NOTE | 2017-03-07 11:18 | SOAPPROG ---
SOAP Progress Note Assessment/Plan: Assessment/Plan: BONITA: Cr baseline recently 1.0, which is fairly advanced CKD 3 given her small stature and poor muscle mass. Cr up to 1.9 on admission and now down to 1.3, likely in setting of N/V. Note that even with rise in Cr, her BUN is very low, which is concerning for very poor PO intake vs absorption. - No emergent need for HD. - Will change IVFs to 1/2NS with KCl. - Will continue to monitor. - Avoid hypotension and nephrotoxins. Hypokalemia: severe on presentation at 1.9, now up to 3.3 with replacement, likely due to GI losses and/or poor po intake. Her spot urine potassium is low , suggestive that she is appropriately trying to retain K. - 24hr urine K still pending. - Will conitnue to monitor while pt undergoes replaement, continue to check q6h. - Pt also started on spironolactone. - Her biggest concern will be how to maintain adequate nutrition, would recommend consulting GI. Metabolic acidosis: likely from BONITA, could also be from GI issues. Her urine anion gap suggests she is appropriately acidifying her urine. - Will start pt on some PO replacement, cautiously as she is still recovering from severe hypokalemia. - Will continue to check labs q6h. Subjective: No acute events overnight. Pt denies any N/V. Objective: Vital Signs Temp Pulse Resp BP Pulse Ox 36.4 C 75 16 100/62 100 03/07/17 08:00 03/07/17 08:00 03/07/17 08:00 03/07/17 08:00 03/07/17 08:00 Microbiology 03/07/17 04:35 Gastrointestinal Tract Panel (PCR) - Final Stool No Organism Detected Laboratory Results 03/07/17 05:27 03/07/17 09:40 03/06/17 03/07/17 03/08/17 05:59 05:59 05:59 Intake Total 2531 3025 Output Total 150 2100 Balance 2381 925 PT 19.7 SEC (12.0-15.0) H 03/06/17 05:41 INR 1.67 (0.83-1.16) H 03/06/17 05:41 General: alert and oriented, no acute distress, cachectic Eyes; EOMI, PERRL OP: clear Resp: CTA bilat, nonlabored respirations Abd: Soft, NT Ext: no edema Neuro: CN II-XII grossly intact, no asterixis Psych; cooperative, appropriate mood and affect ICD10 Worksheet Patient Problems: Problems Problem Status Onset Acute hypokalemia Acute Acute kidney injury Acute Dehydration Acute Anorexia nervosa Active Bulemia Nervosa Active Chronic vomiting Active Coumadin Therapy for 6 months Active GERD - Gastroesophageal reflux disease Active Hypokalemia Active Hyponatremia Active Leukocytosis Active Occlusion of artery Active Renal artery stenosis Active Thrombocytosis Active Tobacco user Active Abdominal pain Acute Diarrhea Acute Excoriation Acute Hypokalemia Acute Hypokalemia Acute Lactic acid acidosis Acute Mesenteric thrombosis Acute Nausea & vomiting Acute Renal failure Acute Renal insufficiency Acute SBO (small bowel obstruction) Acute
[2017-03-07] MEDS: D5W 1/2 NS W/ 20 KCl/L 1,000 ML IV SCH (11:33)
[2017-03-07] MEDS: SODIUM BICARBONATE 650 MG TAB PO SCH ×3 (11:34→21:31)
--- NOTE | 2017-03-07 11:54 | HOSPPROG ---
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 - aldactone # hx fungemia on TPN - avoid Subjective: eating, has ongoing diarrhea at her baseline Objective: Vital Signs Temp Pulse Resp BP Pulse Ox 36.4 C 75 16 100/62 100 03/07/17 08:00 03/07/17 08:00 03/07/17 08:00 03/07/17 08:00 03/07/17 08:00 Microbiology 03/07/17 04:35 Gastrointestinal Tract Panel (PCR) - Final Stool No Organism Detected Laboratory Results 03/07/17 05:27 03/07/17 09:40 03/06/17 03/07/17 03/08/17 05:59 05:59 05:59 Intake Total 2531 3025 Output Total 150 2100 Balance 2381 925 PT 19.7 SEC (12.0-15.0) H 03/06/17 05:41 INR 1.67 (0.83-1.16) H 03/06/17 05:41 high risk - Physical Exam Constitutional: no apparent distress, cachectic Cardiovascular: regular rate and rhythym, no murmur, rub, or gallop Respiratory: no respiratory distress, no rales or rhonchi, clear to auscultation Gastrointestinal: normoactive bowel sounds, soft, non-tender abdomen ICD10 Worksheet Patient Problems: Problems Problem Status Onset Acute hypokalemia Acute Acute kidney injury Acute Dehydration Acute Anorexia nervosa Active Bulemia Nervosa Active Chronic vomiting Active Coumadin Therapy for 6 months Active GERD - Gastroesophageal reflux disease Active Hypokalemia Active Hyponatremia Active Leukocytosis Active Occlusion of artery Active Renal artery stenosis Active Thrombocytosis Active Tobacco user Active Abdominal pain Acute Diarrhea Acute Excoriation Acute Hypokalemia Acute Hypokalemia Acute Lactic acid acidosis Acute Mesenteric thrombosis Acute Nausea & vomiting Acute Renal failure Acute Renal insufficiency Acute SBO (small bowel obstruction) Acute
[2017-03-07 13:22] LABS: ALBUMIN 2.7 g/dL (3.5-5.0); ANION GAP 12 mEq/L (8-16); CALCIUM 8.4 mg/dL (8.5-10.4); CHLORIDE 123 mEq/L (97-110); CREATININE 1.3 mg/dL (0.6-1.0); GLOMERULAR FILTRATION RATE 44; GLUCOSE 85 mg/dL (70-100); POTASSIUM 3.3 mEq/L (3.5-5.2); SODIUM 142 mEq/L (134-144)
[2017-03-07] MEDS: NICOTINE 21 MG/24 HR PATCH TD SCH (13:56)
[2017-03-07 14:26] LABS: CARBON DIOXIDE 7 mEq/l (22-31)
[2017-03-07] MEDS: WARFARIN SODIUM 5 MG TAB PO SCH (15:14)
[2017-03-07 15:33] LABS: RANDOM URINE POTASSIUM 8.8 mEq/L (0.5-35.0)
[2017-03-07 19:10] LABS: ALBUMIN 2.4 g/dL (3.5-5.0); ANION GAP 10 mEq/L (8-16); CALCIUM 8.5 mg/dL (8.5-10.4); CHLORIDE 122 mEq/L (97-110); CREATININE 1.3 mg/dL (0.6-1.0); GLOMERULAR FILTRATION RATE 44; GLUCOSE 95 mg/dL (70-100); POTASSIUM 3.3 mEq/L (3.5-5.2); SODIUM 139 mEq/L (134-144)
[2017-03-07 19:11] LABS: CARBON DIOXIDE 7 mEq/l (22-31)
[2017-03-07 23:58] LABS: ALBUMIN 2.4 g/dL (3.5-5.0); ANION GAP 12 mEq/L (8-16); CALCIUM 8.5 mg/dL (8.5-10.4); CHLORIDE 122 mEq/L (97-110); CREATININE 1.2 mg/dL (0.6-1.0); GLOMERULAR FILTRATION RATE 49; GLUCOSE 88 mg/dL (70-100); POTASSIUM 3.5 mEq/L (3.5-5.2); SODIUM 141 mEq/L (134-144)
[2017-03-08 00:01] LABS: CARBON DIOXIDE 7 mEq/l (22-31)
[2017-03-08] MEDS ORDERED: POTASSIUM CL 20 MEQ TAB PO ONE ×2 (00:15→20:50)
[2017-03-08] MEDS: D5W 1/2 NS W/ 20 KCl/L 1,000 ML IV SCH (00:29)
[2017-03-08] MEDS: PANTOPRAZOLE SODIUM 40 MG TAB PO SCH (04:24)
[2017-03-08 07:08] LABS: ALBUMIN 2.4 g/dL (3.5-5.0); ANION GAP 10 mEq/L (8-16); CALCIUM 8.5 mg/dL (8.5-10.4); CHLORIDE 124 mEq/L (97-110); CREATININE 1.2 mg/dL (0.6-1.0); GLOMERULAR FILTRATION RATE 49; GLUCOSE 78 mg/dL (70-100); MAGNESIUM 1.5 mg/dL (1.6-2.3); POTASSIUM 4.1 mEq/L (3.5-5.2); SODIUM 141 mEq/L (134-144)
[2017-03-08 07:21] LABS: CARBON DIOXIDE 7 mEq/l (22-31)
[2017-03-08 07:31] LABS: INR 1.71 (0.83-1.16); PROTIME(PATIENT) 20.1 SEC (12.0-15.0)
--- NOTE | 2017-03-08 08:12 | SOAPPROG ---
SOAP Progress Note Assessment/Plan: Assessment: Complicated presentation 1. BONITA on CKD Closer to baseline Cr, which still represents significant intrinsic renal disease. Improved since admit. Continue with some IVF. Patient appeared to have significant proteinuria on admit. Will recheck this. 2. Acidosis Seems unusual as she is not having diarrhea. Query renal losses. Check UAG and Urine ph. Add bicarbonate to IVF. Continue oral IVF. 3. Feeding strategies. Need to carefully examine best ways of administering nutrition, while also monitoring for signs of refeeding issues. 4. Anemia Initial changes likely related to dilution. Continue to monitor. Plan: 03/08/17 08:09 03/08/17 08:11 Subjective: Doing fair. Objective: Vital Signs Temp Pulse Resp BP Pulse Ox 36.9 C 78 16 113/75 94 03/08/17 04:00 03/08/17 04:00 03/08/17 04:00 03/08/17 04:00 03/08/17 04:00 Microbiology 03/07/17 04:35 Gastrointestinal Tract Panel (PCR) - Final Stool No Organism Detected Laboratory Results 03/07/17 05:27 03/08/17 06:37 03/07/17 03/08/17 03/09/17 05:59 05:59 05:59 Intake Total 3025 3540 858 Output Total 2100 3075 250 Balance 925 465 608 PT 20.1 SEC (12.0-15.0) H 03/08/17 07:10 INR 1.71 (0.83-1.16) H 03/08/17 07:10 Physical Exam - Physical Exam General Appearance: no apparent distress, cachetic Respiratory: lungs clear Cardiac/Chest: regular rate, rhythm Extremities: normal inspection Neuro/Psych: oriented x 3 ICD10 Worksheet Patient Problems: Problems Problem Status Onset Acute hypokalemia Acute Acute kidney injury Acute Dehydration Acute Anorexia nervosa Active Bulemia Nervosa Active Chronic vomiting Active Coumadin Therapy for 6 months Active GERD - Gastroesophageal reflux disease Active Hypokalemia Active Hyponatremia Active Leukocytosis Active Occlusion of artery Active Renal artery stenosis Active Thrombocytosis Active Tobacco user Active Abdominal pain Acute Diarrhea Acute Excoriation Acute Hypokalemia Acute Hypokalemia Acute Lactic acid acidosis Acute Mesenteric thrombosis Acute Nausea & vomiting Acute Renal failure Acute Renal insufficiency Acute SBO (small bowel obstruction) Acute
[2017-03-08] MEDS: NICOTINE 21 MG/24 HR PATCH TD SCH (08:36)
[2017-03-08] MEDS: POTASSIUM/SODIUM PHOSPHATE 1 PKT PO SCH ×2 (08:36→21:45)
[2017-03-08] MEDS: SODIUM BICARBONATE 50 MEQ in 1/2 NS 1,000 ML IV SCH (08:37)
[2017-03-08] MEDS: PREGABALIN 50 MG CAP PO SCH ×3 (08:37→21:45)
[2017-03-08] MEDS: SODIUM BICARBONATE 650 MG TAB PO SCH ×3 (08:37→21:45)
[2017-03-08] MEDS: SPIRONOLACTONE 25 MG TAB PO SCH (08:37)
[2017-03-08 09:00] LABS: RANDOM URINE POTASSIUM 13.8 mEq/L (0.5-35.0)
--- NOTE | 2017-03-08 12:35 | HOSPPROG ---
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 - aldactone # pyuria - UCx with low colony count of GNR - no abx for now # hx fungemia on TPN - avoid Subjective: just woke up - no complaints Objective: Vital Signs Temp Pulse Resp BP Pulse Ox 36.6 C 73 18 113/75 96 03/08/17 12:00 03/08/17 12:00 03/08/17 12:00 03/08/17 12:00 03/08/17 12:00 Microbiology 03/07/17 04:35 Gastrointestinal Tract Panel (PCR) - Final Stool No Organism Detected Laboratory Results 03/07/17 05:27 03/08/17 06:37 03/07/17 03/08/17 03/09/17 05:59 05:59 05:59 Intake Total 3025 3540 858 Output Total 2100 3075 250 Balance 925 465 608 PT 20.1 SEC (12.0-15.0) H 03/08/17 07:10 INR 1.71 (0.83-1.16) H 03/08/17 07:10 high risk with ongoing severe acidosis - Physical Exam Constitutional: cachectic Cardiovascular: regular rate and rhythym, no murmur, rub, or gallop Respiratory: no respiratory distress, no rales or rhonchi Gastrointestinal: normoactive bowel sounds, soft, non-tender abdomen ICD10 Worksheet Patient Problems: Problems Problem Status Onset Dehydration Acute Hypokalemia Active Anorexia nervosa Active Chronic vomiting Active Thrombocytosis Active Leukocytosis Active Occlusion of artery Active Renal artery stenosis Active Tobacco user Active Coumadin Therapy for 6 months Active Bulemia Nervosa Active Hyponatremia Active GERD - Gastroesophageal reflux disease Active Diarrhea Acute Nausea & vomiting Acute Renal insufficiency Acute Acute hypokalemia Acute Mesenteric thrombosis Acute Abdominal pain Acute Hypokalemia Acute SBO (small bowel obstruction) Acute Lactic acid acidosis Acute Hypokalemia Acute Renal failure Acute Excoriation Acute Acute kidney injury Acute
[2017-03-08] MEDS: ONDANSETRON 4 MG/2 ML VIAL IVP PRN ×2 (13:13→18:30)
[2017-03-08] MEDS ORDERED: CALCIUM CARBONATE 500 MG CHEWABLE TAB PO PRN (14:13)
[2017-03-08] MEDS: WARFARIN SODIUM 5 MG TAB PO SCH (15:58)
[2017-03-08 16:38] LABS: ANION GAP 13 mEq/L (8-16); CALCIUM 8.4 mg/dL (8.5-10.4); CHLORIDE 122 mEq/L (97-110); CREATININE 1.1 mg/dL (0.6-1.0); GLOMERULAR FILTRATION RATE 54; GLUCOSE 94 mg/dL (70-100); POTASSIUM 3.6 mEq/L (3.5-5.2); SODIUM 142 mEq/L (134-144)
[2017-03-08 16:53] LABS: CARBON DIOXIDE 7 mEq/l (22-31)
[2017-03-08] MEDS ORDERED: PROTOCOL POTASSIUM 1 DOSE MISC PRN (20:42)
[2017-03-08] MEDS ORDERED: PROTOCOL MAGNESIUM 1 DOSE IV PRN (20:42)
[2017-03-08] MEDS ORDERED: PROTOCOL K PHOSPHATE 1 DOSE IV PRN (20:42)
[2017-03-08] MEDS ORDERED: MAGNESIUM SULF 1 GM/DEXTROSE 100 ML IV ONE (20:58)
[2017-03-08] MEDS ORDERED: MAGNESIUM SULF 1 GM/DEXTROSE 100 ML BAG IV ONE (21:01)
[2017-03-09] MEDS: SODIUM BICARBONATE 50 MEQ in 1/2 NS 1,000 ML IV SCH (01:31)
[2017-03-09 06:03] LABS: INR 1.99 (0.83-1.16); PROTIME(PATIENT) 22.7 SEC (12.0-15.0)
[2017-03-09 06:11] LABS: ALBUMIN 2.1 g/dL (3.5-5.0); ANION GAP 11 mEq/L (8-16); CALCIUM 8.3 mg/dL (8.5-10.4); CHLORIDE 121 mEq/L (97-110); CREATININE 1.1 mg/dL (0.6-1.0); GLOMERULAR FILTRATION RATE 54; GLUCOSE 87 mg/dL (70-100); MAGNESIUM 1.9 mg/dL (1.6-2.3); POTASSIUM 3.2 mEq/L (3.5-5.2); SODIUM 141 mEq/L (134-144)
[2017-03-09 06:22] LABS: CARBON DIOXIDE 9 mEq/l (22-31)
[2017-03-09] MEDS ORDERED: POTASSIUM Cl (KCl) 100 ML IV SCH (06:43)
[2017-03-09] MEDS ORDERED: POTASSIUM CL 10 MEQ TAB PO ONE ×2 (07:22→20:58)
[2017-03-09] MEDS: POTASSIUM/SODIUM PHOSPHATE 1 PKT PO SCH ×2 (08:08→21:17)
[2017-03-09] MEDS: SPIRONOLACTONE 25 MG TAB PO SCH (08:09)
[2017-03-09] MEDS: PANTOPRAZOLE SODIUM 40 MG TAB PO SCH (08:09)
[2017-03-09] MEDS: PREGABALIN 50 MG CAP PO SCH ×3 (08:09→21:15)
[2017-03-09] MEDS: SODIUM BICARBONATE 650 MG TAB PO SCH ×3 (08:09→21:15)
[2017-03-09] MEDS: NICOTINE 21 MG/24 HR PATCH TD SCH (08:12)
--- NOTE | 2017-03-09 09:53 | SOAPPROG ---
SOAP Progress Note Assessment/Plan: Assessment: Complicated presentation 1. BONITA on CKD Closer to baseline Cr, which still represents significant intrinsic renal disease. Improved since admit. Continue with some IVF. Patient appeared to have significant proteinuria on admit. 2. Acidosis She is acidifying urine. Primary bicarb wasting issues appear to be GI related. 3. Feeding strategies. Need to carefully examine best ways of administering nutrition, while also monitoring for signs of refeeding issues. Need expert nutritional advice for best customer engagement analyst strategies for nutrition. 4. Anemia Initial changes likely related to dilution. Continue to monitor. We will sign off. thx Subjective: Doing fair. Objective: Vital Signs Temp Pulse Resp BP Pulse Ox 36.4 C 78 24 H 109/74 100 03/09/17 08:15 03/09/17 08:15 03/09/17 08:15 03/09/17 08:15 03/09/17 08:15 Microbiology 03/06/17 12:55 Urine Culture - Final Urine,Clean Catch Escherichia Coli Laboratory Results 03/07/17 05:27 03/09/17 05:12 03/08/17 03/09/17 03/10/17 05:59 05:59 05:59 Intake Total 3540 4431 Output Total 3075 3300 Balance 465 1131 PT 22.7 SEC (12.0-15.0) H 03/09/17 05:12 INR 1.99 (0.83-1.16) H 03/09/17 05:12 Physical Exam - Physical Exam General Appearance: no apparent distress, cachetic Respiratory: lungs clear Cardiac/Chest: regular rate, rhythm Extremities: normal inspection Neuro/Psych: oriented x 3 ICD10 Worksheet Patient Problems: Problems Problem Status Onset Acute hypokalemia Acute Acute kidney injury Acute Dehydration Acute Anorexia nervosa Active Bulemia Nervosa Active Chronic vomiting Active Coumadin Therapy for 6 months Active GERD - Gastroesophageal reflux disease Active Hypokalemia Active Hyponatremia Active Leukocytosis Active Occlusion of artery Active Renal artery stenosis Active Thrombocytosis Active Tobacco user Active Abdominal pain Acute Diarrhea Acute Excoriation Acute Hypokalemia Acute Hypokalemia Acute Lactic acid acidosis Acute Mesenteric thrombosis Acute Nausea & vomiting Acute Renal failure Acute Renal insufficiency Acute SBO (small bowel obstruction) Acute
--- NOTE | 2017-03-09 11:27 | HOSPPROG ---
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 - will try an elemental formula mixed with shake or smoothies - may be very difficult to manage prison - discussed informally with Dr Boyce - trial of elemental formulas mixed with food; these may be very unpalatable - if she cannot tolerate elemental formula PO, then may need a PEG - also consider Gattex as an outpatient - CM will look into insurance approval # BONITA on CKD - SCr difficult to interpret given very low BMI # protein C deficiency - on warfarin # severe NAGMA - UAG x 2 suggests diarrhea - her degree of acidemia is severe given her reported lack of diarrhea - bicarb gtt # hypokalemia - improved with repletion; pseudo barter syndrome? - aldactone, aggressively replete # pyuria - UCx with low colony count of e. coli - no abx for now # hx fungemia on TPN - avoid Subjective: says she is eating well, no diarrhea Objective: Vital Signs Temp Pulse Resp BP Pulse Ox 36.4 C 78 24 H 109/74 100 03/09/17 08:15 03/09/17 08:15 03/09/17 08:15 03/09/17 08:15 03/09/17 08:15 Microbiology 03/06/17 12:55 Urine Culture - Final Urine,Clean Catch Escherichia Coli Laboratory Results 03/07/17 05:27 03/09/17 05:12 03/08/17 03/09/17 03/10/17 05:59 05:59 05:59 Intake Total 3540 4431 Output Total 3075 3300 Balance 465 1131 PT 22.7 SEC (12.0-15.0) H 03/09/17 05:12 INR 1.99 (0.83-1.16) H 03/09/17 05:12 high risk with severe acidemia - Physical Exam Constitutional: cachectic Cardiovascular: regular rate and rhythym, no murmur, rub, or gallop Respiratory: no respiratory distress, no rales or rhonchi, clear to auscultation Gastrointestinal: normoactive bowel sounds, soft, non-tender abdomen, no palpable masses ICD10 Worksheet Patient Problems: Problems Problem Status Onset Dehydration Acute Hypokalemia Active Anorexia nervosa Active Chronic vomiting Active Thrombocytosis Active Leukocytosis Active Occlusion of artery Active Renal artery stenosis Active Tobacco user Active Coumadin Therapy for 6 months Active Bulemia Nervosa Active Hyponatremia Active GERD - Gastroesophageal reflux disease Active Diarrhea Acute Nausea & vomiting Acute Renal insufficiency Acute Acute hypokalemia Acute Mesenteric thrombosis Acute Abdominal pain Acute Hypokalemia Acute SBO (small bowel obstruction) Acute Lactic acid acidosis Acute Hypokalemia Acute Renal failure Acute Excoriation Acute Acute kidney injury Acute
[2017-03-09] MEDS ORDERED: K PHOS 10 MMOL in D5W 250 ML IV ONE (12:00)
[2017-03-09] MEDS: ACETAMINOPHEN 325 MG TAB PO PRN (12:26)
[2017-03-09] MEDS ORDERED: clonazePAM 1 MG TAB PO ONE (12:34)
[2017-03-09] MEDS: WARFARIN SODIUM 5 MG TAB PO SCH (16:25)
[2017-03-09 20:38] LABS: POTASSIUM 3.7 mEq/L (3.5-5.2)
[2017-03-10] MEDS: SODIUM BICARBONATE 50 MEQ in 1/2 NS 1,000 ML IV SCH (03:10)
[2017-03-10 03:53] VITALS: O2SAT 100
[2017-03-10 05:30] LABS: MAGNESIUM 1.5 mg/dL (1.6-2.3); POTASSIUM 3.3 mEq/L (3.5-5.2)
[2017-03-10 05:35] LABS: % IMMATURE GRANULYOCYTES 0.5 % (0.0-1.1); ABSOLUTE IMMATURE GRANULOCYTES 0.04 10^3/uL (0.00-0.10); ADD DIFF? NO; ADD MORPH? YES; ADD SCAN? NO; ATYPICAL LYMPHOCYTE FLAG 90 (0-99); FRAGMENT RBC FLAG 60 (0-99); HEMATOCRIT 29.9 % (38.0-47.0); HEMOGLOBIN 9.1 g/dL (12.6-16.3); LEFT SHIFT FLG 0 (0-99); LIPEMIA HEMOLYSIS FLAG 80 (0-99); MEAN CELL HEMOGLOBIN CONCENTR. 30.4 g/dL (32.4-36.7); MEAN CELL VOLUME 75.5 fL (81.5-99.8); MEAN PLATELET VOLUME 8.8 fL (8.7-11.7); PLATELET CLUMPS FLAG 0 (0-99); PLATELET COUNT 330 10^3/uL (150-400); RED BLOOD CELL COUNT 3.96 10^6/uL (4.18-5.33)
[2017-03-10 05:38] LABS: INR 2.54 (0.83-1.16); PROTIME(PATIENT) 27.6 SEC (12.0-15.0)
[2017-03-10 05:49] LABS: RED CELL DISTRIBUTION WIDTH 25.3 % (11.5-15.2)
[2017-03-10 07:01] LABS: HYPOCHROMIA 1+; MICROCYTES 1+
[2017-03-10 07:02] LABS: ACANTHOCYTES 1+; ECHINOCYTES 1+
[2017-03-10 07:04] LABS: PLATELET ESTIMATE ADEQUATE (ADEQ)
[2017-03-10] MEDS ORDERED: POTASSIUM CL 10 MEQ TAB PO ONE (07:23)
[2017-03-10 09:24] LABS: ANION GAP 12 mEq/L (8-16); CALCIUM 8.3 mg/dL (8.5-10.4); CHLORIDE 123 mEq/L (97-110); GLOMERULAR FILTRATION RATE > 60; GLUCOSE 81 mg/dL (70-100); POTASSIUM 3.4 mEq/L (3.5-5.2); SODIUM 143 mEq/L (134-144)
[2017-03-10 09:27] LABS: CARBON DIOXIDE 8 mEq/l (22-31)
[2017-03-10] MEDS: POTASSIUM/SODIUM PHOSPHATE 1 PKT PO SCH (09:47)
[2017-03-10] MEDS: NICOTINE 21 MG/24 HR PATCH TD SCH (09:49)
[2017-03-10] MEDS: SODIUM BICARBONATE 650 MG TAB PO SCH ×2 (09:50→15:46)
[2017-03-10] MEDS: SPIRONOLACTONE 25 MG TAB PO SCH (09:51)
[2017-03-10] MEDS: PANTOPRAZOLE SODIUM 40 MG TAB PO SCH (09:52)
[2017-03-10] MEDS: PREGABALIN 50 MG CAP PO SCH ×2 (09:52→15:46)
[2017-03-10 10:12] VITALS: BP 116/80; PULSE 80; RESP 22; TEMP 97.2
[2017-03-10] MEDS ORDERED: MAGNESIUM SULF 1 GM/DEXTROSE 100 ML IV ONE (10:16)
[2017-03-10] MEDS ORDERED: LOPERAMIDE HCL 2 MG CAP PO PRN (10:29)
[2017-03-10] MEDS ORDERED: LOPERAMIDE HCL 2 MG CAP PO ONE (10:29)
--- NOTE | 2017-03-10 12:45 | HOSPPROG ---
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 - r/o CDiff w/ PCR - reports that imodium useful at home, not on home med list, restart w/ 4mg now and then 2mg - attempt to slow diarrhea, and, if able, electrolyte abnormalities may resolve - will try an elemental formula mixed with shake or smoothies - if she cannot tolerate elemental formula PO, then may need a PEG - also consider Gattex as an outpatient - CM will look into insurance approval # severe anorexia nervosa - unclear how active this diagnosis is, as she is clearly underweight, but now has identifiable short gut as an active loss of nutrition, and she appears to be eating on our evaluations of her - stop marleni carpio above - agreeable to ED cares on discharge - high risk for refeeding syndrome - serial mg, phos # BONITA on CKD stage III - replacing volume w/ bicarb gtt, slowing down GI losses # protein C deficiency - on warfarin, daily INR # hypokalemia - acute on chronic, repleting w/ mag - aldactone, aggressively replete # pyuria - UCx with low colony count of e. coli - no abx for now # hx fungemia on TPN - avoid # severe protein calorie malnutrition - low BMI 14, prox muscles wasting, cachexia, meets ASPEN criteria, dietary consult appreciated Diet. Regular as isidro PPx. High risk, on coumadin Code. Full Dispo. ADD uncertain, pending stability of above. High-level of medical complexity with high risk of worsening morbidity and/or mortality secondary to the issues as outlined above. Subjective: patient w/ ongoing diarrhea, eating bagels with cream cheese Objective: Vital Signs Temp Pulse Resp BP Pulse Ox 36.2 C 80 22 H 116/80 100 03/10/17 10:08 03/10/17 10:03/10/17 10:03/10/17 10:08 03/10/17 10:08 Laboratory Results 03/10/17 04:20 03/10/17 04:20 03/09/17 03/10/17 03/11/17 05:59 05:59 05:59 Intake Total 4431 2725 2890 Output Total 3300 Balance 1131 2725 2890 PT 27.6 SEC (12.0-15.0) H 03/10/17 04:20 INR 2.54 (0.83-1.16) H 03/10/17 04:20 - Physical Exam Constitutional: no apparent distress, not in pain, chronically ill appearing, cachectic, No uncomfortable Cardiovascular: systolic murmur (I/ at all valves), No irregularly irregular, No tachycardia, No edema Respiratory: no respiratory distress, no rales or rhonchi, clear to auscultation Gastrointestinal: distension (moderately), No normoactive bowel sounds ( hyperactive bowel sounds), No tenderness, No guarding Skin: other (healing ostomy site) Neurologic: AAOx3, sensation intact bilaterally Psychiatric: interacting appropriately, not anxious, not encephalopathic, thought process linear ICD10 Worksheet Patient Problems: Problems Problem Status Onset Dehydration Acute Hypokalemia Active Anorexia nervosa Active Chronic vomiting Active Thrombocytosis Active Leukocytosis Active Occlusion of artery Active Renal artery stenosis Active Tobacco user Active Coumadin Therapy for 6 months Active Bulemia Nervosa Active Hyponatremia Active GERD - Gastroesophageal reflux disease Active Diarrhea Acute Nausea & vomiting Acute Renal insufficiency Acute Acute hypokalemia Acute Mesenteric thrombosis Acute Abdominal pain Acute Hypokalemia Acute SBO (small bowel obstruction) Acute Lactic acid acidosis Acute Hypokalemia Acute Renal failure Acute Excoriation Acute Acute kidney injury Acute
--- NOTE | 2017-03-10 12:49 | ASMTCMCOM ---
CM Note CM Note Notes: Discussed patient's case with primary RN. Patient is still very medically ill, discharge date unknown at this time. Referral to [facility] was made last week (See previous CM notes for details). Case Management will continue to follow. Date Signed: 03/10/2017 12:49 PM Electronically Signed By:Ashli Shaikh RN
[2017-03-10] MEDS: WARFARIN SODIUM 5 MG TAB PO SCH (15:46)
--- NOTE | 2017-03-10 16:52 | ASDISCHSUM ---
Discharge Information Plan Status:Has needs-TBD Medically Cleared to Leave: Discharge Date:03/10/2017 04:30 PM CM D/C Disposition:Against Medical Advice ADT D/C Disposition:Against Medical Advice Projected Discharge Date:03/14/2017 11:00 AM Transportation at D/C:Self Discharge Delay Reason: Follow-Up Date:03/14/2017 11:00 AM Discharge Slot: Final Diagnosis: Placement Information Referral Type:[facility] Hospital [facility] Unit Referral ID:[id number] Provider Name: Address 1: Phone Number: Address 2: Fax Number: City: Selection Factors: State: Patient Contact Information Contact Name:ABHAY Relationship:Other Address: Work Phone: City: [facility] Phone: [facility] Code: Email: Financial Information Financial Class: Primary Plan Desc:[employer] [place] Primary Plan Number:[id number] Secondary Plan Desc: Secondary Plan Number: Assessment Information [facility] Initial CM Assessment Living Arrangements What is your living Answers: With Partner arrangement? Who do you live with? Type Of Residence What kind of residence do Answers: House you live in? 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 Patient was admitted for hypokalemia and dehydration. Since July of this year patient's weight has dropped from 107lbs to <70. A bout of mesenteric ischemia requiring a small bowel resection led to short gut syndorme and malabsorption. She was on TPN last month. Dr. Storm would like patient to go to an inpatient eating disorders treatment program. Initially tried [facility] but they do not take Medicaid. The only other eating disorder program located in [place] that takes Medicaid is [facility] but it is partial hospitalization. Patient needs inpatient due to her current medical status. Dr Storm was informed, she will determine next steps for d/c plan. CM will follow. Date Signed: 03/06/2017 11:35 AM Electronically Signed By:Heavenly Swan LCSW [facility] Progress Note CM Note CM Note Notes: Dr Storm would like for patient to d/c to [facility] when patient is ready for partial hospitalization program. Referral sent to [facility] (fax: [phone]). Spoke with Gladys wei who confirms their program does take Medicaid. Will need to send updates until patient is ready to d/c. CM will follow. Date Signed: 03/07/2017 09:29 AM Electronically Signed By:Heavenly Swan LCSW [facility] CM Progress Note CM Note CM Note Notes: Discussed patient's case with primary RN. Patient is still very acutely ill, discharge date unknown at this time. Referral to [facility] was made last week (See previous CM notes for details). Case Management will continue to follow. Date Signed: 03/10/2017 12:49 PM Electronically Signed By:Ashli Shaikh RN Intervention Information
--- NOTE | 2017-03-10 17:01 | PDDCSUM ---
Discharge Summary Discharge Summary: DISCHARGE SUMMARY FOLLOW-UP ITEMS: Follow up with primary care provider DATE OF ADMISSION: 03/05/2017 DATE OF DISCHARGE: 03/10/2017 DISCHARGE DIAGNOSES: 1. Severe metabolic acidosis 2. Short gut syndrome 3. Severe anorexia nervosa 4. Severe protein calorie malnutrition 5. Acute kidney injury on chronic kidney disease stage 3 6. Acute on chronic hypokalemia 7. Chronic protein C deficiency 8. Low BMI 9. Asymptomatic bacteriuria CONSULTATIONS: Nephrology PROCEDURES / IMAGING: None CHIEF COMPLAINT: Nausea SUBJECTIVE: Patient decided to leave against medical advice, she is becoming anxious for cigarette PHYSICAL EXAM ON DISCHARGE: Systolic blood pressure 110, heart rate 80, afebrile overnight, satting well on room air, cachectic, proximal muscle wasting, abdomen is moderately distended, nontender, hyperactive bowel sounds LABS ON DISCHARGE: Potassium 3.3, magnesium 1.5, INR 2.5, blood cell count 7600, hemoglobin 9.1 HOSPITAL COURSE BY PROBLEM: Patient presented with nausea secondary to metabolic acidosis and persistent diarrhea from short gut syndrome. Please see progress note on the same date of this dictation for full characterization of all of her medical issues. During hospitalization, the patient was placed on bicarbonate drip, and we attempted to closely monitor her intake and output. This revealed the patient was experiencing persistent diarrhea and Imodium was recommended. We are going to begin engaging in active approach to manage her short-gut syndrome, and the patient became agitated for a cigarette. She decided to leave against medical advice while her serum bicarbonate level was persistently less than 10. She understands that she is at high risk for morbidity and/or mortality from acidosis. DISCHARGE MEDICATIONS: Please see official discharge medication reconciliation sheet in chart , continue on all home medications, recommended that she use [id number] Imodium at home. DISCHARGE INSTRUCTIONS: Patient should follow up with her primary care provider soon as possible, it was recommended that she not leave the hospital at this time but she has left against medical advice. TIME SPENT: Greater than 30 minutes were spent on direct patient care, as well as discharge planning and preparation.
== END 2017-03-10 16:30 | disposition left against medical advice (07) | DRG 640 ==
LOC: EDUNIT# → F2N 21:51 → F3E 03-09 11:39
PROVIDERS: ADMIT Hospitalist; ATTEND Internal Medicine
DX: E87.2 Acidosis (principal); E43 Unspecified severe protein-calorie malnutrition; K91.2 Postsurgical malabsorption, not elsewhere classified; N18.3 Chronic kidney disease, stage 3 (moderate); N17.9 Acute kidney failure, unspecified; E87.6 Hypokalemia; E87.1 Hypo-osmolality and hyponatremia; E86.0 Dehydration; F50.00 Anorexia nervosa, unspecified; F50.2 Bulimia nervosa; D68.51 Activated protein C resistance; Z68.1 Body mass index [BMI] 19.9 or less, adult; N39.0 Urinary tract infection, site not specified; E26.9 Hyperaldosteronism, unspecified; G43.909 Migraine, unspecified, not intractable, without status migrainosus; F31.9 Bipolar disorder, unspecified; G56.82 Other specified mononeuropathies of left upper limb; F17.210 Nicotine dependence, cigarettes, uncomplicated; Z86.718 Personal history of other venous thrombosis and embolism; Z79.01 Long term (current) use of anticoagulants
CPT/HCPCS: 96365; G0480; J1200; J2405; J2765; J3475

== ENCOUNTER 2017-03-28 04:02 | Inpatient (IN) | payer MEDICAID ==
--- NOTE | 2017-03-28 04:22 | EDPHY ---
H & P <Jose Hayes - Last Filed: 03/28/17 09:37> Source: Patient, EMS - Personal History Tetanus Vaccine Date: 2010 - Medical/Surgical History Hx Asthma: No Hx Chronic Respiratory Disease: No Hx Diabetes: No Hx Cardiac Disease: No Hx Renal Disease: No Hx Cirrhosis: No Hx Alcoholism: No Hx HIV/AIDS: No Hx Splenectomy or Spleen Trauma: No Other PMH: small intestine surgery, PEG tube placement, ileostomy, anorexia, bipolar, kidney stones, UTI - Social History Smoking Status: Current every day smoker <Augie Schmidt - Last Filed: 03/28/17 22:32> HPI/ROS: I assumed care of this patient from Dr. Schmidt at shift change. 09:[address] Roberts, hospitalist, regarding this patient. He and I concur with Dr. Schmidt's assessment that the patient's central line is placed to deep. Given the patients severe hypokalemia there is additional concern for dysrhythmias caused by the central line aggravating her right ventricle. 09:13 Procedure: Central line adjustment. Verbal consent obtained, sterile technique observed. Removed dressing, loosened securing sutures. Retracted the catheter 6cm. Placed antibacterial cuff. Replaced two 3-0 Prolene sutures to secure placement. Blood return low pressure , dark blood. Patient tolerated procedure well. Repeat x-ray interpreted by myself confirms good line placement at SVC/right atrial border. The procedure was performed by myself. (Jose Hayes) HPI CHIEF COMPLAINT: Dizziness, dehydration, generalized weakness HISTORY OF PRESENT ILLNESS: This patient 46-year-old female, WEIGHT: 29K, significant medical history for short gut syndrome, severe malnutrition protein C deficiency anorexia, presents emergency room with generalized weakness and lightheadedness. Global weakness. No chest pain or shortness of breath. No fever. No urinary symptoms. Denies any significant abdominal pain. States she feels globally weak. She does endorse that she has been eating. Of note she appears extremely malnourished and cachectic. Very emaciated. Globally weak. Nontoxic appearing Past Medical History: short gut syndrome, severe malnutrition, protein C deficiency, anorexia, acute kidney injury, hypokalemia Past Surgical History: Extensive abdominal surgeries. Including extensive removal of small bowel causing short gut syndrome from blood clots. Social History: Smokes tobacco, denies drugs. Does drink wine half a bottle every other night. Family History: Noncontributory ROS REVIEW OF SYSTEMS: A comprehensive 10 point review of systems is otherwise negative aside from elements mentioned in the history of present illness. Exam Constitutional cachectic, frail appearing, malnourished, extremely emaciated, triage nursing summary reviewed, vital signs reviewed, awake/alert. Eyes normal conjunctivae and sclera, EOMI, PERRLA. HENT normal inspection, atraumatic, dry mucous membranes, no epistaxis, neck supple/ no meningismus, no raccoon eyes. Respiratory clear to auscultation bilaterally, normal breath sounds, no respiratory distress, no wheezing. Cardiovascular rate normal, regular rhythm, no murmur, no edema, distal pulses normal. Gastrointestinal soft, non-tender, no rebound, no guarding, normal bowel sounds, no distension, no pulsatile mass. Genitourinary no CVA tenderness. Musculoskeletal no midline vertebral tenderness, full range of motion, no calf swelling, no tenderness of extremities, no meningismus, good pulses, neurovascularly intact. Skin pink, warm, & dry, no rash, skin atraumatic. Neurologic awake, alert and oriented x 3, AAOx3, moves all 4 extremities equally, motor intact, sensory intact, CN II-XII intact, normal cerebellar, normal vision, normal speech. Psychiatric normal mood/affect. Heme/Lymph/Immune no lymphadenopathy. Differential Diagnosis: Includes but is not limited to in a particular order: Severe dehydration, severe malnutrition, protein deficiency, short gut syndrome , electrolyte disturbance, infection Medical Decision Making: Plan for this patient IV establishment blood draw, IV fluid bolus most likely hospital admission for severe malnutrition, generalized weakness, cachexia, failure to thrive. Re-evaluation: 0535: Of note this patient is extremely hard stick. Multiple attempts were made a peripheral IVs. Under ultrasound guidance I was able to place a left 20 gauge IV catheter in the EJ. Patient tolerated this well. Good blood flow return. Good flush. No chest pain or shortness of breath. Blood sent. Of note urinalysis reviewed shows UTI. Culture sent. Rocephin ordered. 0544AM: Patient's IV line in neck infiltrated. Will order PICC line for patient. 0616AM: Patient be admitted to the hospitalist service. I have consult Dr. Jimenez. Reason for admission: Generalized weakness, cachexia, malnutrition, protein deficiency, possible urinary tract infection, leukocytosis. Failure to thrive. Labs review severe hypokalemia. Low bicarb. Metabolic acidosis. From dehydration. 0630AM: This patient has severe electrolyte disturbance with severe hypokalemia the can be life-threatening. Additionally she severely acidotic. And severely dehydrated with acute kidney injury. Again we have tried multiple times for IV access and again we are unsuccessful. Given how ill she is she will be moved to ER room 1 for central line placement. She needs IV access and under how ill she is this central line should be done emergently. Patient verbally consents to this. Procedure: Central line placement. Indication: No IV access, severe hypokalemia Verbal informed consent was obtained, with the risks explained to include but not be limited to bleeding, infection, and collapsed lung. A timeout was observed and patients identity and correct procedure location confirmed. Full maximal sterile barrier technique was uses including cap, gown, sterile gloves, large sheet, hand washing and chlorhexidine prep. The area anesthetized with 1 % lidocaine. The RIGHT IJ was punctured with a 19 gauge finder needle, then a TLC was placed using standard Seldinger technique. There were no complications. Blood return low pressure, dark blood. Patient tolerated procedure well. CXR results: Good Line Placement X-ray was interpreted by myself. The procedure was performed by myself. Critical Care: Total Critical Care Time Spent Managing this Patient: 85 Minutes. This time was spent Exclusively with this patient. This Care was exclusive of procedures. The Organ System/life at risk was severe electrolyte disturbance, dehydration, malnutrition This Patient was in Critical Condition because severe hypokalemia, acute kidney injury, dehydration, malnutrition Patient be upgraded to the intensive care unit due to severe hypokalemia. 0718AM: Patient hemodynamically stable this time. Central line placement reviewed with one-view chest x-ray. Line is in good position. Possibly slightly deep. They can adjust in the ICU. No pneumothorax. At this time she is getting IV potassium through her central line, as well as IV magnesium. IV fluid. Normal saline. Due to her severe hypokalemia she will be admitted to the ICU. She will still need a PICC line. PEG tube. EKG interpretation by me on record in [employer] system. Impression time of EKG 7:35 a.m., this is sinus rhythm rate of 64. Slight U waves noticed in V4 V5 V6. Significant for hypokalemia. Otherwise no widening. No ischemic changes. (Augie Schmidt) Constitutional: Initial Vital Signs Temperature (C) 36.3 C 03/28/17 04:30 Heart Rate 77 03/28/17 04:30 Respiratory Rate 18 03/28/17 04:30 Blood Pressure 103/64 03/28/17 04:30 O2 Sat (%) 97 03/28/17 04:30 O2 Delivery Mode Room Air Allergies/Adverse Reactions: amoxicillin Allergy (Intermediate, Verified 03/05/17 20:50) Abdominal Pain lamotrigine Allergy (Unknown, Verified 03/05/17 20:50) Rash Home Medications: Medication Instructions Recorded traZODone [traZODone 150MG (*)] 150 mg PO HS PRN 02/22/16 Ibuprofen [Motrin (*)] 400 mg PO BID PRN 11/28/16 Pregabalin [Lyrica 50mg (*)] 50 mg PO TID 11/28/16 SUMAtriptan [Imitrex 50 MG (*)] 50 mg PO DAILY PRN #0 tab 12/04/16 Warfarin Sodium [Coumadin 5MG (*)] 5 mg PO DAILY16 01/24/17 Herbals/Supplements -Info Only 1 ea PO DAILY 03/05/17 Ondansetron HCl [Zofran] 8 mg PO DAILY PRN 03/05/17 Pantoprazole Sodium [Protonix 40mg 40 mg PO DAILY 03/05/17 (*)] Potassium Cl [Klor-Con] 10 meq PO DAILY 03/28/17 - Data Points Laboratory Results: Laboratory Results 03/28/17 05:30 03/28/17 05:30 Medications Given: Acetaminophen (Tylenol) 650 mg PO Q4HRS PRN PRN Reason: Pain, Mild/Fever, Can Take PO Stop: 09/24/17 09:14 Last Admin: 03/28/17 19:52 Dose: 650 mg Enoxaparin Sodium (Lovenox) 30 mg SC BID CYRUS Stop: 09/24/17 09:44 Last Admin: 03/28/17 19:53 Dose: Not Given Potassium Chloride (Potassium Cl 20 Meq (Premix)) 100 mls @ 100 mls/hr IV Q1H [facility] Stop: 03/28/17 23:59 Last Admin: 03/28/17 22:22 Dose: 100 mls Nicotine (Nicoderm Cq) 7 mg TD DAILY C[facility]US Stop: 09/24/17 09:29 Last Admin: 03/28/17 13:45 Dose: Not Given Pregabalin (Lyrica) 50 mg PO TID CYRUS Stop: 09/24/17 15:59 Last Admin: 03/28/17 18:29 Dose: Not Given Warfarin Sodium (Coumadin) 5 mg PO DAILY16 CYRUS Stop: 09/24/17 15:59 Last Admin: 03/28/17 18:45 Dose: 5 mg Discontinued Medications Sodium Chloride (Ns) 1,000 mls @ 0 mls/hr IV EDNOW ONE; Wide Open PRN Reason: Protocol Stop: 03/28/17 04:28 Last Admin: 03/28/17 06:55 Dose: 1,000 mls Ceftriaxone Sodium/Dextrose (Rocephin 1 Gm (Premix)) 50 mls @ 100 mls/hr IV EDNOW ONE PRN Reason: Protocol Stop: 03/28/17 06:03 Last Admin: 03/28/17 08:27 Dose: 50 mls Potassium Chloride (Potassium Cl 20 Meq (Premix)) 100 mls @ 50 mls/hr IV EDNOW ONE Stop: 03/28/17 08:32 Last Admin: 03/28/17 07:26 Dose: Not Given Magnesium Sulfate (Magnesium Sulf 2 Gm (Premix)) 50 mls @ 50 mls/hr IV EDNOW ONE Stop: 03/28/17 07:32 Last Admin: 03/28/17 07:00 Dose: 50 mls Potassium Chloride (Potassium Cl 20 Meq (Premix)) 100 mls @ 50 mls/hr IV EDNOW ONE Stop: 03/28/17 09:04 Last Admin: 03/28/17 08:31 Dose: Not Given Sodium Chloride (Ns) 1,000 mls @ 0 mls/hr IV ONCE ONE PRN Reason: Wide Open Stop: 03/28/17 07:06 Last Admin: 03/28/17 08:29 Dose: 1,000 mls Potassium Chloride (Potassium Cl 10 Meq (Premix)) 100 mls @ 100 mls/hr IV EDNOW ONE Stop: 03/28/17 08:19 Last Admin: 03/28/17 07:00 Dose: 100 mls Potassium Chloride (Potassium Cl 10 Meq (Premix)) 100 mls @ 100 mls/hr IV EDNOW ONE Stop: 03/28/17 08:22 Last Admin: 03/28/17 08:29 Dose: 100 mls Magnesium Sulfate (Magnesium Sulf 2 Gm (Premix)) 50 mls @ 50 mls/hr IV ONCE ONE Stop: 03/28/17 10:22 Last Admin: 03/28/17 15:46 Dose: Not Given Potassium Chloride (Potassium Cl 10 Meq (Premix)) 100 mls @ 100 mls/hr IV Q1H CYRUS Stop: 03/28/17 14:29 Last Admin: 03/28/17 15:03 Dose: 100 mls Potassium Chloride (Potassium Cl 10 Meq (Premix)) 100 mls @ 100 mls/hr IV Q1H C[facility]US Stop: 03/28/17 19:59 Last Admin: 03/28/17 20:18 Dose: 100 mls Potassium Chloride (Potassium Cl 20 Meq (Premix)) 50 mls @ 50 mls/hr IV Q1H [facility]US Stop: 03/28/17 17:57 Last Admin: 03/28/17 18:47 Dose: Not Given Potassium Chloride (Klor Packets) 40 meq PO DAILY CYRUS Stop: 09/24/17 06:29 Last Admin: 03/28/17 13:42 Dose: Not Given Departure <Jose Hayes - Last Filed: 03/28/17 09:37> <Augie Schmidt - Last Filed: 03/28/17 22:32> - Departure Disposition: [facility] Inpatient Acute Clinical Impression: Dehydration, Protein deficiency, Generalized weakness, Hypokalemia, Acidosis, Acute kidney injury Malnutrition Qualifiers: Malnutrition type: protein-calorie malnutrition Protein-calorie malnutrition severity: severe Qualified Code(s): E43 - Unspecified severe protein-calorie malnutrition UTI (urinary tract infection) Qualifiers: Urinary tract infection type: acute cystitis Hematuria presence: with hematuria Qualified Code(s): N30.01 - Acute cystitis with hematuria Condition: Serious Report Scribed for: Jose Hayes Report Scribed by: Rhoda Mitchell Date of Report: 03/28/17 Time of Report: 09:25 <Jose Hayes - Last Filed: 03/28/17 09:37>
[2017-03-28] MEDS ORDERED: NS 1,000 ML IV ONE ×2 (04:27→07:05)
[2017-03-28 05:08] LABS: COLOR PALE YELLOW; LEUKOCYTE ESTERASE,URINE 1+ (NEGATIVE); NITRITE,URINE NEGATIVE (NEGATIVE)
[2017-03-28 05:17] LABS: BACTERIA TRACE /hpf (NONE SEEN); MUCUS TRACE /lpf (NONE-1+); WBC,URINE 50-182 /hpf (0-3)
[2017-03-28 05:45] LABS: % IMMATURE GRANULYOCYTES 0.7 % (0.0-1.1); ABSOLUTE IMMATURE GRANULOCYTES 0.13 10^3/uL (0.00-0.10); ADD DIFF? NO; ADD MORPH? YES; ADD SCAN? NO; ATYPICAL LYMPHOCYTE FLAG 0 (0-99); FRAGMENT RBC FLAG 60 (0-99); HEMATOCRIT 40.7 % (38.0-47.0); HEMOGLOBIN 13.1 g/dL (12.6-16.3); LEFT SHIFT FLG 0 (0-99); LIPEMIA HEMOLYSIS FLAG 80 (0-99); MEAN CELL HEMOGLOBIN 23.5 pg (27.9-34.1); MEAN CELL HEMOGLOBIN CONCENTR. 32.2 g/dL (32.4-36.7); MEAN CELL VOLUME 72.9 fL (81.5-99.8); PLATELET CLUMPS FLAG 0 (0-99); PLATELET COUNT 300 10^3/uL (150-400); RED BLOOD CELL COUNT 5.58 10^6/uL (4.18-5.33)
[2017-03-28] MEDS ORDERED: ALTEPLASE 2 MG VIAL IVP PRN (05:46)
[2017-03-28 05:52] LABS: RED CELL DISTRIBUTION WIDTH 24.8 % (11.5-15.2)
[2017-03-28 05:53] LABS: INR 1.31 (0.83-1.16); PROTIME(PATIENT) 16.3 SEC (12.0-15.0)
[2017-03-28 05:54] LABS: APTT 31.2 SEC (23.0-38.0)
[2017-03-28 05:55] LABS: ALANINE AMINOTRANSFERASE 35 IU/L (9-52); ALBUMIN 3.1 g/dL (3.5-5.0); ALKALINE PHOSPHATASE 96 IU/L (38-126); ANION GAP 19 mEq/L (8-16); ASPARTATE AMINOTRANSFERASE 20 IU/L (14-46); BILIRUBIN,TOTAL 0.3 mg/dL (0.1-1.4); BILIRUBIN-CONJUGATED 0.3 mg/dL (0.0-0.5); CHLORIDE 112 mEq/L (97-110); CREATININE 2.2 mg/dL (0.6-1.0); ETHANOL SERUM < 10 mg/dL (0-10); GLOMERULAR FILTRATION RATE 24; GLUCOSE 91 mg/dL (70-100); MAGNESIUM 1.4 mg/dL (1.6-2.3); SODIUM 137 mEq/L (134-144); TOTAL PROTEIN 5.8 g/dL (6.3-8.2)
[2017-03-28 06:23] LABS: POTASSIUM 1.9 mEq/L (3.5-5.2)
[2017-03-28 06:24] LABS: CARBON DIOXIDE 6 mEq/l (22-31)
[2017-03-28] MEDS ORDERED: POTASSIUM CL 20 MEQ PKT PO SCH (06:30)
[2017-03-28 06:32] LABS: ACANTHOCYTES 1+; ECHINOCYTES 1+; HYPOCHROMIA 1+; MICROCYTES 1+; PLATELET ESTIMATE ADEQUATE (ADEQ)
[2017-03-28] MEDS ORDERED: MAGNESIUM SULF 2 GM/WATER 50 ML IV ONE ×2 (06:33→09:23)
[2017-03-28] MEDS ORDERED: POTASSIUM Cl (KCl) 100 ML IV ONE ×4 (06:33→07:23)
[2017-03-28] MEDS ORDERED: POTASSIUM Cl (KCl) 10 MEQ/100 ML BAG IV ONE (06:53)
--- NOTE | 2017-03-28 07:29 | CPEKG ---
Heart Rate: 64 RR Interval: 938 P-R Interval: 160 QRSD Interval: 102 QT Interval: 412 QTC Interval: 425 P [place]: 72 QRS [place]: 37 T Wave [place]: 60 EKG Severity - ABNORMAL ECG - EKG Impression: SINUS RHYTHM EKG Impression: PROBABLE POSTERIOR INFARCT Electronically Signed By: Jose Hayes 28-Mar-2017 14:50:02
[2017-03-28] MEDS ORDERED: CEFTRIAXONE 1 GM/DEXTROSE/50 ML BAG IV ONE (08:24)
[2017-03-28] MEDS ORDERED: ONDANSETRON DISINTEGRATING 4 MG TAB PO PRN ×2 (09:15→12:40)
[2017-03-28] MEDS ORDERED: NS W/ 20 KCl/L 1,000 ML IV SCH ×4 (09:15→17:30)
[2017-03-28] MEDS ORDERED: NON-FORMULARY NEW DRUG (Ondansetron Hcl [Zofran] 8 MG) PO PRN (09:18)
[2017-03-28] MEDS ORDERED: SUMAtriptan 50 MG TAB PO PRN (09:18)
[2017-03-28] MEDS ORDERED: PROTOCOL MAGNESIUM 1 DOSE IV PRN (09:31)
[2017-03-28] MEDS ORDERED: PROTOCOL POTASSIUM 1 DOSE MISC PRN (09:31)
--- NOTE | 2017-03-28 10:28 | PDCONSULT ---
Membership Sales Manager Note: Assessment/Plan: BONITA on CKD 3: Pt with baseline Cr of 1.0, which is still fairly advanced renal disease given her small stature and poor musculature. Her Cr is now up to 2.2, note that her BUN is still quite low, suggestive of very poor nutrition overall. Likely prerenal vs ATN in setting of chronic diarrhea and poor po intake. - Agree with giving IVFs. - Will continue to monitor closely. - Avoid hypotension, MOM, morphine, demerol, NSAIDs, contrast, aminoglycosides , fleets, ACEI/ARB, and other nephrotoxins. Hypokalemia: Pt has had multiple admissions now with markedly decreased potassium that is likely due to diarrhea, poor po intake and poor absorption. Urine potassium in the past has been low, suggestive that her kidneys are appropriately trying to conserve potassium. - Will continue to aggressively replete today. - Will continue to monitor q4h. - This will continue to be a recurrent problem until her nutrition status improves, which is a complicated problem for her. Metabolic acidosis: likely a combination of BONITA as well as GI losses. - Will not directly give bicarb at this time given her severe hypokalemia, will plan to once K is improved. - Will give IVFs as above, may improve slowly as BONITA improves as well. Hypomagnesemia: Pt given Mag sulfate 4g IV total today, will continue to monitor daily and replete as needed. Thank you for the interesting consult. Nephrology will continue to follow, please call if you have any additional questions or concerns. H & P Stated Complaint: weak dizzy malnourished HPI/ROS: HPI: Ms. Ochoa is a 46 yo F with h/o abdominal surgery who presents with complaints of feeling poorly since yesterday, has been dizzy and very weak. 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 She has had issues with nutrition since , had been on TPN but developed fungemia and it was stopped. She was hospitalized last month with N/V and at that time had hypokalemia with K down to 1.9, severe metabolic acidosis and BONITA with Cr up to 1.9, all improved with fluids and supplementation and Cr down to 1.0, her baseline, by time of discharge. Pt notes that she eats regularly but has a lot of diarrhea chronically due to her short bowel segment. She now presents with K again down to 1.9, CO2 of 6, and Cr up to 2.2. In ER, pt was given KCl 20meq IV, mag sulfate 2g IV and 2L NS. Pt is tearful and notes she feels scared, "doesn't want to ." ROS: Positive per HPI, rest of 10-point ROS negative - Personal History Current Tetanus/Diphtheria Vaccine: Yes Current Tetanus Diphtheria and Acellular Pertussis (TDAP): Yes Tetanus Vaccine Date: 2010 - Medical/Surgical History Hx Asthma: No Hx Chronic Respiratory Disease: No Hx Diabetes: No Hx Cardiac Disease: No Hx Renal Disease: No Hx Cirrhosis: No Hx Alcoholism: No Hx HIV/AIDS: No Hx Splenectomy or Spleen Trauma: No Other PMH: small intestine surgery, PEG tube placement, ileostomy, anorexia, bipolar, kidney stones, UTI - Family History Significant Family History: No pertinent family hx - Social History Smoking Status: Current every day smoker - Physical Exam Exam: General: alert and oriented, mild distress, cachectic Eyes: EOMI, PERRL, sclerae nonicteric OP: Clear, dry mucous membranes Neck: supple, no thyromegaly CV: RRR, +2/4 dorsalis pedis pulses, no peripheral edema Resp: CTA bilat, nonlabored respirations Abd: Soft, NT/ND Neuro: CN II-XII grossly intact, no asterixis Psych: cooperative, tearful and frightened Skin: C/D/I, no rash Constitutional: Initial Vital Signs Temperature (C) 36.3 C 03/28/17 04:30 Heart Rate 77 03/28/17 04:30 Respiratory Rate 18 03/28/17 04:30 Blood Pressure 103/64 03/28/17 04:30 O2 Sat (%) 97 03/28/17 04:30 O2 Delivery Mode Room Air Allergies/Adverse Reactions: amoxicillin Allergy (Intermediate, Verified 03/05/17 20:50) Abdominal Pain lamotrigine Allergy (Unknown, Verified 03/05/17 20:50) Rash Home Medications: Medication Instructions Recorded traZODone [traZODone 150MG (*)] 150 mg PO HS PRN 02/22/16 Ibuprofen [Motrin (*)] 400 mg PO BID PRN 11/28/16 Pregabalin [Lyrica 50mg (*)] 50 mg PO TID 11/28/16 SUMAtriptan [Imitrex 50 MG (*)] 50 mg PO DAILY PRN #0 tab 12/04/16 Warfarin Sodium [Coumadin 5MG (*)] 5 mg PO DAILY16 01/24/17 Herbals/Supplements -Info Only 1 ea PO DAILY 03/05/17 Ondansetron HCl [Zofran] 8 mg PO DAILY PRN 03/05/17 Pantoprazole Sodium [Protonix 40mg 40 mg PO DAILY 03/05/17 (*)] Potassium Cl [Klor-Con] 10 meq PO DAILY 03/28/17 Lab and Imaging 03/28/17 05:30 03/28/17 05:30 WBC 19.07 10^3/uL (3.80-9.50) H 03/28/17 05:30 RBC 5.58 10^6/uL (4.18-5.33) H 03/28/17 05:30 Hgb 13.1 g/dL (12.6-16.3) 03/28/17 05:30 Hct 40.7 % (38.0-47.0) 03/28/17 05:30 MCV 72.9 fL (81.5-99.8) L 03/28/17 05:30 MCH 23.5 pg (27.9-34.1) L 03/28/17 05:30 MCHC 32.2 g/dL (32.4-36.7) L 03/28/17 05:30 RDW 24.8 % (11.5-15.2) H 03/28/17 05:30 Plt Count 300 10^3/uL (150-400) 03/28/17 05:30 MPV 9.0 fL (8.7-11.7) 03/28/17 05:30 Neut % (Auto) 82.7 % (39.3-74.2) H 03/28/17 05:30 Lymph % (Auto) 11.7 % (15.0-45.0) L 03/28/17 05:30 Pennington % (Auto) 4.5 % (4.5-13.0) 03/28/17 05:30 Eos % (Auto) 0.1 % (0.6-7.6) L 03/28/17 05:30 Baso % (Auto) 0.3 % (0.3-1.7) 03/28/17 05:30 Nucleat RBC Rel Count 0.0 % (0.0-0.2) 03/28/17 05:30 Absolute Neuts (auto) 15.77 10^3/uL (1.70-6.50) H 03/28/17 05:30 Absolute Lymphs (auto) 2.24 10^3/uL (1.00-3.00) 03/28/17 05:30 Absolute Monos (auto) 0.85 10^3/uL (0.30-0.80) H 03/28/17 05:30 Absolute Eos (auto) 0.02 10^3/uL (0.03-0.40) L 03/28/17 05:30 Absolute Basos (auto) 0.06 10^3/uL (0.02-0.10) 03/28/17 05:30 Absolute Nucleated RBC 0.00 10^3/uL (0-0.01) 03/28/17 05:30 Immature Gran % 0.7 % (0.0-1.1) 03/28/17 05:30 Immature Gran # 0.13 10^3/uL (0.00-0.10) H 03/28/17 05:30 Platelet Estimate ADEQUATE (ADEQ) 03/28/17 05:30 Hypochromasia 1+ H 03/28/17 05:30 Microcytic Cells 1+ H 03/28/17 05:30 Echinocytes 1+ H 03/28/17 05:30 Acanthocytes (Spur) 1+ H 03/28/17 05:30 PT 16.3 SEC (12.0-15.0) H 03/28/17 05:30 INR 1.31 (0.83-1.16) H 03/28/17 05:30 APTT 31.2 SEC (23.0-38.0) 03/28/17 05:30 Sodium 137 mEq/L (134-144) 03/28/17 05:30 Potassium 1.9 mEq/L (3.5-5.2) L* 10/06/17 05:30 Chloride 112 mEq/L (97-110) H 03/28/17 05:30 Carbon Dioxide 6 mEq/l (22-31) L* 03/28/17 05:30 Anion Gap 19 mEq/L (8-16) H 03/28/17 05:30 BUN 7 mg/dL (7-23) 03/28/17 05:30 Creatinine 2.2 mg/dL (0.6-1.0) H 03/28/17 05:30 Estimated GFR 24 03/28/17 05:30 Glucose 91 mg/dL (70-100) 03/28/17 05:30 Calcium 9.0 mg/dL (8.5-10.4) 03/28/17 05:30 Magnesium 1.4 mg/dL (1.6-2.3) L 03/28/17 05:30 Total Bilirubin 0.3 mg/dL (0.1-1.4) 03/28/17 05:30 Conjugated Bilirubin 0.3 mg/dL (0.0-0.5) 03/28/17 05:30 Unconjugated Bilirubin 0.0 mg/dL (0.0-1.1) 03/28/17 05:30 AST 20 IU/L (14-46) 03/28/17 05:30 ALT 35 IU/L (9-52) 03/28/17 05:30 Alkaline Phosphatase 96 IU/L (38-126) 03/28/17 05:30 Total Protein 5.8 g/dL (6.3-8.2) L 03/28/17 05:30 Albumin 3.1 g/dL (3.5-5.0) L 03/28/17 05:30 Lipase 568 IU/L (23-300) H 03/28/17 05:30 Beta HCG, Qual NEGATIVE 03/28/17 05:30 Urine Color PALE YELLOW 03/28/17 05:00 Urine Appearance HAZY 03/28/17 05:00 Urine pH 5.0 (5.0-7.5) 03/28/17 05:00 Ur Specific Goehner 1.003 (1.002-1.030) 03/28/17 05:00 Urine Protein NEGATIVE (NEGATIVE) 03/28/17 05:00 Urine Ketones NEGATIVE (NEGATIVE) 03/28/17 05:00 Urine Blood 2+ (NEGATIVE) H 03/28/17 05:00 Urine Nitrate NEGATIVE (NEGATIVE) 03/28/17 05:00 Urine Bilirubin NEGATIVE (NEGATIVE) 03/28/17 05:00 Urine Urobilinogen NEGATIVE EU (0.2-1.0) 03/28/17 05:00 Ur Leukocyte Esterase 1+ (NEGATIVE) H 03/28/17 05:00 Urine RBC 5-10 /hpf (0-3) H 03/28/17 05:00 Urine WBC 50-182 /hpf (0-3) H 03/28/17 05:00 Ur Epithelial Cells TRACE /lpf (NONE-1+) 03/28/17 05:00 Urine Bacteria TRACE /hpf (NONE SEEN) H 03/28/17 05:00 Urine Mucus TRACE /lpf (NONE-1+) 03/28/17 05:00 Urine Glucose NEGATIVE (NEGATIVE) 03/28/17 05:00 Ethyl Alcohol < 10 mg/dL (0-10) 03/28/17 05:30 EKG Interpretation: Positive for: other (U waves)
--- NOTE | 2017-03-28 10:59 | GHP ---
[f rep st] HISTORY AND PHYSICAL DATE OF ADMISSION: 03/28/2017 HISTORY OF PRESENT ILLNESS: The patient is a pleasant 46-year-old female with a history of anorexia and bulimia, multiple abdominal surgeries, short gut syndrome, SMA stent thrombosis, who presents with weakness. She was in the hospital 3 weeks ago and left against medical advice. She presented at that time with hyperkalemia and metabolic acidosis. The patient states that she has been eating well, but she has difficult time absorbing them secondary to short gut syndrome. Previous notes comment that she has about 20 cm of small intestine remaining. She has liquid stool. She has not had fever, chills. She has not had urgency, frequency, dysuria. She has not had palpitations, she has not passed out. She is currently living with parents. She is set to start work next week. She continues to smoke about 4 cigarettes per day. She is not having abdominal pain or vomiting. Notably, she states that her eating disorder behavior is all about 5 years ago, and she has mostly been dealing with the sequelae of her surgeries, etc. REVIEW OF SYSTEMS: A complete 10-point review of systems conducted and negative , except as noted in the HPI. PAST MEDICAL HISTORY: 1. Anorexia, bulimia. 2. Anxiety disorder. 3. Bipolar type 1, with an extended hospitalization in 2012. 4. Chronic kidney disease stage 3 with nephrocalcinosis, baseline creatinine of 1.1 to 1.2. 5. Renal artery stenosis with a 60% stenosis on the right. 6. Reflux disease. 7. Hernadez's. 8. Protein C deficiency with SMA thrombosis, and iliac artery thrombosis. 9. 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 10. Anastomotic leak and fungemia in August of 2016. 11. Fungemia secondary to TPN recently. 12. History of UTI. 13. Recurrent hyperkalemia with cardiac arrest. 14. Severe malnutrition on TPN from September 06 until recently. She has had a SMA stent, a left axillary stent, a previous history of ostomy that has been reversed. FAMILY HISTORY: Mother had breast cancer, vertebral artery stenting. SOCIAL HISTORY: She is an every day smoker. It is possible she drinks a bottle of wine every other day. ALLERGIES: Amoxicillin and lamotrigine. HOME MEDICATIONS: Ibuprofen, ondansetron, pantoprazole, potassium, pregabalin, sumatriptan, trazodone, warfarin. She denies taking surreptitious diuretics at this point in time. PHYSICAL EXAMINATION: VITAL SIGNS: Presenting vitals: Temp 36.8, blood pressure 104/68, pulse 68, breathing 18 times a minute, 96% on room air. GENERAL: Chronically ill-appearing, cachectic, pleasant. HEENT: Sclerae anicteric. Oropharynx clear. Mucous membranes moist. NECK: Supple without lymphadenopathy or JVD. LUNGS: Clear to auscultation bilaterally. HEART: S1 , S2, without murmur. ABDOMEN: Soft. There is a well-healed midline scar. 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 A very small suture is sticking out of it. LOWER EXTREMITIES: Without edema. Calves nontender. SKIN: Without rash. NEUROLOGIC: Nonfocal. LABS: White count 19, hematocrit 40, MCV is low at 73, platelets are 300,000. Her hematocrit is greater than baseline, but other than that the numbers are all sort of at baseline. Her INR is low at 1.3, it was 2.5 on discharge recently. Sodium 137, potassium 1.9, chloride 112, bicarb 6, BUN 7, creatinine 2.2. Magnesium is 1.4. Albumin 3.1, lipase is 568. Beta HCG is negative. UA shows 50 to 180 white cells. EKG: Interpreted by me, shows sinus at 64, with left axis deviation. There are no ST or T-wave changes. She does have U-waves across the precordium. Chest x-ray: Interpreted by me, shows no acute cardiopulmonary disease, a very thin patient. Repeat chest x-ray shows a right IJ central line in place, that appears to be in the right ventricle. I have discussed the case with Dr. Jose Hayes and Dr. Augie Schmidt. ASSESSMENT/PLAN: A 46-year-old female, with presumed quiescent anorexia and short-gut syndrome, presents with metabolic acidosis, severe hyperkalemia. 1. Hyperkalemia. I suspect this is secondary to diarrhea. I cannot rule out surreptitious Lasix abuse, particularly in light of the kidney injury. We will go ahead and replete her with potassium and put her on a potassium protocol. She warrants telemetry monitoring at the basis of her U-waves. 2. Central line placement. This is way too deep, I have spoke with Dr. Hayes , who is going to pull it back. She requires monitor. 3. Acute kidney injury. I suspect this is hypovolemic, we will volume resuscitate her. 4. Metabolic acidosis. This is presumed secondary to bicarbonate loss in the urine and anion gap as noted, there may be some ketosis, and/or uremia with that. I have reached out to Nephrology to see the patient in consultation. I will repeat a chem-7, here at 1 p.m. She has received bicarb in the past, I am going to hold off on this and see what happens with resuscitation. 5. History of arterial thrombotic events, with subtherapeutic INR. We will go ahead and give her weight based enoxaparin. 6. Eating disorder. It is not clear the exact status of this, certainly her recurrent presentation is concerning for recrudescence eating disorder behavior , she claims she is eating. We will follow. 7. Disposition: ICU, critically ill. 8. pyuria: no symptoms will follow off abx ceftriaxone in er noted /[id number]/MODL MTDD
--- NOTE | 2017-03-28 12:04 | ASMTCASEMG ---
Living Arrangements What is your living Answers: With Partner arrangement? Who do you live with? Type Of Residence What kind of residence do Answers: House you live in? Stairs in Home Answers: Yes Environment Services Used Prior to Admission Community Services Used Answers: [facility] Prior to Admission Case Management Evaluation Functional: Able to Answers: No return Home with Prior Level of Function/Care Psychosocial Needs: Answers: Behavioral Health Issue Notes: Continued treatment needed in addition to medical care Discharge Plan Comments Coordination Status Comments Notes: Pt. presented in [facility] for "global weakness", malnutrition, protein deficiency, UTI, leukocytosis and failure to thrive. Pt has a history of short gut syndrome and anorexia. Pt indicated anorexia began at the age of 20. She reported HX of treatment from three ED facilities including [facility]. According to the pt, she has a live in yuryienRanjit sanchez who she refers to as her . They currently live in a home with stairs and he provides much of the care for her. He was not present in FED. Pt stated that she has a history of bipolar disorder; she takes Trazodone for sleep and Zyprexa. She is reported that her prescriber is Kimberly Coates from [facility]. By her account she sees Kimberly every 4 months for medication management and every two weeks for therapy. Pt estimated that she consumes 3500 calories per day (around 1,000 calories per meal). She stated that she does not use drugs or alcohol. Pt stated that she would like a "G tube" to help her because she is concerned for her health. She stated that she would "like someone to follow her around and make sure she is ok" at home. She indicated that her typically does it but she is often unstable on her feet and feels like she needs additional help. Pt stated that she is in the process of filing for unemployment and her does not work. DC plans TBD CM to follow. Date Signed: 03/28/2017 12:04 PM Electronically Signed By:Yair Cabrera LCSW
[2017-03-28] MEDS: POTASSIUM Cl (KCl) 100 ML IV SCH ×9 (13:39→23:28)
[2017-03-28] MEDS: NICOTINE 7 MG/24 HR PATCH TD SCH (13:45)
[2017-03-28 15:40] LABS: ANION GAP 14 mEq/L (8-16); CALCIUM 7.5 mg/dL (8.5-10.4); CHLORIDE 114 mEq/L (97-110); CREATININE 1.9 mg/dL (0.6-1.0); GLOMERULAR FILTRATION RATE 29; GLUCOSE 85 mg/dL (70-100); SODIUM 135 mEq/L (134-144)
[2017-03-28 15:57] LABS: POTASSIUM 2.3 mEq/L (3.5-5.2)
[2017-03-28 15:58] LABS: CARBON DIOXIDE 7 mEq/l (22-31)
[2017-03-28] MEDS ORDERED: POTASSIUM Cl (KCl) 50 ML IV SCH (15:58)
[2017-03-28 16:10] LABS: CHLORIDE 113 mEq/L (97-110); CREATININE 1.8 mg/dL (0.6-1.0); GLOMERULAR FILTRATION RATE 31
--- NOTE | 2017-03-28 16:10 | WOCRNPDOC ---
WOCRN Advanced Assessment Note - Skin Integrity Problem, Advanced Assess Medial Back Pressure Injury Dressing Type: Allevyn Life Dressing Description: Intact Exudate Amount: None Exudate Characteristic(s): None Integumentary Issue Intervention: Visualized Under Dressing Carol Wound Tissue: Blanching, Intact Carol Wound Swelling: None Pressure Injury Stage: Stage 1 (distal), Stage 2 (proximal) Pressure Injury Present on Admit: Yes Skin Integrity Problem Comment: Two discrete, healed pressure injuries over patient's thoracic spine. These were documented during a previous admission in January 2017 as a stage 1(distal) and stage 2 (proximal). Presently both sites are fully epithelialized and blanching. Carol-wound skin is also intact. However , due to patient's extremely low BMI, and her history of wounds, I am initiating pressure-relieving interventions. Nursing placed an Allevyn Life foam dressing for protection, which is appropriate. In addition, she is currently on a pressure-relieving support surface. Report given to wildlife biostation research ecologistMADAI Worthington. Wound care does not need to follow ongoing; nursing should reconsult PRN. Bilateral Buttock Dressing Type: Open to Air Exudate Amount: None Exudate Characteristic(s): None Carol Wound Tissue: Blanching, Erythema, Intact Carol Wound Swelling: None Site Measurement - Head-to-Toe Length X Width X Depth (cm): Blanching erythema noted across patient's bilateral buttocks. Per her report, she has been experiencing diarrhea which could account for the redness. She declined application of dimethicone barrier cream during my assessment. Informed wildlife biostation research ecologistMADAI Worthington, who will initiate a skin risk assessment so that nursing will continue to monitor ongoing. Please reconsult wound care if site worsens.
[2017-03-28 16:22] LABS: ANION GAP 11 mEq/L (8-16); CALCIUM 7.3 mg/dL (8.5-10.4); GLUCOSE 99 mg/dL (70-100); LACTATE DEHYDROGENASE 431 IU/L (313-618); SODIUM 132 mEq/L (134-144)
--- NOTE | 2017-03-28 16:23 | PDMN ---
Medical Necessity Medical necessity: CM review: est los >2 mn for metabolic acidosis & severe hyperkalemia, for monitoring, electrolyte replacement & IV fluids. Comorbidities include anorexia, bulimia, multiple abdominal surgeries, short gut syndrome, SMA stent thrombosis, CKD, severe malnutrition & recurrent hyperkalemia w/cardiac arrest; per H&P & order 03/28/17.
[2017-03-28 16:51] LABS: POTASSIUM 2.6 mEq/L (3.5-5.2)
[2017-03-28] MEDS: ENOXAPARIN 30 MG/0.3 ML SYR SC SCH ×2 (18:27→19:53)
[2017-03-28] MEDS: PREGABALIN 50 MG CAP PO SCH ×2 (18:29→22:56)
[2017-03-28] MEDS: WARFARIN SODIUM 5 MG TAB PO SCH (18:45)
[2017-03-28] MEDS: ACETAMINOPHEN 325 MG TAB PO PRN (19:52)
[2017-03-28 21:34] LABS: CARBON DIOXIDE 8 mEq/l (22-31)
[2017-03-28 21:36] LABS: ANION GAP 10 mEq/L (8-16); CALCIUM 7.4 mg/dL (8.5-10.4); CHLORIDE 118 mEq/L (97-110); CREATININE 1.7 mg/dL (0.6-1.0); GLOMERULAR FILTRATION RATE 33; GLUCOSE 102 mg/dL (70-100); SODIUM 137 mEq/L (134-144)
[2017-03-28 21:46] LABS: CARBON DIOXIDE 9 mEq/l (22-31); POTASSIUM 2.6 mEq/L (3.5-5.2)
[2017-03-28] MEDS: IBUPROFEN 200 MG TAB PO PRN (23:52)
[2017-03-29 01:09] LABS: ANION GAP 13 mEq/L (8-16); CALCIUM 7.4 mg/dL (8.5-10.4); CHLORIDE 120 mEq/L (97-110); CREATININE 1.5 mg/dL (0.6-1.0); GLOMERULAR FILTRATION RATE 38; GLUCOSE 67 mg/dL (70-100); POTASSIUM 3.1 mEq/L (3.5-5.2); SODIUM 142 mEq/L (134-144)
[2017-03-29 01:15] LABS: CARBON DIOXIDE 9 mEq/l (22-31)
[2017-03-29] MEDS: POTASSIUM Cl (KCl) 50 ML IV SCH ×4 (01:29→06:09)
[2017-03-29 04:23] LABS: INR 1.6 (0.83-1.16); PROTIME(PATIENT) 19.1 SEC (12.0-15.0)
[2017-03-29 04:29] LABS: ANION GAP 9 mEq/L (8-16); CALCIUM 7.5 mg/dL (8.5-10.4); CHLORIDE 122 mEq/L (97-110); CREATININE 1.5 mg/dL (0.6-1.0); GLOMERULAR FILTRATION RATE 38; GLUCOSE 77 mg/dL (70-100); MAGNESIUM 1.8 mg/dL (1.6-2.3); POTASSIUM 3.3 mEq/L (3.5-5.2); SODIUM 140 mEq/L (134-144)
[2017-03-29 04:32] LABS: % IMMATURE GRANULYOCYTES 0.6 % (0.0-1.1); ADD DIFF? NO; ADD MORPH? YES; ADD SCAN? NO; ATYPICAL LYMPHOCYTE FLAG 0 (0-99); FRAGMENT RBC FLAG 60 (0-99); HEMATOCRIT 30.7 % (38.0-47.0); HEMOGLOBIN 10.1 g/dL (12.6-16.3); LEFT SHIFT FLG 0 (0-99); LIPEMIA HEMOLYSIS FLAG 80 (0-99); MEAN CELL HEMOGLOBIN CONCENTR. 32.9 g/dL (32.4-36.7); MEAN CELL VOLUME 73.1 fL (81.5-99.8); PLATELET CLUMPS FLAG 0 (0-99); PLATELET COUNT 209 10^3/uL (150-400)
[2017-03-29 04:36] LABS: CARBON DIOXIDE 9 mEq/l (22-31)
[2017-03-29 04:38] LABS: RED CELL DISTRIBUTION WIDTH 24.5 % (11.5-15.2)
[2017-03-29] MEDS ORDERED: MAGNESIUM SULF 1 GM/DEXTROSE 100 ML IV ONE (04:42)
[2017-03-29 05:15] LABS: MICROCYTES 1+
[2017-03-29 05:16] LABS: ACANTHOCYTES 1+; ECHINOCYTES 1+; HYPOCHROMIA 1+; PLATELET ESTIMATE ADEQUATE (ADEQ)
[2017-03-29] MEDS: PANTOPRAZOLE SODIUM 40 MG TAB PO SCH ×2 (06:12→07:05)
[2017-03-29] MEDS ORDERED: POTASSIUM CL 10 MEQ TAB PO SCH (09:00)
[2017-03-29 09:38] LABS: ANION GAP 9 mEq/L (8-16); CALCIUM 7.4 mg/dL (8.5-10.4); CHLORIDE 120 mEq/L (97-110); CREATININE 1.4 mg/dL (0.6-1.0); GLOMERULAR FILTRATION RATE 41; GLUCOSE 68 mg/dL (70-100); POTASSIUM 3.4 mEq/L (3.5-5.2); SODIUM 138 mEq/L (134-144)
[2017-03-29 09:47] LABS: CARBON DIOXIDE 9 mEq/l (22-31)
[2017-03-29] MEDS ORDERED: POTASSIUM CL 20 MEQ/15 ML UDCUP PO ONE (09:50)
--- NOTE | 2017-03-29 10:09 | HOSPPROG ---
Hospitalist Progress Note Assessment/Plan: 46 yo F w anorexia/bulimia/short gut syndrome here w weakness, AGMA, severe hypokalemia hypokalemia: improving w replacement no arrhythmia (tele interp by me) hypomagnesemia: improving acidosis: bicarb loss from short gut +/- ketosis improving ? role of po bicarb SMA thrombosis: on warfarin w subtherapeutic inr these events happened this year [facility] proph: anticoagulated dispo: inpt to floor w tele Subjective: case d/w dwayne villalpando and jeevan. eating. denies f/c/urinary sx Objective: Vital Signs Temp Pulse Resp BP Pulse Ox 36.5 C 79 22 H 102/59 L 100 03/29/17 05:07 03/29/17 05:07 03/29/17 05:07 03/29/17 03:17 03/29/17 05:07 Laboratory Results 03/29/17 04:05 03/29/17 Unknown 03/28/17 03/29/17 03/30/17 05:59 05:59 05:59 Intake Total 5797 Output Total 4000 Balance 1797 PT 19.1 SEC (12.0-15.0) H 03/29/17 04:05 INR 1.60 (0.83-1.16) H 03/29/17 04:05 - Physical Exam Constitutional: no apparent distress, chronically ill appearing, cachectic, No appears nourished Eyes: PERRL, anicteric sclera Ears, Nose, Mouth, Throat: moist mucous membranes, hearing normal Cardiovascular: regular rate and rhythym, no murmur, rub, or gallop, No systolic murmur Respiratory: no respiratory distress, no rales or rhonchi Gastrointestinal: normoactive bowel sounds, soft, non-tender abdomen, No guarding, No rebound Genitourinary: no bladder fullness, No mckenzie in urethra Skin: warm, normal color Musculoskeletal: full muscle strength, no muscle tenderness Neurologic: AAOx3 ICD10 Worksheet Patient Problems: Problems Problem Status Onset Acidosis Acute Acute kidney injury Acute Dehydration Acute Generalized weakness Acute Hypokalemia Acute Malnutrition Acute Protein deficiency Acute UTI (urinary tract infection) Acute Anorexia nervosa Active Bulemia Nervosa Active Chronic vomiting Active Coumadin Therapy for 6 months Active GERD - Gastroesophageal reflux disease Active Hypokalemia Active Hyponatremia Active Leukocytosis Active Occlusion of artery Active Renal artery stenosis Active Thrombocytosis Active Tobacco user Active Abdominal pain Acute Acute hypokalemia Acute Dehydration Acute Diarrhea Acute Excoriation Acute Hypokalemia Acute Lactic acid acidosis Acute Mesenteric thrombosis Acute Nausea & vomiting Acute Renal failure Acute Renal insufficiency Acute SBO (small bowel obstruction) Acute
[2017-03-29] MEDS: NICOTINE 7 MG/24 HR PATCH TD SCH (10:18)
[2017-03-29] MEDS: PREGABALIN 50 MG CAP PO SCH ×3 (10:19→20:09)
[2017-03-29] MEDS: IBUPROFEN 200 MG TAB PO PRN (10:19)
[2017-03-29] MEDS: ENOXAPARIN 30 MG/0.3 ML SYR SC SCH ×2 (10:32→20:02)
[2017-03-29] MEDS: WARFARIN SODIUM 5 MG TAB PO SCH (15:28)
[2017-03-29] MEDS: LORazepam 1 MG TAB PO PRN ×2 (15:28→20:09)
[2017-03-29] MEDS: ONDANSETRON 4 MG/2 ML VIAL IVP PRN (17:20)
[2017-03-29 18:15] LABS: ANION GAP 10 mEq/L (8-16); CALCIUM 7.9 mg/dL (8.5-10.4); CARBON DIOXIDE 10 mEq/l (22-31); CHLORIDE 124 mEq/L (97-110); CREATININE 1.2 mg/dL (0.6-1.0); GLOMERULAR FILTRATION RATE 49; GLUCOSE 84 mg/dL (70-100); POTASSIUM 3.1 mEq/L (3.5-5.2); SODIUM 144 mEq/L (134-144)
--- NOTE | 2017-03-29 18:52 | ASMTCMCOM ---
CM Note CM Note Notes: Rec'd call from Aleksandra Sommers ([phone]) who sees pt as her out pt therapist. Aleksandra reported that pt has been in/out of hospitals several times in last few months and that she has complicated hx. Aleksandra said pt currently lives at home with her mother and father (which is different from ED CM note) and that she has had many recent stressors in addition to her medical issues. Aleksandra and pt's mom plan to come in tomorrow am to discuss possible next steps when dc'd from hospital. Aleksandra inquired about SNF palcement. PT/OT recs today were for [facility] (OT suggesting w/24 hr supervision) but perhaps she could do SNF rehab for medical reasons r/t her failure to thrive/eating disorder. CM can meet w/pt to discuss possible dc poc but will first allow Tory Sommers and Mom to meet with her in morning to discuss their thoughts. Please see ED CM note for more info. SHARONDA w/f. Date Signed: 03/29/2017 06:51 PM Electronically Signed By:Laverne Feldman RN
--- NOTE | 2017-03-29 19:21 | SOAPPROG ---
SOAP Progress Note Assessment/Plan: Assessment: 1. arf: better with ivf, appears to be essentially at her b/l though she has has periods where her creatinine has been completely normal. She would like to avoid further ivf. If creat appears to be trending up tomorrow will probably have to resume, though endpoint of that would not be clear. 2. hypokalemia: much better, will start po supplement. Unclear how effectively this will be absorbed. No need for frequent labs at this point. 3. met acidosis: improved, supplementation has been deferred to avoid exacerbating hypoK. Now that this has improved will start mike bicarb. Sodium load in this may help maintain volume status as well. 4. short gut: difficult situation, I am uncertain what options are available for her. Plan: 03/29/17 19:18 Subjective: Having diarrhea. Wants to be off ivf. No problems taking po. Objective: Vital Signs Temp Pulse Resp BP Pulse Ox 36.5 C 78 24 H 102/59 L 100 03/29/17 05:07 03/29/17 11:32 03/29/17 11:32 03/29/17 03:17 03/29/17 05:07 Laboratory Results 03/29/17 04:05 03/29/17 Unknown 03/28/17 03/29/17 03/30/17 05:59 05:59 05:59 Intake Total 5797 1300 Output Total 4000 Balance 1797 1300 PT 19.1 SEC (12.0-15.0) H 03/29/17 04:05 INR 1.60 (0.83-1.16) H 03/29/17 04:05 Physical Exam - Physical Exam General Appearance: no apparent distress, cachetic Respiratory: lungs clear Cardiac/Chest: regular rate, rhythm Extremities: pedal edema (none) ICD10 Worksheet Patient Problems: Problems Problem Status Onset Acidosis Acute Acute kidney injury Acute Dehydration Acute Generalized weakness Acute Hypokalemia Acute Malnutrition Acute Protein deficiency Acute UTI (urinary tract infection) Acute Anorexia nervosa Active Bulemia Nervosa Active Chronic vomiting Active Coumadin Therapy for 6 months Active GERD - Gastroesophageal reflux disease Active Hypokalemia Active Hyponatremia Active Leukocytosis Active Occlusion of artery Active Renal artery stenosis Active Thrombocytosis Active Tobacco user Active Abdominal pain Acute Acute hypokalemia Acute Dehydration Acute Diarrhea Acute Excoriation Acute Hypokalemia Acute Lactic acid acidosis Acute Mesenteric thrombosis Acute Nausea & vomiting Acute Renal failure Acute Renal insufficiency Acute SBO (small bowel obstruction) Acute
[2017-03-29] MEDS: POTASSIUM CL 20 MEQ TAB PO SCH (20:09)
[2017-03-29] MEDS: SODIUM BICARBONATE 650 MG TAB PO SCH (20:09)
[2017-03-30 05:03] LABS: INR 2.61 (0.83-1.16); PROTIME(PATIENT) 28.2 SEC (12.0-15.0)
[2017-03-30] MEDS: IBUPROFEN 200 MG TAB PO PRN (05:43)
[2017-03-30] MEDS: LORazepam 1 MG TAB PO PRN ×2 (05:44→14:24)
[2017-03-30] MEDS: PREGABALIN 50 MG CAP PO SCH ×3 (08:06→19:34)
[2017-03-30] MEDS: NICOTINE 7 MG/24 HR PATCH TD SCH (08:06)
[2017-03-30] MEDS: POTASSIUM CL 20 MEQ TAB PO SCH ×3 (08:06→19:35)
[2017-03-30] MEDS: PANTOPRAZOLE SODIUM 40 MG TAB PO SCH (08:06)
[2017-03-30] MEDS: SODIUM BICARBONATE 650 MG TAB PO SCH ×3 (08:06→19:34)
[2017-03-30] MEDS: ENOXAPARIN 30 MG/0.3 ML SYR SC SCH (08:13)
[2017-03-30 10:08] LABS: ANION GAP 8 mEq/L (8-16); CALCIUM 8.1 mg/dL (8.5-10.4); CARBON DIOXIDE 10 mEq/l (22-31); CHLORIDE 123 mEq/L (97-110); CREATININE 1.2 mg/dL (0.6-1.0); GLOMERULAR FILTRATION RATE 49; GLUCOSE 79 mg/dL (70-100); SODIUM 141 mEq/L (134-144)
[2017-03-30 10:19] LABS: POTASSIUM 2.6 mEq/L (3.5-5.2)
[2017-03-30] MEDS ORDERED: MAGNESIUM SULF 1 GM/DEXTROSE 100 ML IV ONE (12:04)
[2017-03-30 13:12] LABS: ANION GAP 12 mEq/L (8-16); CHLORIDE 124 mEq/L (97-110); CREATININE 1.2 mg/dL (0.6-1.0); GLOMERULAR FILTRATION RATE 49; GLUCOSE 93 mg/dL (70-100); POTASSIUM 2.4 mEq/L (3.5-5.2); SODIUM 144 mEq/L (134-144)
[2017-03-30 13:18] LABS: CARBON DIOXIDE 8 mEq/l (22-31)
[2017-03-30] MEDS: POTASSIUM Cl (KCl) 100 ML IV SCH ×5 (13:52→17:26)
--- NOTE | 2017-03-30 14:11 | ASMTCMCOM ---
CM Note CM Note Notes: Spoke with Aleksandra Matthieu this morning re d/c plan options for pt. Aleksandra follows pt outside of [facility] and would like to see her go to a SNF to be in a structured environment to receive proper nutrition, medications, and monitoring of her lab work. Aleksandra said pt was agreeable to a (total) 30 day SNF stay. PT feels she would benefit from continued PT for her debilitation 2/2 malnutrition, not necessarily in a SNF setting though. It is doubtful a SNF will accept pt, however, a ULTC 100 and SNF referral has been started but not sent. Spoke with pt who appeared ambivalent about going, initially saying she really doesn't want to go to a SNF. A f/u discussion with pt, Aleksandra and CM may be helpful in finalizing a d/c poc that will be appropriate for pt. Date Signed: 03/30/2017 02:10 PM Electronically Signed By:KENNETH Wilburn
--- NOTE | 2017-03-30 15:16 | HOSPPROG ---
Hospitalist Progress Note Assessment/Plan: 46 yo F w anorexia/bulimia/short gut syndrome here w weakness, AGMA, severe hypokalemia hypokalemia: improving w replacement no arrhythmia (tele interp by me) worse today, probably from po bicarb inititation hypomagnesemia: improving acidosis: bicarb loss from short gut +/- ketosis improving po bicarb started SMA thrombosis: inr now therapeutic proph: anticoagulated dispo: inpt to floor w tele Subjective: multiple dishes at bedside indicative of po intake. mostly pudding. case d/w dr oliveira Objective: Vital Signs Temp Pulse Resp BP Pulse Ox 36.9 C 69 20 105/74 95 03/30/17 07:27 03/30/17 07:27 03/30/17 07:27 03/30/17 07:27 03/30/17 07:27 Microbiology 03/30/17 01:13 Gastrointestinal Tract Panel (PCR) - Final Stool No Organism Detected Laboratory Results 03/29/17 04:05 03/30/17 12:30 03/29/17 03/30/17 03/31/17 05:59 05:59 05:59 Intake Total 5797 1300 Output Total 4000 Balance 1797 1300 PT 28.2 SEC (12.0-15.0) H D 03/30/17 04:48 INR 2.61 (0.83-1.16) H 03/30/17 04:48 - Physical Exam Constitutional: no apparent distress, appears nourished Eyes: PERRL, anicteric sclera Ears, Nose, Mouth, Throat: moist mucous membranes, hearing normal Cardiovascular: regular rate and rhythym, no murmur, rub, or gallop Respiratory: no respiratory distress, no rales or rhonchi Gastrointestinal: normoactive bowel sounds, soft, non-tender abdomen Genitourinary: no bladder fullness, No mckenzie in urethra Skin: warm, normal color Musculoskeletal: full muscle strength, no muscle tenderness Neurologic: AAOx3, sensation intact bilaterally Psychiatric: interacting appropriately ICD10 Worksheet Patient Problems: Problems Problem Status Onset Acidosis Acute Acute kidney injury Acute Dehydration Acute Generalized weakness Acute Hypokalemia Acute Malnutrition Acute Protein deficiency Acute UTI (urinary tract infection) Acute Anorexia nervosa Active Bulemia Nervosa Active Chronic vomiting Active Coumadin Therapy for 6 months Active GERD - Gastroesophageal reflux disease Active Hypokalemia Active Hyponatremia Active Leukocytosis Active Occlusion of artery Active Renal artery stenosis Active Thrombocytosis Active Tobacco user Active Abdominal pain Acute Acute hypokalemia Acute Dehydration Acute Diarrhea Acute Excoriation Acute Hypokalemia Acute Lactic acid acidosis Acute Mesenteric thrombosis Acute Nausea & vomiting Acute Renal failure Acute Renal insufficiency Acute SBO (small bowel obstruction) Acute
[2017-03-30] MEDS: WARFARIN SODIUM 5 MG TAB PO SCH (15:55)
[2017-03-30] MEDS: ONDANSETRON 4 MG/2 ML VIAL IVP PRN (15:58)
[2017-03-30 17:21] LABS: ANION GAP 10 mEq/L (8-16); CALCIUM 7.8 mg/dL (8.5-10.4); CHLORIDE 118 mEq/L (97-110); CREATININE 1.1 mg/dL (0.6-1.0); GLOMERULAR FILTRATION RATE 54; GLUCOSE 100 mg/dL (70-100); POTASSIUM 2.3 mEq/L (3.5-5.2); SODIUM 137 mEq/L (134-144)
[2017-03-30 17:34] LABS: CARBON DIOXIDE 9 mEq/l (22-31)
--- NOTE | 2017-03-30 17:37 | SOAPPROG ---
SOAP Progress Note Assessment/Plan: Assessment: 1. arf: stable s/p ivf, appears to be essentially at her b/l though she has had periods where her creatinine has been completely normal. Currently refusing add' l ivf. 2. hypokalemia: worse s/p d/c of ivf yesterday. Now refusing add'l iv supp due to nausea/pain. Will double po dose, though unclear how effectively this is being absorbed. I doubt po bicarb is having sig effect on this. Long talk re: cardiac risks of severe hypoK, despite this she refuses iv supplementation. 3. met acidosis: stable but no improvement with po supp. 4. short gut: difficult situation, she hopes to have G-tube placed in future for nocturnal feeds. Plan: 03/29/17 19:18 03/30/17 17:34 Subjective: Tearful, refusing ivf or iv KCl supplementation. Objective: Vital Signs Temp Pulse Resp BP Pulse Ox 37.3 C 69 20 105/74 95 03/30/17 15:31 03/30/17 07:27 03/30/17 07:27 03/30/17 07:27 03/30/17 07:27 Microbiology 03/30/17 01:13 Gastrointestinal Tract Panel (PCR) - Final Stool No Organism Detected Laboratory Results 03/29/17 04:05 03/29/17 03/30/17 03/31/17 05:59 05:59 05:59 Intake Total 5797 1300 550 Output Total 4000 Balance 1797 1300 550 PT 28.2 SEC (12.0-15.0) H D 03/30/17 04:48 INR 2.61 (0.83-1.16) H 03/30/17 04:48 Physical Exam - Physical Exam General Appearance: no apparent distress, cachetic Respiratory: lungs clear Cardiac/Chest: regular rate, rhythm Extremities: pedal edema (none) ICD10 Worksheet Patient Problems: Problems Problem Status Onset Acidosis Acute Acute kidney injury Acute Dehydration Acute Generalized weakness Acute Hypokalemia Acute Malnutrition Acute Protein deficiency Acute UTI (urinary tract infection) Acute Anorexia nervosa Active Bulemia Nervosa Active Chronic vomiting Active Coumadin Therapy for 6 months Active GERD - Gastroesophageal reflux disease Active Hypokalemia Active Hyponatremia Active Leukocytosis Active Occlusion of artery Active Renal artery stenosis Active Thrombocytosis Active Tobacco user Active Abdominal pain Acute Acute hypokalemia Acute Dehydration Acute Diarrhea Acute Excoriation Acute Hypokalemia Acute Lactic acid acidosis Acute Mesenteric thrombosis Acute Nausea & vomiting Acute Renal failure Acute Renal insufficiency Acute SBO (small bowel obstruction) Acute
[2017-03-31 05:27] LABS: INR 3.37 (0.83-1.16); PROTIME(PATIENT) 34.6 SEC (12.0-15.0)
[2017-03-31 05:39] LABS: ANION GAP 10 mEq/L (8-16); CALCIUM 8.1 mg/dL (8.5-10.4); CHLORIDE 121 mEq/L (97-110); CREATININE 1.2 mg/dL (0.6-1.0); GLOMERULAR FILTRATION RATE 49; GLUCOSE 96 mg/dL (70-100); MAGNESIUM 1.7 mg/dL (1.6-2.3); SODIUM 140 mEq/L (134-144)
[2017-03-31 05:45] LABS: POTASSIUM 2.6 mEq/L (3.5-5.2)
[2017-03-31 05:46] LABS: CARBON DIOXIDE 9 mEq/l (22-31)
[2017-03-31] MEDS: NICOTINE 7 MG/24 HR PATCH TD SCH (08:11)
[2017-03-31] MEDS: POTASSIUM CL 20 MEQ TAB PO SCH ×4 (08:13→20:40)
[2017-03-31] MEDS: SODIUM BICARBONATE 650 MG TAB PO SCH ×3 (08:13→23:04)
[2017-03-31] MEDS: PREGABALIN 50 MG CAP PO SCH ×3 (08:13→23:06)
[2017-03-31] MEDS: PANTOPRAZOLE SODIUM 40 MG TAB PO SCH (08:13)
[2017-03-31] MEDS: IBUPROFEN 200 MG TAB PO PRN ×3 (08:24→19:23)
--- NOTE | 2017-03-31 10:31 | SOAPPROG ---
SOAP Progress Note Assessment/Plan: Assessment/Plan: BONITA on CKD 3: pt with baseline Cr of 1.0, which is still fairly advanced renal disease given her small stature and poor musculature. Her Cr was up to 2.2 on admission, now improved to 1.2 with IVFs. Note that her BUN is stil quite low, suggestive of very poor nutrition overall. Likely prerenal in setting of chronic iarrhea and poor po intake. - Pt refusing IVFs, despite it being suggested to her. - Encouraged oral fluid intake. - Will continue to monitor. - Avoid hypotnesion, MOM, morphine, demerol, NSAIDs, contrast, aminoglycosides , fleets, ACEI/ARBs, and other nephrotoxins. Hypokalemia: pt has had multiple admissions now with markedly decreased potassium that is likely due to diarrhea, poor po intake and poor absorption. Urine potassium in the past has been low, suggestive that she is not having renal potassium wasting. K currently stable at 2.6, pt refusing IV meds. - Will increase oral KCl to 40meq po q6h. - Will continue to monitor BID. - This will continue to be a recurrent problem until her nutrition status improves, which is a complicated problem for her. Metabolic acidosis: CO2 remains stable at 9, despite starting supplementation. - Will continue current sodium bicarb tabs, no plan to increase while she is still hypokalemic. - Will continue to monitor. Subjective: No acute events overnight. Pt notes that she is no longer having N/V like she did yesterday, still having diarrhea. She states she is fine with PO pills and is ok with taking in oral fluids, refusing any IV fluids or meds. Objective: Vital Signs Temp Pulse Resp BP Pulse Ox 37.3 C 73 16 105/69 100 03/31/17 04:00 03/31/17 04:00 03/31/17 04:00 03/31/17 04:00 03/31/17 04:00 Microbiology 03/30/17 01:13 Gastrointestinal Tract Panel (PCR) - Final Stool No Organism Detected Laboratory Results 03/29/17 04:05 03/31/17 04:15 03/30/17 03/31/17 04/01/17 05:59 05:59 05:59 Intake Total 1300 1550 Balance 1300 1550 PT 34.6 SEC (12.0-15.0) H 03/31/17 04:15 INR 3.37 (0.83-1.16) H 03/31/17 04:15 General: alert and oriented, no acute distress, cachectic Eyes; EOMI, PERRL OP: Clear CV: RRR Resp: nonlabored respirations, CTAB Abd: Soft, NT/ND Ext: no edema BLE Neuro: CN II-XII grossly intact, no asterixis Psych; cooperative, appropriate mood and affect ICD10 Worksheet Patient Problems: Problems Problem Status Onset Acidosis Acute Acute kidney injury Acute Dehydration Acute Generalized weakness Acute Hypokalemia Acute Malnutrition Acute Protein deficiency Acute UTI (urinary tract infection) Acute Anorexia nervosa Active Bulemia Nervosa Active Chronic vomiting Active Coumadin Therapy for 6 months Active GERD - Gastroesophageal reflux disease Active Hypokalemia Active Hyponatremia Active Leukocytosis Active Occlusion of artery Active Renal artery stenosis Active Thrombocytosis Active Tobacco user Active Abdominal pain Acute Acute hypokalemia Acute Dehydration Acute Diarrhea Acute Excoriation Acute Hypokalemia Acute Lactic acid acidosis Acute Mesenteric thrombosis Acute Nausea & vomiting Acute Renal failure Acute Renal insufficiency Acute SBO (small bowel obstruction) Acute
[2017-03-31] MEDS: ACETAMINOPHEN 325 MG TAB PO PRN (12:42)
[2017-03-31] MEDS: LORazepam 1 MG TAB PO PRN (12:42)
[2017-03-31] MEDS: ONDANSETRON 4 MG/2 ML VIAL IVP PRN ×2 (12:42→21:15)
[2017-03-31] MEDS: WARFARIN SODIUM 5 MG TAB PO SCH (15:58)
[2017-03-31] MEDS: oxyCODONE IR 5 MG TAB PO PRN ×2 (15:58→20:06)
--- NOTE | 2017-03-31 16:13 | HOSPPROG ---
Hospitalist Progress Note Assessment/Plan: 46 yo F w anorexia/bulimia/short gut syndrome here w weakness, AGMA, severe hypokalemia hypokalemia: improving w replacement no arrhythmia (tele interp by me) worse today, probably from po bicarb inititation hypomagnesemia: improving acidosis: bicarb loss from short gut +/- ketosis improving po bicarb started short gut syndrome: she is eating but not absorbing trial of tincture of opium to decrease motility and, hopefully, improve absorption SMA thrombosis: inr now therapeutic proph: anticoagulated dispo: inpt to floor w tele Subjective: tearful. eating. case d/w dr chew Objective: Vital Signs Temp Pulse Resp BP Pulse Ox 37.0 C 76 18 101/65 100 03/31/17 15:32 03/31/17 15:32 03/31/17 15:32 03/31/17 15:32 03/31/17 12:00 Laboratory Results 03/29/17 04:05 03/30/17 03/31/17 04/01/17 05:59 05:59 05:59 Intake Total 1300 1550 Balance 1300 1550 PT 34.6 SEC (12.0-15.0) H 03/31/17 04:15 INR 3.37 (0.83-1.16) H 03/31/17 04:15 - Physical Exam Constitutional: no apparent distress, cachectic Eyes: PERRL, anicteric sclera Ears, Nose, Mouth, Throat: moist mucous membranes, hearing normal Cardiovascular: regular rate and rhythym, no murmur, rub, or gallop Respiratory: no respiratory distress, no rales or rhonchi Gastrointestinal: normoactive bowel sounds, soft, non-tender abdomen Genitourinary: No mckenzie in urethra Skin: warm, normal color Musculoskeletal: full muscle strength Neurologic: AAOx3 ICD10 Worksheet Patient Problems: Problems Problem Status Onset Acidosis Acute Acute kidney injury Acute Dehydration Acute Generalized weakness Acute Hypokalemia Acute Malnutrition Acute Protein deficiency Acute UTI (urinary tract infection) Acute Anorexia nervosa Active Bulemia Nervosa Active Chronic vomiting Active Coumadin Therapy for 6 months Active GERD - Gastroesophageal reflux disease Active Hypokalemia Active Hyponatremia Active Leukocytosis Active Occlusion of artery Active Renal artery stenosis Active Thrombocytosis Active Tobacco user Active Abdominal pain Acute Acute hypokalemia Acute Dehydration Acute Diarrhea Acute Excoriation Acute Hypokalemia Acute Lactic acid acidosis Acute Mesenteric thrombosis Acute Nausea & vomiting Acute Renal failure Acute Renal insufficiency Acute SBO (small bowel obstruction) Acute
[2017-03-31 16:30] LABS: ANION GAP 10 mEq/L (8-16); CALCIUM 8.4 mg/dL (8.5-10.4); CHLORIDE 117 mEq/L (97-110); CREATININE 1.1 mg/dL (0.6-1.0); GLOMERULAR FILTRATION RATE 54; GLUCOSE 98 mg/dL (70-100); POTASSIUM 2.9 mEq/L (3.5-5.2); SODIUM 136 mEq/L (134-144)
[2017-03-31 16:34] LABS: CARBON DIOXIDE 9 mEq/l (22-31)
--- NOTE | 2017-03-31 16:41 | ASMTCMCOM ---
CM Note CM Note Notes: CM met w/ pt for dispo planning. Pt reports that she is not interested in going to a SNF at this time. Pt is requesting for RN, HC through [facility]. CM called [facility] and made the referral. [facility] will follow pt once she is medically stable to d/c. Pt provided CM w/ address to her filina house, as she will be staying there for a week and going back and forth to her Mom's home ([address] [facility], [place] [address]). CM provided this info to [facility]. CM to follow. Date Signed: 03/31/2017 04:41 PM Electronically Signed By:JOSIE Andrade
[2017-03-31] MEDS: OPIUM TINCTURE 6 MG/0.6 ML UDSYR PO SCH (20:39)
[2017-03-31] MEDS: CHOLESTYRAMINE/SUCROSE 4 GM PKT PO SCH (23:56)
[2017-04-01] MEDS: oxyCODONE IR 5 MG TAB PO PRN ×3 (05:04→22:32)
[2017-04-01] MEDS: POTASSIUM CL 20 MEQ TAB PO SCH ×4 (05:04→21:33)
[2017-04-01] MEDS: ACETAMINOPHEN 325 MG TAB PO PRN (06:25)
[2017-04-01] MEDS: OPIUM TINCTURE 6 MG/0.6 ML UDSYR PO SCH ×4 (06:25→21:34)
[2017-04-01 06:49] LABS: INR 4.32 (0.83-1.16); PROTIME(PATIENT) 42.2 SEC (12.0-15.0)
[2017-04-01 07:16] LABS: ANION GAP 9 mEq/L (8-16); CALCIUM 8.5 mg/dL (8.5-10.4); CARBON DIOXIDE 11 mEq/l (22-31); CHLORIDE 118 mEq/L (97-110); CREATININE 1.2 mg/dL (0.6-1.0); GLOMERULAR FILTRATION RATE 49; GLUCOSE 85 mg/dL (70-100); SODIUM 138 mEq/L (134-144)
[2017-04-01] MEDS ORDERED: MAGNESIUM SULF 1 GM/DEXTROSE 100 ML IV ONE (08:56)
[2017-04-01] MEDS: PREGABALIN 50 MG CAP PO SCH ×3 (09:20→21:33)
[2017-04-01] MEDS: SODIUM BICARBONATE 650 MG TAB PO SCH ×3 (09:20→21:33)
[2017-04-01] MEDS: PANTOPRAZOLE SODIUM 40 MG TAB PO SCH (09:20)
[2017-04-01] MEDS: NICOTINE 7 MG/24 HR PATCH TD SCH (09:22)
--- NOTE | 2017-04-01 12:08 | SOAPPROG ---
SOAP Progress Note Assessment/Plan: Assessment: Pt known to me. Has short bowel, and chronic severe acidosis and hypokalemia. We did evaluation, and patient had appropriate renal conservation, thus issue is absorption and GI losses. She was started on tinture of opium, and per her report, has noted dramatic response. We will monitor lytes and follow. If we have ongoing issues, K Citrate liquid might be an option. Plan: 04/01/17 12:00 Subjective: Hopeful re tincture, no complaints Objective: Vital Signs Temp Pulse Resp BP Pulse Ox 36.8 C 78 18 112/67 99 04/01/17 11:32 04/01/17 11:32 04/01/17 11:32 04/01/17 11:32 04/01/17 11:32 Laboratory Results 03/29/17 04:05 04/01/17 06:20 03/31/17 04/01/17 04/02/17 05:59 05:59 05:59 Intake Total 1550 2000 Balance 1550 2000 PT 42.2 SEC (12.0-15.0) H 04/01/17 06:20 INR 4.32 (0.83-1.16) H 04/01/17 06:20 Physical Exam - Physical Exam General Appearance: no apparent distress, cachetic Respiratory: lungs clear Cardiac/Chest: regular rate, rhythm Extremities: normal inspection Neuro/Psych: oriented x 3 ICD10 Worksheet Patient Problems: Problems Problem Status Onset Acidosis Acute Acute kidney injury Acute Dehydration Acute Generalized weakness Acute Hypokalemia Acute Malnutrition Acute Protein deficiency Acute UTI (urinary tract infection) Acute Anorexia nervosa Active Bulemia Nervosa Active Chronic vomiting Active Coumadin Therapy for 6 months Active GERD - Gastroesophageal reflux disease Active Hypokalemia Active Hyponatremia Active Leukocytosis Active Occlusion of artery Active Renal artery stenosis Active Thrombocytosis Active Tobacco user Active Abdominal pain Acute Acute hypokalemia Acute Dehydration Acute Diarrhea Acute Excoriation Acute Hypokalemia Acute Lactic acid acidosis Acute Mesenteric thrombosis Acute Nausea & vomiting Acute Renal failure Acute Renal insufficiency Acute SBO (small bowel obstruction) Acute
--- NOTE | 2017-04-01 12:34 | HOSPPROG ---
Hospitalist Progress Note Assessment/Plan: 46 yo F w anorexia/bulimia/short gut syndrome here w weakness, AGMA, severe hypokalemia hypokalemia: improving w replacement no arrhythmia (tele interp by me) now rising repeat this PM given decreased diarrhea hypomagnesemia: improving acidosis: bicarb loss from short gut +/- ketosis improving po bicarb started short gut syndrome: improvement w combination of tincture of opium and cholestyramine too early to claim victory but encouraged by initial results SMA thrombosis: inr now supratherapeutic continue to hold warfarin access: c/o pain at site of IJ picc line ordered proph: anticoagulated dispo: inpt to floor w tele Subjective: significant improvement of diarrhea w tincture of opium and cholestryramine. case d/w dr hinton Objective: Vital Signs Temp Pulse Resp BP Pulse Ox 36.8 C 78 18 112/67 99 04/01/17 11:32 04/01/17 11:32 04/01/17 11:32 04/01/17 11:32 04/01/17 11:32 Laboratory Results 03/29/17 04:05 04/01/17 06:20 03/31/17 04/01/17 04/02/17 05:59 05:59 05:59 Intake Total 1550 1999 Balance 1550 1999 PT 42.2 SEC (12.0-15.0) H 04/01/17 06:20 INR 4.32 (0.83-1.16) H 04/01/17 06:20 - Physical Exam Constitutional: no apparent distress, No appears nourished Eyes: PERRL, anicteric sclera Ears, Nose, Mouth, Throat: moist mucous membranes, hearing normal Cardiovascular: regular rate and rhythym, no murmur, rub, or gallop Respiratory: no respiratory distress, no rales or rhonchi Gastrointestinal: normoactive bowel sounds, soft, non-tender abdomen Genitourinary: no bladder fullness, No mckenzie in urethra Skin: warm, normal color Musculoskeletal: full muscle strength, no muscle tenderness Neurologic: AAOx3 Psychiatric: interacting appropriately ICD10 Worksheet Patient Problems: Problems Problem Status Onset Acidosis Acute Acute kidney injury Acute Dehydration Acute Generalized weakness Acute Hypokalemia Acute Malnutrition Acute Protein deficiency Acute UTI (urinary tract infection) Acute Anorexia nervosa Active Bulemia Nervosa Active Chronic vomiting Active Coumadin Therapy for 6 months Active GERD - Gastroesophageal reflux disease Active Hypokalemia Active Hyponatremia Active Leukocytosis Active Occlusion of artery Active Renal artery stenosis Active Thrombocytosis Active Tobacco user Active Abdominal pain Acute Acute hypokalemia Acute Dehydration Acute Diarrhea Acute Excoriation Acute Hypokalemia Acute Lactic acid acidosis Acute Mesenteric thrombosis Acute Nausea & vomiting Acute Renal failure Acute Renal insufficiency Acute SBO (small bowel obstruction) Acute
[2017-04-01] MEDS ORDERED: ALTEPLASE 2 MG VIAL IVP PRN (12:45)
[2017-04-01] MEDS: CHOLESTYRAMINE/SUCROSE 4 GM PKT PO SCH ×3 (12:45→22:35)
[2017-04-01 16:54] LABS: ANION GAP 10 mEq/L (8-16); CALCIUM 8.8 mg/dL (8.5-10.4); CARBON DIOXIDE 11 mEq/l (22-31); CHLORIDE 116 mEq/L (97-110); CREATININE 1.2 mg/dL (0.6-1.0); GLOMERULAR FILTRATION RATE 49; GLUCOSE 113 mg/dL (70-100); POTASSIUM 3.1 mEq/L (3.5-5.2); SODIUM 137 mEq/L (134-144)
[2017-04-01] MEDS: LORazepam 1 MG TAB PO PRN (22:34)
[2017-04-02] MEDS: POTASSIUM CL 20 MEQ TAB PO SCH ×2 (04:27→12:04)
[2017-04-02 04:44] LABS: INR 3.89 (0.83-1.16); PROTIME(PATIENT) 38.8 SEC (12.0-15.0)
[2017-04-02 04:52] LABS: ANION GAP 6 mEq/L (8-16); CALCIUM 8.8 mg/dL (8.5-10.4); CARBON DIOXIDE 17 mEq/l (22-31); CHLORIDE 118 mEq/L (97-110); CREATININE 1.3 mg/dL (0.6-1.0); GLOMERULAR FILTRATION RATE 44; GLUCOSE 79 mg/dL (70-100); POTASSIUM 5.3 mEq/L (3.5-5.2); SODIUM 141 mEq/L (134-144)
[2017-04-02] MEDS: OPIUM TINCTURE 6 MG/0.6 ML UDSYR PO SCH ×4 (05:49→22:45)
[2017-04-02] MEDS: PANTOPRAZOLE SODIUM 40 MG TAB PO SCH (08:01)
[2017-04-02] MEDS: oxyCODONE IR 5 MG TAB PO PRN ×2 (08:01→22:51)
[2017-04-02] MEDS: PREGABALIN 50 MG CAP PO SCH ×3 (08:02→21:32)
[2017-04-02] MEDS: SODIUM BICARBONATE 650 MG TAB PO SCH ×3 (08:02→21:32)
[2017-04-02] MEDS: LORazepam 1 MG TAB PO PRN ×2 (08:02→16:41)
[2017-04-02] MEDS: NICOTINE 7 MG/24 HR PATCH TD SCH (08:03)
[2017-04-02] MEDS: CHOLESTYRAMINE/SUCROSE 4 GM PKT PO SCH ×3 (08:03→22:49)
--- NOTE | 2017-04-02 13:15 | SOAPPROG ---
SOAP Progress Note Assessment/Plan: Assessment: 1. BONITA. D/t volume depletion. B/l creat 1.0. Overall improved. 1.3 today c/w 1.2 yesterday. Will d/c ibuprofen. 2. Hypokalemia. Resolved and actually high today. Supplements discontinued. 3. Short bowel syndrome. Diarrhea improving with tincture of opium. 4. Urinary hesitancy. Likely due to opium. Mild. Bladder scan if unable to void. Plan: 04/02/17 13:12 Subjective: Bowel movements down to just 4 this am. Feels much, much better. Has some urinary hesitancy that was not there before. Objective: Vital Signs Temp Pulse Resp BP Pulse Ox 36.7 C 94 20 95/67 L 100 04/02/17 11:07 04/02/17 11:07 04/02/17 11:07 04/02/17 11:07 04/02/17 11:07 Laboratory Results 03/29/17 04:05 04/02/17 04:25 04/01/17 04/02/17 04/03/17 05:59 05:59 05:59 Intake Total 1999 1500 Balance 1999 1500 PT 38.8 SEC (12.0-15.0) H 04/02/17 04:25 INR 3.89 (0.83-1.16) H 04/02/17 04:25 Cachectic wf in good spiritis RRR, no m/g/r CTAB Abdom mildly distended No edema ICD10 Worksheet Patient Problems: Problems Problem Status Onset Dehydration Acute Hypokalemia Active Anorexia nervosa Active Chronic vomiting Active Thrombocytosis Active Leukocytosis Active Occlusion of artery Active Renal artery stenosis Active Tobacco user Active Coumadin Therapy for 6 months Active Bulemia Nervosa Active Hyponatremia Active GERD - Gastroesophageal reflux disease Active Diarrhea Acute Nausea & vomiting Acute Renal insufficiency Acute Acute hypokalemia Acute Mesenteric thrombosis Acute Abdominal pain Acute Hypokalemia Acute SBO (small bowel obstruction) Acute Lactic acid acidosis Acute Hypokalemia Acute Renal failure Acute Excoriation Acute Acute kidney injury Acute Dehydration Acute Malnutrition Acute Protein deficiency Acute Generalized weakness Acute UTI (urinary tract infection) Acute Acidosis Acute
--- NOTE | 2017-04-02 17:39 | HOSPPROG ---
Hospitalist Progress Note Assessment/Plan: Assessment: 46 yo F w anorexia/bulimia/short gut syndrome p/w severe acute hypokalemia and anion gap metabolic acidosis Plan: 1. Acute hypokalemia: improved w/ replacement and slowing GI output - hold further supplements today - repeat level in AM 2. Acute hypomagnesemia: improving 3. Anion gap metabolic acidosis: bicarb loss from short gut +/- ketosis, acute - improving w/ PO bicarb and reducing stool output 4. Chronic short gut syndrome: improvement w/ combination of tincture of opium and cholestyramine - monitor for additional 24hrs to gauge whether supplements for above needed 5. Chronic SMA thrombosis: inr now supratherapeutic, hold coumadin 6. Low BMI w/ severe protein calorie malnutrition: hx of anorexia, possible bulemia - counseled patient and mother, encouraging ongoing high calorie intake Ensure Enlive, patient looking into where she can get as outpt - d/w RN, unclear if patient is purging, asked patient to use toilet hat to capture bowel output and show RN to help quantify the situation - cont encouraging PO intake that she finds palatable 7. Tobacco use disorder. Counseled patient regarding appetite suppressive effects of nicotine, patient reports she is very close to getting off nicotine entirely, using vap pen Diet. Regular as isidro PPx. Ambulatory, SCDs when in bed Code. Full Dispo. ADD 04/03, pending stability of above Subjective: 4 formed BMs reported by patient Objective: Vital Signs Temp Pulse Resp BP Pulse Ox 37.3 C 103 H 16 100/60 100 04/02/17 15:59 04/02/17 15:59 04/02/17 15:59 04/02/17 15:59 04/02/17 15:59 Microbiology 03/28/17 08:10 Blood Culture - Final Blood Laboratory Results 03/29/17 04:05 04/02/17 04:25 04/01/17 04/02/17 04/03/17 05:59 05:59 05:59 Intake Total 1999 1500 1000 Balance 1999 1500 1000 PT 38.8 SEC (12.0-15.0) H 04/02/17 04:25 INR 3.89 (0.83-1.16) H 04/02/17 04:25 - Time Spent With Patient Time Spent with Patient: greater than 35 minutes Time Spent with Patient: Greater than 35 minutes spent on this patients care, greater than 50% of time spent counseling, educating, and coordinating care regarding the above mentioned plan. - Physical Exam Constitutional: not in pain, chronically ill appearing, cachectic, No uncomfortable Cardiovascular: regular rate and rhythym, no murmur, rub, or gallop Respiratory: no respiratory distress, no rales or rhonchi, clear to auscultation Gastrointestinal: soft, non-tender abdomen, no palpable masses, distension ( moderately), No normoactive bowel sounds (hypoactive bowel sounds) Skin: other (ulcerations on R hand finger tips) Neurologic: AAOx3 Psychiatric: interacting appropriately, not anxious, not encephalopathic, thought process linear ICD10 Worksheet Patient Problems: Problems Problem Status Onset Acidosis Acute Acute kidney injury Acute Dehydration Acute Generalized weakness Acute Hypokalemia Acute Malnutrition Acute Protein deficiency Acute UTI (urinary tract infection) Acute Anorexia nervosa Active Bulemia Nervosa Active Chronic vomiting Active Coumadin Therapy for 6 months Active GERD - Gastroesophageal reflux disease Active Hypokalemia Active Hyponatremia Active Leukocytosis Active Occlusion of artery Active Renal artery stenosis Active Thrombocytosis Active Tobacco user Active Abdominal pain Acute Acute hypokalemia Acute Dehydration Acute Diarrhea Acute Excoriation Acute Hypokalemia Acute Lactic acid acidosis Acute Mesenteric thrombosis Acute Nausea & vomiting Acute Renal failure Acute Renal insufficiency Acute SBO (small bowel obstruction) Acute
[2017-04-03] MEDS: ACETAMINOPHEN 325 MG TAB PO PRN ×3 (04:27→21:41)
[2017-04-03] MEDS: OPIUM TINCTURE 6 MG/0.6 ML UDSYR PO SCH ×4 (05:56→21:41)
[2017-04-03] MEDS: oxyCODONE IR 5 MG TAB PO PRN ×3 (08:34→19:16)
[2017-04-03] MEDS: PANTOPRAZOLE SODIUM 40 MG TAB PO SCH (08:34)
[2017-04-03] MEDS: NICOTINE 7 MG/24 HR PATCH TD SCH (08:35)
[2017-04-03] MEDS: SODIUM BICARBONATE 650 MG TAB PO SCH ×3 (08:35→21:41)
[2017-04-03] MEDS: PREGABALIN 50 MG CAP PO SCH ×3 (08:35→21:41)
[2017-04-03] MEDS: CHOLESTYRAMINE/SUCROSE 4 GM PKT PO SCH ×4 (08:35→21:49)
[2017-04-03] MEDS ORDERED: NS 1,000 ML IV ONE (09:34)
[2017-04-03 10:58] LABS: % IMMATURE GRANULYOCYTES 0.5 % (0.0-1.1); ABSOLUTE IMMATURE GRANULOCYTES 0.05 10^3/uL (0.00-0.10); ADD DIFF? NO; ADD MORPH? YES; ADD SCAN? NO; ATYPICAL LYMPHOCYTE FLAG 0 (0-99); FRAGMENT RBC FLAG 60 (0-99); HEMATOCRIT 29.4 % (38.0-47.0); HEMOGLOBIN 9.4 g/dL (12.6-16.3); LEFT SHIFT FLG 0 (0-99); LIPEMIA HEMOLYSIS FLAG 80 (0-99); MEAN CELL HEMOGLOBIN 24.2 pg (27.9-34.1); MEAN CELL VOLUME 75.6 fL (81.5-99.8); PLATELET CLUMPS FLAG 10 (0-99); PLATELET COUNT 284 10^3/uL (150-400); RED BLOOD CELL COUNT 3.89 10^6/uL (4.18-5.33)
[2017-04-03 11:08] LABS: ALANINE AMINOTRANSFERASE 44 IU/L (9-52); ALBUMIN 2.6 g/dL (3.5-5.0); ALKALINE PHOSPHATASE 109 IU/L (38-126); ANION GAP 10 mEq/L (8-16); ASPARTATE AMINOTRANSFERASE 22 IU/L (14-46); BILIRUBIN,TOTAL 0.3 mg/dL (0.1-1.4); CALCIUM 8.7 mg/dL (8.5-10.4); CARBON DIOXIDE 17 mEq/l (22-31); CHLORIDE 110 mEq/L (97-110); CREATININE 1.2 mg/dL (0.6-1.0); GLOMERULAR FILTRATION RATE 49; GLUCOSE 84 mg/dL (70-100); SODIUM 137 mEq/L (134-144); TOTAL PROTEIN 5.2 g/dL (6.3-8.2)
[2017-04-03 11:12] LABS: RED CELL DISTRIBUTION WIDTH 26.6 % (11.5-15.2)
[2017-04-03 11:27] LABS: INR 2.48 (0.83-1.16); PROTIME(PATIENT) 27.1 SEC (12.0-15.0)
[2017-04-03 12:30] LABS: PLATELET ESTIMATE ADEQUATE (ADEQ)
[2017-04-03 12:36] LABS: ACANTHOCYTES 1+; ECHINOCYTES 1+; ELLIPTOCYTES 1+; HYPOCHROMIA 2+; MICROCYTES 1+; POLYCHROMASIA 1+
--- NOTE | 2017-04-03 12:53 | SOAPPROG ---
SOAP Progress Note Assessment/Plan: Assessment: up and around went outside without telling anyone ,"because it was a beautiful day." she unfortunately tripped and fell feels fine now creat better again suspect GFR still not great with creat of 1.2 due to very low muscle mass and small of stature opium tincture helping a lot with her diarrhea, would continue as necessary Plan: need to watch K intake, give low K diet info continue therapies hydrate as necessary will need outpatient follow up, would like to follow with Dr. Hunt Renal signing off 04/03/17 12:44 Objective: Vital Signs Temp Pulse Resp BP Pulse Ox 37.0 C 82 16 92/67 L 96 04/03/17 11:26 04/03/17 11:26 04/03/17 11:26 04/03/17 11:26 04/03/17 11:26 Microbiology 03/28/17 08:00 Blood Culture - Final Blood 03/28/17 08:10 Blood Culture - Final Blood Laboratory Results 04/03/17 10:45 04/03/17 10:45 04/02/17 04/03/17 04/04/17 05:59 05:59 05:59 Intake Total 1500 1000 Balance 1500 1000 PT 27.1 SEC (12.0-15.0) H D 04/03/17 10:45 INR 2.48 (0.83-1.16) H 04/03/17 10:45 Physical Exam - Physical Exam General Appearance: alert, cachetic EENT: other (lump and abrasion over her left eye and [place] area where she hit her head when she fell outside today) Respiratory: lungs clear, No rhonchi, No wheezing Cardiac/Chest: regular rate, rhythm, No edema Abdomen: normal bowel sounds, non-tender Extremities: No pedal edema Neuro/Psych: alert, normal mood/affect, oriented x 3 ICD10 Worksheet Patient Problems: Problems Problem Status Onset Acidosis Acute Acute kidney injury Acute Dehydration Acute Generalized weakness Acute Hypokalemia Acute Malnutrition Acute Protein deficiency Acute UTI (urinary tract infection) Acute Anorexia nervosa Active Bulemia Nervosa Active Chronic vomiting Active Coumadin Therapy for 6 months Active GERD - Gastroesophageal reflux disease Active Hypokalemia Active Hyponatremia Active Leukocytosis Active Occlusion of artery Active Renal artery stenosis Active Thrombocytosis Active Tobacco user Active Abdominal pain Acute Acute hypokalemia Acute Dehydration Acute Diarrhea Acute Excoriation Acute Hypokalemia Acute Lactic acid acidosis Acute Mesenteric thrombosis Acute Nausea & vomiting Acute Renal failure Acute Renal insufficiency Acute SBO (small bowel obstruction) Acute
[2017-04-03 14:47] LABS: COLOR YELLOW; LEUKOCYTE ESTERASE,URINE 2+ (NEGATIVE); NITRITE,URINE NEGATIVE (NEGATIVE)
[2017-04-03 14:55] LABS: BACTERIA 3+ /hpf (NONE SEEN); MUCUS TRACE /lpf (NONE-1+); RBC,URINE 50-182 /hpf (0-3); WBC,URINE 50-182 /hpf (0-3); YEAST PRESENT /hpf (NONE SEEN)
[2017-04-03 17:06] LABS: ANION GAP 7 mEq/L (8-16); CALCIUM 8.4 mg/dL (8.5-10.4); CARBON DIOXIDE 19 mEq/l (22-31); CHLORIDE 109 mEq/L (97-110); CREATININE 1.2 mg/dL (0.6-1.0); GLOMERULAR FILTRATION RATE 49; GLUCOSE 81 mg/dL (70-100); SODIUM 135 mEq/L (134-144)
--- NOTE | 2017-04-03 17:38 | HOSPPROG ---
Hospitalist Progress Note Assessment/Plan: Assessment: 46 yo F w anorexia/bulimia/short gut syndrome p/w severe acute hypokalemia and anion gap metabolic acidosis Plan: 1. Acute hypokalemia: improved w/ replacement and slowed GI output - hold further supplements - repeat level in AM 2. Acute hypomagnesemia: improving 3. Anion gap metabolic acidosis: bicarb loss from short gut +/- ketosis, acute - improving w/ PO bicarb and reduced stool output 4. Chronic short gut syndrome: improvement w/ combination of tincture of opium and cholestyramine - monitor for additional 24hrs to gauge whether supplements for above needed 5. Chronic SMA thrombosis: restarted coumadin at lower dosage, INR in AM 6. Low BMI w/ severe protein calorie malnutrition: hx of anorexia, possible bulemia - cont Ensure Enlive, patient looking into where she can get as outpt - cont encouraging PO intake that she finds palatable - patient w/ fall off of unit this AM, seems too unsteady to safely discharge, moving her to room closer to central station, explained to patient that she should not ambulate off unit for her own safety 7. Tobacco use disorder. Counseled patient regarding appetite suppressive effects of nicotine, patient reports she is very close to getting off nicotine entirely, using vap pen 8. Face abrasions. No LOC, bandage PRN, normal neuro exam so no need for HCT 9. Suprapubic pain. Acute, new problem, further w/u indicated. Patient feels like she has UTI, ongoing leukocytosis - get UA/UCx, and if positive, give IV CTX (monitor for allergic rxn) - reviewed outside records (03/06/17 micro, UCx w/ fluoroquinalone resistant E. coli) Diet. Regular as isidro PPx. Ambulatory, SCDs when in bed Code. Full Dispo. ADD 04/04, pending stability of above Subjective: suprapubic pain, fell off unit Objective: Vital Signs Temp Pulse Resp BP Pulse Ox 37.0 C 87 20 94/74 L 99 04/03/17 16:00 04/03/17 16:00 04/03/17 16:00 04/03/17 16:00 04/03/17 16:00 Microbiology 03/28/17 08:00 Blood Culture - Final Blood 03/28/17 08:10 Blood Culture - Final Blood Laboratory Results 04/03/17 10:45 04/03/17 16:40 04/02/17 04/03/17 04/04/17 05:59 05:59 05:59 Intake Total 1500 1000 Balance 1500 1000 PT 27.1 SEC (12.0-15.0) H D 04/03/17 10:45 INR 2.48 (0.83-1.16) H 04/03/17 10:45 - Pending Discharge Pending Discharge Within 24 Hours: Yes Pending Discharge Date: 04/04/17 Pending Discharge Time: 11:00 - Physical Exam Constitutional: no apparent distress, chronically ill appearing, uncomfortable, cachectic Cardiovascular: regular rate and rhythym, no murmur, rub, or gallop, No edema Respiratory: no respiratory distress, no rales or rhonchi, clear to auscultation Gastrointestinal: distension (moderate), No normoactive bowel sounds (hypoactive ), No tenderness, No guarding Genitourinary: other (suprapubic tenderness, bladder fullness) Skin: other (abrasion left superpapebral w/o surrounding erythema/induration/ ecchymoses) Neurologic: AAOx3, sensation intact bilaterally, No weakness, No facial droop Psychiatric: interacting appropriately, not anxious, not encephalopathic, thought process linear ICD10 Worksheet Patient Problems: Problems Problem Status Onset Acidosis Acute Acute kidney injury Acute Dehydration Acute Generalized weakness Acute Hypokalemia Acute Malnutrition Acute Protein deficiency Acute UTI (urinary tract infection) Acute Anorexia nervosa Active Bulemia Nervosa Active Chronic vomiting Active Coumadin Therapy for 6 months Active GERD - Gastroesophageal reflux disease Active Hypokalemia Active Hyponatremia Active Leukocytosis Active Occlusion of artery Active Renal artery stenosis Active Thrombocytosis Active Tobacco user Active Abdominal pain Acute Acute hypokalemia Acute Dehydration Acute Diarrhea Acute Excoriation Acute Hypokalemia Acute Lactic acid acidosis Acute Mesenteric thrombosis Acute Nausea & vomiting Acute Renal failure Acute Renal insufficiency Acute SBO (small bowel obstruction) Acute
[2017-04-03] MEDS ORDERED: WARFARIN SODIUM 2.5 MG TAB PO SCH (17:45)
[2017-04-03] MEDS ORDERED: MAGNESIUM SULF 2 GM/WATER 50 ML IV ONE (17:47)
[2017-04-03] MEDS: LORazepam 1 MG TAB PO PRN (21:41)
[2017-04-04] MEDS: OPIUM TINCTURE 6 MG/0.6 ML UDSYR PO SCH ×2 (04:53→13:30)
[2017-04-04] MEDS: oxyCODONE IR 5 MG TAB PO PRN ×2 (05:16→09:54)
[2017-04-04 05:18] LABS: INR 2.82 (0.83-1.16)
[2017-04-04 05:24] LABS: % IMMATURE GRANULYOCYTES 0.4 % (0.0-1.1); ABSOLUTE IMMATURE GRANULOCYTES 0.04 10^3/uL (0.00-0.10); ADD DIFF? NO; ADD MORPH? YES; ADD SCAN? NO; ATYPICAL LYMPHOCYTE FLAG 20 (0-99); FRAGMENT RBC FLAG 40 (0-99); HEMATOCRIT 27.1 % (38.0-47.0); HEMOGLOBIN 8.5 g/dL (12.6-16.3); LEFT SHIFT FLG 0 (0-99); LIPEMIA HEMOLYSIS FLAG 80 (0-99); MEAN CELL HEMOGLOBIN 23.7 pg (27.9-34.1); MEAN CELL HEMOGLOBIN CONCENTR. 31.4 g/dL (32.4-36.7); MEAN CELL VOLUME 75.7 fL (81.5-99.8); PLATELET CLUMPS FLAG 20 (0-99); PLATELET COUNT 235 10^3/uL (150-400); RED BLOOD CELL COUNT 3.58 10^6/uL (4.18-5.33)
[2017-04-04 05:28] LABS: RED CELL DISTRIBUTION WIDTH 26.5 % (11.5-15.2)
[2017-04-04 05:36] LABS: ANION GAP 10 mEq/L (8-16); CALCIUM 8.4 mg/dL (8.5-10.4); CARBON DIOXIDE 20 mEq/l (22-31); CHLORIDE 110 mEq/L (97-110); CREATININE 1.1 mg/dL (0.6-1.0); GLOMERULAR FILTRATION RATE 54; GLUCOSE 78 mg/dL (70-100); MAGNESIUM 2.2 mg/dL (1.6-2.3); POTASSIUM 3.4 mEq/L (3.5-5.2); SODIUM 140 mEq/L (134-144)
[2017-04-04] MEDS: ACETAMINOPHEN 325 MG TAB PO PRN (06:04)
[2017-04-04] MEDS: LORazepam 1 MG TAB PO PRN (06:04)
[2017-04-04 06:16] LABS: HYPOCHROMIA 2+; MACROCYTES 1+; MICROCYTES 1+; POLYCHROMASIA 1+
[2017-04-04 06:17] LABS: PLATELET ESTIMATE ADEQUATE (ADEQ)
[2017-04-04 06:18] LABS: ACANTHOCYTES 1+; ECHINOCYTES 1+; TARGET CELLS 1+
[2017-04-04] MEDS: SODIUM BICARBONATE 650 MG TAB PO SCH (07:29)
[2017-04-04] MEDS: PANTOPRAZOLE SODIUM 40 MG TAB PO SCH (07:29)
[2017-04-04] MEDS: NICOTINE 7 MG/24 HR PATCH TD SCH (07:29)
[2017-04-04] MEDS: CHOLESTYRAMINE/SUCROSE 4 GM PKT PO SCH (07:30)
[2017-04-04 08:08] VITALS: BP 77/68; PULSE 86; RESP 16; TEMP 98.4; O2SAT 93
[2017-04-04] MEDS ORDERED: POTASSIUM CL 20 MEQ TAB PO ONE (08:22)
[2017-04-04] MEDS: PREGABALIN 50 MG CAP PO SCH (08:48)
--- NOTE | 2017-04-04 11:16 | PDDCSUM ---
Discharge Summary Discharge Summary: DISCHARGE SUMMARY FOLLOW-UP ITEMS: 1. CBC, Creatinine BUN and lytes PT and INR on Friday next week with results to Dr. Hunt and Dr. Gibson 2. Blood culture results pending at time of discharge to be followed up by PCP DATE OF ADMISSION: 03/28/2017 DATE OF DISCHARGE: 04/04/2017 DISCHARGE DIAGNOSES: 1. Acute severe hypokalemia 2. Acute anion gap metabolic acidosis 3. Acute hypomagnesemia 4. Chronic short-gut syndrome 5. Chronic SMA thrombosis 6. Severe protein calorie malnutrition with low BMI 13.5 7. Tobacco use disorder 8. Facial abrasions and mechanical fall 9. Acute uncomplicated urinary tract infection 10. Microcytic anemia 11. Acute kidney injury on chronic kidney disease stage 3 CONSULTATIONS: Nephrology PROCEDURES / IMAGING: None CHIEF COMPLAINT: Acute diarrhea and weakness SUBJECTIVE: Patient is doing well at time discharge, she denies any pain, denies any diarrhea PHYSICAL EXAM ON DISCHARGE: Systolic blood pressure is 90, heart rate 80, satting well on room air, temperature 38.3degrees of 4 EM, chronically ill-appearing and cachectic, abdomen is moderately distended but nontender, bowel sounds are present but not hyperactive, avoid wall hernia is reducible without any tenderness, no suprapubic tenderness LABS ON DISCHARGE: Serum bicarb 20, potassium 3.4, hemoglobin 8.5, white blood count 9500, INR 2.8 , creatinine 1.1 HOSPITAL COURSE BY PROBLEM: 1. Acute severe hypokalemia. Believed to be secondary to the patient's short- gut syndrome and lower GI losses, although other is always the possibility of upper GI losses if the patient has chronic eating disorder is active. During her hospitalization, we have slowed her bowel movements with tincture of opium and cholestyramine, and the patient's hypokalemia has improved. She also received aggressive supplementation at the beginning of her hospitalization. She will be discharged on 20 mEq twice daily with frequent outpatient labs, and she will be followed up in the Nephrology Clinic. 2. Acute gap metabolic acidosis. This is also secondary to bicarbonate loss from short gut syndrome as well as hyperkalemia on presentation. She received IV fluids, we reduced her stool output, and her acidosis has been improving. She was also placed on supplemental oral bicarbonate, and this will be continued at discharge. Her labs will be followed up in the Outpatient Nephrology Clinic. 3. Acute hypomagnesemia. This is improved with supplementation as well. 4. Chronic short-gut syndrome. This is been an ongoing issue which has significantly contributed to the electrolyte abnormalities outlined above, and the patient's diarrhea has been significantly improved with a combination of tincture of opium and cholestyramine. The patient's hospitalization was extended so that we were able to ascertain that her bowel movements had affectively improved, and the patient has only had 4, solid bowel movements, during the 24 hours prior to this discharge. She will be continued on the opium and cholestyramine chronically, to be reassessed in the outpatient setting by her primary care provider. 5. Chronic SMA thrombosis. Patient's Coumadin dosage was initially held given supratherapeutic INR, and given her microcytic anemia and potential bleeding risk, we have decided to reduce her Coumadin dosage down to 2.5 mg daily, she will have a repeat PT and INR on Friday next week, with results to be followed up at her primary care office. 6. Severe protein calorie malnutrition with low BMI. Patient's BMI is 13.5, and this is in the setting of a combination of short gut syndrome as well as a suspected history of eating disorder. During this hospitalization, our medical providers were closely with the nursing staff to ensure that the patient was receiving appropriate support and encouragement for oral intake as well as dietary supplements on a regular basis. We recommended Ensure and live discharge, the patient appears to be consuming these. The patient's weight has objectively increased during this hospitalization, and this may be secondary to reduced GI output with control of her short-gut syndrome, as well as increased caloric intake. 7. Tobacco use disorder. Counseled the patient regarding the appetite suppressive effects of nicotine, the patient is working very diligently to reduce her amount of nicotine through her of a pen, and she is working on getting a non nicotine formula. 8. Facial abrasions with mechanical fall. Patient experienced a mechanical fall off of the nursing unit, despite being advised not to leave the unit. These were just local abrasions, she had no neurologic deficits, did not require further trauma workup. 9. Acute uncomplicated urinary tract infection. The patient had some suprapubic tenderness, urinalysis was positive, and she has a history of for quinolone resistant E coli. Consequently, the patient received 2 days of IV ceftriaxone, which she tolerated well and did not have any allergic reactions 2 , and she will be discharged with 3 subsequent days of cefpodoxime 200 mg twice daily, to complete 5 total day course. She did experience a low-grade fever on the morning of discharge, without any worsening leukocytosis or hemodynamic response, and I suspect that this low-grade fever is indicative of resolving urinary tract infection and not an overt blood stream infection. That being said, we did draw blood cultures from her central venous catheter, as the patient is at risk for central line blood stream infections, and her blood culture should be followed up by her primary care provider office to ensure that she does not have any bacteremia. The central venous catheter was removed prior to discharge. 10. Microcytic anemia. The patient experienced a progressive decline in her hemoglobin level during this hospitalization, most likely secondary to dilutional effect as well as potential iron deficient component in the setting of short gut syndrome. Her hemoglobin level is currently not at the degree requiring transfusion, but I would recommend following up her CBC as an outpatient, determine whether she would benefit from IV iron therapy or a further GI evaluation. The patient is requesting discharge at this time, and consequently should not receive a dose of IV iron prior to discharge. 11. Acute kidney injury on chronic kidney disease stage III. Evidenced by rising serum creatinine level 2.2 on presentation, secondary to hypovolemia in the setting of GI losses, resolved with IV fluids and controlling these losses. Her creatinine level subtle at 1.1 at time of discharge, which is around her baseline. Will repeat creatinine level in the outpatient setting. DISCHARGE MEDICATIONS: Please see official discharge medication reconciliation sheet in chart continue home medications with the adjustment of her potassium supplement 20 mEq twice daily, addition of opium tincture 4 times daily scheduled, cholestyramine 3 times daily scheduled, sodium bicarbonate 1300 twice daily, reduction in Coumadin down to 2.5 mg daily. DISCHARGE INSTRUCTIONS: Please schedule follow-up with Dr. Kristin Hunt early next week, with labs prior to that appointment, then follow up with Dr. Gibson thereafter. TIME SPENT: Greater than 30 minutes were spent on direct patient care, as well as discharge planning and preparation.
--- NOTE | 2017-04-04 11:50 | ASMTCMCOM ---
CM Note CM Note Notes: D/w RN, pt to dc to home of parents house w/ HC (RN/PT). Misty at [facility] notified, RN to call report. Date Signed: 04/04/2017 11:49 AM Electronically Signed By:Aleksandra Bradley RN
--- NOTE | 2017-04-04 14:51 | ASDISCHSUM ---
Discharge Information Plan Status:Home with Home Health Medically Cleared to Leave: Discharge Date:04/04/2017 01:44 PM CM D/C Disposition:Home Health Service ADT D/C Disposition:Home, Routine, Self-Care Projected Discharge Date:04/01/2017 11:00 AM Transportation at D/C:Friend Discharge Delay Reason: Follow-Up Date:04/01/2017 11:00 AM Discharge Slot: Final Diagnosis: Placement Information Referral Type:*Group Home/SNF Referral ID:[id number] Provider Name: Address 1: Phone Number: Address 2: Fax Number: City: Selection Factors: State: Patient Contact Information Contact Name:ABHAY Relationship:Other Address: Work Phone: City: [facility] Phone: [facility] Code: Email: Financial Information Financial Class: Primary Plan Desc:[employer] [place] Primary Plan Number:[id number] Secondary Plan Desc: Secondary Plan Number: Assessment Information [facility] Initial CM Assessment Living Arrangements What is your living Answers: With Partner arrangement? Who do you live with? Type Of Residence What kind of residence do Answers: House you live in? Stairs in Home Answers: Yes Environment Services Used Prior to Admission Community Services Used Answers: [facility] Prior to Admission Case Management Evaluation Functional: Able to Answers: No return Home with Prior Level of Function/Care Psychosocial Needs: Answers: Behavioral Health Issue Notes: Continued treatment needed in addition to medical care Discharge Plan Comments Coordination Status Comments Notes: Pt. presented in FED for "global weakness", malnutrition, protein deficiency, UTI, leukocytosis and failure to thrive. Pt has a history of short gut syndrome and anorexia. Pt indicated anorexia began at the age of 20. She reported HX of treatment from three ED facilities including [facility]. According to the pt, she has a live in boyfrienRanjit sanchez who she refers to as her . They currently live in a home with stairs and he provides much of the care for her. He was not present in FED. Pt stated that she has a history of bipolar disorder; she takes Trazodone for sleep and Zyprexa. She is reported that her prescriber is Kimberly Coates from [facility]. By her account she sees Kimberly every 4 months for medication management and every two weeks for therapy. Pt estimated that she consumes 3500 calories per day (around 1,000 calories per meal). She stated that she does not use drugs or alcohol. Pt stated that she would like a "G tube" to help her because she is concerned for her health. She stated that she would "like someone to follow her around and make sure she is ok" at home. She indicated that her typically does it but she is often unstable on her feet and feels like she needs additional help. Pt stated that she is in the process of filing for unemployment and her does not work. DC plans TBD CM to follow. Date Signed: 03/28/2017 12:04 PM Electronically Signed By:Yair Cabrera LCSW [facility] CM Progress Note CM Note CM Note Notes: Rec'd call from Aleksandra Sommers ([phone]) who sees pt as her out pt therapist. Aleksandra reported that pt has been in/out of hospitals several times in last few months and that she has complicated hx. Aleksandra said pt currently lives at home with her mother and father (which is different from ED CM note) and that she has had many recent stressors in addition to her medical issues. Aleksandra and pt's mom plan to come in tomorrow am to discuss possible next steps when dc'd from hospital. Aleksandra inquired about SNF palcement. PT/OT recs today were for [facility] (OT suggesting w/24 hr supervision) but perhaps she could do SNF rehab for medical reasons r/t her failure to thrive/eating disorder. CM can meet w/pt to discuss possible dc poc but will first allow Tory Sommers and Mom to meet with her in morning to discuss their thoughts. Please see ED CM note for more info. CM w/f. Date Signed: 03/29/2017 06:51 PM Electronically Signed By:Laverne Feldman RN [facility] CM Progress Note CM Note CM Note Notes: Spoke with Aleksandra Sommers this morning re d/c plan options for pt. Aleksandra follows pt outside of [facility] and would like to see her go to a SNF to be in a structured environment to receive proper nutrition, medications, and monitoring of her lab work. Aleksandra said pt was agreeable to a (total) 30 day SNF stay. PT feels she would benefit from continued PT for her debilitation 2/2 malnutrition, not necessarily in a SNF setting though. It is doubtful a SNF will accept pt, however, a ULTC 100 and SNF referral has been started but not sent. Spoke with pt who appeared ambivalent about going, initially saying she really doesn't want to go to a SNF. A f/u discussion with pt, Aleksandra and SHARONDA may be helpful in finalizing a d/c poc that will be appropriate for pt. Date Signed: 03/30/2017 02:10 PM Electronically Signed By:KENNETH Wilburn [facility] SHARONDA Progress Note CM Note CM Note Notes: CM met w/ pt for dispo planning. Pt reports that she is not interested in going to a SNF at this time. Pt is requesting for JOSE LUIS [facility] through [facility]. CM called [facility] and made the referral. [facility] will follow pt once she is medically stable to d/c. Pt provided CM w/ address to her fiance house, as she will be staying there for a week and going back and forth to her Mom's home ([address], [place] [address]). CM provided this info to [facility]. CM to follow. Date Signed: 03/31/2017 04:41 PM Electronically Signed By:JOSIE Andrade [facility] CM Progress Note CM Note CM Note Notes: D/w RN, pt to dc to home of parents house w/ [facility] (RN/PT). Misty at [facility] notified, RN to call report. Date Signed: 04/04/2017 11:49 AM Electronically Signed By:Aleksandra Bradley RN Intervention Information
--- NOTE | 2017-04-04 15:44 | PDIAF ---
- Diagnosis Diagnosis: Short Gut Syndrome, Malnutrition, Hypokalemia, BONITA, UTI Code Status: Full Code - Medication Management Discharge Medications: Medications to Continue on Transfer traZODone [traZODone 150MG (*)] 150 mg PO HS PRN 02/22/16 [Last Taken 03/27/17] Ibuprofen [Motrin (*)] 400 mg PO BID PRN 11/28/16 [Last Taken 03/05/17] Pregabalin [Lyrica 50mg (*)] 50 mg PO TID 11/28/16 [Last Taken 03/27/17 21:00] SUMAtriptan [Imitrex 50 MG (*)] 50 mg PO DAILY PRN #0 tab 12/04/16 [Last Taken 03/05/17] Herbals/Supplements -Info Only 1 ea PO DAILY 03/05/17 [Last Taken 03/04/17] Ondansetron HCl [Zofran] 8 mg PO DAILY PRN 03/05/17 [Last Taken 03/04/17] Pantoprazole Sodium [Protonix 40mg (*)] 40 mg PO DAILY 03/05/17 [Last Taken 11/06] Acetaminophen [Tylenol 325mg (*)] 650 mg PO Q4HRS PRN tab 04/04/17 [Last Taken Unknown] Cefpodoxime Proxetil [Vantin] 200 mg PO BID #6 tab 04/04/17 [Last Taken Unknown] Cholestyramine/Sucrose [Questran] 4 gm PO TID #90 pkt 04/04/17 [Last Taken Unknown] Opium Tincture 6 mg PO QID #120 udsyr 04/04/17 [Last Taken Unknown] Potassium Cl [Klor-Con 20 meq (*)] 20 meq PO BID #60 tab 04/04/17 [Last Taken Unknown] Sodium Bicarbonate [Na Bicarb] 1,300 mg PO TID #120 tab 04/04/17 [Last Taken Unknown] Warfarin Sodium [Coumadin 2.5MG (*)] 2.5 mg PO DAILY AT 4PM #30 tab 04/04/17 [ Last Taken Unknown] Chicken Catcher Antibiotics: Cefpodoxime 200mg bid PO Chicken Catcher Antibiotic Stop Date: 04/07/17 Discharge Medications: Refer to the Discharge Home Medication list for PRN reason. PICC Care - Routine: N/A - Orders Services needed: Home Care, Registered Nurse, Physical Therapy Home Care Face to Face: I certify that this patient was under my care and that I had the required [id number] encounter meeting the encounter requirements on the discharge day. My findings support the fact that the patient is homebound as defined in Home Care Face to Face Continued: CMS Chapter 7 Medicare Benefits Manual 30.1.1 , The condition of the patient is such that there exists a normal inability to leave home and consequently, leaving home would require a considerable and taxing effort. Oxygen: NA Diet Recommendation: no restrictions on diet (drink daily Ensure Enlive) Weigh Patient: weekly Sherman: Not applicable Wound Care Instructions: local care left face abrasions Additional: Ensure Enlive daily, monitor outpt weekly weights - Labs/Radiology BMP Date: 04/07/17 CBC Date: 04/07/17 PT/INR Date: 04/07/17 Call or Fax Lab and Imaging Results to: Parviz Razo - Follow Up Care Current Providers and Referrals: Parviz Gibson MD [Primary Care Provider] - follow up in 1 week NONE *PRIMARY CARE P,. [Unknown] - As per Instructions Kristin Hunt MD [Medical Doctor] - 3-5 days (Please get labs drawn prior to appointment)
== END 2017-04-04 13:44 | disposition home health service (06) | DRG 640 ==
LOC: EDUNIT# → F2N 12:33 → F3E 03-29 11:11
PROVIDERS: ADMIT Family Medicine; ATTEND Internal Medicine
PROC: 02HV33Z Insertion of Infusion Device into Superior Vena Cava, Percutaneous Approach (ICD-10-PCS; principal; 2017-03-28)
DX: E87.6 Hypokalemia (principal); E43 Unspecified severe protein-calorie malnutrition; Z68.1 Body mass index [BMI] 19.9 or less, adult; K91.2 Postsurgical malabsorption, not elsewhere classified; N17.9 Acute kidney failure, unspecified; E87.2 Acidosis; K55.1 Chronic vascular disorders of intestine; N39.0 Urinary tract infection, site not specified; D68.59 Other primary thrombophilia; N18.3 Chronic kidney disease, stage 3 (moderate); E83.42 Hypomagnesemia; S00.81XA Abrasion of other part of head, initial encounter; W19.XXXA Unspecified fall, initial encounter; Y92.239 Unspecified place in hospital as the place of occurrence of the external cause; D50.9 Iron deficiency anemia, unspecified; F31.9 Bipolar disorder, unspecified; K21.9 Gastro-esophageal reflux disease without esophagitis; R39.11 Hesitancy of micturition; Z72.0 Tobacco use; Z93.2 Ileostomy status
CPT/HCPCS: 96365; 97116-GP; 97161-GP; 97165-GO; G0480; J0696; J1650; J2405; J3475

== ENCOUNTER 2017-04-22 12:56 | Emergency (ER) | payer MEDICAID ==
--- NOTE | 2017-04-22 13:12 | EDPHY ---
H & P Time Seen by Provider: 04/22/17 13:10 HPI/ROS: CHIEF COMPLAINT: Fatigue, diarrhea HISTORY OF PRESENT ILLNESS: This patient is a 46 year old female with history of anorexia and bulimia, multiple abdominal surgeries, and short gut syndrome complaining of fatigue and multiple episodes of diarrhea worsening over the last week. She was recently admitted 03/28/17 for similar symptoms and severe hypokalemia. Her fiance at bedside states she was doing well, but the diarrhea and vomiting started again one week ago. She has had multiple admissions and surgeries, and does not want further surgery at this point and prefers palliative care. She and her fiance have discussed going to a rehab facility for 2-3 months. She has had diarrhea around 10 times per day, but has not noted any blood in her bowel movements. She has bed sores and "pain all over". She is followed by wound care. Today, she is in a lot of pain and feeling weak, but was able to walk. She feels she runs out of breath easily when she tries to talk. She is hungry and requests food now. She denies chest pain, headache, pain or swelling in her legs, or other associated symptoms. REVIEW OF SYSTEMS: A 10 point review of systems was performed and is negative with the exception of the elements mentioned in the history of present illness. Past Medical/Surgical History: 1. Small intestine surgery 2. PEG tube placement 3. Ileostomy 4. Anorexia 5. Bipolar Type I 6. Kidney stones 7. UTI 8. Recurrent hypokalemia with cardiac arrest 9. Severe malnutrition Social History: Current smoker. Fiance at bedside. Lives in [place]. Smoking Status: Current every day smoker Physical Exam: General Appearance: Cachectic, alert Eyes: Pupils equal and round, no conjunctival pallor or injection ENT, Mouth: Mucous membranes moist Neck: Normal inspection Respiratory: Lungs are clear to auscultation Cardiovascular: Regular rate and rhythm Gastrointestinal: Lower abdominal tenderness. Abdomen is soft. Neurological: A&O, nonfocal, normal gait Skin: Erythema on sacrum, no open wound. Warm and dry Extremities: Nontender, no pedal edema Psychiatric: Mood and affect normal Constitutional: Initial Vital Signs Temperature (C) 36 C 04/22/17 13:03 Heart Rate 89 04/22/17 13:03 Respiratory Rate 96 H 04/22/17 13:03 Blood Pressure 78/62 L 04/22/17 13:03 O2 Delivery Mode Room Air Allergies/Adverse Reactions: amoxicillin Allergy (Intermediate, Verified 04/22/17 13:06) Abdominal Pain lamotrigine Allergy (Unknown, Verified 04/22/17 13:06) Rash Home Medications: Medication Instructions Recorded traZODone [traZODone 150MG (*)] 150 mg PO HS PRN 02/22/16 Ibuprofen [Motrin (*)] 400 mg PO BID PRN 11/28/16 Pregabalin [Lyrica 50mg (*)] 50 mg PO TID 11/28/16 SUMAtriptan [Imitrex 50 MG (*)] 50 mg PO DAILY PRN #0 tab 12/04/16 Herbals/Supplements -Info Only 1 ea PO DAILY 03/05/17 Ondansetron HCl [Zofran] 8 mg PO DAILY PRN 03/05/17 Pantoprazole Sodium [Protonix 40mg 40 mg PO DAILY 03/05/17 (*)] Acetaminophen [Tylenol 325mg (*)] 650 mg PO Q4HRS PRN tab 04/04/17 Cefpodoxime Proxetil [Vantin] 200 mg PO BID #6 tab 04/04/17 Cholestyramine/Sucrose [Questran] 4 gm PO TID #90 pkt 04/04/17 Opium Tincture 6 mg PO QID #120 udsyr 04/04/17 Potassium Cl [Klor-Con 20 meq (*)] 20 meq PO BID #60 tab 04/04/17 Sodium Bicarbonate [Na Bicarb] 1,300 mg PO TID #120 tab 04/04/17 Warfarin Sodium [Coumadin 2.5MG 2.5 mg PO DAILY AT 4PM #30 tab 04/04/17 (*)] Medical Decision Making - Diagnostics EKG Interpretation: EKG interpreted by me reveals sinus rhythm, rate 75. Biatrial abnormalities and evidence of old inferior infarct. ED Course/Re-evaluation: 46 y/o female with eating disorder and short gut syndrome presents with 7 day history of diarrhea and weakness. Clinical presentation consistent with dehydration and probable recurrent hypokalemia. Plan to establish IV. Plan for labs including CBC, BMP, liver, lipase. Multiple attempts at IV access were unsuccessful. A PICC line was ordered. In the meanwhile, the patient is up to the bathroom and is requesting a chicken sandwich. I discussed whether this patient needs to be admitted with the patient and her fiance. They feel that her electrolytes are abnormal and that she needs admission. Potassium 2.6. 16:43 PICC line procedure attempted. 17:[address] Storm, hospitalist. She accepts admission to PCU for hypokalemia, dehydration. 17:18 PICC placement unsuccessful. Discussed alternatives with patient. She refuses external jugular vein IV or central line placement. I encouraged her to stay for IV fluids and electrolyte replacement. 18:00 Patient has left AMA. She is a competent decision maker and clearly understands the risks and benefits of this decision. Differential Diagnosis: Differential diagnosis includes though it is not limited to dysrhythmia, hypoglycemia, hypertension, cholecystitis, diverticulitis, pyelonephritis, bowel perforation, small bowel obstruction. - Data Points Laboratory Results: Laboratory Results 04/22/17 15:15 04/22/17 15:15 04/22/17 04/22/17 04/22/17 15:15 15:15 15:15 WBC RBC Hgb Hct MCV MCH MCHC RDW Plt Count MPV Neut % (Auto) Lymph % (Auto) [place] % (Auto) Eos % (Auto) Baso % (Auto) Nucleat RBC Rel Count Absolute Neuts (auto) Absolute Lymphs (auto) Absolute Monos (auto) Absolute Eos (auto) Absolute Basos (auto) Absolute Nucleated RBC Immature Gran % Immature Gran # Platelet Estimate Polychromasia Microcytic Cells Spherocytes Oval Macrocytes Elliptocytes PT 13.2 SEC SEC (12.0-15.0) INR 1.01 (0.83-1.16) Sodium 133 mEq/L L mEq/L (134-144) Potassium 2.6 mEq/L L* mEq/L (3.5-5.2) Chloride 103 mEq/L mEq/L (97-110) Carbon Dioxide 12 mEq/l L mEq/l (22-31) Anion Gap 18 mEq/L H mEq/L (8-16) BUN 24 mg/dL H mg/dL (7-23) Creatinine 1.9 mg/dL H mg/dL (0.6-1.0) Estimated GFR 29 Glucose 93 mg/dL mg/dL (70-100) Calcium 9.1 mg/dL mg/dL (8.5-10.4) Magnesium 2.8 mg/dL H mg/dL (1.6-2.3) Total Bilirubin 0.3 mg/dL mg/dL (0.1-1.4) Conjugated Bilirubin 0.3 mg/dL mg/dL (0.0-0.5) Unconjugated Bilirubin 0.0 mg/dL mg/dL (0.0-1.1) AST 17 IU/L IU/L (14-46) ALT 32 IU/L IU/L (9-52) Alkaline Phosphatase 108 IU/L IU/L (38-126) Total Protein 6.3 g/dL g/dL (6.3-8.2) Albumin 3.6 g/dL g/dL (3.5-5.0) Lipase 630 IU/L H IU/L (23-300) 04/22/17 15:15 WBC 18.93 10^3/uL H 10^3/uL (3.80-9.50) RBC 4.89 10^6/uL 10^6/uL (4.18-5.33) Hgb 12.5 g/dL L g/dL (12.6-16.3) Hct 38.1 % % (38.0-47.0) MCV 77.9 fL L fL (81.5-99.8) MCH 25.6 pg L pg (27.9-34.1) MCHC 32.8 g/dL g/dL (32.4-36.7) RDW 24.5 % H % (11.5-15.2) Plt Count 314 10^3/uL 10^3/uL (150-400) MPV 8.9 fL fL (8.7-11.7) Neut % (Auto) 88.2 % H % (39.3-74.2) Lymph % (Auto) 6.3 % L % (15.0-45.0) [place] % (Auto) 4.8 % % (4.5-13.0) Eos % (Auto) 0.1 % L % (0.6-7.6) Baso % (Auto) 0.1 % L % (0.3-1.7) Nucleat RBC Rel Count 0.0 % % (0.0-0.2) Absolute Neuts (auto) 16.70 10^3/uL H 10^3/uL (1.70-6.50) Absolute Lymphs (auto) 1.20 10^3/uL 10^3/uL (1.00-3.00) Absolute Monos (auto) 0.91 10^3/uL H 10^3/uL (0.30-0.80) Absolute Eos (auto) 0.01 10^3/uL L 10^3/uL (0.03-0.40) Absolute Basos (auto) 0.02 10^3/uL 10^3/uL (0.02-0.10) Absolute Nucleated RBC 0.00 10^3/uL 10^3/uL (0-0.01) Immature Gran % 0.5 % % (0.0-1.1) Immature Gran # 0.09 10^3/uL 10^3/uL (0.00-0.10) Platelet Estimate ADEQUATE (ADEQ) Polychromasia 1+ H Microcytic Cells 2+ H Spherocytes 1+ H Oval Macrocytes 1+ H Elliptocytes 1+ H PT INR Sodium Potassium Chloride Carbon Dioxide Anion Gap BUN Creatinine Estimated GFR Glucose Calcium Magnesium Total Bilirubin Conjugated Bilirubin Unconjugated Bilirubin AST ALT Alkaline Phosphatase Total Protein Albumin Lipase Departure - Departure Disposition: Against Medical Advice Clinical Impression: Hypokalemia, Dehydration Condition: Fair Referrals: Parviz Gibson MD [Primary Care Provider] - As per Instructions Report Scribed for: Nikki Yoder Report Scribed by: Rhoda Mitchell Date of Report: 04/22/17 Time of Report: 13:13 Physician Review and Approval Statement: 04/22/17 13:13 Portions of this note were transcribed by a medical staff services manager. I personally performed a history, physical exam, medical decision making, and confirmed accuracy of information the transcribed note.
[2017-04-22] MEDS ORDERED: NS 1,000 ML IV ONE ×2 (13:13)
--- NOTE | 2017-04-22 13:27 | CPEKG ---
Heart Rate: 75 RR Interval: 800 P-R Interval: 152 QRSD Interval: 94 QT Interval: 392 QTC Interval: 438 P [place]: 79 QRS [place]: -17 T Wave [place]: 65 EKG Severity - ABNORMAL ECG - EKG Impression: SINUS RHYTHM EKG Impression: BIATRIAL ABNORMALITIES EKG Impression: INFERIOR INFARCT, OLD Electronically Signed By: Nikki Yoder 22-Apr-2017 17:29:37
--- NOTE | 2017-04-22 13:27 | CPEKG ---
Heart Rate: 75 RR Interval: 800 P-R Interval: 152 QRSD Interval: 94 QT Interval: 392 QTC Interval: 438 P [place]: 79 QRS [place]: -17 T Wave [place]: 65 EKG Severity - ABNORMAL ECG - EKG Impression: SINUS RHYTHM EKG Impression: BIATRIAL ABNORMALITIES EKG Impression: INFERIOR INFARCT, OLD Electronically Signed By: Nikki Yoder 22-Apr-2017 17:29:37
[2017-04-22 13:41] VITALS: RESP 16
[2017-04-22] MEDS ORDERED: ALTEPLASE 2 MG VIAL IVP PRN (13:44)
[2017-04-22 14:47] VITALS: BP 122/70; PULSE 86; TEMP 98.6; O2SAT 97
[2017-04-22 15:33] LABS: PLATELET COUNT 314 10^3/uL (150-400)
[2017-04-22 15:45] LABS: INR 1.01 (0.83-1.16); PROTIME(PATIENT) 13.2 SEC (12.0-15.0)
[2017-04-22] MEDS ORDERED: POTASSIUM Cl (KCl) 100 ML IV ONE (16:28)
[2017-04-22] MEDS ORDERED: ONDANSETRON DISINTEGRATING 4 MG TAB PO PRN (17:51)
[2017-04-22] MEDS ORDERED: ACETAMINOPHEN 325 MG TAB PO PRN (17:51)
[2017-04-22] MEDS ORDERED: ONDANSETRON 4 MG/2 ML VIAL IVP PRN (17:51)
[2017-04-23] MEDS ORDERED: ENOXAPARIN 30 MG/0.3 ML SYR SC SCH (09:00)
== END 2017-04-22 18:09 | disposition left against medical advice (07) ==
LOC: UNDOADMIN 17:16
DX: E86.0 Dehydration (principal); E87.6 Hypokalemia; F17.200 Nicotine dependence, unspecified, uncomplicated; Z79.01 Long term (current) use of anticoagulants
CPT/HCPCS: 93005; 99284; C1751